=== PATIENT | male | born 2000 | race Two or more races ===

== ENCOUNTER 2023-04-10 08:48 | Emergency (ER) | payer MEDICAID, SELFPAY ==
[2023-04-10] VITALS (19 sets, daily range): BP systolic 110–176; BP diastolic 70–102; PULSE 59–97; RESP 12–26; TEMP 36.9; O2SAT 86–99; BMI 32.5
--- NOTE | 2023-04-10 08:58 | ED_ITS ---
HPI - Chest Pain General Chief Complaint: Chest Pain Stated Complaint: CHEST PAIN Time Seen by Provider: 04/10/23 08:58 Source: patient Mode of arrival: walk-in Limitations: no limitations History of Present Illness HPI narrative: Patient presents to emergency department complaining of left-sided chest pain and left upper abdominal pain. States the pain started intermittently ongoing for 4 days. He was seen at [facility] had blood work and abdomen CT scan which showed some enlarged lymph nodes. Patient was diagnosed with muscle strain and given a prescription for ibuprofen 800, Lidoderm patch, and cyclobenzaprine 10 mg tablets. Patient states yesterday he placed the patch on and he removed it he was pain-free at the time. He also took ibuprofen. He has not taken the Flexeril. He states this morning the pain started again and has not let up. Pain is not related to exertion, breath, or movement. Pain is not related to any food intake. He denies any nausea, vomiting, diarrhea, or c onstipation. Denies any hematuria, dysuria. He denies any trauma.He states he has no previous diagnosis of anxiety or depression. Patient denies any feverr, chills, or cough. States she is here because the pain got bad and he was told to return to the emergency department if it got bad however he did not feel like driving back to [facility] and also he does not think that muscle strength in cause pain this bad. Pain is like a cramp in the left upper quadrant intermittently tightness.Patient does not have a history of heart disease or thrombotic embolic disease. He denies any lower extremity edema, cramping. Related Data Home Medications Medication Instructions Recorded Confirmed No Known Home Medications 04/10/23 04/10/23 Allergies Allergy/AdvReac Type Severity Reaction Status Date / Time No Known Drug Allergies Allergy Verified 04/10/23 08:59 Review of Systems ROS Status of ROS 10 or more systems reviewed and unremarkable except as noted in history and below [facility] Social History Smoking status: Never smoker Exam Narrative Exam Narrative: Nurses notes and vital signs reviewed and patient is not hypoxic. General: Nontoxic, Well-appearing and in no apparent distress. Skin: Warm, dry, no pallor noted. No Rash Head: Normocephalic, atraumatic. Neck: Supple, non-tender. Eye: Pupils are equal, round and EOMI. No scleral icterus. Ears, Nose, Mouth, and Throat: TM clear, no posterior oropharynx erythema or nasal mucosal hypertrophy, uvula is mid-line Oral mucosa is moist Cardiovascular: Regular Rate and Rhythm without murmur, gallop or rub. Respiratory: No accessory muscle use or respiratory distress. Lungs are clear to auscultation, no wheezing, rales or rhonchi Chest Wall: Rib 8 and 9 tenderness to palpation on the left lateral, no crepitance, no step-offs, no ecchymosis, no erythema, no rash. Back: No midline thoracic or lumbar vertebral tenderness. No CVA tenderness Musculoskeletal: normal ROM, no calf or popliteal tenderness, no lower ext remity edema/swelling GI: Abdomen is soft, non-distended. Normal bowel sounds. No masses appreciated. No tenderness to palpation. No rebound, guarding, or rigidity noted. Neurological: A&O x4. No cranial nerve dysfunction observed. No truncal ataxia. Moves all extremities. Sensation intact. Psychiatric: Cooperative and interactive. Normal mood and affect. Constitutional Vital Signs, click to edit/add: Last Vital Signs Temp 98.4 F 04/10/23 08:53 Pulse 85 04/10/23 11:01 Resp 23 04/10/23 11:01 BP 130/70 04/10/23 11:01 Pulse Ox 99 04/10/23 11:01 O2 Del Method Room Air 04/10/23 08:59 Course Vital Signs Vital signs: Vital Signs Temperature 98.4 F 04/10/23 08:53 Pulse Rate 74 04/10/23 08:53 Respiratory Rate 16 04/10/23 08:53 Blood Pressure 132/73 04/10/23 08:53 Pulse Oximetry 98 04/10/23 08:53 Oxygen Delivery Method Room Air 04/10/23 08:53 Temperature 98.4 F 04/10/23 08:53 Pulse Rate 85 04/10/23 11:01 Respiratory Rate 23 04/10/23 11:01 Blood Pressure 130/70 04/10/23 11:01 Pulse Oximetry 99 04/10/23 11:01 Oxygen Delivery Method Room Air 04/10/23 08:59 MDM - Chest Pain MDM Narrative Medical decision making narrative: Records from [facility] were reviewed. Patient had blood work, chest x-ray d- dimer and EKG are all unremarkable. The patient was given Toradol which slightly helped his symptoms but states the pain did not completely go away. Patient stat es she will continue to take the Motrin, Flexeril, and a Lidoderm patch at home. At this time the patient is without objective evidence of an acute process requiring hospitalization or inpatient management. The patient has remained hemodynamically stable. No additional indication for emergent studies at this time. I answered all questions. Discussed discharge instructions including standard anticipatory guidance and what should prompt a return to the emergency department, including if they get worse are not getting better or develops any new or concerning symptoms. I've given them specific time frame in which to follow-up, and who to follow-up with. The patient demonstrates understanding. Patient is nontoxic and stable for discharge with outpatient follow-up. This note was created with the assistance of a speech recognition program. Although the intention is to generate documents that actually reflects the content of the visit, no guarantees can be provided that every mistake has been identified and corrected by editing. Differential Diagnosis Differential diagnosis: Likely fracture of rib, pneumothorax, atypical chest p ain, st elevation myocardial infarction, costochondritis and chest pain Medical Records Data Attestation: I reviewed the patient's medical records. Lab Data Attestation: I reviewed the patient's lab results. Labs: Lab Results 04/10/23 Range/Units 09:39 WBC 10.8 (4.0-11.0) 10^3/uL RBC 5.17 (4.70-6.10) 10^6/uL Hgb 15.1 (14.0-18.0) g/dL Hct 42.5 (42.0-54.0) % MCV 82.2 (80.0-94.0) fL MCH 29.2 (25.9-34.0) pg MCHC 35.5 H (29.9-35.2) g/dL RDW 13.2 (11.0-15.0) % Plt Count 234 (150-450) 10^3/uL MPV 9.5 (9.5-13.5) fL Neut % (Auto) 61.7 (43.0-75.0) % Lymph % (Auto) 28.5 (20.5-60.0) % [place] % (Auto) 8.3 (1.7-12.0) % Eos % (Auto) 0.6 L (0.9-7.0) % Baso % (Auto) 0.6 (0.2-2.0) % Neut # (Auto) 6.7 H (1.4-6.5) 10^3/uL Lymph # (Auto) 3.1 (1.2-3.8) 10^3/uL [place] # (Auto) 0.9 H (0.3-0.8) 10^3/uL Eos # (Auto) 0.1 (0.0-0.7) 10^3/uL Baso # (Auto) 0.1 (0.0-0.1) 10^3/uL Abs Immat Gran (auto) 0.03 (0.00-0.03) 10^3/uL Imm/Tot Granulo (auto) 0.3 (0.0-0.5) % D-Dimer 0.20 (<=0.59) mg/L FEU Sodium 138 (136-145) mmol/L Potassium 3.4 L (3.5-5.1) mmol/L Chloride 100 (98-107) mmol/L Carbon Dioxide 29.0 (21.0-32.0) mmol/L Anion Gap 12.4 BUN 7.0 (7.0-18.0) mg/dL Creatinine 1.03 (0.70-1.30) mg/dL Est GFR ( Amer) >60 (>=60) Est GFR (Non-Af Amer) >60 (>=60) BUN/Creatinine Ratio 6.8 Glucose 91 (74-106) mg/dL Calcium 8.8 (8.5-10.1) mg/dL Total Bilirubin 0.5 (0.2-1.0) mg/dL AST 20 (15-37) U/L ALT 54 (16-63) U/L Alkaline Phosphatase 87 (46-116) U/L Troponin I High Sens 4.4 (4.0-76.1) pg/mL Total Protein 7.7 (6.4-8.2) g/dL Albumin 4.5 (3.4-5.0) g/dL Globulin 3.2 g/dL Albumin/Globulin Ratio 1.4 ECG Data Attestation: I personally reviewed and interpreted this ECG as follows: Interpretation: Sinus rhythm 74 bpm. T-wave inversion in lead 3, no acute ischemic changes. Heart Score History: Slightly/Non-Suspicious ECG: Normal Age: <45 years Risk Factors: No Risk Factors Troponin: <Normal Limit Total Heart Score Recommendations & Risks:: 0 Discharge Plan Discharge Chief Complaint: Chest Pain Clinical Impression: Atypical chest pain Patient Disposition: Home, Self-Care Time of Disposition Decision: 10:49 Condition: Good Mode of Transportation: Private Vehicle Prescriptions / Home Meds: No Action No Known Home Medications Instructions: Chest Pain (ED) Stand Alone Forms: Portal Instructions Referrals: DREAD NG APRN [Physician] - 1 week Physician,Non-Staff, MD [Primary Care Provider] - 1 week Discharge Date/Time: 04/10/23 11:10
--- NOTE | 2023-04-10 08:59 | ECG_ITS ---
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
--- NOTE | 2023-04-10 08:59 | XR_ITS ---
The [address] [address] Patient Name: JACK MATTHEWS MRN: [id number] date: 2000 Sex: M Assigned Patient Location: ER Current Patient Location: ED.MAIN Accession/Order Number: [id number] Exam Date: 04/10/2023 09:08 Report Date: 04/10/2023 09:21 At the request of: NIKKY MORTENSEN Procedure: XR chest 1V EXAM: XR chest 1V HISTORY: . cp . COMPARISON: None. TECHNIQUE: Single view of the chest FINDINGS: Heart and vascularity are unremarkable. Lungs are free of focal infiltrates. EKG leads overlie the chest. XR/XR chest 1V IMPRESSION: No acute heart or lung disease identified. Electronically authenticated by: ELLIOTT LUGO Date: 04/10/2023 09:21
[2023-04-10] MEDS: KETOROLAC TROMETHAMINE 30 MG/ML VIAL IVP (09:36)
[2023-04-10 09:55] LABS: Basophils Absolute Auto 0.1 10^3/uL (0.0-0.1); Basophils Percent Auto 0.6 % (0.2-2.0); Eosinophils Absolute Auto 0.1 10^3/uL (0.0-0.7); Eosinophils Percent Auto 0.6 % (0.9-7.0); Hematocrit 42.5 % (42.0-54.0); Hemoglobin 15.1 g/dL (14.0-18.0); Immature Granulocytes Abs Auto 0.03 10^3/uL (0.00-0.03); Immature Granulocytes Pct Auto 0.3 % (0.0-0.5); Lymphocytes Absolute Auto 3.1 10^3/uL (1.2-3.8); Lymphocytes Percent Auto 28.5 % (20.5-60.0); Mean Corpuscular HGB Conc 35.5 g/dL (29.9-35.2); Mean Corpuscular Hemoglobin 29.2 pg (25.9-34.0); Mean Corpuscular Volume 82.2 fL (80.0-94.0); Mean Platelet Volume 9.5 fL (9.5-13.5); Monocytes Absolute Auto 0.9 10^3/uL (0.3-0.8); Monocytes Percent Auto 8.3 % (1.7-12.0); Neutrophils Absolute Auto 6.7 10^3/uL (1.4-6.5); Neutrophils Percent Auto 61.7 % (43.0-75.0); Platelet Count 234 10^3/uL (150-450); Red Blood Count 5.17 10^6/uL (4.70-6.10); Red Cell Distribution Width 13.2 % (11.0-15.0); White Blood Count 10.8 10^3/uL (4.0-11.0)
[2023-04-10 10:07] LABS: Alanine Aminotransferase 54 U/L (16-63); Albumin Globulin Ratio 1.4; Albumin Level 4.5 g/dL (3.4-5.0); Alkaline Phosphatase 87 U/L (46-116); Anion Gap 12.4; Aspartate Amino Transferase 20 U/L (15-37); BUN Creatinine Ratio 6.8; Bilirubin Total 0.5 mg/dL (0.2-1.0); Calcium 8.8 mg/dL (8.5-10.1); Chloride 100 mmol/L (98-107); Estimated GFR (African America >60 (>=60); Estimated GFR (Non-African Ame >60 (>=60); Globulin 3.2 g/dL; Glucose 91 mg/dL (74-106); Potassium 3.4 mmol/L (3.5-5.1); Sodium 138 mmol/L (136-145); Total Protein 7.7 g/dL (6.4-8.2)
[2023-04-10 10:10] LABS: Troponin I High Sensitivity 4.4 pg/mL (4.0-76.1)
== END 2023-04-10 11:10 | disposition home or self-care (01) ==
PROVIDERS: Emergency Provider Emergency Medicine
DX: R07.89 Other chest pain (principal)
CPT/HCPCS: 36415; 71045; 80053; 84484; 85025; 85378; 93005; 96374; 99285

== ENCOUNTER 2023-09-18 15:16 | Emergency (ER) | payer MEDICAID, SELFPAY ==
[2023-09-18 15:21] VITALS: BP 123/81; PULSE 81; RESP 16; TEMP 36.8; O2SAT 98; BMI 30.1
--- NOTE | 2023-09-18 15:33 | ED.EXTPRO1 ---
HPI - Extremity Problem General Chief complaint: Extremity Problem, Nontraumatic Stated complaint: Lower Extremity Pain Time Seen by Provider: 09/18/23 15:16 Source: patient Mode of arrival: walk-in Limitations: no limitations History of Present Illness HPI Narrative: 23-year-old male presents to the Emergency Room with concerns of progressive right foot pain. 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 Has noted pain in the mid arch of his foot radiating up the inside of his ankle. Patient denies any injury or trauma. Denies fever or illness. patient notes he has a history of flat feet, at one time wore prominent arch supports, but has not worn them for quite some time. He denies any recent heavy activity such as running or impact. Patient notes symptoms are worse with activity and prolonged standing. Patient appears in no distress. patient states he wore a boot on the foot at one point as a child to try and correct his arches. Left foot improved, right did not at that time. MD Complaint: Reports extremity pain and joint pain Onset (ago): minute(s) Pain Consistency: Denies constant Location: Reports right Radiation: Reports other (medial ankle) Related Data Previous Rx's Medication Instructions Recorded prednisone 20 mg tablet 20 mg PO BID 5 days #10 tabs 09/18/23 Allergies Allergy/AdvReac Type Severity Reaction Status Date / Time No Known Drug Allergies Allergy Verified 09/18/23 15:21 Review of Systems ROS Constitutional Denies: fever or chills Eyes Denies: change in vision Ears, nose, mouth, and throat Denies: throat pain or neck pain Cardiovascular Denies: chest pain or palpitations Respiratory Denies: shortness of breath or cough Gastrointestinal Denies: abdominal pain, nausea or vomiting Musculoskeletal Reports: joint pain; Denies: joint swelling Integumentary/Breast Denies: rash Neurological Denies: numbness in extremities Hematologic/Lymphatic Denies: easy bruising PFSH PFSH Social History Smoking status: Never smoker Exam Narrative Exam Narrative: Vital signs reviewed and nurse's notes. The patient is not hypoxic. General: Alert, no acute distress, patient resting comfortably Skin: warm, intact, no pallor noted Head: Normocephalic, atraumatic Eye: Normal conjunctiva, no exudates Respiratory: No acute distress, lungs CTA Musculoskeletal: No evidence of deformity to the right foot or ankle, mild pes planus.. There is no swelling. There is no ecchymosis. No erythema or warmth noted. DP and PT pulses are intact 2+. Normal sensation, normal capillary refill less than 2 seconds. There is no cyanosis or mottling noted. The patient has tenderness to medial arch and dorsal aspect of the foot, pain does radiate from the medial arch along the posterior tibial tendon. Positive pain with attempted he'll rise on the right, able to double heal will rise without difficulty. No Achilles or calcaneal tenderness. The patient has no laxity with anterior drawer. The patient was able to flex and extend ankle without pain. No tenderness noted to the 5th MT, lateral ankle, knee joint or proximal fibular area. The patient has no shortening or rotation noted to the bilateral lower extremities. Neurological: alert and orient x4, normal sensory and motor observed. Psychiatric: Cooperative Constitutional Vital Signs, click to edit/add: Last Vital Signs Temp 98.3 F 09/18/23 15:21 Pulse 81 09/18/23 15:21 Resp 16 09/18/23 15:21 BP 123/81 09/18/23 15:21 Pulse Ox 98 09/18/23 15:21 O2 Del Method Room Air 09/18/23 15:21 Course Vital Signs Vital signs: Vital Signs Temperature 98.3 F 09/18/23 15:21 Pulse Rate 81 09/18/23 15:21 Respiratory Rate 16 09/18/23 15:21 Blood Pressure 123/81 09/18/23 15:21 Pulse Oximetry 98 09/18/23 15:21 Oxygen Delivery Method Room Air 09/18/23 15:21 Temperature 98.3 F 09/18/23 15:21 Pulse Rate 81 09/18/23 15:21 Respiratory Rate 16 09/18/23 15:21 Blood Pressure 123/81 09/18/23 15:21 Pulse Oximetry 98 09/18/23 15:21 Oxygen Delivery Method Room Air 09/18/23 15:21 MDM - Extremity (Nontraumatic) MDM Narrative Medical decision making narrative: discussed patient's presentation, acute on chronic symptoms. Patient wearing tennis shoes that he wears at work with minimal to no arch support. WWe discussed the need for insoles in his shoes and Stretching, patient functioning too well for boot at this time. We discussed follow-up with podiatry. An x-ray was offered today and patient declines as there was no injury or trauma. I feel stress fracture is not likely given clinical picture. no evidence of gout. We discussed location of pain and patient will try [id number] insoles, prednisone taper and Voltaren gel. He is agreeable to follow-up with podiatry clinic given his prior needs. The patient is to followup with podiatry in next 2-3 days or to return to the emergency department should any of the signs or symptoms worsen or new symptoms develop. Patient had questions answered. The patient agrees with the following Diagnosis and Treatment plan and the patient will be discharged home. Discharge Plan Discharge Chief Complaint: Extremity Problem, Nontraumatic Clinical Impression: Arch pain of right foot, Posterior tibial tendinitis of right lower extremity, Pes planus Patient Disposition: Home, Self-Care Time of Disposition Decision: 15:34 Condition: Good Mode of Transportation: Private Vehicle Prescriptions / Home Meds: New prednisone 20 mg tablet 20 mg PO BID 5 Days Qty: 10 0RF Instructions: Tendinitis (ED), Flatfoot (DC) Stand Alone Forms: Portal Instructions Referrals: Drew Perry DPM [Physician] - As soon as possible Discharge Date/Time: 09/18/23 15:44
== END 2023-09-18 15:44 | disposition home or self-care (01) ==
LOC: ER 15:38
PROVIDERS: Emergency Provider Emergency Medicine
DX: M79.671 Pain in right foot (principal); M76.821 Posterior tibial tendinitis, right leg; M21.41 Flat foot [pes planus] (acquired), right foot
CPT/HCPCS: 99283

== ENCOUNTER 2023-12-01 19:05 | Emergency (ER) | payer MEDICAID, SELFPAY ==
[2023-12-01 19:11] VITALS: BP 143/82; PULSE 91; TEMP 36.7; O2SAT 99; BMI 31.6
--- OUTSIDE RECORDS SUMMARY | 2023-12-01 19:14 | XMS_ITS | CCD ---
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 ETCHER MACHINE CARRI KIM M.D. Performed By: #### H EPATIC, BMP, CBC, LIPASE ####[address] Lipase [Enzymatic activity/v olume] in Serum or PlasmaOrdered By: Jeff Birmingham on 04-06-2023 Lipase [Catalytic activity/Vol] 20.0 U/L 11.0-82.0 [facility] Lymphocytes Auto (Bld) [#/Vo l]Ordered By: Jfef Birmingham on 04-06-2023 Lymphocytes (Bld) [#/Vol] 3.1 10*3/uL 1.00-4.8 [facility] Lymphocytes/100 WBC Auto (Bl d)Ordered By: Jeff Birmingham on 04-06-2023 Lymphocytes/100 WBC (Bld) 30.6 % . [facility] MCH Auto (RBC) [Entitic mass ]Ordered By: Jeff Birmingham on 04-06-2023 MCH (RBC) [Entitic mass] 29.0 pg 27.5-35.2 [facility] MCHC Auto (RBC) [Mass/Vol]Or dered By: Jeff Birmingham on 04-06-2023 MCHC (RBC) [Mass/Vol] 35.3 g/dL 32.5-35.6 [facility] MCV Auto (RBC) [Entitic vol] Ordered By: Jeff Birmingham on 04-06-2023 MCV (RBC) [Entitic vol] 81.9 fL 83.5-101 [facility] Monocyte distribution width [Entitic volume] in Blood by AutomatedOrdered By: Jeff Birmingham on 04-06-2023 Monocyte distribution width Auto (Bld) [Entitic vol] 15.06 % 0.00-20.00 [facility] Monocytes Auto (Bld) [#/Vol] Ordered By: Jeff Birmingham on 04-06-2023 Monocytes (Bld) [#/Vol] 1.0 10*3/uL 0.0-0.8 [facility] Monocytes/100 WBC Auto (Bld) Ordered By: Jeff Birmingham on 04-06-2023 Monocytes/100 WBC (Bld) 9.5 % . [facility] Neutrophils Auto (Bld) [#/Vo l]Ordered By: Jeff Birmingham on 04-06-2023 Neutrophils (Bld) [#/Vol] 5.9 10*3/uL 1.8-7.7 [facility] Neutrophils/100 WBC Auto (Bl d)Ordered By: Jeff Birmingham on 04-06-2023 Neutrophils/100 WBC (Bld) 57.9 % . [facility] No Panel InformationOrdered By: Jeff Birmingham on 04-06-2023 Estimated GFR (CKD-EPI) > 60.0 mL/Min [facility] Creatinine Clearance (Chem 149.34 [facility] Nucleated erythrocytes [Pres ence] in Blood by Automated countOrdered By: Jeff Birmingham on 04-06-2023 Nucleated RBC Auto Ql (Bld) 0.1 /100{WBC} 0-0.5 [facility] Platelet mean volume Auto (B ld) [Entitic vol]Ordered By: Jeff Birmingham on 04-06-2023 Platelet mean volume (Bld) [Entitic vol] 8.0 fL 6.6-10.1 [facility] Platelets Auto (Bld) [#/Vol] Ordered By: Jeff Birmingham on 04-06-2023 Platelets (Bld) [#/Vol] 198 10*3/uL 150-450 [facility] Potassium [Moles/volume] in Serum or PlasmaOrdered By: Jeff Birmingham on 04-06-2023 Potassium [Moles/Vol] 3.7 mmol/L 3.5-5.1 [facility] Protein [Mass/volume] in Ser um or PlasmaOrdered By: Jeff Birmingham on 04-06-2023 Protein [Mass/Vol] 7.2 g/dL 6.4-8.9 [facility] RBC Auto (Bld) [#/Vol]Ordere d By: Jeff Birmingham on 04-06-2023 RBC (Bld) [#/Vol] 5.14 10*6/uL 3.90-5.60 [facility] Serum or plasma albumin/glob ulin mass ratioOrdered By: Jeff Birmingham on 04-06-2023 Albumin/Globulin [Mass ratio] 1.9 {ratio} [facility] Serum or plasma anion gap de terminationOrdered By: Jeff Birmingham on 04-06-2023 Anion gap [Moles/Vol] 9.4 mmol/L 6.0-15.0 [facility] Serum or plasma non-glucuron idated bilirubin measurement (mass/volume)Ordered By: Jeff Birmingham on 04-06-2023 Bilirubin.indirect [Mass/Vol] 0.5 mg/dL [facility] Sodium [Moles/volume] in Ser um or PlasmaOrdered By: Jeff Birmingham on 04-06-2023 Sodium [Moles/Vol] 139 mmol/L 136-145 [facility] Urea nitrogen [Mass/volume] in Serum or PlasmaOrdered By: Jeff Birmingham on 04-06-2023 Urea nitrogen [Mass/Vol] 7 mg/dL 7-25 [facility] WBC Auto (Bld) [#/Vol]Ordere d By: Jeff Birmingham on 04-06-2023 WBC (Bld) [#/Vol] 10.2 10*3/uL 4.1-10.5 [facility] US venous duplex LE RTon US venous duplex LE RT [facility] [address] Ultrasound Report Signed Patient: Basilio Person MR#: [id number] : 2000 Acct:[id number] Age/Sex: 22 / M ADM Date: 02/03/23 Loc: ER Room: Type: [facility] ER Attending Dr: Ordering Provider: Katelyn Stephen APRN Date of Service: 02/03/23 US/US venous duplex LE RT: calf pain Copies to: Katelyn Stephen APRN RIGHT LOWER EXTREMITY VENOUS DUPLEX INDICATION: Right leg pain Unilateral right lower extremity venous duplex Doppler study was obtained utilizing B-mode, color- flow and spectral Doppler. FINDINGS: The right common femoral, femoral, and popliteal veins showed adequate compressibility, color-flow and augmentation. The right posterior tibial and peroneal veins were compressible, as w ell as proximal greater saphenous vein. The contralateral left common femoral vein was compressible with color-flow and augmentation. US/US venous duplex LE RT IMPRESSION: NO EVIDENCE OF DEEP VENOUS THROMBOSIS IN THE RIGHT LOWER EXTREMITY. NO SUPERFICIAL THROMBOPHLEBITIS WAS NOTED. Impression dictated by: Nehemiah Camejo M.D.02/04/2023 8:41 AM Dictation Location: [place] [address] Tech: Cee Dasilva Transcribed By: TANK 02/04/23840 Dictated By: Nehemiah Camejo MD 02/04/23840 Signed By: 02/04/23840 [facility] XR knee RT 4V*on 02-04-2023 XR knee RT 4V* [facility] [address] XRay Report Signed Patient: Basilio Person MR#: [id number] : 2000 Acct:[id number] Age/Sex: 22 / M ADM Date: 02/03/23 Loc: ER Room: Type: [facility] ER Attending Dr: Copies to: Katelyn Stephen APRN Ordering Provider: Katelyn Stephen APRN Date of Service: 02/03/23 XR/XR knee RT 4V*: Extremity Injury, Lower RIGHT KNEE - 4 views CLINICAL HISTORY: Right leg pain below the knee intermittently when ambulating. No injury. COMPARISON: 02/26/2008 TECHNIQUE: AP, lateral and both oblique views were obtained. There is no evidence of fracture or dislocation. There are no significant soft tissue abnormalities. XR/XR knee RT 4V* IMPRESSION: NO ACUTE BONY FINDINGS. Impression dictated by: Park Champagne M.D.02/04/2023 7:38 AM Dictation Location: [place] [address] Transcribed By: TANK 02/04/23 0738 Dictated By: Park Champagne MD 02/04/23 0737 Signed By: 02/04/23 0738 [facility] Activated partial thrombopla stin time (aPTT) in platelet poor plasma by coagulation aOrdered By: Venkat Palencia on 12-18-2022 aPTT Coag (PPP) [Time] 28.5 s 25.1-36.5 [facility] Alanine aminotransferase [En zymatic activity/volume] in Serum or PlasmaOrdered By: Venkat Palencia on 12-18-2022 ALT [Catalytic activity/Vol] 32 U/L 7-52 [facility] Albumin [Mass/volume] in Ser um or Plasma by Bromocresol green (BCG) dye binding methoOrdered By: Venkat Palencia on 12-18-2022 Albumin BCG dye [Mass/Vol] 4.6 g/dL 3.5-5.7 [facility] Alkaline phosphatase [Enzyma tic activity/volume] in Serum or PlasmaOrdered By: Venkat Palencia on 12-18-2022 ALP [Catalytic activity/Vol] 74 U/L 34-104 [facility] Aspartate aminotransferase [ Enzymatic activity/volume] in Serum or PlasmaOrdered By: Venkat Palencia on 12-18-2022 AST [Catalytic activity/Vol] 18 U/L 13-39 [facility] B-Type Natriuretic Peptideon 12-18-2022 Natriuretic peptide B (Bld) [Mass/Vol] 9.0 pg/mL Normal 5-100 [facility] Comment on above: Result Comment: PERF ORMED BY: [facility] [address] [place] [address] PATHOLOGIST ETCHER MACHINE CARRI KIM M.D. Performed By: #### P T, BNP, CBC, PTT, CK, DDIMER, HS TROP, CMP ####[facility] [address] [place] [address] [facility] Basophils Auto (Bld) [#/Vol] Ordered By: Venkat Palencia on 12-18-2022 Basophils (Bld) [#/Vol] 0.1 10*3/uL 0.0-0.2 [facility] Basophils/100 WBC Auto (Bld) Ordered By: Venkat Palencia on 12-18-2022 Basophils/100 WBC (Bld) 0.9 % . [facility] Bilirubin.total [Mass/volume ] in Serum or PlasmaOrdered By: Venkat Palencia on 12-18-2022 Bilirubin [Mass/Vol] 0.8 mg/dL 0.3-1.0 [facility] Calcium [Mass/volume] in Ser um or PlasmaOrdered By: Venkat Palencia on 12-18-2022 Calcium [Mass/Vol] 8.6 mg/dL 8.6-10.3 [facility] Carbon dioxide, total [Moles /volume] in Serum or PlasmaOrdered By: Venkat Palencia on 12-18-2022 CO2 [Moles/Vol] 25.9 mmol/L 21.0-31.0 [facility] Chloride [Moles/volume] in S valerie or PlasmaOrdered By: Venkat Palencia on 12-18-2022 Chloride [Moles/Vol] 109 mmol/L 98-107 [facility] Complete Blood Count Auto Di ffon 12-18-2022 Basophils (Bld) [#/Vol] 0.1 10*3/uL Normal 0.0-0.2 [facility] Comment on above: Result Comment: PERF ORMED BY: [place] [address] PATHOLOGIST ETCHER MACHINE CARRI KIM M.D. Performed By: #### P T, BNP, CBC, PTT, CK, DDIMER, HS TROP, CMP #### [address] Basophils/100 WBC (Bld) 0.9 % Normal . [facility] Comment on above: Performed By: #### P T, BNP, CBC, PTT, CK, DDIMER, HS TROP, CMP #### [address] Eosinophils (Bld) [#/Vol] 0.1 10*3/uL Normal 0.0-0.45 [facility] Comment on above: Performed By: #### P T, BNP, CBC, PTT, CK, DDIMER, HS TROP, CMP #### [address] Eosinophils/100 WBC (Bld) 0.8 % Normal . [facility] Comment on above: Performed By: #### P T, BNP, CBC, PTT, CK, DDIMER, HS TROP, CMP #### [facility] [address] [place] [address] Erythrocyte distribution width (RBC) [Ratio] 13.7 % Normal 12.0-14.8 [facility] Comment on above: Performed By: #### P T, BNP, CBC, PTT, CK, DDIMER, HS TROP, CMP #### [address] Hematocrit (Bld) [Volume fraction] 40.9 % Normal 38.8-50.0 [facility] Comment on above: Performed By: #### P T, BNP, CBC, PTT, CK, DDIMER, HS TROP, CMP #### [address] Hemoglobin (Bld) [Mass/Vol] 14.1 g/dL Normal 13.0-17.0 [facility] Comment on above: Performed By: #### P T, BNP, CBC, PTT, CK, DDIMER, HS TROP, CMP #### [address] Lymphocytes (Bld) [#/Vol] 2.2 10*3/uL Normal 1.00-4.8 [facility] Comment on above: Performed By: #### P T, BNP, CBC, PTT, CK, DDIMER, HS TROP, CMP #### [address] Lymphocytes/100 WBC (Bld) 21.2 % Normal . [facility] Comment on above: Performed By: #### P T, BNP, CBC, PTT, CK, DDIMER, HS TROP, CMP #### [address] MCH (RBC) [Entitic mass] 28.5 pg Normal 27.5-35.2 [facility] Comment on above: Performed By: #### P T, BNP, CBC, PTT, CK, DDIMER, HS TROP, CMP #### [address] MCV (RBC) [Entitic vol] 82.4 fL Low 83.5-101 [facility] Comment on above: Performed By: #### P T, BNP, CBC, PTT, CK, DDIMER, HS TROP, CMP #### [address] Mean Corpuscular HGB Conc 34.5 g/dL Normal 32.5-35.6 [facility] Comment on above: Performed By: #### P T, BNP, CBC, PTT, CK, DDIMER, HS TROP, CMP #### [place] [address] [place] Monocytes (Bld) [#/Vol] 0.9 10*3/uL High 0.0-0.8 [facility] Comment on above: Performed By: #### P T, BNP, CBC, PTT, CK, DDIMER, HS TROP, CMP #### [place] [address] [place] Monocytes/100 WBC (Bld) 15.92 % Normal 0.00-20.00 [facility] Comment on above: Performed By: #### P T, BNP, CBC, PTT, CK, DDIMER, HS TROP, CMP #### [address] Monocytes/100 WBC (Bld) 8.9 % Normal . [facility] Comment on above: Performed By: #### P T, BNP, CBC, PTT, CK, DDIMER, HS TROP, CMP #### [address] Neutrophils (Bld) [#/Vol] 7.2 10*3/uL Normal 1.8-7.7 [facility] Comment on above: Performed By: #### P T, BNP, CBC, PTT, CK, DDIMER, HS TROP, CMP #### [place] [address] [place] Neutrophils/100 WBC (Bld) 68.2 % Normal . [facility] Comment on above: Performed By: #### P T, BNP, CBC, PTT, CK, DDIMER, HS TROP, CMP #### [place] [address] [place] NRBC% 0.1 /100{WBC} Normal 0-0.5 [facility] Comment on above: Performed By: #### P T, BNP, CBC, PTT, CK, DDIMER, HS TROP, CMP #### [place] [address] [place] Platelet mean volume (Bld) [Entitic vol] 7.5 fL Normal 6.6-10.1 [facility] Comment on above: Performed By: #### P T, BNP, CBC, PTT, CK, DDIMER, HS TROP, CMP #### [facility] [address] Platelets (Bld) [#/Vol] 203 10*3/uL Normal 150-450 [facility] Comment on above: Performed By: #### P T, BNP, CBC, PTT, CK, DDIMER, HS TROP, CMP #### [facility] [address] RBC (Bld) [#/Vol] 4.97 10*6/uL Normal 3.90-5.60 [facility] Comment on above: Performed By: #### P T, BNP, CBC, PTT, CK, DDIMER, HS TROP, CMP #### [address] WBC (Bld) [#/Vol] 10.6 10*3/uL High 4.1-10.5 [facility] Comment on above: Performed By: #### P T, BNP, CBC, PTT, CK, DDIMER, HS TROP, CMP #### [facility] [address] [place] [address] Comprehensive Metabolic Pane maren 12-18-2022 Albumin [Mass/Vol] 4.6 g/dL Normal 3.5-5.7 [facility] Comment on above: Performed By: #### P T, BNP, CBC, PTT, CK, DDIMER, HS TROP, CMP ####[facility] Albumin/Globulin [Mass ratio] 2.0 {ratio} Normal [facility] Comment on above: Performed By: #### P T, BNP, CBC, PTT, CK, DDIMER, HS TROP, CMP ####[facility] ALP [Catalytic activity/Vol] 74 U/L Normal 34-104 [facility] Comment on above: Performed By: #### P T, BNP, CBC, PTT, CK, DDIMER, HS TROP, CMP ####[place] [id number] [facility] ALT [Catalytic activity/Vol] 32 U/L Normal 7-52 [facility] Comment on above: Performed By: #### P T, BNP, CBC, PTT, CK, DDIMER, HS TROP, CMP ####[place] [id number] [facility] Anion gap [Moles/Vol] 9.9 mmol/L Normal 6.0-15.0 [facility] Comment on above: Performed By: #### P T, BNP, CBC, PTT, CK, DDIMER, HS TROP, CMP ####[address] AST [Catalytic activity/Vol] 18 U/L Normal 13-39 [facility] Comment on above: Performed By: #### P T, BNP, CBC, PTT, CK, DDIMER, HS TROP, CMP ####[place] [id number] [facility] Bilirubin [Mass/Vol] 0.8 mg/dL Normal 0.3-1.0 [facility] Comment on above: Performed By: #### P T, BNP, CBC, PTT, CK, DDIMER, HS TROP, CMP ####[place] [id number] [facility] Calcium [Mass/Vol] 8.6 mg/dL Normal 8.6-10.3 [facility] Comment on above: Performed By: #### P T, BNP, CBC, PTT, CK, DDIMER, HS TROP, CMP ####[place] [id number] [facility] Chloride [Moles/Vol] 109 mmol/L High 98-107 [facility] Comment on above: Performed By: #### P T, BNP, CBC, PTT, CK, DDIMER, HS TROP, CMP ####[place] [id number] [facility] CO2 [Moles/Vol] 25.9 mmol/L Normal 21.0-31.0 [facility] Comment on above: Performed By: #### P T, BNP, CBC, PTT, CK, DDIMER, HS TROP, CMP ####[address] Creatinine [Mass/Vol] 0.89 mg/dL Normal 0.70-1.30 [facility] Comment on above: Performed By: #### P T, BNP, CBC, PTT, CK, DDIMER, HS TROP, CMP ####[address] Creatinine Clr Calc Pharmacy 151.88 [facility] Comment on above: Result Comment: PERF ORMED BY: [facility] [address] [place] [address] PATHOLOGIST ETCHER MACHINE CARRI KIM M.D. Performed By: #### P T, BNP, CBC, PTT, CK, DDIMER, HS TROP, CMP ####[address] GFR/1.73 sq M.predicted MDRD (S/P/Bld) [Vol rate/Area] mL/min/{1.73_m2} [facility] Comment on above: Performed By: #### P T, BNP, CBC, PTT, CK, DDIMER, HS TROP, CMP ####[address] Globulin (S) [Mass/Vol] 2.3 g/dL [facility] Comment on above: Performed By: #### P T, BNP, CBC, PTT, CK, DDIMER, HS TROP, CMP ####[address] Glucose [Mass/Vol] 87 mg/dL Normal 70-100 [facility] Comment on above: Result Comment: [place] Glucose Reference Range is dependent on time and content of last meal. Glucose of more than 200 mg/dL in a nonstressed, ambulatory subject supports the diagnosis of Diabetes Mellitus. ADA recommended reference range Performed By: #### P T, BNP, CBC, PTT, CK, DDIMER, HS TROP, CMP ####[place] [id number] [facility] Potassium [Moles/Vol] 3.8 mmol/L Normal 3.5-5.1 [facility] Comment on above: Performed By: #### P T, BNP, CBC, PTT, CK, DDIMER, HS TROP, CMP ####[place] [id number] [facility] Protein [Mass/Vol] 6.9 g/dL Normal 6.4-8.9 [facility] Comment on above: Performed By: #### P T, BNP, CBC, PTT, CK, DDIMER, HS TROP, CMP ####[address] Sodium [Moles/Vol] 141 mmol/L Normal 136-145 [facility] Comment on above: Performed By: #### P T, BNP, CBC, PTT, CK, DDIMER, HS TROP, CMP ####[place] [id number] [facility] Urea nitrogen [Mass/Vol] 11 mg/dL Normal 7-25 [facility] Comment on above: Performed By: #### P T, BNP, CBC, PTT, CK, DDIMER, HS TROP, CMP ####[place] [id number] [facility] Creatine Kinaseon 12-18-2022 CK [Catalytic activity/Vol] 81 U/L Normal [facility] Comment on above: Performed By: #### P T, BNP, CBC, PTT, CK, DDIMER, HS TROP, CMP ####[place] [id number] [facility] Creatine kinase [Enzymatic a ctivity/volume] in Serum or PlasmaOrdered By: Venkat Palencia on 12-18-2022 CK [Catalytic activity/Vol] 81 U/L [facility] Creatinine [Mass/volume] in Serum or PlasmaOrdered By: Venkat Palencia on 12-18-2022 Creatinine [Mass/Vol] 0.89 mg/dL 0.70-1.30 [facility] D-Dimer High Sensitivityon 0 12-18-2022 D-Dimer High Sensitivity < 200 Normal 0-243 [facility] Comment on above: Result Comment: The reference range for D-dimer is <243 ng/mL D-dimer units. D-dimer results must be used in conjunction with a clinical pretest probability (PTP) assessment model for deep vein thrombosis (DVT) and pulmonary embolism (PE). Results <230 ng/mL d-dimer units can be used as a negative predictor in patients with low or moderate probability for DVT/PE. Results above the exclusion threshold of 230 ng/ml D-dimer units for DVT/PE may indicate the need for further diagnostic testing. D-Dimer can be increased in hospitalized patients due to co-morbid conditions. PERFORMED BY: [place] [address] PATHOLOGIST ETCHER MACHINE CARRI KIM M.D. Performed By: #### P T, BNP, CBC, PTT, CK, DDIMER, HS TROP, CMP ####[address] ECG 12 lead ECGon 12-18-2022 ECG 12 lead ECG [facility] [place] [address] [place] [address] Electrocardiograph Report Signed Patient: Basilio Person MR#: [id number] : 2000 Acct:[id number] Age/Sex: 22 / M ADM Date: 12/18/22 Loc: ER Room: Type: [facility] ER Attending Dr: Ordering Provider: Venkat Palencia Jr, MD Date of Service: 12/18/22 ECG/ECG 12 lead ECG: Chest Pain Copies to: Test Reason : Blood Pressure : 145/088 mmHG Vent. Rate : 113 BPM Atrial Rate : 113 BPM P-R Int : 198 ms QRS Dur : 088 ms QT Int : 304 ms P-R-T Axes : 040 051 012 degrees QTc Int : 416 ms Sinus tachycardia Otherwise normal ECG When compared with ECG of 07-OCT-2022 21:19, No significant change was found Confirmed by VENKAT PALENCIA MD ([id number]) on 12/18/2022 4:21:16 AM Referred By: Electronically Signed By:VENKAT PALENCIA MD Transcribed By: MUS Signed By Venkat Palencia Jr, [place] 0421 Normal [facility] Eosinophils Auto (Bld) [#/Vo l]Ordered By: Venkat Palencia on 12-18-2022 Eosinophils (Bld) [#/Vol] 0.1 10*3/uL 0.0-0.45 [facility] Eosinophils/100 WBC Auto (Bl d)Ordered By: Venkat Palencia on 12-18-2022 Eosinophils/100 WBC (Bld) 0.8 % . [facility] Erythrocyte distribution wid th Auto (RBC) [Ratio]Ordered By: Venkat Palencia on 12-18-2022 Erythrocyte distribution width (RBC) [Ratio] 13.7 % 12.0-14.8 [facility] Globulin Calc (S) [Mass/Vol] Ordered By: Venkat Palencia on 12-18-2022 Globulin (S) [Mass/Vol] 2.3 g/dL [facility] Glucose [Mass/volume] in Ser um or PlasmaOrdered By: Venkat Palencia on 12-18-2022 Glucose [Mass/Vol] 87 mg/dL 70-100 [facility] Comment on above: ADA recommended refe rence rangeRandom Glucose Reference Range is dependent on time and content of last meal. Glucose of more than 200 mg/dL in a nonstressed, ambulatory subject supports the diagnosis of Diabetes Mellitus. Hematocrit Auto (Bld) [Volum e fraction]Ordered By: Venkat Palencia on 12-18-2022 Hematocrit (Bld) [Volume fraction] 40.9 % 38.8-50.0 [facility] Hemoglobin [Mass/volume] in BloodOrdered By: Venkat Palencia on 12-18-2022 Hemoglobin (Bld) [Mass/Vol] 14.1 g/dL 13.0-17.0 [facility] Laboratory - CoagulationOrde red By: Venkat Palencia on 12-18-2022 PT Coag (PPP) [Time] 12.0 s 9.0-12.9 [facility] Leukocytes [#/volume] correc ashley for nucleated erythrocytes in Blood by Automated counOrdered By: Venkat Palencia on 12-18-2022 WBC corrected for nucl RBC Auto (Bld) [#/Vol] 10.6 10*3/uL 4.1-10.5 [facility] Lymphocytes Auto (Bld) [#/Vo l]Ordered By: Venkat Palencia on 12-18-2022 Lymphocytes (Bld) [#/Vol] 2.2 10*3/uL 1.00-4.8 [facility] Lymphocytes/100 WBC Auto (Bl d)Ordered By: Venkat Palencia on 12-18-2022 Lymphocytes/100 WBC (Bld) 21.2 % . [facility] MCH Auto (RBC) [Entitic mass ]Ordered By: Venkat Palecnia on 12-18-2022 MCH (RBC) [Entitic mass] 28.5 pg 27.5-35.2 [facility] MCHC Auto (RBC) [Mass/Vol]Or dered By: Venkat Palencia on 12-18-2022 MCHC (RBC) [Mass/Vol] 34.5 g/dL 32.5-35.6 [facility] MCV Auto (RBC) [Entitic vol] Ordered By: Venkat Palencia on 12-18-2022 MCV (RBC) [Entitic vol] 82.4 fL 83.5-101 [facility] Monocyte distribution width [Entitic volume] in Blood by AutomatedOrdered By: Venkat Palencia on 12-18-2022 Monocyte distribution width Auto (Bld) [Entitic vol] 15.92 % 0.00-20.00 [facility] Monocytes Auto (Bld) [#/Vol] Ordered By: Venkat Palencia on 12-18-2022 Monocytes (Bld) [#/Vol] 0.9 10*3/uL 0.0-0.8 [facility] Monocytes/100 WBC Auto (Bld) Ordered By: Venkat Palencia on 12-18-2022 Monocytes/100 WBC (Bld) 8.9 % . [facility] Natriuretic peptide B [Mass/ Vol]Ordered By: Venkat Palencia on 12-18-2022 Natriuretic peptide B (Bld) [Mass/Vol] 9.0 pg/mL 5-100 [facility] Neutrophils Auto (Bld) [#/Vo l]Ordered By: Venkat Palencia on 12-18-2022 Neutrophils (Bld) [#/Vol] 7.2 10*3/uL 1.8-7.7 [facility] Neutrophils/100 WBC Auto (Bl d)Ordered By: Venkat Palencia on 12-18-2022 Neutrophils/100 WBC (Bld) 68.2 % . [facility] No Panel InformationOrdered By: Venkat Palencia on 12-18-2022 D-Dimer Quantitative (PE/DVT) < 200 ng/mL 0-243 [facility] Comment on above: The reference range for D-dimer is <243 ng/mL D-dimer units.D-dimer results must be used in conjunction with a clinicalpretest probability (PTP) assessment model for deep veinthrombosis (DVT) and pulmonary embolism (PE). Results <230ng/mL d-dimer units can be used as a negative predictor inpatients with low or moderate probability for DVT/PE.Results above the exclusion threshold of 230 ng/ml D-dimerunits for DVT/PE may indicate the need for furtherdiagnostic testing.D-Dimer can be increased in hospitalized patients due toco-morbid conditions. Estimated GFR (CKD-EPI) > 60.0 mL/Min [facility] Creatinine Clearance (Chem 151.88 [facility] Nucleated erythrocytes [Pres ence] in Blood by Automated countOrdered By: Venkat Palencia on 12-18-2022 Nucleated RBC Auto Ql (Bld) 0.1 /100{WBC} 0-0.5 [facility] Partial Thromboplastin Timeo n 12-18-2022 aPTT Coag (Bld) [Time] 28.5 s Normal 25.1-36.5 [facility] Comment on above: Performed By: #### P T, BNP, CBC, PTT, CK, DDIMER, HS TROP, CMP ####[facility] [address] [place] [id number] [facility] Platelet mean volume Auto (B ld) [Entitic vol]Ordered By: Venkat Palencia on 12-18-2022 Platelet mean volume (Bld) [Entitic vol] 7.5 fL 6.6-10.1 [facility] Platelet poor plasma interna tional normalized ratio (INR) by coagulation assay (relatOrdered By: Venkat Palencia on 12-18-2022 INR Coag (PPP) [Relative time] 1.0 {INR} [facility] Comment on above: INR Therapeutic Rang e A) Pre- and Peroperative OAT started two weeks before surgery. NOT HIP SURGERY: 1.5 - 2.5 HIP SURGERY: 2 - 3B) Primary and secondary prevention of venous THROMBOSIS: 2 - 3C) Active venous thrombosis, pulmonary embolismand prevention of recurrent venous thrombosis: 2 - 3D) Prevention of arterial thromboembolismincluding patients with mechanical heart valves: 3 - 4.5 Platelets Auto (Bld) [#/Vol] Ordered By: Venkat Palencia on 12-18-2022 Platelets (Bld) [#/Vol] 203 10*3/uL 150-450 [facility] Potassium [Moles/volume] in Serum or PlasmaOrdered By: Venkat Palencia on 12-18-2022 Potassium [Moles/Vol] 3.8 mmol/L 3.5-5.1 [facility] Protein [Mass/volume] in Ser um or PlasmaOrdered By: Venkat Palencia on 12-18-2022 Protein [Mass/Vol] 6.9 g/dL 6.4-8.9 [facility] Prothrombin Time INRon 12-18 INR Coag (PPP) [Relative time] 1.0 {INR} Normal [facility] Comment on above: Result Comment: INR Therapeutic Range A) Pre- and Peroperative OAT started two weeks before surgery. NOT HIP SURGERY: 1.5 - 2.5 HIP SURGERY: 2 - 3 B) Primary and secondary prevention of venous THROMBOSIS: 2 - 3 C) Active venous thrombosis, pulmonary embolism and prevention of recurrent venous thrombosis: 2 - 3 D) Prevention of arterial thromboembolism including patients with mechanical heart valves: 3 - 4.5 Performed By: #### P T, BNP, CBC, PTT, CK, DDIMER, HS TROP, CMP #### [facility] [address] PT Coag (PPP) [Time] 12.0 s Normal 9.0-12.9 [facility] Comment on above: Performed By: #### P T, BNP, CBC, PTT, CK, DDIMER, HS TROP, CMP #### [facility] [address] RBC Auto (Bld) [#/Vol]Ordere d By: Venkat Palencia on 12-18-2022 RBC (Bld) [#/Vol] 4.97 10*6/uL 3.90-5.60 [facility] Serum or plasma albumin/glob ulin mass ratioOrdered By: Venkat Palencia on 12-18-2022 Albumin/Globulin [Mass ratio] 2.0 {ratio} [facility] Serum or plasma anion gap de terminationOrdered By: Venkat Palencia on 12-18-2022 Anion gap [Moles/Vol] 9.9 mmol/L 6.0-15.0 [facility] Sodium [Moles/volume] in Ser um or PlasmaOrdered By: Venkat Palencia on 12-18-2022 Sodium [Moles/Vol] 141 mmol/L 136-145 [facility] Troponin I High Sensitivityo n 12-18-2022 Troponin I High Sensitivity 2.5 pg/mL Normal 0.0-20.0 [facility] Comment on above: Result Comment: PERF ORMED BY: [facility] [address] [place] [address] PATHOLOGIST ETCHER MACHINE CARRI KIM M.D. Performed By: #### P T, BNP, CBC, PTT, CK, DDIMER, HS TROP, CMP ####[facility] [address] Troponin I.cardiac [Mass/vol ume] in Serum or Plasma by Detection limit <= 0.01 ng/Ordered By: Venkat Palencia on 12-18-2022 Troponin I.cardiac DL <= 0.01 ng/mL [Mass/Vol] 2.5 pg/mL 0.0-20.0 [facility] Urea nitrogen [Mass/volume] in Serum or PlasmaOrdered By: Venkat Palencia on 12-18-2022 Urea nitrogen [Mass/Vol] 11 mg/dL 7-25 [facility] WBC Auto (Bld) [#/Vol]Ordere d By: Venkat Palencia on 12-18-2022 WBC (Bld) [#/Vol] 10.6 10*3/uL 4.1-10.5 [facility] XR chest 1V portableon 12-18 XR chest 1V portable [facility] [address] [place] [id number] XRay Report Signed Patient: Basilio Person MR#: [id number] : 2000 Acct:[id number] Age/Sex: 22 / M ADM Date: 12/18/22 Loc: ER Room: Type: [facility] ER Attending Dr: Copies to: Venkat Palencia Jr, MD Ordering Provider: Venkat Palencia Jr, MD Date of Service: 12/18/22 XR/XR chest 1V portable: Chest Pain XR chest 1V portable 12/18/2022 3:35 AM SIGNS AND SYMPTOMS: Left-sided chest and rib pain PROTOCOL: Frontal radiograph of the chest COMPARISON: 10/07/2022 FINDINGS: The trachea is midline. The heart and mediastinal structures are within normal limits. The lung parenchyma is clear. The bony thorax is intact. XR/XR chest 1V portable IMPRESSION: No acute cardiopulmonary pathology. Impression dictated by: Eagle Woodard M.D.12/18/2022 9:45 AM Dictation Location: [place] [address] Transcribed By: [facility] 12/18/22 0945 Dictated By: Eagle Woodard II, MD 12/18/22 0945 Signed By: 12/18/22 0945 [facility] Quick Strepon 10-24-2022 Quick Strep Streptococcus pyogen es Ag [Presence] in Throat by Rapid immunoassay Negative for Group A Strep Antigen Note 1 NOTE 2 Results are those of a screening test. NOTE 3 If clinically indicated please order a culture. NOTE 4 NOTE 5 Reference range = Negative PERFORMED BY: [place] [address] PATHOLOGIST ETCHER MACHINE CARRI KIM M.D. [facility] Comment on above: Performed By: #### Q S #### [address] RPR w/rfx to Quant TP Abson 10-24-2022 RPR, Rfx Quant RPR Non-Reactive Normal Non Reactive [facility] Comment on above: Result Comment: Perf ormed at: CB - [facility] [address] [id number] Budget Record Clerk: Morales Escamilla PhD, Phone: [phone] PERFORMED BY: [place] [address] PATHOLOGIST ETCHER MACHINE CARRI KIM M.D. Performed By: #### R IA W RFX ####[facility] , [facility] [Presence] in Seru m by RPROrdered By: Andrzej Bell on 10-24-2022 [facility] RPR Ql (S) Non-Reactive Non Reactive [facility] Comment on above: Performed at: CB - [facility] [address] [id number] Director: Morales Escamilla PhD, Phone: [phone] Streptococcus pyogenes antig en detectionOrdered By: Andrzej Bell on 10-24-2022 S. pyogenes Ag Ql (Unsp spec) [facility] S. pyogenes Ag Ql (Unsp spec) [facility] XR chest 1V portableon 10-08 XR chest 1V portable [facility] [place] [address] XRay Report Signed Patient: Basilio Person MR#: [id number] : 2000 Acct:[id number] Age/Sex: 22 / M ADM Date: 10/07/22 Loc: ER Room: Type: [facility] ER Attending Dr: Copies to: Suresh Ospina MD Ordering Provider: Suresh Ospina MD Date of Service: 10/07/22 XR/XR chest 1V portable: Shortness of Breath/Dyspnea Plain film chestsingle view HISTORY:Lightheaded. Dizziness. COMPARISON:None FINDINGS: The cardiac, mediastinal and hilar silhouettes are within normal limits. No acute lung process, pleural effusion or pneumothorax identified. Bony structures are intact. XR/XR chest 1V portable IMPRESSION: No acute process. Impression dictated by: Nehemiah Aguilar M.D.10/08/2022 7:49 AM Dictation Location: [facility]- Transcribed By: TANK 10/08/2249 Dictated By: Nehemiah Aguilar DO 10/08/2249 Signed By: 10/08/22 0749 [facility] XR soft tissue neckon 2022 XR soft tissue neck [facility] Main [place] [id number] XRay Report Signed Patient: Basilio Person MR#: [id number] : 2000 Acct:[id number] Age/Sex: 22 / M ADM Date: 10/07/22 Loc: ER Room: Type: [facility] ER Attending Dr: Copies to: Suresh Ospina MD Ordering Provider: Suresh Ospina MD Date of Service: 10/07/22 XR/XR soft tissue neck: Shortness of Breath/Dyspnea Lateral soft tissues of the neck HISTORY: Dizziness. Neck swelling The epiglottis and aryepiglottic folds are normal. Nasopharynx, oropharynx and hypopharynx are patent. No prevertebral or other soft tissue swelling identified. No subcutaneous air seen. Bony structures are intact. XR/XR soft tissue neck IMPRESSION: Unremarkable lateral soft tissue of the neck. Impression dictated by: Nehemiah Aguilar M.D.10/08/2022 7:49 AM Dictation Location: [facility]- Transcribed By: TANK 10/08/22 0749 Dictated By: Nehemiah Aguilar DO 10/08/22 0748 Signed By: 10/08/22 0749 [facility] ECG 12 lead ECGon 10-07-2022 ECG 12 lead ECG [address] [address] Electrocardiograph Report Signed Patient: Basilio Person MR#: [id number] : 2000 Acct:[id number] Age/Sex: 22 / M ADM Date: 10/07/22 Loc: ER Room: Type: [facility] ER Attending Dr: Ordering Provider: Suresh Ospina MD Date of Service: 10/07/2210/28/2124 ECG/ECG 12 lead ECG: Shortness of Breath/Dyspnea Copies to: Test Reason : Blood Pressure : / mmHG Vent. Rate : 083 BPM Atrial Rate : 083 BPM P-R Int : 180 ms QRS Dur : 090 ms QT Int : 336 ms P-R-T Axes : 044 051 008 degrees QTc Int : 394 ms Sinus rhythm with marked sinus arrhythmia Otherwise normal ECG No previous ECGs available Confirmed by SURESH OSPINA MD ([id number]) on 10/08/2022 1:24:47 AM Referred By: Electronically Signed By:SURESH OSPINA MD Transcribed By: MUS Signed By Suresh Ospina MD 10/08/22123 [facility] XR knee LT 4V*on 09-02-2022 XR knee LT 4V* [facility] [place] [address] XRay Report Signed Patient: Basilio Person MR#: [id number] : 2000 Acct:[id number] Age/Sex: 21 / M ADM Date: 09/02/22 Loc: ER Room: Type: [facility] ER Attending Dr: Copies to: Andrzej Bell APRN Ordering Provider: Andrzej Bell APRN Date of Service: 09/02/22 XR/XR knee LT 4V*: Extremity Injury, Lower 4 views LEFT knee plain film COMPARISON:01/22/21 HISTORY:Fell last night. Posterior LEFT knee pain. No fracture, dislocation or focal soft tissue abnormality seen.No joint effusion identified. XR/XR knee LT 4V* IMPRESSION:No acute findings Impression dictated by: Nehemiah Aguilar M.D.09/02/2022 5:15 PM Dictation Location: [place] [address] Transcribed By: [facility] 09/02/221714 Dictated By: Nehemiah Aguilar DO 09/02/221713 Signed By: 09/02/221714 [facility] Vital Signs Date Time Vital Sign Value Performing Clinician Faci lity 04-06-2023 07:00-0400 Diastolic blood pressure 68 mm[Hg] [facility] Work Phone: [facility] 04-06-2023 07:00-0400 Heart rate 77 /min [facility] Work Phone: [facility] 04-06-2023 07:00-0400 Respiratory rate 18 /min [facility] Work Phone: [facility] 04-06-2023 07:00-0400 SaO2% (BldA) [Mass fraction] 97 % [facility] Work Phone: [facility] 04-06-2023 07:00-0400 Systolic blood pressure 117 mm[Hg] [facility] Work Phone: [facility] 04-06-2023 05:26-0400 Body height 177.8 cm [facility] Work Phone: [facility] 04-06-2023 05:26-0400 Body temperature 98.6 [degF] [facility] Work Phone: [facility] 04-06-2023 05:26-0400 Body weight 97.8 kg [facility] Work Phone: [facility] 02-03-2023 20:47-0400 Body height 177.8 cm [facility] Work Phone: [facility] 02-03-2023 20:47-0400 Body temperature 98 [degF] [facility] Work Phone: [facility] 02-03-2023 20:47-0400 Body weight 95.7 kg [facility] Work Phone: [facility] 02-03-2023 20:47-0400 Diastolic blood pressure 77 mm[Hg] [facility] Work Phone: [facility] 02-03-2023 20:47-0400 Heart rate 87 /min [facility] Work Phone: [facility] 02-03-2023 20:47-0400 Respiratory rate 20 /min [facility] Work Phone: [facility] 02-03-2023 20:47-0400 SaO2% (BldA) [Mass fraction] 100 % [facility] Work Phone: [facility] 02-03-2023 20:47-0400 Systolic blood pressure 138 mm[Hg] [facility] Work Phone: [facility] 12-18-2022 03:46-0400 Heart rate 108 /min [facility] Work Phone: [facility] 12-18-2022 03:46-0400 Respiratory rate 18 /min [facility] Work Phone: [facility] 12-18-2022 03:46-0400 SaO2% (BldA) [Mass fraction] 99 % [facility] Work Phone: [facility] 12-18-2022 03:24-0400 Body height 177.8 cm [facility] Work Phone: [facility] 12-18-2022 03:24-0400 Body temperature 97.9 [degF] [facility] Work Phone: [facility] 12-18-2022 03:24-0400 Body weight 96.7 kg [facility] Work Phone: [facility] 12-18-2022 03:24-0400 Diastolic blood pressure 88 mm[Hg] [facility] Work Phone: [facility] 12-18-2022 03:24-0400 Systolic blood pressure 145 mm[Hg] [facility] Work Phone: [facility] 10-24-2022 12:21-0500 Body height 179.07 cm [facility] Work Phone: [facility] 10-24-2022 12:21-0500 Body temperature 98.7 [degF] [facility] Work Phone: [facility] 10-24-2022 12:21-0500 Body weight 98 kg [facility] Work Phone: [facility] 10-24-2022 12:21-0500 Diastolic blood pressure 64 mm[Hg] [facility] Work Phone: [facility] 10-24-2022 12:21-0500 Heart rate 81 /min [facility] Work Phone: [facility] 10-24-2022 12:21-0500 Respiratory rate 18 /min [facility] Work Phone: [facility] 10-24-2022 12:21-0500 SaO2% (BldA) [Mass fraction] 98 % [facility] Work Phone: [facility] 10-24-2022 12:21-0500 Systolic blood pressure 124 mm[Hg] [facility] Work Phone: [facility] 10-07-2022 21:20-0500 Body height 177.8 cm [facility] Work Phone: [facility] 10-07-2022 21:20-0500 Body temperature 98.4 [degF] [facility] Work Phone: [facility] 10-07-2022 21:20-0500 Body weight 100.35 kg [facility] Work Phone: [facility] 10-07-2022 21:20-0500 Diastolic blood pressure 87 mm[Hg] [facility] Work Phone: [facility] 10-07-2022 21:20-0500 Heart rate 90 /min [facility] Work Phone: [facility] 10-07-2022 21:20-0500 Respiratory rate 20 /min [facility] Work Phone: [facility] 10-07-2022 21:20-0500 SaO2% (BldA) [Mass fraction] 100 % [facility] Work Phone: [facility] 10-07-2022 21:20-0500 Systolic blood pressure 148 mm[Hg] [facility] Work Phone: [facility] 09-02-2022 15:47-0500 Body height 179.07 cm [facility] Work Phone: [facility] 09-02-2022 15:47-0500 Body temperature 98.1 [degF] [facility] Work Phone: [facility] 09-02-2022 15:47-0500 Body weight 98.95 kg [facility] Work Phone: [facility] 09-02-2022 15:47-0500 Diastolic blood pressure 77 mm[Hg] [facility] Work Phone: [facility] 09-02-2022 15:47-0500 Heart rate 74 /min [facility] Work Phone: [facility] 09-02-2022 15:47-0500 Respiratory rate 18 /min [facility] Work Phone: [facility] 09-02-2022 15:47-0500 SaO2% (BldA) [Mass fraction] 100 % [facility] Work Phone: [facility] 09-02-2022 15:47-0500 Systolic blood pressure 137 mm[Hg] [facility] Work Phone: [facility] Encounters Encounter Date Encounter Type Care Provider Facility Start: 04-06-2023 End: 04-06-2023 Emergency department patient visit Jeff Birmingham Facility:[facility] Start: 04-06-2023 End: 04-06-2023 Emergency department patient visit [facility] Work Phone: [facility] Work Phone: Start: 02-03-2023 End: 02-04-2023 Emergency department patient visit Katelyn Stephen Facility:[facility] Start: 02-03-2023 End: 02-03-2023 Emergency department [facility] visit [facility] Work Phone: [facility] Work Phone: Start: 12-18-2022 End: 12-18-2022 Emergency department patient visit Venkat Palencia Jr Facility:[facility] Start: 12-18-2022 End: 12-18-2022 Emergency department patient visit Services [facility] Work Phone: [facility] Work Phone: Start: 10-24-2022 End: 10-24-2022 Emergency department patient visit [facility] Facility:[facility] Start: 10-24-2022 End: 10-24-2022 Emergency department patient visit Services [facility] Work Phone: [facility] Work Phone: Start: 10-07-2022 End: 10-08-2022 Emergency department patient visit [facility] Facility:[facility] Start: 10-07-2022 End: 10-07-2022 Emergency department patient visit [facility] Work Phone: [facility] Work Phone: Start: 09-02-2022 End: 09-02-2022 Emergency department patient visit Services [facility] Start: 09-02-2022 End: 09-02-2022 Emergency department patient visit [facility] Work Phone: [facility] Work Phone: Procedures Date Procedure Procedure Detail Performing Clinician Start: 02-03-2023 Duplex scan of lower limb veins [facility] Work Phone: Start: 02-03-2023 X-ray of right knee [facility] Work Phone: Start: 12-18-2022 Plain chest X-ray [facility] Work Phone: Start: 10-24-2022 Streptococcus pyogenes antigen assay [facility] Phone: Start: 10-07-2022 Plain chest X-ray [facility] Work Phone: Start: 10-07-2022 X-ray of soft tissue of neck [facility] [employer] Phone: Start: 09-02-2022 Radiologic examination of knee [facility] [employer] [facility] Phone: History of appendectomy Status p ost appendectomy [facility] Phone: Plan of Treatment Date Care Activity Detail Author Start: 04-06-2023 Computed tomography of abdomen and pelvis with contrast CT abdomen pelvis w con [facility] Start: 04-06-2023 CT Abdomen and Pelvi s W contrast IV [facility] Start: 02-03-2023 Duplex scan of lower limb veins US venous duplex LE RT [facility] Start: 02-03-2023 US Lower extremity v ein - right [facility] Start: 02-03-2023 X-ray of right knee XR knee RT 4V* F [facility] Start: 02-03-2023 XR Knee - right 4 Views [facility] Start: 12-18-2022 Plain [facility] Start: 12-18-2022 XR Chest Single view [facility] Start: 10-24-2022 [facility] Start: 10-07-2022 Plain chest X-ray XR chest 1V [facility] Start: 10-07-2022 X-ray of soft tissue of neck XR soft tissue neck [facility] Start: 10-07-2022 XR Chest Single view [facility] Start: 10-07-2022 XR Neck Views [facility] Patient Education [facility] Work Phone: Patient referral [facility] Work Phone: [facility] [Presence] in Serum by RPR [facility] Payers Date Payer Category Payer Medicaid [id number] 2022 Self-pay [id number] Medicaid [employer] [id number] Unknown Regular Auto/Liability [id number] Unknown [id number] Unknown [id number] Unknown [id number] Unknown [id number] Unknown [id number] Unknown [id number] Worker's Compensation [id number] Social History Date Type Detail Facility Start: 09-02-2022 End: 04-06-2023 Tobacco smoking status NHIS Never smoked tobacco (finding) [facility] Start: 2000 Sex Assigned At Male F [facility] Evaluation note Note Date & Type Note Facility Evaluation note No assessment information availa ble [facility] Work Phone: Hospital Discharge instructions Note Date & Type Note Facility Hospital Discharge instructions Additional Instructions Return if symptoms are worse [facility] Work Phone: Hospital Discharge instructions Note Date & Type Note Facility Hospital Discharge instructions Additional Instructions Ice and elevate Tylenol or Naprosyn if needed for pain Follow-up with your PCP or Ortho Return here if any problems persist or worsen [facility] Work Phone: Chief Complaint and Reason for Visit Chief Complaint L knee injury [facility] Chief Complaint L knee injury [facility] DIF breathing/ throat swelling Chief Complaint L knee injury [facility] DIF breathing/ throat swelling rash both hands Chief Complaint DIF breathing/ throa t swelling rash both hands Chest Pain Chief Complaint Chest Pain R leg pain NKI Chief Complaint R leg pain NKI left side chest pain Family History No Family History Records Found Relationship Condition Age at Onset Recorded Date/T ashley Not Specified Heart murmur Unknown Malignant neoplasm of cervix Unknown Advance Directives No Advanced Directives Records Found Advance Directive Response Recorded Date/ Time Advance Directives No November 06 6:04pm Advance Directive Response Recorded Date/ Time Advance Directives No November 06 7:04pm Summary Purpose Additional Source Comments Care Teams (unrecognized sec tion and content) Team Status: Inactive Member Role Status Dates [facility] Primary Care Provider Active Jeff Mast , DO Family Provider Active Andrzej Bell APRN Emergency Provider Active Team Status: Active Member Role Status Dates Jeff Mast , DO Family Provider Active Services [facility] Primary Care Provider Active Team Status: Inactive Member Role Status Dates Services [facility] Primary Care Provider Active Jeff Mast , DO Family Provider Active uSresh Ospina MD Emergency Provider Active Team Status: Inactive Member Role Status Dates Services [facility] Primary Care Provider Active Jeff Mast , DO Family Provider Active Venkat Palencia Jr, MD Emergency Provider Active Team Status: Inactive Member Role Status Dates Services [facility] Primary Care Provider Active Jeff Mast , DO Family Provider Active Katelyn Stephen APRN Emergency Provider Active Team Status: Inactive Member Role Status Dates Services [facility] Primary Care Provider Active Jeff Mast , DO Family Provider Active Fredi Coker MD RES Active Jeff Birmingham , DO Emergency Provider Active Goals (unrecognized section and content) Goals may be documented in a n alternate sectionGoals may be documented in an alternate sectionGoals may be documented in an alternate sectionGoals may be documented in an alternate sectionGoals may be documented in an alternate sectionGoals may be documented in an alternate section (unrecognized sect ion and content) No Status Records Found INFORMATION SOURCE (unrecogn ized section and content) DATE CREATED AUTHOR 04/18/2023 [facility] FOR RECORDS PERTAINING TO PATIENTS WHO ARE OR HAVE BEEN ENROLLED IN A CHEMICAL DEPENDENCY/SUBSTANCEABUSE PROGRAM, SOME INFORMATION MAY BE OMITTED. This clinical summary was aggregated from multiple sources. Caution should be exercised in using it in the provision of clinical care. This summary normalizes information from multiple sources, and as a consequence, information in this document may materially change the coding, format and clinical context of patient data. In addition, data may be omitted in some cases. CLINICAL DECISIONS SHOULD BE BASED ON THE PRIMARY CLINICAL RECORDS. [employer] [facility]. provides no warranty or guarantee of the accuracy or completeness of information in this document.
--- NOTE | 2023-12-01 19:17 | ED_ITS ---
HPI - URI/Sore Throat General Chief Complaint: Upper Respiratory Infection Stated Complaint: SORE THROAT Time Seen by Provider: 12/01/23 19:14 Source: patient Limitations: no limitations History of Present Illness HPI Narrative: 23 year old male presents to the ED for a sore throat, fever. Onset was 2-3 day ago. Denies congestion, ear pain, SOB, cough, difficulty swallowing. Denies N/V/D. He took Motrin at 0700 this morning. Related Data Home Medications ?Medication ?Instructions ?Recorded ?Confirmed No Known Home Medications 12/01/23 12/01/23 Allergies Allergy/AdvReac Type Severity Reaction Status Date / Time No Known Drug Allergies Allergy Verified 09/18/23 15:21 Review of Systems 2 ROS Constitutional Reports: fever; Denies: chills Ears, nose, mouth, and throat Reports: throat pain; Denies: neck pain, throat swelling, difficulty swallowing, hoarseness, ear pain, ear discharge, nasal discharge or nasal congestion Cardiovascular Denies: chest pain Respiratory Denies: shortness of breath or cough Gastrointestinal Denies: abdominal pain, nausea, vomiting or diarrhea Integumentary/Breast Denies: rash Neurological Denies: headache PFSH PFSH Social History Smoking status: Never smoker Exam Constitutional Vital Signs, click to edit/add: Last Vital Signs Temp 98.1 F 12/01/23 19:11 Pulse 91 H 12/01/23 19:11 Resp 16 12/01/23 19:11 BP 143/82 H 12/01/23 19:11 Pulse Ox 99 12/01/23 19:20 O2 Del Method Room Air 12/01/23 19:20 Common normals: no apparent distress and oriented x3 General appearance: cooperative HENMT Common normals: normocephalic Nose: external nose normal; nasal discharge and no nasal discharge External ear: external ears normal Mouth: oral and palatal mucosa normal, lip normal and tongue normal Throat: uvula midline and posterior oropharynx abnormal erythema; no edema and no exudates Eye Common normals: conjunctivae normal and no scleral icterus Neck & C-Spine Common normals: supple Chest Chest: symmetrical chest wall rise Respiratory Common normals: normal respiratory effort, no use of accessory muscles and clear to auscultation bilaterally Effort & inspection: symmetric chest movement Cardio Common normals: regular rate and regular rhythm Neuro Common normals: oriented x3 Sensorium/orientation: awake and alert Speech: speech normal Course Vital Signs Vital signs: Vital Signs Temperature 98.1 F 12/01/23 19:11 Pulse Rate 91 H 12/01/23 19:11 Respiratory Rate 16 12/01/23 19:11 Blood Pressure 143/82 H 12/01/23 19:11 Pulse Oximetry 99 12/01/23 19:11 Oxygen Delivery Method Room Air 12/01/23 19:11 Temperature 98.1 F 12/01/23 19:11 Pulse Rate 91 H 12/01/23 19:11 Respiratory Rate 16 12/01/23 19:11 Blood Pressure 143/82 H 12/01/23 19:11 Pulse Oximetry 99 12/01/23 19:20 Oxygen Delivery Method Room Air 12/01/23 19:20 MDM - URI/Sore Throat MDM Narrative Medical decision making narrative: Strep screen was negative. Pt declined Covid-19 and influenza testing today Follow up with pcp for a recheck, further evaluation and treatment. Return precautions were discussed. Differential Diagnosis Differential diagnosis: Likely upper respiratory infection, viral infection, pharyngitis and other (Strep pharyngitis) Medical Records Attestation: I reviewed the patient's medical records. Lab Data Attestation: I reviewed the patient's lab results. Labs: Lab Results 12/01/23 Range/Units 19:15 Streptococcus Screen Negative Discharge Plan Discharge Stand Alone Forms: Portal Instructions Chief Complaint: Upper Respiratory Infection Clinical Impression: Pharyngitis Patient Disposition: Home, Self-Care Time of Disposition Decision: 19:34 Condition: Good Mode of Transportation: Private Vehicle Prescriptions / Home Meds: No Action No Known Home Medications Print Language: [place] Citizen Instructions: Pharyngitis (ED), Fever in Adults (ED) Referrals: Physician,Non-Staff, [Physician] - 1 week Discharge Date/Time: 12/01/23 19:45
[2023-12-01 19:20] VITALS: O2SAT 99
[2023-12-01 19:29] LABS: Internal Control Within Normal Limits; Strep A Antigen Screen Negative
== END 2023-12-01 19:45 | disposition home or self-care (01) ==
PROVIDERS: Nurse Practitioner Family; Emergency Provider Emergency Medicine
DX: J02.9 Acute pharyngitis, unspecified (principal)
CPT/HCPCS: 87070; 87880; 99283

== ENCOUNTER 2024-04-06 00:13 | Emergency (ER) | payer OTHER, SELFPAY ==
[2024-04-06 00:17] VITALS: BP 159/94; PULSE 90; TEMP 36.7; O2SAT 98; BMI 31.6
--- OUTSIDE RECORDS SUMMARY | 2024-04-06 00:24 | XMS_ITS | CCD ---
Author Organization [facility] Care Team Providers Care Executive Manager Name Role Phone [facility], Services Primary Care Provider JOSE A Bell Emergency Provider MD Suresh Ospina Emergency Provider [phone] [facility], Services Primary Care Provider MD Suresh Ospina Emergency Provider JOSE A Bell Emergency Provider [phone] MD Venkat Palencia Jr Emergency Provider [facility], Services Primary Care Provider JOSE A Stephen Emergency Provider [facility], Services Primary Care Provider DO Jeff Birmingham Emergency Provider [phone] Katelyn Stephen Admitting Unavailable Katelyn Stephen Attending Unavailable [facility], Services Primary Care Unavaila Jeff Larson Admitting Unavailable Jeff Birmingham Attending Unavailable [facility], Services Primary Care Unavaila ble [facility], Services Primary Care Unavaila Andrzej Antunez Admitting Unavailable Andrzej Bell Attending Unavailable [facility], Services Primary Care Unavaila ble Suresh Ospina Admitting Unavailable Suresh Ospina Attending Unavailable [facility], Services Primary Care Unavaila Andrzej Antunez Admitting Unavailable Andrzej Bell Attending Unavailable Venkat Palencia Jr Admitting Unavailable Venkat Palencia Jr Attending Unavailable [facility], Services Primary Care Unavaila ble Allergies Allergy Classification Reported Allergen(s) Allergy Type Date of Onset Reaction(s) Facility (6 sources) insect venom; Translations: [insect venom] Allergy to substance 10-07-2022 [facility] Medications Current Medications Medication Drug Class(es) [...] 800 MG PO Q6H April 13, 2021 12:00am April 28, 2021 5:25pm Start: 02-16-2020 End: 06-23-2020 [...] hours Ibuprofen Discontinued 800 MG PO Q8H 15 December 28, 2019 12:00am February 04, 2020 [...] painful area for up to 12 hrs [place] (No Known Home Meds) (1 source) Start: 10-07-2022 [place] (No Known Home Meds) Active October 07, [...] V Potassium Discontinued 500 MG PO Q6H 01 04December 28, 2019 12:00am February 04, 2020 8:30pm [...] 04-06-2023 ALT [Catalytic activity/Vol] 44 U/L 7-52 [facility] Albumin [Mass/volume] in Ser um or Plasma by Bromocresol green (BCG) dye binding methoOrdered By: Jeff Birmingham on 04-06-2023 Albumin BCG dye [Mass/Vol] 4.7 g/dL 3.5-5.7 [facility] Alkaline phosphatase [Enzyma tic activity/volume] in Serum or PlasmaOrdered By: Jeff Birmingham on 04-06-2023 ALP [Catalytic activity/Vol] 67 U/L 34-104 [facility] Aspartate aminotransferase [ Enzymatic activity/volume] in Serum or PlasmaOrdered By: Jeff Birmingham on 04-06-2023 AST [Catalytic activity/Vol] 25 U/L 13-39 [facility] Basic Metabolic Panelon Anion gap [Moles/Vol] 9.4 mmol/L Normal 6.0-15.0 [facility] Comment on above: Performed By: #### H EPATIC, BMP, CBC, LIPASE ####[address] Calcium [Mass/Vol] 9.5 mg/dL Normal 8.6-10.3 [facility] Comment on above: Performed By: #### H EPATIC, BMP, CBC, LIPASE ####[address] Chloride [Moles/Vol] 104 mmol/L Normal 98-107 [facility] Comment on above: Performed By: #### H EPATIC, BMP, CBC, LIPASE ####[address] CO2 [Moles/Vol] 29.3 mmol/L Normal 21.0-31.0 [facility] Comment on above: Performed By: #### H EPATIC, BMP, CBC, LIPASE ####[address] Creatinine [Mass/Vol] 0.91 mg/dL Normal 0.70-1.30 [facility] Comment on above: Performed By: #### H EPATIC, BMP, CBC, LIPASE ####[place] [id number] [facility] Creatinine Clr Calc Pharmacy 149.34 Normal [facility] Comment on above: Performed By: #### H EPATIC, BMP, CBC, LIPASE ####[address] GFR/1.73 sq M.predicted MDRD (S/P/Bld) [Vol rate/Area] mL/min/{1.73_m2} Normal [facility] Comment on above: Performed By: #### H EPATIC, BMP, CBC, LIPASE ####[facility] Glucose [Mass/Vol] 95 mg/dL Normal 70-100 [facility] Comment on above: Result Comment: [facility] Glucose Reference Range is dependent on time and content of last meal. Glucose of more than 200 mg/dL in a nonstressed, ambulatory subject supports the diagnosis of Diabetes Mellitus. ADA recommended reference range Performed By: #### H EPATIC, BMP, CBC, LIPASE ####[facility] [id number] [address] Potassium [Moles/Vol] 3.7 mmol/L Normal 3.5-5.1 [facility] Comment on above: Performed By: #### H EPATIC, BMP, CBC, LIPASE ####[address] Sodium [Moles/Vol] 139 mmol/L Normal 136-145 [facility] Comment on above: Performed By: #### H EPATIC, BMP, CBC, LIPASE ####[place] [address] [address] Urea nitrogen [Mass/Vol] 7 mg/dL Normal 7-25 [facility] Comment on above: Performed By: #### H EPATIC, BMP, CBC, LIPASE ####[facility] [id number] [place] [address] Basophils Auto (Bld) [#/Vol] Ordered By: Jeff Birmingham on 04-06-2023 Basophils (Bld) [#/Vol] 0.1 10*3/uL 0.0-0.2 [facility] Basophils/100 WBC Auto (Bld) Ordered By: Jeff Birmingham on 04-06-2023 Basophils/100 WBC (Bld) 0.9 % . [facility] Bilirubin.direct [Mass/volum e] in Serum or PlasmaOrdered By: Jeff Birmingham on 04-06-2023 Bilirubin.direct [Mass/Vol] 0.10 mg/dL 0.03-0.18 [facility] Bilirubin.total [Mass/volume ] in Serum or PlasmaOrdered By: Jeff Birmingham on 04-06-2023 Bilirubin [Mass/Vol] 0.6 mg/dL 0.3-1.0 [facility] CT abdomen pelvis w conon CT abdomen pelvis w con [facility] [place] [address] CT Scan Report Signed Patient: Basilio Person MR#: [id number] : 2000 Acct:[id number] Age/Sex: 22 / M ADM Date: 04/06/23 Loc: ER Room: Type: [facility] ER Attending Dr: Copies to: [...] splenomegaly. Impression dictated by: Gio Naidu Jr., D.O.04/06/2023 9:26 AM Dictation Location: [place] [address] Transcribed By: TANK 04/06/23925 Dictated By: Gio Naidu Jr, DO 04/06/23918 Signed By: 04/06/23925 Normal [facility] Calcium [Mass/volume] in Ser um or PlasmaOrdered By: Jeff Birmingham on 04-06-2023 Calcium [Mass/Vol] 9.5 mg/dL 8.6-10.3 [facility] Carbon dioxide, total [Moles /volume] in Serum or PlasmaOrdered By: Jeff Birmingham on 04-06-2023 CO2 [Moles/Vol] 29.3 mmol/L 21.0-31.0 [facility] Chloride [Moles/volume] in S valerie or PlasmaOrdered By: Jeff Birmingham on 04-06-2023 Chloride [Moles/Vol] 104 mmol/L 98-107 [facility] Complete Blood Count Auto Di ffon 04-06-2023 Basophils (Bld) [#/Vol] 0.1 10*3/uL Normal 0.0-0.2 [facility] Comment on above: Result Comment: PERF ORMED BY: [facility] [address] [place] [address] PATHOLOGIST T[employer]ATER CARRI KIM M.D. Performed By: #### H EPATIC, BMP, CBC, LIPASE ####[place] [address] [address] Basophils/100 WBC (Bld) 0.9 % Normal . [facility] Comment on above: Performed By: #### H EPATIC, BMP, CBC, LIPASE ####[facility] [id number] [address] Eosinophils (Bld) [#/Vol] 0.1 10*3/uL Normal 0.0-0.45 [facility] Comment on above: Performed By: #### H EPATIC, BMP, CBC, LIPASE ####[place] [address]61 [address] Eosinophils/100 WBC (Bld) 1.1 % Normal . [facility] Comment on above: Performed By: #### H EPATIC, BMP, CBC, LIPASE ####[address] Erythrocyte distribution width (RBC) [Ratio] 13.6 % Normal 12.0-14.8 [facility] Comment on above: Performed By: #### H EPATIC, BMP, CBC, LIPASE ####[address] Hematocrit (Bld) [Volume fraction] 42.1 % Normal 38.8-50.0 [facility] Comment on above: Performed By: #### H EPATIC, BMP, CBC, LIPASE ####[address] Hemoglobin (Bld) [Mass/Vol] 14.9 g/dL Normal 13.0-17.0 [facility] Comment on above: Performed By: #### H EPATIC, BMP, CBC, LIPASE ####[address] Lymphocytes (Bld) [#/Vol] 3.1 10*3/uL Normal 1.00-4.8 [facility] Comment on above: Performed By: #### H EPATIC, BMP, CBC, LIPASE ####[address] Lymphocytes/100 WBC (Bld) 30.6 % Normal . [facility] Comment on above: Performed By: #### H EPATIC, BMP, CBC, LIPASE ####[address] MCH (RBC) [Entitic mass] 29.0 pg Normal 27.5-35.2 [facility] Comment on above: Performed By: #### H EPATIC, BMP, CBC, LIPASE ####[address] MCV (RBC) [Entitic vol] 81.9 fL Low 83.5-101 [facility] Comment on above: Performed By: #### H EPATIC, BMP, CBC, LIPASE ####[address] Mean Corpuscular HGB Conc 35.3 g/dL Normal 32.5-35.6 [facility] Comment on above: Performed By: #### H EPATIC, BMP, CBC, LIPASE ####[address] Monocytes (Bld) [#/Vol] 1.0 10*3/uL High 0.0-0.8 [facility] Comment on above: Performed By: #### H EPATIC, BMP, CBC, LIPASE ####[address] Monocytes/100 WBC (Bld) 15.06 % Normal 0.00-20.00 [facility] Comment on above: Performed By: #### H EPATIC, BMP, CBC, LIPASE ####[address] Monocytes/100 WBC (Bld) 9.5 % Normal . [facility] Comment on above: Performed By: #### H EPATIC, BMP, CBC, LIPASE ####[address] Neutrophils (Bld) [#/Vol] 5.9 10*3/uL Normal 1.8-7.7 [facility] Comment on above: Performed By: #### H EPATIC, BMP, CBC, LIPASE ####[address] Neutrophils/100 WBC (Bld) 57.9 % Normal . [facility] Comment on above: Performed By: #### H EPATIC, BMP, CBC, LIPASE ####[address] NRBC% 0.1 /100{WBC} Normal 0-0.5 [facility] Comment on above: Performed By: #### H EPATIC, BMP, CBC, LIPASE ####[address] Platelet mean volume (Bld) [Entitic vol] 8.0 fL Normal 6.6-10.1 [facility] Comment on above: Performed By: #### H EPATIC, BMP, CBC, LIPASE ####[facility] [id number] Platelets (Bld) [#/Vol] 198 10*3/uL Normal 150-450 [facility] Comment on above: Performed By: #### H EPATIC, BMP, CBC, LIPASE ####[place] [address] [address] RBC (Bld) [#/Vol] 5.14 10*6/uL Normal 3.90-5.60 [facility] Comment on above: Performed By: #### H EPATIC, BMP, CBC, LIPASE ####[place] [address] [address] WBC (Bld) [#/Vol] 10.2 10*3/uL Normal 4.1-10.5 [facility] Comment on above: Performed By: #### H EPATIC, BMP, CBC, LIPASE ####[address] Creatinine [Mass/volume] in Serum or PlasmaOrdered By: Jeff Birmingham on 04-06-2023 Creatinine [Mass/Vol] 0.91 mg/dL 0.70-1.30 [facility] Eosinophils Auto (Bld) [#/Vo l]Ordered By: Jeff Birmingham on 04-06-2023 Eosinophils (Bld) [#/Vol] 0.1 10*3/uL 0.0-0.45 [facility] Eosinophils/100 WBC Auto (Bl d)Ordered By: Jeff Birmingham on 04-06-2023 Eosinophils/100 WBC (Bld) 1.1 % . [facility] Erythrocyte distribution wid th Auto (RBC) [Ratio]Ordered By: Jeff Birmingham on 04-06-2023 Erythrocyte distribution width (RBC) [Ratio] 13.6 % 12.0-14.8 [facility] Globulin Calc (S) [Mass/Vol] Ordered By: Jeff Birmingham on 04-06-2023 Globulin (S) [Mass/Vol] 2.5 g/dL [facility] Glucose [Mass/volume] in Ser um or PlasmaOrdered By: Jeff Birmingham on 04-06-2023 Glucose [Mass/Vol] 95 mg/dL 70-100 [facility] Comment on above: ADA recommended refe rence rangeRandom Glucose Reference Range is dependent on time and content of last meal. Glucose of more than 200 mg/dL in a nonstressed, ambulatory subject supports the diagnosis of Diabetes Mellitus. Hematocrit Auto (Bld) [Volum e fraction]Ordered By: Jeff Birmingham on 04-06-2023 Hematocrit (Bld) [Volume fraction] 42.1 % 38.8-50.0 [facility] Hemoglobin [Mass/volume] in BloodOrdered By: Jeff Birmingham on 04-06-2023 Hemoglobin (Bld) [Mass/Vol] 14.9 g/dL 13.0-17.0 [facility] Hepatic Panelon 04-06-2023 Albumin [Mass/Vol] 4.7 g/dL Normal 3.5-5.7 [facility] Comment on above: Performed By: #### H EPATIC, BMP, CBC, LIPASE ####[address] Albumin/Globulin [Mass ratio] 1.9 {ratio} Normal [facility] Comment on above: Performed By: #### H EPATIC, BMP, CBC, LIPASE ####[address] ALP [Catalytic activity/Vol] 67 U/L Normal 34-104 [facility] Comment on above: Performed By: #### H EPATIC, BMP, CBC, LIPASE ####[place] [id number] [facility] ALT [Catalytic activity/Vol] 44 U/L Normal 7-52 [facility] Comment on above: Performed By: #### H EPATIC, BMP, CBC, LIPASE ####[place] [id number] [facility] AST [Catalytic activity/Vol] 25 U/L Normal 13-39 [facility] Comment on above: Performed By: #### H EPATIC, BMP, CBC, LIPASE ####[address] Bilirubin [Mass/Vol] 0.6 mg/dL Normal 0.3-1.0 [facility] Comment on above: Performed By: #### H EPATIC, BMP, CBC, LIPASE ####[address] Bilirubin,Indirect 0.5 mg/dL Normal [facility] Comment on above: Performed By: #### H EPATIC, BMP, CBC, LIPASE ####[address] Bilirubin.indirect [Mass/Vol] 0.10 mg/dL Normal 0.03-0.18 [facility] Comment on above: Performed By: #### H EPATIC, BMP, CBC, LIPASE ####[address] Globulin (S) [Mass/Vol] 2.5 g/dL Normal [facility] Comment on above: Performed By: #### H EPATIC, BMP, CBC, LIPASE ####[address] Protein [Mass/Vol] 7.2 g/dL Normal 6.4-8.9 [facility] Comment on above: Performed By: #### H EPATIC, BMP, CBC, LIPASE ####[address] Leukocytes [#/volume] correc ashley for nucleated erythrocytes in Blood by Automated counOrdered By: Jeff Birmingham on 04-06-2023 WBC corrected for nucl RBC Auto (Bld) [#/Vol] 10.2 10*3/uL 4.1-10.5 [facility] Lipaseon 04-06-2023 Lipase [Catalytic activity/Vol] 20.0 U/L Normal 11.0-82.0 [facility] Comment on above: Result Comment: PERF ORMED BY: [facility] [address] [place] [address] PATHOLOGIST [employer] CAR[employer] KIM M.D. Performed By: #### H EPATIC, BMP, CBC, LIPASE ####[address] [place] [address] [facility] Lipase [Enzymatic activity/v olume] in Serum or PlasmaOrdered By: Jeff Birmingham on 04-06-2023 Lipase [Catalytic activity/Vol] 20.0 U/L 11.0-82.0 [facility] Lymphocytes Auto (Bld) [#/Vo l]Ordered By: Jeff Birmingham on 04-06-2023 Lymphocytes (Bld) [#/Vol] 3.1 10*3/uL 1.00-4.8 [facility] Lymphocytes/100 WBC Auto (Bl d)Ordered By: Jeff Birmingham on 04-06-2023 Lymphocytes/100 WBC (Bld) 30.6 % . [facility] MCH Auto (RBC) [Entitic mass ]Ordered By: Jeff Birmingham on 04-06-2023 MCH (RBC) [Entitic mass] 29.0 pg 27.5-35.2 [facility] MCHC Auto (RBC) [Mass/Vol]Or dered By: Jeff Birmingham on 04-06-2023 MCHC (RBC) [Mass/Vol] 35.3 g/dL 32.5-35.6 [facility] MCV Auto (RBC) [Entitic vol] Ordered By: Jeff Birmingham on 04-06-2023 MCV (RBC) [Entitic vol] 81.9 fL 83.5-101 [facility] Monocyte distribution width [Entitic volume] in Blood by AutomatedOrdered By: Jeff Birmingham on 04-06-2023 Monocyte distribution width Auto (Bld) [Entitic vol] 15.06 % 0.00-20.00 [facility] Monocytes Auto (Bld) [#/Vol] Ordered By: Jeff Birmingham on 04-06-2023 Monocytes (Bld) [#/Vol] 1.0 10*3/uL 0.0-0.8 [facility] Monocytes/100 WBC Auto (Bld) Ordered By: Jeff Birmingham on 04-06-2023 Monocytes/100 WBC (Bld) 9.5 % . [facility] Neutrophils Auto (Bld) [#/Vo l]Ordered By: Jeff Birmingham on 04-06-2023 Neutrophils (Bld) [#/Vol] 5.9 10*3/uL 1.8-7.7 [facility] Neutrophils/100 WBC Auto (Bl d)Ordered By: Jeff Birmingham on 04-06-2023 Neutrophils/100 WBC (Bld) 57.9 % . [facility] No Panel InformationOrdered By: Jeff Birmingham on 04-06-2023 Estimated GFR (CKD-EPI) > 60.0 mL/Min [facility] Creatinine Clearance (Chem 149.34 [facility] Nucleated erythrocytes [Pres ence] in Blood by Automated countOrdered By: Jeff Birmingham on 04-06-2023 Nucleated RBC Auto Ql (Bld) 0.1 /100{WBC} 0-0.5 [facility] Platelet mean volume Auto (B ld) [Entitic vol]Ordered By: Jeff Birmingham on 04-06-2023 Platelet mean volume (Bld) [Entitic vol] 8.0 fL 6.6-10.1 [facility] Platelets Auto (Bld) [#/Vol] Ordered By: Jeff Birmingham on 04-06-2023 Platelets (Bld) [#/Vol] 198 10*3/uL 150-450 [facility] Potassium [Moles/volume] in Serum or PlasmaOrdered By: Jeff Birmingham on 04-06-2023 Potassium [Moles/Vol] 3.7 mmol/L 3.5-5.1 [facility] Protein [Mass/volume] in Ser um or PlasmaOrdered By: Jeff Birmingham on 04-06-2023 Protein [Mass/Vol] 7.2 g/dL 6.4-8.9 [facility] RBC Auto (Bld) [#/Vol]Ordere d By: Jeff Birmingham on 04-06-2023 RBC (Bld) [#/Vol] 5.14 10*6/uL 3.90-5.60 [facility] Serum or plasma albumin/glob ulin mass ratioOrdered By: Jeff Birmingham on 04-06-2023 Albumin/Globulin [Mass ratio] 1.9 {ratio} [facility] Serum or plasma anion gap de terminationOrdered By: Jeff Birmingham on 04-06-2023 Anion gap [Moles/Vol] 9.4 mmol/L 6.0-15.0 [facility] Serum or plasma non-glucuron idated bilirubin measurement (mass/volume)Ordered By: Jeff Birmingham on 04-06-2023 Bilirubin.indirect [Mass/Vol] 0.5 mg/dL [facility] Sodium [Moles/volume] in Ser um or PlasmaOrdered By: Jeff Birmingham on 04-06-2023 Sodium [Moles/Vol] 139 mmol/L 136-145 [facility] Urea nitrogen [Mass/volume] in Serum or PlasmaOrdered By: Jeff Birmingham on 04-06-2023 Urea nitrogen [Mass/Vol] 7 mg/dL 7-25 [facility] WBC Auto (Bld) [#/Vol]Ordere d By: Jeff Birmingham on 04-06-2023 WBC (Bld) [#/Vol] 10.2 10*3/uL 4.1-10.5 [facility] US venous duplex LE RTon US venous duplex LE RT [facility] [address] Ultrasound Report Signed Patient: Basilio Person MR#: [id number] : 2000 Acct:[id number] Age/Sex: 22 / M ADM Date: 02/03/23 Loc: ER Room: Type: [facility] ER Attending Dr: Ordering Provider: [...] Nehemiah Camejo M.D.02/04/2023 8:41 AM Dictation Location: [place] [address] Tech: Cee Dasilva Transcribed By: TANK 02/04/2341 Dictated By: Nehemiah Camejo MD 02/04/23840 Signed By: 02/04/23840 [facility] XR knee RT 4V*on 02-04-2023 XR knee RT 4V* [facility] [place] [address] XRay Report Signed Patient: Basilio Person MR#: [id number] : 2000 Acct:[id number] Age/Sex: 22 / M ADM Date: 02/03/23 Loc: ER Room: Type: [facility] ER Attending Dr: Copies to: [...] Park Champagne M.D.02/04/2023 7:38 AM Dictation Location: [place] [address] Transcribed By: TANK 02/04/23 0738 Dictated By: Park Champagne MD 02/04/23 0737 Signed By: 02/04/23 0738 [facility] Activated partial thrombopla stin time (aPTT) in platelet poor plasma by coagulation aOrdered By: Venkat Palencia on 12-18-2022 aPTT Coag (PPP) [Time] 28.5 s 25.1-36.5 [facility] Alanine aminotransferase [En zymatic activity/volume] in Serum or PlasmaOrdered By: Venkat Palencia on 12-18-2022 ALT [Catalytic activity/Vol] 32 U/L 7-52 [facility] Albumin [Mass/volume] in Ser um or Plasma by Bromocresol green (BCG) dye binding methoOrdered By: Venkat Palencia on 12-18-2022 Albumin BCG dye [Mass/Vol] 4.6 g/dL 3.5-5.7 [facility] Alkaline phosphatase [Enzyma tic activity/volume] in Serum or PlasmaOrdered By: Venkat Palencia on 12-18-2022 ALP [Catalytic activity/Vol] 74 U/L 34-104 [facility] Aspartate aminotransferase [ Enzymatic activity/volume] in Serum or PlasmaOrdered By: Venkat Palencia on 12-18-2022 AST [Catalytic activity/Vol] 18 U/L 13-39 [facility] B-Type Natriuretic Peptideon 12-18-2022 Natriuretic peptide B (Bld) [Mass/Vol] 9.0 pg/mL Normal 5-100 [facility] Comment on above: Result Comment: PERF ORMED BY: [facility] [address] [facility] [place] [id number] PATHOLOGIST [employer] CAR[employer] KIM M.D. Performed By: #### P T, BNP, CBC, PTT, CK, DDIMER, HS TROP, CMP ####[facility] [id number] [place] [id number] [facility] Basophils Auto (Bld) [#/Vol] Ordered By: Venkat Palencia on 12-18-2022 Basophils (Bld) [#/Vol] 0.1 10*3/uL 0.0-0.2 [facility] Basophils/100 WBC Auto (Bld) Ordered By: Venkat Palencia on 12-18-2022 Basophils/100 WBC (Bld) 0.9 % . [facility] Bilirubin.total [Mass/volume ] in Serum or PlasmaOrdered By: Venkat Palencia on 12-18-2022 Bilirubin [Mass/Vol] 0.8 mg/dL 0.3-1.0 [facility] Calcium [Mass/volume] in Ser um or PlasmaOrdered By: Venkat Palencia on 12-18-2022 Calcium [Mass/Vol] 8.6 mg/dL 8.6-10.3 [facility] Carbon dioxide, total [Moles /volume] in Serum or PlasmaOrdered By: Venkat Palencia on 12-18-2022 CO2 [Moles/Vol] 25.9 mmol/L 21.0-31.0 [facility] Chloride [Moles/volume] in S valerie or PlasmaOrdered By: Venkat Palencia on 12-18-2022 Chloride [Moles/Vol] 109 mmol/L 98-107 [facility] Complete Blood Count Auto Di ffon 12-18-2022 Basophils (Bld) [#/Vol] 0.1 10*3/uL Normal 0.0-0.2 [facility] Comment on above: Result Comment: PERF ORMED BY: [place] [address] PATHOLOGIST T[employer] CAR[employer] KIM M.D. Performed By: #### P T, BNP, CBC, PTT, CK, DDIMER, HS TROP, CMP #### [address] Basophils/100 WBC (Bld) 0.9 % Normal . [facility] Comment on above: Performed By: #### P T, BNP, CBC, PTT, CK, DDIMER, HS TROP, CMP #### [address] Eosinophils (Bld) [#/Vol] 0.1 10*3/uL Normal 0.0-0.45 [facility] Comment on above: Performed By: #### P T, BNP, CBC, PTT, CK, DDIMER, HS TROP, CMP #### [address] Eosinophils/100 WBC (Bld) 0.8 % Normal . [facility] Comment on above: Performed By: #### P T, BNP, CBC, PTT, CK, DDIMER, HS TROP, CMP #### [address] Erythrocyte distribution width (RBC) [Ratio] 13.7 % Normal 12.0-14.8 [facility] Comment on above: Performed By: #### P T, BNP, CBC, PTT, CK, DDIMER, HS TROP, CMP #### [address] Hematocrit (Bld) [Volume fraction] 40.9 % Normal 38.8-50.0 [facility] Comment on above: Performed By: #### P T, BNP, CBC, PTT, CK, DDIMER, HS TROP, CMP #### [address] Hemoglobin (Bld) [Mass/Vol] 14.1 g/dL Normal 13.0-17.0 [facility] Comment on above: Performed By: #### P T, BNP, CBC, PTT, CK, DDIMER, HS TROP, CMP #### [address] Lymphocytes (Bld) [#/Vol] 2.2 10*3/uL Normal 1.00-4.8 [facility] Comment on above: Performed By: #### P T, BNP, CBC, PTT, CK, DDIMER, HS TROP, CMP #### [address] Lymphocytes/100 WBC (Bld) 21.2 % Normal . [facility] Comment on above: Performed By: #### P T, BNP, CBC, PTT, CK, DDIMER, HS TROP, CMP #### [address] MCH (RBC) [Entitic mass] 28.5 pg Normal 27.5-35.2 [facility] Comment on above: Performed By: #### P T, BNP, CBC, PTT, CK, DDIMER, HS TROP, CMP #### [address] MCV (RBC) [Entitic vol] 82.4 fL Low 83.5-101 [facility] Comment on above: Performed By: #### P T, BNP, CBC, PTT, CK, DDIMER, HS TROP, CMP #### [address] Mean Corpuscular HGB Conc 34.5 g/dL Normal 32.5-35.6 [facility] Comment on above: Performed By: #### P T, BNP, CBC, PTT, CK, DDIMER, HS TROP, CMP #### [place] [address] [place] Monocytes (Bld) [#/Vol] 0.9 10*3/uL High 0.0-0.8 [facility] Comment on above: Performed By: #### P T, BNP, CBC, PTT, CK, DDIMER, HS TROP, CMP #### [place] [address] [place] Monocytes/100 WBC (Bld) 15.92 % Normal 0.00-20.00 [facility] Comment on above: Performed By: #### P T, BNP, CBC, PTT, CK, DDIMER, HS TROP, CMP #### [address] Monocytes/100 WBC (Bld) 8.9 % Normal . [facility] Comment on above: Performed By: #### P T, BNP, CBC, PTT, CK, DDIMER, HS TROP, CMP #### [address] Neutrophils (Bld) [#/Vol] 7.2 10*3/uL Normal 1.8-7.7 [facility] Comment on above: Performed By: #### P T, BNP, CBC, PTT, CK, DDIMER, HS TROP, CMP #### [place], [place] [address] [place] Neutrophils/100 WBC (Bld) 68.2 % Normal . [facility] Comment on above: Performed By: #### P T, BNP, CBC, PTT, CK, DDIMER, HS TROP, CMP #### [place] [address] [place] NRBC% 0.1 /100{WBC} Normal 0-0.5 [facility] Comment on above: Performed By: #### P T, BNP, CBC, PTT, CK, DDIMER, HS TROP, CMP #### [place] [address] [place] Platelet mean volume (Bld) [Entitic vol] 7.5 fL Normal 6.6-10.1 [facility] Comment on above: Performed By: #### P T, BNP, CBC, PTT, CK, DDIMER, HS TROP, CMP #### [facility] [address] Platelets (Bld) [#/Vol] 203 10*3/uL Normal 150-450 [facility] Comment on above: Performed By: #### P T, BNP, CBC, PTT, CK, DDIMER, HS TROP, CMP #### [facility] [address] RBC (Bld) [#/Vol] 4.97 10*6/uL Normal 3.90-5.60 [facility] Comment on above: Performed By: #### P T, BNP, CBC, PTT, CK, DDIMER, HS TROP, CMP #### [address] WBC (Bld) [#/Vol] 10.6 10*3/uL High 4.1-10.5 [facility] Comment on above: Performed By: #### P T, BNP, CBC, PTT, CK, DDIMER, HS TROP, CMP #### [facility] [address] [place] [address] Comprehensive Metabolic Pane maren 12-18-2022 Albumin [Mass/Vol] 4.6 g/dL Normal 3.5-5.7 [facility] Comment on above: Performed By: #### P T, BNP, CBC, PTT, CK, DDIMER, HS TROP, CMP ####[facility] Albumin/Globulin [Mass ratio] 2.0 {ratio} Normal [facility] Comment on above: Performed By: #### P T, BNP, CBC, PTT, CK, DDIMER, HS TROP, CMP ####[facility] [address] ALP [Catalytic activity/Vol] 74 U/L Normal 34-104 [facility] Comment on above: Performed By: #### P T, BNP, CBC, PTT, CK, DDIMER, HS TROP, CMP ####[address] ALT [Catalytic activity/Vol] 32 U/L Normal 7-52 [facility] Comment on above: Performed By: #### P T, BNP, CBC, PTT, CK, DDIMER, HS TROP, CMP ####[address] Anion gap [Moles/Vol] 9.9 mmol/L Normal 6.0-15.0 [facility] Comment on above: Performed By: #### P T, BNP, CBC, PTT, CK, DDIMER, HS TROP, CMP ####[address] AST [Catalytic activity/Vol] 18 U/L Normal 13-39 [facility] Comment on above: Performed By: #### P T, BNP, CBC, PTT, CK, DDIMER, HS TROP, CMP ####[address] Bilirubin [Mass/Vol] 0.8 mg/dL Normal 0.3-1.0 [facility] Comment on above: Performed By: #### P T, BNP, CBC, PTT, CK, DDIMER, HS TROP, CMP ####[address] Calcium [Mass/Vol] 8.6 mg/dL Normal 8.6-10.3 [facility] Comment on above: Performed By: #### P T, BNP, CBC, PTT, CK, DDIMER, HS TROP, CMP ####[place] [id number] [facility] Chloride [Moles/Vol] 109 mmol/L High 98-107 [facility] Comment on above: Performed By: #### P T, BNP, CBC, PTT, CK, DDIMER, HS TROP, CMP ####[address] CO2 [Moles/Vol] 25.9 mmol/L Normal 21.0-31.0 [facility] Comment on above: Performed By: #### P T, BNP, CBC, PTT, CK, DDIMER, HS TROP, CMP ####[address] Creatinine [Mass/Vol] 0.89 mg/dL Normal 0.70-1.30 [facility] Comment on above: Performed By: #### P T, BNP, CBC, PTT, CK, DDIMER, HS TROP, CMP ####[address] Creatinine Clr Calc Pharmacy 151.88 [facility] Comment on above: Result Comment: PERF ORMED BY: [facility] [address] [place] [address] PATHOLOGIST T[employer]ATER CARRI KIM M.D. Performed By: #### P T, BNP, CBC, PTT, CK, DDIMER, HS TROP, CMP ####[address] GFR/1.73 sq M.predicted MDRD (S/P/Bld) [Vol rate/Area] mL/min/{1.73_m2} [facility] Comment on above: Performed By: #### P T, BNP, CBC, PTT, CK, DDIMER, HS TROP, CMP ####[address] Globulin (S) [Mass/Vol] 2.3 g/dL [facility] Comment on above: Performed By: #### P T, BNP, CBC, PTT, CK, DDIMER, HS TROP, CMP ####[address] Glucose [Mass/Vol] 87 mg/dL Normal 70-100 [facility] Comment on above: Result Comment: [place] Glucose Reference Range is dependent on time and content of last meal. Glucose of more than 200 mg/dL in a nonstressed, ambulatory subject supports the diagnosis of Diabetes Mellitus. ADA recommended reference range Performed By: #### P T, BNP, CBC, PTT, CK, DDIMER, HS TROP, CMP ####[address] Potassium [Moles/Vol] 3.8 mmol/L Normal 3.5-5.1 [facility] Comment on above: Performed By: #### P T, BNP, CBC, PTT, CK, DDIMER, HS TROP, CMP ####[place] [id number] [facility] Protein [Mass/Vol] 6.9 g/dL Normal 6.4-8.9 [facility] Comment on above: Performed By: #### P T, BNP, CBC, PTT, CK, DDIMER, HS TROP, CMP ####[address] Sodium [Moles/Vol] 141 mmol/L Normal 136-145 [facility] Comment on above: Performed By: #### P T, BNP, CBC, PTT, CK, DDIMER, HS TROP, CMP ####[place] [id number] [facility] Urea nitrogen [Mass/Vol] 11 mg/dL Normal 7-25 [facility] Comment on above: Performed By: #### P T, BNP, CBC, PTT, CK, DDIMER, HS TROP, CMP ####[place] [id number] [facility] Creatine Kinaseon 12-18-2022 CK [Catalytic activity/Vol] 81 U/L Normal [facility] Comment on above: Performed By: #### P T, BNP, CBC, PTT, CK, DDIMER, HS TROP, CMP ####[place] [id number] [facility] Creatine kinase [Enzymatic a ctivity/volume] in Serum or PlasmaOrdered By: Venkat Palencia on 12-18-2022 CK [Catalytic activity/Vol] 81 U/L - [facility] Creatinine [Mass/volume] in Serum or PlasmaOrdered By: Venkat Palencia on 12-18-2022 Creatinine [Mass/Vol] 0.89 mg/dL 0.70-1.30 [facility] D-Dimer High Sensitivityon 0 12-18-2022 D-Dimer High Sensitivity < 200 Normal 0-243 [facility] Comment on above: Result Comment: The reference [...] patients due to co-morbid conditions. PERFORMED BY: [place] [address] PATHOLOGIST T[employer] CARRI KIM M.D. Performed By: #### P T, BNP, CBC, PTT, CK, DDIMER, HS TROP, CMP ####[facility] [place] [id number] [facility] ECG 12 lead ECGon 12-18-2022 [address] [facility] [address] Electrocardiograph Report Signed Patient: Basilio Person MR#: [id number] : 2000 Acct:[id number] Age/Sex: 22 / M ADM Date: 12/18/22 Loc: ER Room: Type: [facility] ER Attending Dr: Ordering Provider: Venkat Palencia [...] was found Confirmed by VENKAT PALENCIA MD ([id number]) on 12/18/2022 4:21:16 AM Referred By: Electronically Signed By:VENKAT PALENCIA MD Transcribed By: MUS Signed By Venkat Palencia Jr, MD 0421 Normal [facility] Eosinophils Auto (Bld) [#/Vo l]Ordered By: Venkat Palencia on 12-18-2022 Eosinophils (Bld) [#/Vol] 0.1 10*3/uL 0.0-0.45 [facility] Eosinophils/100 WBC Auto (Bl d)Ordered By: Venkat Palencia on 12-18-2022 Eosinophils/100 WBC (Bld) 0.8 % . [facility] Erythrocyte distribution wid th Auto (RBC) [Ratio]Ordered By: Venkat Palencia on 12-18-2022 Erythrocyte distribution width (RBC) [Ratio] 13.7 % 12.0-14.8 [facility] Globulin Calc (S) [Mass/Vol] Ordered By: Venkat Palencia on 12-18-2022 Globulin (S) [Mass/Vol] 2.3 g/dL [facility] Glucose [Mass/volume] in Ser um or PlasmaOrdered By: Venkat Palencia on 12-18-2022 Glucose [Mass/Vol] 87 mg/dL 70-100 [facility] Comment on above: ADA recommended refe rence rangeRandom Glucose Reference Range is dependent on time and content of last meal. Glucose of more than 200 mg/dL in a nonstressed, ambulatory subject supports the diagnosis of Diabetes Mellitus. Hematocrit Auto (Bld) [Volum e fraction]Ordered By: Venkat Palencia on 12-18-2022 Hematocrit (Bld) [Volume fraction] 40.9 % 38.8-50.0 [facility] Hemoglobin [Mass/volume] in BloodOrdered By: Venkat Palencia on 12-18-2022 Hemoglobin (Bld) [Mass/Vol] 14.1 g/dL 13.0-17.0 [facility] Laboratory - CoagulationOrde red By: Venkat Palencia on 12-18-2022 PT Coag (PPP) [Time] 12.0 s 9.0-12.9 [facility] Leukocytes [#/volume] correc ashley for nucleated erythrocytes in Blood by Automated counOrdered By: Venkat Palencia on 12-18-2022 WBC corrected for nucl RBC Auto (Bld) [#/Vol] 10.6 10*3/uL 4.1-10.5 [facility] Lymphocytes Auto (Bld) [#/Vo l]Ordered By: Venkat Palencia on 12-18-2022 Lymphocytes (Bld) [#/Vol] 2.2 10*3/uL 1.00-4.8 [facility] Lymphocytes/100 WBC Auto (Bl d)Ordered By: Venkat Palencia on 12-18-2022 Lymphocytes/100 WBC (Bld) 21.2 % . [facility] MCH Auto (RBC) [Entitic mass ]Ordered By: Venkat Palencia on 12-18-2022 MCH (RBC) [Entitic mass] 28.5 pg 27.5-35.2 [facility] MCHC Auto (RBC) [Mass/Vol]Or dered By: Venkat Palencia on 12-18-2022 MCHC (RBC) [Mass/Vol] 34.5 g/dL 32.5-35.6 [facility] MCV Auto (RBC) [Entitic vol] Ordered By: Venkat Palencia on 12-18-2022 MCV (RBC) [Entitic vol] 82.4 fL 83.5-101 [facility] Monocyte distribution width [Entitic volume] in Blood by AutomatedOrdered By: Venkat Palencia on 12-18-2022 Monocyte distribution width Auto (Bld) [Entitic vol] 15.92 % 0.00-20.00 [facility] Monocytes Auto (Bld) [#/Vol] Ordered By: Venkat Palencia on 12-18-2022 Monocytes (Bld) [#/Vol] 0.9 10*3/uL 0.0-0.8 [facility] Monocytes/100 WBC Auto (Bld) Ordered By: Venkat Palencia on 12-18-2022 Monocytes/100 WBC (Bld) 8.9 % . [facility] Natriuretic peptide B [Mass/ Vol]Ordered By: Venkat Palencia on 12-18-2022 Natriuretic peptide B (Bld) [Mass/Vol] 9.0 pg/mL 5-100 [facility] Neutrophils Auto (Bld) [#/Vo l]Ordered By: Venkat Palencia on 12-18-2022 Neutrophils (Bld) [#/Vol] 7.2 10*3/uL 1.8-7.7 [facility] Neutrophils/100 WBC Auto (Bl d)Ordered By: Venkat Palencia on 12-18-2022 Neutrophils/100 WBC (Bld) 68.2 % . [facility] No Panel InformationOrdered By: Venkat Palencia on 12-18-2022 D-Dimer Quantitative (PE/DVT) < 200 ng/mL 0-243 [facility] Comment on above: The reference range for [...] conditions. Estimated GFR (CKD-EPI) > 60.0 mL/Min [facility] Creatinine Clearance (Chem 151.88 [facility] Nucleated erythrocytes [Pres ence] in Blood by Automated countOrdered By: Venkat Palencia on 12-18-2022 Nucleated RBC Auto Ql (Bld) 0.1 /100{WBC} 0-0.5 [facility] Partial Thromboplastin Timeo n 12-18-2022 aPTT Coag (Bld) [Time] 28.5 s Normal 25.1-36.5 [facility] Comment on above: Performed By: #### P T, BNP, CBC, PTT, CK, DDIMER, HS TROP, CMP ####[facility] [id number] [place] [address] [facility] Platelet mean volume Auto (B ld) [Entitic vol]Ordered By: Venkat Palencia on 12-18-2022 Platelet mean volume (Bld) [Entitic vol] 7.5 fL 6.6-10.1 [facility] Platelet poor plasma interna tional normalized ratio (INR) by coagulation assay (relatOrdered By: Venkat Palencia on 12-18-2022 INR Coag (PPP) [Relative time] 1.0 {INR} [facility] Comment on above: INR Therapeutic Rang e [...] 12-18-2022 Platelets (Bld) [#/Vol] 203 10*3/uL 150-450 [facility] Potassium [Moles/volume] in Serum or PlasmaOrdered By: Venkat Palencia on 12-18-2022 Potassium [Moles/Vol] 3.8 mmol/L 3.5-5.1 [facility] Protein [Mass/volume] in Ser um or PlasmaOrdered By: Venkat Palencia on 12-18-2022 Protein [Mass/Vol] 6.9 g/dL 6.4-8.9 [facility] Prothrombin Time INRon 12-18 INR Coag (PPP) [Relative time] 1.0 {INR} Normal [facility] Comment on above: Result Comment: INR Therapeutic [...] PTT, CK, DDIMER, HS TROP, CMP #### [facility] [address] PT Coag (PPP) [Time] 12.0 s Normal 9.0-12.9 [facility] Comment on above: Performed By: #### P T, BNP, CBC, PTT, CK, DDIMER, HS TROP, CMP #### [facility] [address] RBC Auto (Bld) [#/Vol]Ordere d By: Venkat Palencia on 04-15-2023 RBC (Bld) [#/Vol] 4.97 10*6/uL 3.90-5.60 [facility] Serum or plasma albumin/glob ulin mass ratioOrdered By: Venkat Palencia on 12-18-2022 Albumin/Globulin [Mass ratio] 2.0 {ratio} [facility] Serum or plasma anion gap de terminationOrdered By: Venkat Palencia on 12-18-2022 Anion gap [Moles/Vol] 9.9 mmol/L 6.0-15.0 [facility] Sodium [Moles/volume] in Ser um or PlasmaOrdered By: Venkat Palencia on 12-18-2022 Sodium [Moles/Vol] 141 mmol/L 136-145 [facility] Troponin I High Sensitivityo n 12-18-2022 Troponin I High Sensitivity 2.5 pg/mL Normal 0.0-20.0 [facility] Comment on above: Result Comment: PERF ORMED BY: [facility] [address] [place] [id number] PATHOLOGIST T[employer]ATER CARRI KIM M.D. Performed By: #### P T, BNP, CBC, PTT, CK, DDIMER, HS TROP, CMP ####[facility] [id number] [place] [address] [facility] Troponin I.cardiac [Mass/vol ume] in Serum or Plasma by Detection limit <= 0.01 ng/Ordered By: Venkat Palencia on 12-18-2022 Troponin I.cardiac DL <= 0.01 ng/mL [Mass/Vol] 2.5 pg/mL 0.0-20.0 [facility] Urea nitrogen [Mass/volume] in Serum or PlasmaOrdered By: Venkat Palencia on 12-18-2022 Urea nitrogen [Mass/Vol] 11 mg/dL 7-25 [facility] WBC Auto (Bld) [#/Vol]Ordere d By: Venkat Palencia on 12-18-2022 WBC (Bld) [#/Vol] 10.6 10*3/uL 4.1-10.5 [facility] XR chest 1V portableon 12-[address] [facility] [address] [place] [address] XRay Report Signed Patient: Basilio Person MR#: [id number] : 2000 Acct:[id number] Age/Sex: 22 / M ADM Date: 12/18/22 Loc: ER Room: Type: [facility] ER Attending Dr: Copies to: [...] Eagle Woodard M.D.12/18/2022 9:45 AM Dictation Location: [place] [address] Transcribed By: [facility] 12/18/22 0945 Dictated By: Eagle Woodard II, MD 12/18/22 0945 Signed By: 12/18/22 0945 [facility] Quick Strepon 10-24-2022 Quick Strep Streptococcus pyogen es Ag [Presence] in Throat by Rapid immunoassay Negative for Group A Strep Antigen Note 1 NOTE 2 Results are those of a screening test. NOTE 3 If clinically indicated please order a culture. NOTE 4 NOTE 5 Reference range = Negative PERFORMED BY: [place] [address] PATHOLOGIST TAPE [employer]ATER CARRI KIM M.D. [facility] Comment on above: Performed By: #### Q S #### [facility] [address] [place] [address] RPR w/rfx to Quant TP Abson 10-24-2022 RPR, Rfx Quant RPR Non-Reactive Normal Non Reactive [facility] Comment on above: Result Comment: Perf ormed at: CB - [facility] [place] [id number] [employer] Supervisor: Morales Escamilla PhD, Phone: [phone] PERFORMED BY: [place] [address] PATHOLOGIST T[employer]ATER CARRI KIM M.D. Performed By: #### R GA W RFX ####[facility] , [facility]agin [facility] [Presence] in Seru m by RPROrdered By: Andrzej Bell on 10-24-2022 Reagin Ab RPR Ql (S) Non-Reactive Non Reactive [facility] Comment on above: Performed at: CB - [facility] [address] [id number] Director: Morales Escamilla PhD, Phone: [phone] Streptococcus pyogenes antig en detectionOrdered By: Andrzej Bell on 10-24-2022 S. pyogenes Ag Ql (Unsp spec) [facility] S. pyogenes Ag Ql (Unsp spec) [facility] XR chest 1V portableon 10-[address] [facility] [place] [address] XRay Report Signed Patient: Basilio Person MR#: [id number] : 2000 Acct:[id number] Age/Sex: 22 / M ADM Date: 10/07/22 Loc: ER Room: Type: [facility] ER Attending Dr: Copies to: [...] Nehemiah Aguilar M.D.10/08/2022 7:49 AM Dictation Location: [facility]- Transcribed By: TANK 10/08/2249 Dictated By: Nehemiah Aguilar DO 10/08/2249 Signed By: 10/08/22 0749 [facility] XR soft tissue neckon [address]R soft tissue [address] [facility] [place] [id number] XRay Report Signed Patient: Basilio Person MR#: [id number] : 2000 Acct:[id number] Age/Sex: 22 / M ADM Date: 10/07/22 Loc: ER Room: Type: [facility] ER Attending Dr: Copies to: [...] Nehemiah Aguilar M.D.10/08/2022 7:49 AM Dictation Location: [facility] Transcribed By: TANK 10/08/22 0749 Dictated By: Nehemiah Aguilar DO 10/08/22 0748 Signed By: 10/08/22 0749 [facility] ECG 12 lead ECGon 10-07-2022 ECG 12 lead ECG [place] [id number] Electrocardiograph Report Signed Patient: Basilio Person MR#: [id number] : 2000 Acct:[id number] Age/Sex: 22 / M ADM Date: 10/07/22 Loc: ER Room: Type: [facility] ER Attending Dr: Ordering Provider: Suresh Ospina [...] By: MUS Signed By Suresh Ospina MD 10/08/22 012 [facility] XR knee LT 4V*on 09-02-2022 XR knee LT 4V* [facility] [address] XRay Report Signed Patient: Basilio Person MR#: [id number] : 2000 Acct:[id number] Age/Sex: 21 / M ADM Date: 09/02/22 Loc: ER Room: Type: [facility] ER Attending Dr: Copies to: Andrzej Bell [...] Nehemiah Aguilar M.D.09/02/2022 5:15 PM Dictation Location: [place] [address] Transcribed By: [facility] 09/02/221714 Dictated By: Nehemiah Aguilar DO 09/02/221713 Signed By: 09/02/221714 [facility] Vital Signs Date Time Vital Sign Value Performing Clinician Faci lity 04-06-2023 07:00-0400 Diastolic blood pressure 68 mm[Hg] [facility] Work Phone: [facility] 04-06-2023 07:00-0400 Heart rate 77 /min [facility] Work Phone: [facility] 04-06-2023 07:00-0400 Respiratory rate 18 /min [facility] Work Phone: [facility] 04-06-2023 07:00-0400 SaO2% (BldA) [Mass fraction] 97 % [facility] Work Phone: [facility] 04-06-2023 07:00-0400 Systolic blood pressure 117 mm[Hg] [facility] Work Phone: [facility] 04-06-2023 05:26-0400 Body height 177.8 cm [facility] Work Phone: [facility] 04-06-2023 05:26-0400 Body temperature 98.6 [degF] [facility] Work Phone: [facility] 04-06-2023 05:26-0400 Body weight 97.8 kg [facility] Work Phone: [facility] 02-03-2023 20:47-0400 Body height 177.8 cm [facility] Work Phone: [facility] 02-03-2023 20:47-0400 Body temperature 98 [degF] [facility] Work Phone: [facility] 02-03-2023 20:47-0400 Body weight 95.7 kg [facility] Work Phone: [facility] 02-03-2023 20:47-0400 Diastolic blood pressure 77 mm[Hg] [facility] Work Phone: [facility] 02-03-2023 20:47-0400 Heart rate 87 /min [facility] Work Phone: [facility] 02-03-2023 20:47-0400 Respiratory rate 20 /min [facility] Work Phone: [facility] 02-03-2023 20:47-0400 SaO2% (BldA) [Mass fraction] 100 % [facility] Work Phone: [facility] 02-03-2023 20:47-0400 Systolic blood pressure 138 mm[Hg] [facility] Work Phone: [facility] 12-18-2022 03:46-0400 Heart rate 108 /min [facility] Work Phone: [facility] 12-18-2022 03:46-0400 Respiratory rate 18 /min [facility] Work Phone: [facility] 12-18-2022 03:46-0400 SaO2% (BldA) [Mass fraction] 99 % [facility] Work Phone: [facility] 12-18-2022 03:24-0400 Body height 177.8 cm [facility] Work Phone: [facility] 12-18-2022 03:24-0400 Body temperature 97.9 [degF] [facility] Work Phone: [facility] 12-18-2022 03:24-0400 Body weight 96.7 kg [facility] Work Phone: [facility] 12-18-2022 03:24-0400 Diastolic blood pressure 88 mm[Hg] [facility] Work Phone: [facility] 12-18-2022 03:24-0400 Systolic blood pressure 145 mm[Hg] [facility] Work Phone: [facility] 10-24-2022 12:21-0500 Body height 179.07 cm [facility] Work Phone: [facility] 10-24-2022 12:21-0500 Body temperature 98.7 [degF] [facility] Work Phone: [facility] 10-24-2022 12:21-0500 Body weight 98 kg [facility] Work Phone: [facility] 10-24-2022 12:21-0500 Diastolic blood pressure 64 mm[Hg] [facility] Work Phone: [facility] 10-24-2022 12:21-0500 Heart rate 81 /min [facility] Work Phone: [facility] 10-24-2022 12:21-0500 Respiratory rate 18 /min [facility] Work Phone: [facility] 10-24-2022 12:21-0500 SaO2% (BldA) [Mass fraction] 98 % [facility] Work Phone: [facility] 10-24-2022 12:21-0500 Systolic blood pressure 124 mm[Hg] [facility] Work Phone: [facility] 10-07-2022 21:20-0500 Body height 177.8 cm [facility] Work Phone: [facility] 10-07-2022 21:20-0500 Body temperature 98.4 [degF] [facility] Work Phone: [facility] 10-07-2022 21:20-0500 Body weight 100.35 kg [facility] Work Phone: [facility] 10-07-2022 21:20-0500 Diastolic blood pressure 87 mm[Hg] [facility] Work Phone: [facility] 10-07-2022 21:20-0500 Heart rate 90 /min [facility] Work Phone: [facility] 10-07-2022 21:20-0500 Respiratory rate 20 /min [facility] Work Phone: [facility] 10-07-2022 21:20-0500 SaO2% (BldA) [Mass fraction] 100 % [facility] Work Phone: [facility] 10-07-2022 21:20-0500 Systolic blood pressure 148 mm[Hg] [facility] Work Phone: [facility] 09-02-2022 15:47-0500 Body height 179.07 cm [facility] Work Phone: [facility] 09-02-2022 15:47-0500 Body temperature 98.1 [degF] [facility] Work Phone: [facility] 09-02-2022 15:47-0500 Body weight 98.95 kg [facility] Work Phone: [facility] 09-02-2022 15:47-0500 Diastolic blood pressure 77 mm[Hg] [facility] Work Phone: [facility] 09-02-2022 15:47-0500 Heart rate 74 /min [facility] Work Phone: [facility] 09-02-2022 15:47-0500 Respiratory rate 18 /min [facility] Work Phone: [facility] 09-02-2022 15:47-0500 SaO2% (BldA) [Mass fraction] 100 % [facility] Work Phone: [facility] 09-02-2022 15:47-0500 Systolic blood pressure 137 mm[Hg] [facility] Work Phone: [facility] Encounters Encounter Date Encounter Type Care Provider Facility Start: 04-06-2023 End: 04-06-2023 Emergency department patient visit Jeff Birmingham Facility:[facility] Start: 04-06-2023 End: 04-06-2023 Emergency department [facility] visit [facility] Work Phone: [facility] Work Phone: Start: 02-03-2023 End: 02-04-2023 Emergency department patient visit Katelyn Stephen Facility:[facility] Start: 02-03-2023 End: 02-03-2023 Emergency department [facility] visit [facility] Work Phone: [facility] Work Phone: Start: 12-18-2022 End: 12-18-2022 Emergency department patient visit Venkat Palencia Jr Facility:[facility] Start: 12-18-2022 End: 12-18-2022 Emergency department patient visit Services [facility] Work Phone: [facility] Work Phone: Start: 10-24-2022 End: 10-24-2022 Emergency department patient visit Services [facility] Facility:[facility] Start: 10-24-2022 End: 10-24-2022 Emergency department patient visit Services [facility] Work Phone: [facility] Work Phone: Start: 10-07-2022 End: 10-08-2022 Emergency department patient visit Services [facility] Facility:[facility] Start: 10-07-2022 End: 10-07-2022 Emergency department patient visit Services [facility] Work Phone: [facility] Work Phone: Start: 09-02-2022 End: 09-02-2022 Emergency department patient visit Services [facility] Center:[facility] Start: 09-02-2022 End: 09-02-2022 Emergency department patient visit Services [facility] Work Phone: [facility] [facility] Work Phone: Procedures Date Procedure Procedure Detail Performing Clinician Start: 02-03-2023 Duplex scan of lower limb veins [employer] Work Phone: Start: 02-03-2023 X-ray of right knee [facility] [employer] Phone: Start: 12-18-2022 Plain chest X-ray [facility] [employer] Phone: Start: 10-24-2022 Streptococcus pyogenes antigen assay [facility] [employer] Phone: Start: 10-07-2022 Plain chest X-ray [employer] Work Phone: Start: 10-07-2022 X-ray of soft tissue of neck Services [employer] [facility] [employer] Phone: Start: 09-02-2022 Radiologic examination of knee [employer] Work Phone: History of appendectomy Status p ost appendectomy [facility] [employer] Phone: Plan of Treatment Date Care Activity Detail Author Start: 04-06-2023 Computed tomography of abdomen and pelvis with contrast CT abdomen pelvis w con [facility] Start: 04-06-2023 CT Abdomen and Pelvi s W contrast IV [facility] Start: 02-03-2023 Duplex scan of lower limb veins US venous duplex LE RT [facility] Start: 02-03-2023 US Lower extremity v ein - right [facility] Start: 02-03-2023 X-ray of right knee XR knee RT 4V* F [facility] Start: 02-03-2023 XR Knee - right 4 Views [facility] Start: 12-18-2022 Plain chest X-ray XR chest 1V portab [facility] Start: 12-18-2022 XR Chest Single view [facility] Start: 10-24-2022 [facility] Start: 10-07-2022 Plain chest X-ray XR chest 1V portab [facility] Start: 10-07-2022 X-ray of soft tissue of neck XR soft tissue neck [facility] Start: 10-07-2022 XR Chest Single view [facility] Start: 10-07-2022 XR Neck Views [facility] Patient Education [facility] Work Phone: Patient referral [facility] Work Phone: Reagin Ab [Presence] in Serum by RPR [facility] Payers Date Payer Category Payer Medicaid [id number] 2022 Self-pay [id number] Medicaid [employer] [id number] Unknown Regular Auto/Liability [id number] Unknown [id number] Unknown [id number] Unknown [id number] Unknown [id number] Unknown [id number] Unknown [id number] Worker's Compensation [id number] Social History Date Type Detail Facility Start: 09-02-2022 End: 04-06-2023 Tobacco smoking status NHIS Never smoked tobacco (finding) [facility] Start: 2000 Sex Assigned At Male F [facility] Evaluation note Note Date & Type Note Facility Evaluation note No assessment information availa ble [facility] Work Phone: Hospital Discharge instructions Note Date & Type Note Facility Hospital Discharge instructions Additional Instructions Return if symptoms are worse [facility] Work Phone: Hospital Discharge instructions Note Date & Type Note Facility Hospital Discharge instructions Additional Instructions Ice and elevate Tylenol or Naprosyn if needed for pain Follow-up with your PCP or Ortho Return here if any problems persist or worsen [facility] Work Phone: Chief Complaint and Reason for [...] , DO Family Provider Active Services Family [facility] Primary Care Provider Active Team Status: Inactive Member Role Status Dates Services [facility] Primary Care Provider Active Jeff Mast , DO Family Provider Active Suresh Ospina MD Emergency Provider Active Team Status: Inactive Member Role Status Dates Services [facility] Primary Care Provider Active Ejff Mast , DO Family Provider Active Venkat Palencia Jr, MD Emergency Provider Active Team Status: Inactive Member Role Status Dates Services [facility] Primary Care Provider Active Jeff Mast , DO Family Provider Active Katelyn Stephen APRN Emergency Provider Active Team Status: Inactive Member Role Status Dates Services Family [facility] Primary Care Provider Active Jeff Mast , [...] section and content) DATE CREATED AUTHOR 04/18/2023 [facility] FOR RECORDS PERTAINING TO PATIENTS WHO ARE [...] BE BASED ON THE PRIMARY CLINICAL RECORDS. [facility]. provides no warranty or guarantee of the accuracy or completeness of information in this document.
--- NOTE | 2024-04-06 00:28 | XR_ITS ---
The [address] [address] Patient Name: JACK MATTHEWS MRN: [id number] date: 2000 Sex: M Assigned Patient Location: ER Current Patient Location: ER Accession/Order Number: [id number] Exam Date: 04/06/2024 00:33 Report Date: 04/06/2024 00:53 At the request of: MIKAYLA LUCAS Procedure: XR hip RT min 2V EXAM: XR hip RT min 2V HISTORY: The patient is a 23-year-old male, fall COMPARISON: None. XR/XR hip RT min 2V IMPRESSION: No fractures or cortical discontinuities are seen within the proximal right femur or acetabulum. The width and alignment of the right hip joint is maintained. Electronically authenticated by: LONA YEUNG Date: 04/06/2024 00:53
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
--- NOTE | 2024-04-06 00:34 | PC.NURSE ---
Complains of pain to right hip and right leg, no redness, bruising or swelling present, ambulates without difficulty.
== END 2024-04-06 01:17 | disposition home or self-care (01) ==
PROVIDERS: Emergency Provider Emergency Medicine
DX: S70.01XA Contusion of right hip, initial encounter (principal); V28.41XA Electric (assisted) bicycle driver injured in noncollision transport accident in traffic accident, initial encounter
CPT/HCPCS: 73502; 99283

== ENCOUNTER 2024-06-28 00:02 | Emergency (ER) | payer OTHER, SELFPAY ==
[2024-06-28 00:07] VITALS: BP 128/87; PULSE 106; TEMP 36.8; O2SAT 99; BMI 31.6
--- OUTSIDE RECORDS SUMMARY | 2024-06-28 00:12 | XMS_ITS | CCD ---
Author Organization [facility] Care Team Providers Care Heel Attacher Name Role Phone [facility], Services Primary Care Provider JOSE A Bell Emergency Provider MD Suresh Ospina Emergency Provider [facility], Services Primary Care Provider MD Suresh Ospina Emergency Provider JOSE A Bell Emergency Provider MD Venkat Palencia Jr Emergency Provider [facility], Services Primary Care Provider 1( [phone] JOSE A Stephen Emergency Provider [facility], Services Primary Care Provider DO Jeff Birmingham Emergency Provider Katelyn Stephen Admitting Unavailable Katelyn Stephen Attending Unavailable [facility], Services Primary Care Unavaila Jeff Larson Admitting Unavailable Jeff Birmingham Attending Unavailable [facility], Services Primary Care Unavaila ble [facility], Services Primary Care Unavaila Andrzej Antunez Admitting Unavailable Andrzej Bell Attending Unavailable [facility], Services Primary Care Unavaila ble Suresh Ospina Admitting Unavailable Suresh Ospina Attending Unavailable [facility], Services Primary Care Unavaila Andrzej Antunez Admitting Unavailable Andrzej Bell Attending Unavailable Venkat Palencia Jr Admitting Unavailable Venkat Palencia Jr Attending Unavailable [facility], Services Primary Care Unavaila ble Allergies Allergy Classification Reported Allergen(s) Allergy Type Date of Onset Reaction(s) Facility (6 sources) insect venom; Translations: [insect venom] Allergy to substance 10-07-2022 [facility] Medications Current Medications Medication Drug Class(es) Dates [...] painful area for up to 12 hrs [place] (No Known Home Meds) (1 source) Start: 10-07-2022 [place] (No Known Home Meds) Active October 07, [...] 04-06-2023 ALT [Catalytic activity/Vol] 44 U/L 7-52 [facility] Albumin [Mass/volume] in Ser um or Plasma by Bromocresol green (BCG) dye binding methoOrdered By: Jeff Birmingham on 04-06-2023 Albumin BCG dye [Mass/Vol] 4.7 g/dL 3.5-5.7 [facility] Alkaline phosphatase [Enzyma tic activity/volume] in Serum or PlasmaOrdered By: Jeff Birmingham on 04-06-2023 ALP [Catalytic activity/Vol] 67 U/L 34-104 [facility] Aspartate aminotransferase [ Enzymatic activity/volume] in Serum or PlasmaOrdered By: Jeff Birmingham on 04-06-2023 AST [Catalytic activity/Vol] 25 U/L 13-39 [facility] Basic Metabolic Panelon Anion gap [Moles/Vol] 9.4 mmol/L Normal 6.0-15.0 [facility] Comment on above: Performed By: #### H EPATIC, BMP, CBC, LIPASE ####[address] Calcium [Mass/Vol] 9.5 mg/dL Normal 8.6-10.3 [facility] Comment on above: Performed By: #### H EPATIC, BMP, CBC, LIPASE ####[address] Chloride [Moles/Vol] 104 mmol/L Normal 98-[address] [facility] Comment on above: Performed By: #### H EPATIC, BMP, CBC, LIPASE ####[address] CO2 [Moles/Vol] 29.3 mmol/L Normal 21.0-31.0 [facility] Comment on above: Performed By: #### H EPATIC, BMP, CBC, LIPASE ####[address] Creatinine [Mass/Vol] 0.91 mg/dL Normal 0.70-1.30 [facility] Comment on above: Performed By: #### H EPATIC, BMP, CBC, LIPASE ####[place] [id number] [facility] Creatinine Clr Calc Pharmacy 149.34 Normal [facility] Comment on above: Performed By: #### H EPATIC, BMP, CBC, LIPASE ####[address] GFR/1.73 sq M.predicted MDRD (S/P/Bld) [Vol rate/Area] mL/min/{1.73_m2} Normal [facility] Comment on above: Performed By: #### H EPATIC, BMP, CBC, LIPASE ####[facility] Glucose [Mass/Vol] 95 mg/dL Normal 70-100 [facility] Comment on above: Result Comment: [facility] Glucose Reference Range is dependent on time and content of last meal. Glucose of more than 200 mg/dL in a nonstressed, ambulatory subject supports the diagnosis of Diabetes Mellitus. ADA recommended reference range Performed By: #### H EPATIC, BMP, CBC, LIPASE ####[facility] [id number] Potassium [Moles/Vol] 3.7 mmol/L Normal 3.5-5.1 [facility] Comment on above: Performed By: #### H EPATIC, BMP, CBC, LIPASE ####[address] Sodium [Moles/Vol] 139 mmol/L Normal 136-145 [facility] Comment on above: Performed By: #### H EPATIC, BMP, CBC, LIPASE ####[place] [id number] [address] Urea nitrogen [Mass/Vol] 7 mg/dL Normal 7-25 [facility] Comment on above: Performed By: #### H EPATIC, BMP, CBC, LIPASE ####[facility] [id number] [place] [address] Basophils Auto (Bld) [#/Vol] Ordered By: Jeff Birmingham on 04-06-2023 Basophils (Bld) [#/Vol] 0.1 10*3/uL 0.0-0.2 [facility] Basophils/100 WBC Auto (Bld) Ordered By: Jeff Birmingham on 04-06-2023 Basophils/100 WBC (Bld) 0.9 % . [facility] Bilirubin.direct [Mass/volum e] in Serum or PlasmaOrdered By: Jeff Birmingham on 04-06-2023 Bilirubin.direct [Mass/Vol] 0.10 mg/dL 0.03-0.18 [facility] Bilirubin.total [Mass/volume ] in Serum or PlasmaOrdered By: Jeff Birmingham on 04-06-2023 Bilirubin [Mass/Vol] 0.6 mg/dL 0.3-1.[address] [facility] CT abdomen pelvis w conon CT abdomen pelvis w con [facility] [place] [address] CT Scan Report Signed Patient: Basilio Person MR#: [id number] : 2000 Acct:[id number] Age/Sex: 22 / M ADM Date: 04/06/23 Loc: ER Room: Type: [facility] ER Attending Dr: Copies to: Jeff Birmingham [...] Naidu Jr., D.O.04/06/2023 9:26 AM Dictation Location: [place] [address] Transcribed By: TANK 04/06/23925 Dictated By: Gio Naidu Jr, DO 04/06/23918 Signed By: 04/06/23925 Normal [facility] Calcium [Mass/volume] in Ser um or PlasmaOrdered By: Jeff Birmingham on 04-06-2023 Calcium [Mass/Vol] 9.5 mg/dL 8.6-10.3 [facility] Carbon dioxide, total [Moles /volume] in Serum or PlasmaOrdered By: Jeff Birmingham on 04-06-2023 CO2 [Moles/Vol] 29.3 mmol/L 21.0-31.0 [facility] Chloride [Moles/volume] in S valerie or PlasmaOrdered By: Jeff Birmingham on 04-06-2023 Chloride [Moles/Vol] 104 mmol/L 98-[address] [facility] Complete Blood Count Auto Di ffon 04-06-2023 Basophils (Bld) [#/Vol] 0.1 10*3/uL Normal 0.0-0.2 [facility] Comment on above: Result Comment: PERF ORMED BY: [facility] [address] [place] [address] PATHOLOGIST QUALITY IMPROVEMENT SPECIALIST CARRI KIM M.D. Performed By: #### H EPATIC, BMP, CBC, LIPASE ####[place] [id number] [address] Basophils/100 WBC (Bld) 0.9 % Normal . [facility] Comment on above: Performed By: #### H EPATIC, BMP, CBC, LIPASE ####[facility] [id number] [address] Eosinophils (Bld) [#/Vol] 0.1 10*3/uL Normal 0.0-0.45 [facility] Comment on above: Performed By: #### H EPATIC, BMP, CBC, LIPASE ####[place] [address] [address] Eosinophils/100 WBC (Bld) 1.1 % Normal . [facility] Comment on above: Performed By: #### H EPATIC, BMP, CBC, LIPASE ####[address] Erythrocyte distribution width (RBC) [Ratio] 13.6 % Normal 12.0-14.8 [facility] Comment on above: Performed By: #### H EPATIC, BMP, CBC, LIPASE ####[address] Hematocrit (Bld) [Volume fraction] 42.1 % Normal 38.8-50.0 [facility] Comment on above: Performed By: #### H EPATIC, BMP, CBC, LIPASE ####[address] Hemoglobin (Bld) [Mass/Vol] 14.9 g/dL Normal 13.0-17.0 [facility] Comment on above: Performed By: #### H EPATIC, BMP, CBC, LIPASE ####[address] Lymphocytes (Bld) [#/Vol] 3.1 10*3/uL Normal 1.00-4.8 [facility] Comment on above: Performed By: #### H EPATIC, BMP, CBC, LIPASE ####[address] Lymphocytes/100 WBC (Bld) 30.6 % Normal . [facility] Comment on above: Performed By: #### H EPATIC, BMP, CBC, LIPASE ####[address] MCH (RBC) [Entitic mass] 29.0 pg Normal 27.5-35.2 [facility] Comment on above: Performed By: #### H EPATIC, BMP, CBC, LIPASE ####[address] MCV (RBC) [Entitic vol] 81.9 fL Low 83.5-101 [facility] Comment on above: Performed By: #### H EPATIC, BMP, CBC, LIPASE ####[address] Mean Corpuscular HGB Conc 35.3 g/dL Normal 32.5-35.6 [facility] Comment on above: Performed By: #### H EPATIC, BMP, CBC, LIPASE ####[address] Monocytes (Bld) [#/Vol] 1.0 10*3/uL High 0.0-0.8 [facility] Comment on above: Performed By: #### H EPATIC, BMP, CBC, LIPASE ####[address] Monocytes/100 WBC (Bld) 15.06 % Normal 0.00-20.00 [facility] Comment on above: Performed By: #### H EPATIC, BMP, CBC, LIPASE ####[address] Monocytes/100 WBC (Bld) 9.5 % Normal . [facility] Comment on above: Performed By: #### H EPATIC, BMP, CBC, LIPASE ####[address] Neutrophils (Bld) [#/Vol] 5.9 10*3/uL Normal 1.8-7.7 [facility] Comment on above: Performed By: #### H EPATIC, BMP, CBC, LIPASE ####[address] Neutrophils/100 WBC (Bld) 57.9 % Normal . [facility] Comment on above: Performed By: #### H EPATIC, BMP, CBC, LIPASE ####[address] NRBC% 0.1 /100{WBC} Normal 0-0.5 [facility] Comment on above: Performed By: #### H EPATIC, BMP, CBC, LIPASE ####[address] Platelet mean volume (Bld) [Entitic vol] 8.0 fL Normal 6.6-10.1 [facility] Comment on above: Performed By: #### H EPATIC, BMP, CBC, LIPASE ####[facility] [id number] [address] Platelets (Bld) [#/Vol] 198 10*3/uL Normal 150-450 [facility] Comment on above: Performed By: #### H EPATIC, BMP, CBC, LIPASE ####[place] [address] [address] RBC (Bld) [#/Vol] 5.14 10*6/uL Normal 3.90-5.60 [facility] Comment on above: Performed By: #### H EPATIC, BMP, CBC, LIPASE ####[place] [id number] [address] WBC (Bld) [#/Vol] 10.2 10*3/uL Normal 4.1-10.5 [facility] Comment on above: Performed By: #### H EPATIC, BMP, CBC, LIPASE ####[address] Creatinine [Mass/volume] in Serum or PlasmaOrdered By: Jeff Birmingham on 04-06-2023 Creatinine [Mass/Vol] 0.91 mg/dL 0.70-1.30 [facility] Eosinophils Auto (Bld) [#/Vo l]Ordered By: Jeff Birmingham on 04-06-2023 Eosinophils (Bld) [#/Vol] 0.1 10*3/uL 0.0-0.45 [facility] Eosinophils/100 WBC Auto (Bl d)Ordered By: Jeff Birmingham on 04-06-2023 Eosinophils/100 WBC (Bld) 1.1 % . [facility] Erythrocyte distribution wid th Auto (RBC) [Ratio]Ordered By: Jeff Birmingham on 04-06-2023 Erythrocyte distribution width (RBC) [Ratio] 13.6 % 12.0-14.8 [facility] Globulin Calc (S) [Mass/Vol] Ordered By: Jeff Birmingham on 04-06-2023 Globulin (S) [Mass/Vol] 2.5 g/dL [facility] Glucose [Mass/volume] in Ser um or PlasmaOrdered By: Jeff Birmingham on 04-06-2023 Glucose [Mass/Vol] 95 mg/dL 70-100 [facility] Comment on above: ADA recommended refe rence rangeRandom Glucose Reference Range is dependent on time and content of last meal. Glucose of more than 200 mg/dL in a nonstressed, ambulatory subject supports the diagnosis of Diabetes Mellitus. Hematocrit Auto (Bld) [Volum e fraction]Ordered By: Jeff Birmingham on 04-06-2023 Hematocrit (Bld) [Volume fraction] 42.1 % 38.8-50.0 [facility] Hemoglobin [Mass/volume] in BloodOrdered By: Jeff Birmingham on 04-06-2023 Hemoglobin (Bld) [Mass/Vol] 14.9 g/dL 13.0-17.0 [facility] Hepatic Panelon 04-06-2023 Albumin [Mass/Vol] 4.7 g/dL Normal 3.5-5.7 [facility] Comment on above: Performed By: #### H EPATIC, BMP, CBC, LIPASE ####[address] Albumin/Globulin [Mass ratio] 1.9 {ratio} Normal [facility] Comment on above: Performed By: #### H EPATIC, BMP, CBC, LIPASE ####[address] ALP [Catalytic activity/Vol] 67 U/L Normal 34-104 [facility] Comment on above: Performed By: #### H EPATIC, BMP, CBC, LIPASE ####[place] [id number] [facility] ALT [Catalytic activity/Vol] 44 U/L Normal 7-52 [facility] Comment on above: Performed By: #### H EPATIC, BMP, CBC, LIPASE ####[place] [id number] [facility] AST [Catalytic activity/Vol] 25 U/L Normal 13-39 [facility] Comment on above: Performed By: #### H EPATIC, BMP, CBC, LIPASE ####[address] Bilirubin [Mass/Vol] 0.6 mg/dL Normal 0.3-1.[address] [facility] Comment on above: Performed By: #### H EPATIC, BMP, CBC, LIPASE ####[address] Bilirubin,Indirect 0.5 mg/dL Normal [facility] Comment on above: Performed By: #### H EPATIC, BMP, CBC, LIPASE ####[address] Bilirubin.indirect [Mass/Vol] 0.10 mg/dL Normal 0.03-0.18 [facility] Comment on above: Performed By: #### H EPATIC, BMP, CBC, LIPASE ####[address] Globulin (S) [Mass/Vol] 2.5 g/dL Normal [facility] Comment on above: Performed By: #### H EPATIC, BMP, CBC, LIPASE ####[address] Protein [Mass/Vol] 7.2 g/dL Normal 6.4-8.9 [facility] Comment on above: Performed By: #### H EPATIC, BMP, CBC, LIPASE ####[address] Leukocytes [#/volume] correc ashley for nucleated erythrocytes in Blood by Automated counOrdered By: Jeff Birmingham on 04-06-2023 WBC corrected for nucl RBC Auto (Bld) [#/Vol] 10.2 10*3/uL 4.1-10.5 [facility] Lipaseon 04-06-2023 Lipase [Catalytic activity/Vol] 20.0 U/L Normal 11.0-82.0 [facility] Comment on above: Result Comment: PERF ORMED BY: [facility] [address] [place] [address] PATHOLOGIST QUALITY IMPROVEMENT SPECIALIST CARRI KIM M.D. Performed By: #### H EPATIC, BMP, CBC, LIPASE ####[address] [place] [address] [facility] Lipase [Enzymatic activity/v olume] in Serum or PlasmaOrdered By: Jeff Birmingham on 04-06-2023 Lipase [Catalytic activity/Vol] 20.0 U/L 11.0-82.0 [facility] Lymphocytes Auto (Bld) [#/Vo l]Ordered By: Jeff Birmingham on 04-06-2023 Lymphocytes (Bld) [#/Vol] 3.1 10*3/uL 1.00-4.8 [facility] Lymphocytes/100 WBC Auto (Bl d)Ordered By: Jeff Birmingham on 04-06-2023 Lymphocytes/100 WBC (Bld) 30.6 % . [facility] MCH Auto (RBC) [Entitic mass ]Ordered By: Jeff Birmingham on 04-06-2023 MCH (RBC) [Entitic mass] 29.0 pg 27.5-35.2 [facility] MCHC Auto (RBC) [Mass/Vol]Or dered By: Jeff Birmingham on 04-06-2023 MCHC (RBC) [Mass/Vol] 35.3 g/dL 32.5-35.6 [facility] MCV Auto (RBC) [Entitic vol] Ordered By: Jeff Birmingham on 04-06-2023 MCV (RBC) [Entitic vol] 81.9 fL 83.5-101 [facility] Monocyte distribution width [Entitic volume] in Blood by AutomatedOrdered By: Jeff Birmingham on 04-06-2023 Monocyte distribution width Auto (Bld) [Entitic vol] 15.06 % 0.00-20.00 [facility] Monocytes Auto (Bld) [#/Vol] Ordered By: Jeff Birmingham on 04-06-2023 Monocytes (Bld) [#/Vol] 1.0 10*3/uL 0.0-0.8 [facility] Monocytes/100 WBC Auto (Bld) Ordered By: Jeff Birmingham on 04-06-2023 Monocytes/100 WBC (Bld) 9.5 % . [facility] Neutrophils Auto (Bld) [#/Vo l]Ordered By: Jeff Birmingham on 04-06-2023 Neutrophils (Bld) [#/Vol] 5.9 10*3/uL 1.8-7.7 [facility] Neutrophils/100 WBC Auto (Bl d)Ordered By: Jeff Birmingham on 04-06-2023 Neutrophils/100 WBC (Bld) 57.9 % . [facility] No Panel InformationOrdered By: Jeff Birmingham on 04-06-2023 Estimated GFR (CKD-EPI) > 60.0 mL/Min [facility] Pharmacy Creatinine Clearance (Chem 149.34 [facility] Nucleated erythrocytes [Pres ence] in Blood by Automated countOrdered By: Jeff Birmingham on 04-06-2023 Nucleated RBC Auto Ql (Bld) 0.1 /100{WBC} 0-0.5 [facility] Platelet mean volume Auto (B ld) [Entitic vol]Ordered By: Jeff Birmingham on 04-06-2023 Platelet mean volume (Bld) [Entitic vol] 8.0 fL 6.6-10.1 [facility] Platelets Auto (Bld) [#/Vol] Ordered By: Jeff Birmingham on 04-06-2023 Platelets (Bld) [#/Vol] 198 10*3/uL 150-450 [facility] Potassium [Moles/volume] in Serum or PlasmaOrdered By: Jeff Birmingham on 04-06-2023 Potassium [Moles/Vol] 3.7 mmol/L 3.5-5.1 [facility] Protein [Mass/volume] in Ser um or PlasmaOrdered By: Jeff Birmingham on 04-06-2023 Protein [Mass/Vol] 7.2 g/dL 6.4-8.9 [facility] RBC Auto (Bld) [#/Vol]Ordere d By: Jeff Birmingham on 04-06-2023 RBC (Bld) [#/Vol] 5.14 10*6/uL 3.90-5.60 [facility] Serum or plasma albumin/glob ulin mass ratioOrdered By: Jeff Birmingham on 04-06-2023 Albumin/Globulin [Mass ratio] 1.9 {ratio} [facility] Serum or plasma anion gap de terminationOrdered By: Jeff Birmingham on 04-06-2023 Anion gap [Moles/Vol] 9.4 mmol/L 6.0-15.0 [facility] Serum or plasma non-glucuron idated bilirubin measurement (mass/volume)Ordered By: Jeff Birmingham on 04-06-2023 Bilirubin.indirect [Mass/Vol] 0.5 mg/dL [facility] Sodium [Moles/volume] in Ser um or PlasmaOrdered By: Jeff Birmingham on 04-06-2023 Sodium [Moles/Vol] 139 mmol/L 136-145 [facility] Urea nitrogen [Mass/volume] in Serum or PlasmaOrdered By: Jeff Birmingham on 04-06-2023 Urea nitrogen [Mass/Vol] 7 mg/dL 7-25 [facility] WBC Auto (Bld) [#/Vol]Ordere d By: Jeff Birmingham on 04-06-2023 WBC (Bld) [#/Vol] 10.2 10*3/uL 4.1-10.5 [facility] US venous duplex LE RTon US venous duplex LE RT [facility] [place] [address] Ultrasound Report Signed Patient: Basilio Person MR#: [id number] : 2000 Acct:[id number] Age/Sex: 22 / M ADM Date: 02/03/23 Loc: ER Room: Type: [facility] ER Attending Dr: Ordering Provider: Katelyn Stephen [...] Nehemiah Camejo M.D.02/04/2023 8:41 AM Dictation Location: [place] [address] Tech: Cee Dasilva Transcribed By: TANK 02/04/2341 Dictated By: Nehemiah Camejo MD 02/04/23840 Signed By: 02/04/23840 [facility] XR knee RT 4V*on 02-04-2023 XR knee RT 4V* [place] [address] XRay Report Signed Patient: Basilio Person MR#: [id number] : 2000 Acct:[id number] Age/Sex: 22 / M ADM Date: 02/03/23 Loc: ER Room: Type: [facility] ER Attending Dr: Copies to: Katelyn Stephen [...] M.D.02/04/2023 7:38 AM Dictation Location: [place] [address] Transcribed By: TANK 02/04/23 0738 Dictated By: Park Champagne MD 02/04/23 0737 Signed By: 02/04/23 0738 [facility] Activated partial thrombopla stin time (aPTT) in platelet poor plasma by coagulation aOrdered By: Venkat Palencia on 12-18-2022 aPTT Coag (PPP) [Time] 28.5 s 25.1-36.5 [place] Alanine aminotransferase [En zymatic activity/volume] in Serum or PlasmaOrdered By: Venkat Palencia on 12-18-2022 ALT [Catalytic activity/Vol] 32 U/L 7-52 [facility] Albumin [Mass/volume] in Ser um or Plasma by Bromocresol green (BCG) dye binding methoOrdered By: Venkat Palencia on 12-18-2022 Albumin BCG dye [Mass/Vol] 4.6 g/dL 3.5-5.7 [facility] Alkaline phosphatase [Enzyma tic activity/volume] in Serum or PlasmaOrdered By: Venkat Palencia on 12-18-2022 ALP [Catalytic activity/Vol] 74 U/L 34-104 [facility] Aspartate aminotransferase [ Enzymatic activity/volume] in Serum or PlasmaOrdered By: Venkat Palencia on 12-18-2022 AST [Catalytic activity/Vol] 18 U/L 13-39 [facility] B-Type Natriuretic Peptideon 12-18-2022 Natriuretic peptide B (Bld) [Mass/Vol] 9.0 pg/mL Normal 5-100 [facility] Comment on above: Result Comment: PERF ORMED BY: [facility] [address] [facility] [place] [id number] PATHOLOGIST QUALITY IMPROVEMENT SPECIALIST CARRI KIM M.D. Performed By: #### P T, BNP, CBC, PTT, CK, DDIMER, HS TROP, CMP ####[facility] [id number] [place] [id number] [facility] Basophils Auto (Bld) [#/Vol] Ordered By: Venkat Palencia on 12-18-2022 Basophils (Bld) [#/Vol] 0.1 10*3/uL 0.0-0.2 [facility] Basophils/100 WBC Auto (Bld) Ordered By: Venkat Palencia on 12-18-2022 Basophils/100 WBC (Bld) 0.9 % . [facility] Bilirubin.total [Mass/volume ] in Serum or PlasmaOrdered By: Venkat Palencia on 12-18-2022 Bilirubin [Mass/Vol] 0.8 mg/dL 0.3-1.[address] [facility] Calcium [Mass/volume] in Ser um or PlasmaOrdered By: Venkat Palencia on 12-18-2022 Calcium [Mass/Vol] 8.6 mg/dL 8.6-10.3 [facility] Carbon dioxide, total [Moles /volume] in Serum or PlasmaOrdered By: Venkat Palencia on 12-18-2022 CO2 [Moles/Vol] 25.9 mmol/L 21.0-31.0 [facility] Chloride [Moles/volume] in S valerie or PlasmaOrdered By: Venkat Palencia on 12-18-2022 Chloride [Moles/Vol] 109 mmol/L 98-[address] [facility] Complete Blood Count Auto Di ffon 12-18-2022 Basophils (Bld) [#/Vol] 0.1 10*3/uL Normal 0.0-0.2 [facility] Comment on above: Result Comment: PERF ORMED BY: [place] [address] PATHOLOGIST QUALITY IMPROVEMENT SPECIALIST CARRI KIM M.D. Performed By: #### P T, BNP, CBC, PTT, CK, DDIMER, HS TROP, CMP #### [address] Basophils/100 WBC (Bld) 0.9 % Normal . [facility] Comment on above: Performed By: #### P T, BNP, CBC, PTT, CK, DDIMER, HS TROP, CMP #### [address] Eosinophils (Bld) [#/Vol] 0.1 10*3/uL Normal 0.0-0.45 [facility] Comment on above: Performed By: #### P T, BNP, CBC, PTT, CK, DDIMER, HS TROP, CMP #### [address] Eosinophils/100 WBC (Bld) 0.8 % Normal . [facility] Comment on above: Performed By: #### P T, BNP, CBC, PTT, CK, DDIMER, HS TROP, CMP #### [address] Erythrocyte distribution width (RBC) [Ratio] 13.7 % Normal 12.0-14.8 [facility] Comment on above: Performed By: #### P T, BNP, CBC, PTT, CK, DDIMER, HS TROP, CMP #### [address] Hematocrit (Bld) [Volume fraction] 40.9 % Normal 38.8-50.0 [facility] Comment on above: Performed By: #### P T, BNP, CBC, PTT, CK, DDIMER, HS TROP, CMP #### [address] Hemoglobin (Bld) [Mass/Vol] 14.1 g/dL Normal 13.0-17.0 [facility] Comment on above: Performed By: #### P T, BNP, CBC, PTT, CK, DDIMER, HS TROP, CMP #### [address] Lymphocytes (Bld) [#/Vol] 2.2 10*3/uL Normal 1.00-4.8 [facility] Comment on above: Performed By: #### P T, BNP, CBC, PTT, CK, DDIMER, HS TROP, CMP #### [address] Lymphocytes/100 WBC (Bld) 21.2 % Normal . [facility] Comment on above: Performed By: #### P T, BNP, CBC, PTT, CK, DDIMER, HS TROP, CMP #### [address] MCH (RBC) [Entitic mass] 28.5 pg Normal 27.5-35.2 [facility] Comment on above: Performed By: #### P T, BNP, CBC, PTT, CK, DDIMER, HS TROP, CMP #### [address] MCV (RBC) [Entitic vol] 82.4 fL Low 83.5-101 [facility] Comment on above: Performed By: #### P T, BNP, CBC, PTT, CK, DDIMER, HS TROP, CMP #### [address] Mean Corpuscular HGB Conc 34.5 g/dL Normal 32.5-35.6 [facility] Comment on above: Performed By: #### P T, BNP, CBC, PTT, CK, DDIMER, HS TROP, CMP #### [place] [address] [place] Monocytes (Bld) [#/Vol] 0.9 10*3/uL High 0.0-0.8 [facility] Comment on above: Performed By: #### P T, BNP, CBC, PTT, CK, DDIMER, HS TROP, CMP #### [place] [address] [place] Monocytes/100 WBC (Bld) 15.92 % Normal 0.00-20.00 [facility] Comment on above: Performed By: #### P T, BNP, CBC, PTT, CK, DDIMER, HS TROP, CMP #### [address] Monocytes/100 WBC (Bld) 8.9 % Normal . [facility] Comment on above: Performed By: #### P T, BNP, CBC, PTT, CK, DDIMER, HS TROP, CMP #### [address] Neutrophils (Bld) [#/Vol] 7.2 10*3/uL Normal 1.8-7.7 [facility] Comment on above: Performed By: #### P T, BNP, CBC, PTT, CK, DDIMER, HS TROP, CMP #### [place] [address] [place] Neutrophils/100 WBC (Bld) 68.2 % Normal . [facility] Comment on above: Performed By: #### P T, BNP, CBC, PTT, CK, DDIMER, HS TROP, CMP #### [place] [address] [place] NRBC% 0.1 /100{WBC} Normal 0-0.5 [facility] Comment on above: Performed By: #### P T, BNP, CBC, PTT, CK, DDIMER, HS TROP, CMP #### [place] [address] [place] Platelet mean volume (Bld) [Entitic vol] 7.5 fL Normal 6.6-10.1 [facility] Comment on above: Performed By: #### P T, BNP, CBC, PTT, CK, DDIMER, HS TROP, CMP #### [facility] [address] Platelets (Bld) [#/Vol] 203 10*3/uL Normal 150-450 [facility] Comment on above: Performed By: #### P T, BNP, CBC, PTT, CK, DDIMER, HS TROP, CMP #### [facility] [address] RBC (Bld) [#/Vol] 4.97 10*6/uL Normal 3.90-5.60 [facility] Comment on above: Performed By: #### P T, BNP, CBC, PTT, CK, DDIMER, HS TROP, CMP #### [address] WBC (Bld) [#/Vol] 10.6 10*3/uL High 4.1-10.5 [facility] Comment on above: Performed By: #### P T, BNP, CBC, PTT, CK, DDIMER, HS TROP, CMP #### [facility] [address] [place] [address] Comprehensive Metabolic Pane maren 12-18-2022 Albumin [Mass/Vol] 4.6 g/dL Normal 3.5-5.7 [facility] Comment on above: Performed By: #### P T, BNP, CBC, PTT, CK, DDIMER, HS TROP, CMP ####[facility] Albumin/Globulin [Mass ratio] 2.0 {ratio} Normal [facility] Comment on above: Performed By: #### P T, BNP, CBC, PTT, CK, DDIMER, HS TROP, CMP ####[facility] ALP [Catalytic activity/Vol] 74 U/L Normal 34-104 [facility] Comment on above: Performed By: #### P T, BNP, CBC, PTT, CK, DDIMER, HS TROP, CMP ####[address] ALT [Catalytic activity/Vol] 32 U/L Normal 7-52 [facility] Comment on above: Performed By: #### P T, BNP, CBC, PTT, CK, DDIMER, HS TROP, CMP ####[address] Anion gap [Moles/Vol] 9.9 mmol/L Normal 6.0-15.0 [facility] Comment on above: Performed By: #### P T, BNP, CBC, PTT, CK, DDIMER, HS TROP, CMP ####[address] AST [Catalytic activity/Vol] 18 U/L Normal 13-39 [facility] Comment on above: Performed By: #### P T, BNP, CBC, PTT, CK, DDIMER, HS TROP, CMP ####[address] Bilirubin [Mass/Vol] 0.8 mg/dL Normal 0.3-1.[address] [facility] Comment on above: Performed By: #### P T, BNP, CBC, PTT, CK, DDIMER, HS TROP, CMP ####[address] Calcium [Mass/Vol] 8.6 mg/dL Normal 8.6-10.3 [facility] Comment on above: Performed By: #### P T, BNP, CBC, PTT, CK, DDIMER, HS TROP, CMP ####[place] [id number] [facility] Chloride [Moles/Vol] 109 mmol/L High 98-[address] [facility] Comment on above: Performed By: #### P T, BNP, CBC, PTT, CK, DDIMER, HS TROP, CMP ####[address] CO2 [Moles/Vol] 25.9 mmol/L Normal 21.0-31.0 [facility] Comment on above: Performed By: #### P T, BNP, CBC, PTT, CK, DDIMER, HS TROP, CMP ####[address] Creatinine [Mass/Vol] 0.89 mg/dL Normal 0.70-1.30 [facility] Comment on above: Performed By: #### P T, BNP, CBC, PTT, CK, DDIMER, HS TROP, CMP ####[address] Creatinine Clr Calc Pharmacy 151.88 [facility] Comment on above: Result Comment: PERF ORMED BY: [facility] [address] [place] [address] PATHOLOGIST QUALITY IMPROVEMENT SPECIALIST CARRI KIM M.D. Performed By: #### P T, BNP, CBC, PTT, CK, DDIMER, HS TROP, CMP ####[address] GFR/1.73 sq M.predicted MDRD (S/P/Bld) [Vol rate/Area] mL/min/{1.73_m2} [facility] Comment on above: Performed By: #### P T, BNP, CBC, PTT, CK, DDIMER, HS TROP, CMP ####[address] Globulin (S) [Mass/Vol] 2.3 g/dL [facility] Comment on above: Performed By: #### P T, BNP, CBC, PTT, CK, DDIMER, HS TROP, CMP ####[address] Glucose [Mass/Vol] 87 mg/dL Normal 70-100 [facility] Comment on above: Result Comment: [place] Glucose Reference Range is dependent on time and content of last meal. Glucose of more than 200 mg/dL in a nonstressed, ambulatory subject supports the diagnosis of Diabetes Mellitus. ADA recommended reference range Performed By: #### P T, BNP, CBC, PTT, CK, DDIMER, HS TROP, CMP ####[address] Potassium [Moles/Vol] 3.8 mmol/L Normal 3.5-5.1 [facility] Comment on above: Performed By: #### P T, BNP, CBC, PTT, CK, DDIMER, HS TROP, CMP ####[place] [id number] [facility] Protein [Mass/Vol] 6.9 g/dL Normal 6.4-8.9 [facility] Comment on above: Performed By: #### P T, BNP, CBC, PTT, CK, DDIMER, HS TROP, CMP ####[address] Sodium [Moles/Vol] 141 mmol/L Normal 136-145 [facility] Comment on above: Performed By: #### P T, BNP, CBC, PTT, CK, DDIMER, HS TROP, CMP ####[place] [id number] [facility] Urea nitrogen [Mass/Vol] 11 mg/dL Normal 7-25 [facility] Comment on above: Performed By: #### P T, BNP, CBC, PTT, CK, DDIMER, HS TROP, CMP ####[place] [id number] [facility] Creatine Kinaseon 12-18-2022 CK [Catalytic activity/Vol] 81 U/L Normal [facility] Comment on above: Performed By: #### P T, BNP, CBC, PTT, CK, DDIMER, HS TROP, CMP ####[place] [id number] [facility] Creatine kinase [Enzymatic a ctivity/volume] in Serum or PlasmaOrdered By: Venkat Palencia on 12-18-2022 CK [Catalytic activity/Vol] 81 U/L - [facility] Creatinine [Mass/volume] in Serum or PlasmaOrdered By: Venkat Palencia on 12-18-2022 Creatinine [Mass/Vol] 0.89 mg/dL 0.70-1.30 [facility] D-Dimer High Sensitivityon 0 12-18-2022 D-Dimer High Sensitivity < 200 Normal 0-243 [facility] Comment on above: Result Comment: The [...] patients due to co-morbid conditions. PERFORMED BY: [place] [address] PATHOLOGIST QUALITY IMPROVEMENT SPECIALIST CARRI KIM M.D. Performed By: #### P T, BNP, CBC, PTT, CK, DDIMER, HS TROP, CMP ####[facility] [place] [id number] [facility] ECG 12 lead ECGon 12-18-2022 ECG 12 lead ECG [place] [address] Electrocardiograph Report Signed Patient: Basilio Person MR#: [id number] : 2000 Acct:[id number] Age/Sex: 22 / M ADM Date: 12/18/22 Loc: ER Room: Type: [facility] ER Attending Dr: Ordering Provider: Venkat Palencia [...] was found Confirmed by VENKAT PALENCIA MD ([id number]) on 12/18/2022 4:21:16 AM Referred By: Electronically Signed By:VENKAT PALENCIA MD Transcribed By: MUS Signed By Venkat Palencia Jr, MD 0421 Normal [facility] Eosinophils Auto (Bld) [#/Vo l]Ordered By: Venkat Palencia on 12-18-2022 Eosinophils (Bld) [#/Vol] 0.1 10*3/uL 0.0-0.45 [facility] Eosinophils/100 WBC Auto (Bl d)Ordered By: Venkat Palencia on 12-18-2022 Eosinophils/100 WBC (Bld) 0.8 % . [facility] Erythrocyte distribution wid th Auto (RBC) [Ratio]Ordered By: Venkat Palencia on 12-18-2022 Erythrocyte distribution width (RBC) [Ratio] 13.7 % 12.0-14.8 [facility] Globulin Calc (S) [Mass/Vol] Ordered By: Venkat Palencia on 12-18-2022 Globulin (S) [Mass/Vol] 2.3 g/dL [facility] Glucose [Mass/volume] in Ser um or PlasmaOrdered By: Venkat Palencia on 12-18-2022 Glucose [Mass/Vol] 87 mg/dL 70-100 [facility] Comment on above: ADA recommended refe rence rangeRandom Glucose Reference Range is dependent on time and content of last meal. Glucose of more than 200 mg/dL in a nonstressed, ambulatory subject supports the diagnosis of Diabetes Mellitus. Hematocrit Auto (Bld) [Volum e fraction]Ordered By: Venkat Palencia on 12-18-2022 Hematocrit (Bld) [Volume fraction] 40.9 % 38.8-50.0 [facility] Hemoglobin [Mass/volume] in BloodOrdered By: Venkat Palencia on 12-18-2022 Hemoglobin (Bld) [Mass/Vol] 14.1 g/dL 13.0-17.0 [facility] Laboratory - CoagulationOrde red By: Venkat Palencia on 12-18-2022 PT Coag (PPP) [Time] 12.0 s 9.0-12.[address] [facility] Leukocytes [#/volume] correc ashley for nucleated erythrocytes in Blood by Automated counOrdered By: Venkat Palencia on 12-18-2022 WBC corrected for nucl RBC Auto (Bld) [#/Vol] 10.6 10*3/uL 4.1-10.5 [facility] Lymphocytes Auto (Bld) [#/Vo l]Ordered By: Venkat Palencia on 12-18-2022 Lymphocytes (Bld) [#/Vol] 2.2 10*3/uL 1.00-4.8 [facility] Lymphocytes/100 WBC Auto (Bl d)Ordered By: Venkat Palencia on 12-18-2022 Lymphocytes/100 WBC (Bld) 21.2 % . [facility] MCH Auto (RBC) [Entitic mass ]Ordered By: Venkat Palencia on 12-18-2022 MCH (RBC) [Entitic mass] 28.5 pg 27.5-35.2 [facility] MCHC Auto (RBC) [Mass/Vol]Or dered By: Venkat Palencia on 12-18-2022 MCHC (RBC) [Mass/Vol] 34.5 g/dL 32.5-35.6 [facility] MCV Auto (RBC) [Entitic vol] Ordered By: Venkat Palencia on 12-18-2022 MCV (RBC) [Entitic vol] 82.4 fL 83.5-101 [facility] Monocyte distribution width [Entitic volume] in Blood by AutomatedOrdered By: Venkat Palencia on 12-18-2022 Monocyte distribution width Auto (Bld) [Entitic vol] 15.92 % 0.00-20.00 [facility] Monocytes Auto (Bld) [#/Vol] Ordered By: Venkat Palencia on 12-18-2022 Monocytes (Bld) [#/Vol] 0.9 10*3/uL 0.0-0.8 [facility] Monocytes/100 WBC Auto (Bld) Ordered By: Venkat Palencia on 12-18-2022 Monocytes/100 WBC (Bld) 8.9 % . [facility] Natriuretic peptide B [Mass/ Vol]Ordered By: Venkat Palencia on 12-18-2022 Natriuretic peptide B (Bld) [Mass/Vol] 9.0 pg/mL 5-100 [facility] Neutrophils Auto (Bld) [#/Vo l]Ordered By: Venkat Palencia on 12-18-2022 Neutrophils (Bld) [#/Vol] 7.2 10*3/uL 1.8-7.7 [facility] Neutrophils/100 WBC Auto (Bl d)Ordered By: Venkat Palencia on 12-18-2022 Neutrophils/100 WBC (Bld) 68.2 % . [facility] No Panel InformationOrdered By: Venkat Palencia on 12-18-2022 D-Dimer Quantitative (PE/DVT) < 200 ng/mL 0-243 [facility] Comment on above: The reference range [...] conditions. Estimated GFR (CKD-EPI) > 60.0 mL/Min [facility] Pharmacy Creatinine Clearance (Chem 151.88 [facility] Nucleated erythrocytes [Pres ence] in Blood by Automated countOrdered By: Venkat Palencia on 12-18-2022 Nucleated RBC Auto Ql (Bld) 0.1 /100{WBC} 0-0.5 [facility] Partial Thromboplastin Timeo n 12-18-2022 aPTT Coag (Bld) [Time] 28.5 s Normal 25.1-36.5 [place] Comment on above: Performed By: #### P T, BNP, CBC, PTT, CK, DDIMER, HS TROP, CMP ####[facility] [address] [place] [address] [facility] Platelet mean volume Auto (B ld) [Entitic vol]Ordered By: Venkat Palencia on 12-18-2022 Platelet mean volume (Bld) [Entitic vol] 7.5 fL 6.6-10.1 [facility] Platelet poor plasma interna tional normalized ratio (INR) by coagulation assay (relatOrdered By: Venkat Palencia on 12-18-2022 INR Coag (PPP) [Relative time] 1.0 {INR} [facility] Comment on above: INR Therapeutic Rang [...] 12-18-2022 Platelets (Bld) [#/Vol] 203 10*3/uL 150-450 [facility] Potassium [Moles/volume] in Serum or PlasmaOrdered By: Venkat Palencia on 12-18-2022 Potassium [Moles/Vol] 3.8 mmol/L 3.5-5.1 [facility] Protein [Mass/volume] in Ser um or PlasmaOrdered By: Venkat Palencia on 12-18-2022 Protein [Mass/Vol] 6.9 g/dL 6.4-8.9 [facility] Prothrombin Time INRon 12-18 INR Coag (PPP) [Relative time] 1.0 {INR} Normal [facility] Comment on above: Result Comment: INR [...] PTT, CK, DDIMER, HS TROP, CMP #### [facility] [address] PT Coag (PPP) [Time] 12.0 s Normal 9.0-12.[address] [facility] Comment on above: Performed By: #### P T, BNP, CBC, PTT, CK, DDIMER, HS TROP, CMP #### [facility] [address] RBC Auto (Bld) [#/Vol]Ordere d By: Venkat Palencia on 04-15-2023 RBC (Bld) [#/Vol] 4.97 10*6/uL 3.90-5.60 [facility] Serum or plasma albumin/glob ulin mass ratioOrdered By: Venkat Palencia on 12-18-2022 Albumin/Globulin [Mass ratio] 2.0 {ratio} [facility] Serum or plasma anion gap de terminationOrdered By: Venkat Palencia on 12-18-2022 Anion gap [Moles/Vol] 9.9 mmol/L 6.0-15.0 [facility] Sodium [Moles/volume] in Ser um or PlasmaOrdered By: Venkat Palencia on 12-18-2022 Sodium [Moles/Vol] 141 mmol/L 136-145 [facility] Troponin I High Sensitivityo n 12-18-2022 Troponin I High Sensitivity 2.5 pg/mL Normal 0.0-20.0 [facility] Comment on above: Result Comment: PERF ORMED BY: [facility] [address] [place] [id number] PATHOLOGIST QUALITY IMPROVEMENT SPECIALIST CARRI KIM M.D. Performed By: #### P T, BNP, CBC, PTT, CK, DDIMER, HS TROP, CMP ####[facility] [address] [place] [address] [facility] Troponin I.cardiac [Mass/vol ume] in Serum or Plasma by Detection limit <= 0.01 ng/Ordered By: Venkat Palencia on 12-18-2022 Troponin I.cardiac DL <= 0.01 ng/mL [Mass/Vol] 2.5 pg/mL 0.0-20.0 [facility] Urea nitrogen [Mass/volume] in Serum or PlasmaOrdered By: Venkat Palencia on 12-18-2022 Urea nitrogen [Mass/Vol] 11 mg/dL 7-25 [facility] WBC Auto (Bld) [#/Vol]Ordere d By: Venkat Palencia on 12-18-2022 WBC (Bld) [#/Vol] 10.6 10*3/uL 4.1-10.5 [facility] XR chest 1V portableon 12-18 XR chest 1V portable [facility] [address] [place] [address] [place] [address] XRay Report Signed Patient: Basilio Person MR#: [id number] : 2000 Acct:[id number] Age/Sex: 22 / M ADM Date: 12/18/22 Loc: ER Room: Type: [facility] ER Attending Dr: Copies to: Venkat Palencia [...] Eagle Woodard M.D.12/18/2022 9:45 AM Dictation Location: [place] [address] Transcribed By: [facility] 12/18/22 0945 Dictated By: Eagle Woodard II, MD 12/18/22 0945 Signed By: 12/18/22 0945 [facility] Quick Strepon 10-24-2022 Quick Strep Streptococcus pyogen es Ag [Presence] in Throat by Rapid immunoassay Negative for Group A Strep Antigen Note 1 NOTE 2 Results are those of a screening test. NOTE 3 If clinically indicated please order a culture. NOTE 4 NOTE 5 Reference range = Negative PERFORMED BY: [place] [address] PATHOLOGIST QUALITY IMPROVEMENT SPECIALIST CARRI KIM M.D. [facility] Comment on above: Performed By: #### Q S #### [facility] [address] [place] [address] RPR w/rfx to Quant TP Abson 10-24-2022 RPR, Rfx Quant RPR Non-Reactive Normal Non Reactive [facility] Comment on above: Result Comment: Perf ormed at: CB - [facility] [place] [id number] Kiln Pusher: Morales Escamilla PhD, Phone: [phone] PERFORMED BY: [place] [address] PATHOLOGIST QUALITY IMPROVEMENT SPECIALIST CARRI KIM M.D. Performed By: #### R NE W RFX ####[facility] , Reagin Ab [Presence] in Seru m by RPROrdered By: Andrzej Bell on 10-24-2022 Reagin Ab RPR Ql (S) Non-Reactive Non Reactive [facility] Comment on above: Performed at: CB - [facility] [address] [id number] Director: Morales Escamilla PhD, Phone: [phone] Streptococcus pyogenes antig en detectionOrdered By: Andrzej Bell on 10-24-2022 S. pyogenes Ag Ql (Unsp spec) [facility] S. pyogenes Ag Ql (Unsp spec) [facility] XR chest 1V portableon 10-08 XR chest 1V portable [facility] [place] [address] XRay Report Signed Patient: Basilio Person MR#: [id number] : 2000 Acct:[id number] Age/Sex: 22 / M ADM Date: 10/07/22 Loc: ER Room: Type: [facility] ER Attending Dr: Copies to: Suresh Ospina [...] Nehemiah Aguilar M.D.10/08/2022 7:49 AM Dictation Location: [facility]- Transcribed By: TANK 10/08/2249 Dictated By: Nehemiah Aguilar DO 10/08/2249 Signed By: 10/08/22 0749 [facility] XR soft tissue neckon 2022 XR soft tissue neck [facility] Main [place] [id number] XRay Report Signed Patient: aBsilio Person MR#: [id number] : 2000 Acct:[id number] Age/Sex: 22 / M ADM Date: 10/07/22 Loc: ER Room: Type: [facility] ER Attending Dr: Copies to: Suresh Ospina [...] Nehemiah Aguilar M.D.10/08/2022 7:49 AM Dictation Location: [facility] Transcribed By: TANK 10/08/22 0749 Dictated By: Nehemiah Aguilar DO 10/08/22 0748 Signed By: 10/08/22 0749 [facility] ECG 12 lead ECGon 10-07-2022 ECG 12 lead ECG [place] [id number] Electrocardiograph Report Signed Patient: Basilio Person MR#: [id number] : 2000 Acct:[id number] Age/Sex: 22 / M ADM Date: 10/07/22 Loc: ER Room: Type: [facility] ER Attending Dr: Ordering Provider: Suresh Ospina [...] Signed By Suresh Ospina MD 10/08/22 012 [facility] XR knee LT 4V*on 09-02-2022 XR knee LT 4V* [place] [address] XRay Report Signed Patient: Basilio Person MR#: [id number] : 2000 Acct:[id number] Age/Sex: 21 / M ADM Date: 09/02/22 Loc: ER Room: Type: [facility] ER Attending Dr: Copies to: Andrzej Bell [...] Nehemiah Aguilar M.D.09/02/2022 5:15 PM Dictation Location: [place] [address] Transcribed By: [facility] 09/02/221714 Dictated By: Nehemiah Aguilar DO 09/02/221713 Signed By: 09/02/221714 [facility] Vital Signs Date Time Vital Sign Value Performing Clinician Faci lity 04-06-2023 07:00-0400 Diastolic blood pressure 68 mm[Hg] [facility] Work Phone: [facility] 04-06-2023 07:00-0400 Heart rate 77 /min [facility] Work Phone: [facility] 04-06-2023 07:00-0400 Respiratory rate 18 /min [facility] Work Phone: [facility] 04-06-2023 07:00-0400 SaO2% (BldA) [Mass fraction] 97 % [facility] Work Phone: [facility] 04-06-2023 07:00-0400 Systolic blood pressure 117 mm[Hg] [facility] Work Phone: [facility] 04-06-2023 05:26-0400 Body height 177.8 cm [facility] Work Phone: [facility] 04-06-2023 05:26-0400 Body temperature 98.6 [degF] [facility] Work Phone: [facility] 04-06-2023 05:26-0400 Body weight 97.8 kg [facility] Work Phone: [facility] 02-03-2023 20:47-0400 Body height 177.8 cm [facility] Work Phone: [facility] 02-03-2023 20:47-0400 Body temperature 98 [degF] [facility] Work Phone: [facility] 02-03-2023 20:47-0400 Body weight 95.7 kg [facility] Work Phone: [facility] 02-03-2023 20:47-0400 Diastolic blood pressure 77 mm[Hg] [facility] Work Phone: [facility] 02-03-2023 20:47-0400 Heart rate 87 /min [facility] Work Phone: [facility] 02-03-2023 20:47-0400 Respiratory rate 20 /min [facility] Work Phone: [facility] 02-03-2023 20:47-0400 SaO2% (BldA) [Mass fraction] 100 % [facility] Work Phone: [facility] 02-03-2023 20:47-0400 Systolic blood pressure 138 mm[Hg] [facility] Work Phone: [facility] 12-18-2022 03:46-0400 Heart rate 108 /min [facility] Work Phone: [facility] 12-18-2022 03:46-0400 Respiratory rate 18 /min [facility] Work Phone: [facility] 12-18-2022 03:46-0400 SaO2% (BldA) [Mass fraction] 99 % [facility] Work Phone: [facility] 12-18-2022 03:24-0400 Body height 177.8 cm [facility] Work Phone: [facility] 12-18-2022 03:24-0400 Body temperature 97.9 [degF] [facility] Work Phone: [facility] 12-18-2022 03:24-0400 Body weight 96.7 kg [facility] Work Phone: [facility] 12-18-2022 03:24-0400 Diastolic blood pressure 88 mm[Hg] [facility] Work Phone: [facility] [facility] 12-18-2022 03:24-0400 Systolic blood pressure 145 mm[Hg] [facility] Work Phone: [facility] 10-24-2022 12:21-0500 Body height 179.07 cm [facility] Work Phone: [facility] 10-24-2022 12:21-0500 Body temperature 98.7 [degF] [facility] Work Phone: [facility] 10-24-2022 12:21-0500 Body weight 98 kg [facility] Work Phone: [facility] 10-24-2022 12:21-0500 Diastolic blood pressure 64 mm[Hg] [facility] Work Phone: [facility] 10-24-2022 12:21-0500 Heart rate 81 /min [facility] Work Phone: [facility] 10-24-2022 12:21-0500 Respiratory rate 18 /min [facility] Work Phone: [facility] 10-24-2022 12:21-0500 SaO2% (BldA) [Mass fraction] 98 % [facility] Work Phone: [facility] 10-24-2022 12:21-0500 Systolic blood pressure 124 mm[Hg] [facility] Work Phone: [facility] 10-07-2022 21:20-0500 Body height 177.8 cm [facility] Work Phone: [facility] 10-07-2022 21:20-0500 Body temperature 98.4 [degF] [facility] Work Phone: [facility] 10-07-2022 21:20-0500 Body weight 100.35 kg [facility] Work Phone: [facility] 10-07-2022 21:20-0500 Diastolic blood pressure 87 mm[Hg] [facility] Work Phone: [facility] 10-07-2022 21:20-0500 Heart rate 90 /min [facility] Work Phone: [facility] 10-07-2022 21:20-0500 Respiratory rate 20 /min [facility] Work Phone: [facility] 10-07-2022 21:20-0500 SaO2% (BldA) [Mass fraction] 100 % [facility] Work Phone: [facility] 10-07-2022 21:20-0500 Systolic blood pressure 148 mm[Hg] [facility] Work Phone: [facility] 09-02-2022 15:47-0500 Body height 179.07 cm [facility] Work Phone: [facility] 09-02-2022 15:47-0500 Body temperature 98.1 [degF] [facility] Work Phone: [facility] 09-02-2022 15:47-0500 Body weight 98.95 kg [facility] Work Phone: [facility] 09-02-2022 15:47-0500 Diastolic blood pressure 77 mm[Hg] [facility] Work Phone: [facility] 09-02-2022 15:47-0500 Heart rate 74 /min [facility] Work Phone: [facility] 09-02-2022 15:47-0500 Respiratory rate 18 /min [facility] Work Phone: [facility] 09-02-2022 15:47-0500 SaO2% (BldA) [Mass fraction] 100 % [facility] Work Phone: [facility] 09-02-2022 15:47-0500 Systolic blood pressure 137 mm[Hg] [facility] Work Phone: [facility] Encounters Encounter Date Encounter Type Care Provider Facility Start: 04-06-2023 End: 04-06-2023 Emergency department patient visit Jeff Birmingham Facility:[facility] Start: 04-06-2023 End: 04-06-2023 Emergency department patient visit [facility] Work Phone: [facility] Work Phone: Start: 02-03-2023 End: 02-04-2023 Emergency department patient visit Katelyn Stephen Facility:[facility] Start: 02-03-2023 End: 02-03-2023 Emergency department patient visit [facility] Work Phone: [facility] Work Phone: Start: 12-18-2022 End: 12-18-2022 Emergency department patient visit Venkat Palencia Jr Facility:[facility] Start: 12-18-2022 End: 12-18-2022 Emergency department patient visit Services [facility] Work Phone: [facility] Work Phone: Start: 10-24-2022 End: 10-24-2022 Emergency department patient visit Services [facility] Facility:[facility] Start: 10-24-2022 End: 10-24-2022 Emergency department patient visit Services [facility] Work Phone: [facility] Work Phone: Start: 10-07-2022 End: 10-08-2022 Emergency department patient visit Services [facility] Facility:[facility] Start: 10-07-2022 End: 10-07-2022 Emergency department patient visit Services [facility] Work Phone: [facility] Work Phone: Start: 09-02-2022 End: 09-02-2022 Emergency department patient visit Services [facility] Start: 09-02-2022 End: 09-02-2022 Emergency department patient visit Services [facility] Work Phone: [facility] Work Phone: Procedures Date Procedure Procedure Detail Performing Clinician Start: 02-03-2023 Duplex scan of lower limb veins Services [employer] Work Phone: Start: 02-03-2023 X-ray of right knee [facility] Phone: Start: 12-18-2022 Plain chest X-ray [facility] Phone: Start: 10-24-2022 Streptococcus pyogenes antigen assay [facility] Phone: Start: 10-07-2022 Plain chest X-ray Services [employer] Work Phone: Start: 10-07-2022 X-ray of soft tissue of neck [facility] [employer] Phone: Start: 09-02-2022 Radiologic examination of knee Services [employer] Work Phone: History of appendectomy Status p ost appendectomy [facility] Phone: Plan of Treatment Date Care Activity Detail Author Start: 04-06-2023 Computed tomography of abdomen and pelvis with contrast CT abdomen pelvis w con [facility] Start: 04-06-2023 CT Abdomen and Pelvi s W contrast IV [facility] Start: 02-03-2023 Duplex scan of lower limb veins US venous duplex LE RT [facility] Start: 02-03-2023 US Lower extremity v ein - right [facility] Start: 02-03-2023 X-ray of right knee XR knee RT 4V* F [facility] Start: 02-03-2023 XR Knee - right 4 Views [facility] Start: 12-18-2022 Plain chest X-ray XR chest 1V portab [facility] Start: 12-18-2022 XR Chest Single view [place] Start: 10-24-2022 [facility] Start: 10-07-2022 Plain chest X-ray XR chest 1V portab [facility] Start: 10-07-2022 X-ray of soft tissue of neck XR soft tissue neck [facility] Start: 10-07-2022 XR Chest Single view [place] Start: 10-07-2022 XR Neck Views [facility] Patient Education [facility] Work Phone: Patient referral [facility] Work Phone: [facility] [Presence] in Serum by RPR [facility] Payers Date Payer Category Payer Medicaid [id number] 2022 Self-pay [id number] Medicaid [employer] [id number] Unknown Regular Auto/Liability [id number] Unknown [id number] Unknown [id number] Unknown [id number] Unknown [id number] Unknown [id number] Unknown [id number] Worker's Compensation [id number] Social History Date Type Detail Facility Start: 09-02-2022 End: 04-06-2023 Tobacco smoking status NHIS Never smoked tobacco (finding) [facility] Start: 2000 Sex Assigned At Male F [facility] Evaluation note Note Date & Type Note Facility Evaluation note No assessment information availa ble [facility] Work Phone: Hospital Discharge instructions Note Date & Type Note Facility Hospital Discharge instructions Additional Instructions Return if symptoms are worse [facility] Work Phone: Hospital Discharge instructions Note Date & Type Note Facility Hospital Discharge instructions Additional Instructions Ice and elevate Tylenol or Naprosyn if needed for pain Follow-up with your PCP or Ortho Return here if any problems persist or worsen [facility] Work Phone: Chief Complaint and Reason for [...] , DO Family Provider Active Services [facility] Primary Care Provider Active Team Status: [...] Inactive Member Role Status Dates Services [facility] Primary Care Provider Active Jeff Mast [...] section and content) DATE CREATED AUTHOR 04/18/2023 [facility] FOR RECORDS PERTAINING TO PATIENTS WHO [...] BE BASED ON THE PRIMARY CLINICAL RECORDS. [facility]. provides no warranty or guarantee of the accuracy or completeness of information in this document.
--- NOTE | 2024-06-28 00:14 | XR_ITS ---
The [address] [address] Patient Name: JACK MATTHEWS MRN: [id number] date: 2000 Sex: M Assigned Patient Location: ED.MAIN Current Patient Location: Accession/Order Number: [id number] Exam Date: 06/28/2024 00:20 Report Date: 06/28/2024 03:39 At the request of: MIKAYLA LUCAS Procedure: XR foot ALLISON 2V EXAM: XR foot ALLISON 2V HISTORY: Atraumatic pain COMPARISON: None. TECHNIQUE: 2 views right foot and 2 views left foot obtained. FINDINGS: Frontal and lateral views of the right and left foot demonstrate bilateral hallux valgus bilaterally more prominent on the right. Well-preserved MTP joints otherwise. Remaining joint spaces of the ankle are well preserved and normal. No ankle mortise effusions are seen on the right or left. No acute dislocation or subluxation. No acute bone or joint findings upright or left foot or ankle. No fractures. No osseous lesions or destructive changes. Right ankle, note made of a chronic well circumscribed bone fragment just distal to the tip of the lateral malleolus measuring approximately 6 x 5 mm. Presumed sequelae of old avulsion fracture. Correlate with history. There is some mild soft tissue swelling at lateral malleolus. Correlate with exam. Remaining bilateral foot and ankle soft tissues are maintained. The graft no right or left calcaneal enthesopathy. XR/XR foot ALLISON 2V IMPRESSION: 1. No acute fracture or acute joint abnormality. 2. Bilateral hallux valgus. 3. Chronic appearing ossific fragment near tip of lateral malleolus right ankle presumably from old cortical avulsion fracture injury. Correlate with history. There is some minor soft tissue swelling at lateral malleolus. Correlate with exam and for point tenderness. Electronically authenticated by: TOPHER EVANS Date: 06/28/2024 03:39
--- NOTE | 2024-06-28 00:15 | ED_ITS ---
HPI - Extremity Problem General Chief complaint: Extremity Problem, Nontraumatic Stated complaint: swollen feet Time Seen by Provider: 06/28/24 00:05 Source: patient Mode of arrival: walk-in Limitations: no limitations History of Present Illness HPI Narrative: 23-year-old male presents for bilateral foot pain. He states that they have been a bit swollen for few weeks and in the past day or 2 they have been hurti ng. The right foot hurts more in the arch and the left foot hurts more in the heel. There is been no injury. He has had the same pair of shoes for a year. Related Data Previous Rx's ?Medication ?Instructions ?Recorded ibuprofen 800 mg tablet 800 mg PO Q8H PRN pain #20 tabs 06/28/24 Allergies Allergy/AdvReac Type Severity Reaction Status Date / Time No Known Drug Allergies Allergy Verified 04/06/24 00:17 Review of Systems ROS Narrative A ten point review of systems is negative except as noted above. PFSH PFSH Social History Smoking status: Never smoker Little interest or pleasure in doing things: not at all Feeling down, depressed, or hopeless: not at all Exam Narrative Exam Narrative: Nurses note and vital signs reviewed and patient is not hypoxic. General: The patient appears well and in no apparent distress. Patient is resting comfortably on cart. Skin: Warm, dry, no pallor noted. There is no rash noted. Head: Normocephalic, atraumatic Eye: Normal conjunctiva, no drainage Ears, Nose, Mouth, and Throat: oral mucosa is moist. Nares patent. Cardiovascular: Regular Rate and Rhythm Respiratory: Patient is in no distress, no accessory muscle use Back: non-tender GI: Soft and nontender Musculoskeletal: Neither foot is visibly swollen. There is no palpable edema. Dorsalis pedis pulses are 2+ bilaterally. No bruise rash or abrasions present Neurological: A&O, normal speech Psychiatric: Cooperative Constitutional Vital Signs, click to edit/add: Last Vital Signs Temp 98.3 F 06/28/24 00:07 Pulse 106 H 06/28/24 00:07 Resp 16 06/28/24 00:07 BP 128/87 06/28/24 00:07 Pulse Ox 99 06/28/24 00:07 O2 Del Method Room Air 06/28/24 00:07 Course Vital Signs Vital signs: Vital Signs Temperature 98.3 F 06/28/24 00:07 Pulse Rate 106 H 06/28/24 00:07 Respiratory Rate 16 06/28/24 00:07 Blood Pressure 128/87 06/28/24 00:07 Pulse Oximetry 99 06/28/24 00:07 Oxygen Delivery Method Room Air 06/28/24 00:07 Temperature 98.3 F 06/28/24 00:07 Pulse Rate 106 H 06/28/24 00:07 Respiratory Rate 16 06/28/24 00:07 Blood Pressure 128/87 06/28/24 00:07 Pulse Oximetry 99 06/28/24 00:07 Oxygen Delivery Method Room Air 06/28/24 00:07 MDM - Extremity (Nontraumatic) MDM Narrative Medical decision making narrative: Bilateral foot x-rays on my interpretation show bilateral bunions. He is referred to podiatry and this is likely the cause of his pain. Treatment diagnosis and follow-up were discussed with the patient. Differential Diagnosis Differential diagnosis: Likely other (Heel spur, plantar fasciitis, bunion) Imaging Data Bilateral foot x-rays: My impression: Bilateral foot x-rays on my interpretation show bilateral bunions Discharge Plan Discharge Chief Complaint: Extremity Problem, Nontraumatic Clinical Impression: Bunion of left foot, Bunion of right foot Patient Disposition: Home, Self-Care Time of Disposition Decision: 00:35 Condition: Good Mode of Transportation: Private Vehicle Prescriptions / Home Meds: New ibuprofen 800 mg tablet 800 mg PO Q8H PRN (Reason: pain) Qty: 20 0RF Print Language: Swedish Instructions: Cindy (ED) Referrals: [facility] [Primary Care Provider] - 1 week Drew Perry DPM [Physician] - 1 week
--- NOTE | 2024-06-28 00:21 | PC.NURSE ---
portable XR at bedside at this time.
== END 2024-06-28 00:42 | disposition home or self-care (01) ==
PROVIDERS: Emergency Provider Emergency Medicine
DX: M21.612 Bunion of left foot (principal); M21.611 Bunion of right foot
CPT/HCPCS: 73620; 99283

== ENCOUNTER 2024-07-20 02:11 | Emergency (ER) | payer OTHER, SELFPAY ==
[2024-07-20 02:13] VITALS: BP 139/82; PULSE 82; TEMP 36.8; O2SAT 97; BMI 33.7
--- NOTE | 2024-07-20 02:24 | ED_ITS ---
HPI - Extremity Problem General Chief complaint: Extremity Problem, Nontraumatic Stated complaint: Foot Pain Time Seen by Provider: 07/20/24 02:12 Source: patient Mode of arrival: walk-in Limitations: no limitations History of Present Illness HPI Narrative: 23-year-old male presents for bilateral foot pain. He was diagnosed with bunions recently and has made multiple attempts to get into see a automation and controls instructor. The local automation and controls instructor here in [place] is not taking new patients and he tried a automation and controls instructor in [place] who also is not taking new patients. He has had no new symptoms and no new pain. No injury. Related Data Previous Rx's ?Medication ?Instructions ?Recorded ibuprofen 800 mg tablet 800 mg PO Q8H PRN pain #20 tabs 06/28/24 ibuprofen 800 mg tablet 800 mg PO Q8H PRN pain #20 tabs 07/20/24 Allergies Allergy/AdvReac Type Severity Reaction Status Date / Time No Known Drug Allergies Allergy Verified 07/20/24 02:18 Review of Systems ROS Narrative A ten point review of systems is negative except as noted above. PFSH PFSH Social History Smoking status: Never smoker Little interest or pleasure in doing things: not at all Feeling down, depressed, or hopeless: not at all Exam Narrative Exam Narrative: Nurses note and vital signs reviewed and patient is not hypoxic. General: The patient appears well and in no apparent distress. Patient is resting comfortably on cart. Skin: Warm, dry, no pallor noted. There is no rash noted. Head: Normocephalic, atraumatic Eye: Normal conjunctiva, no drainage Ears, Nose, Mouth, and Throat: oral mucosa is moist. Nares patent. Cardiovascular: Regular Rate and Rhythm Respiratory: Patient is in no distress, no accessory muscle use Back: non-tender GI: Soft and nontender Musculoskeletal: Bilateral bunions are noted. No erythema or bruising. Neurological: A&O, normal speech Psychiatric: Cooperative Constitutional Vital Signs, click to edit/add: Last Vital Signs Temp 98.3 F 07/20/24 02:13 Pulse 82 07/20/24 02:13 Resp 18 07/20/24 02:13 BP 139/82 07/20/24 02:13 Pulse Ox 97 07/20/24 02:13 O2 Del Method Room Air 07/20/24 02:13 Course Vital Signs Vital signs: Vital Signs Temperature 98.3 F 07/20/24 02:13 Pulse Rate 82 07/20/24 02:13 Respiratory Rate 18 07/20/24 02:13 Blood Pressure 139/82 07/20/24 02:13 Pulse Oximetry 97 07/20/24 02:13 Oxygen Delivery Method Room Air 07/20/24 02:13 Temperature 98.3 F 07/20/24 02:13 Pulse Rate 82 07/20/24 02:13 Respiratory Rate 18 07/20/24 02:13 Blood Pressure 139/82 07/20/24 02:13 Pulse Oximetry 97 07/20/24 02:13 Oxygen Delivery Method Room Air 07/20/24 02:13 MDM - Extremity (Nontraumatic) MDM Narrative Medical decision making narrative: He is referred to orthopedics and was also recommended [place]. Treatment diagnosis and follow-up were discussed with the patient Differential Diagnosis Differential diagnosis: Likely other (Bunion, arthritis) Discharge Plan Discharge Chief Complaint: Extremity Problem, Nontraumatic Clinical Impression: Bilateral bunions Patient Disposition: Home, Self-Care Time of Disposition Decision: 02:23 Condition: Good Mode of Transportation: Private Vehicle Prescriptions / Home Meds: New ibuprofen 800 mg tablet 800 mg PO Q8H PRN (Reason: pain) Qty: 20 0RF No Action ibuprofen 800 mg tablet 800 mg PO Q8H PRN (Reason: pain) Qty: 20 0RF Print Language: Sinhala Instructions: Cindy (ED) Additional Instructions: [facility] in [place] Referrals: [facility] [Primary Care Provider] - 1 week Brad Womack MD [Physician] - 1 week
--- OUTSIDE RECORDS SUMMARY | 2024-07-20 02:26 | XMS_ITS | CCD ---
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 Name Role Phone [facility] Services Primary Care Provider JOSE A Bell Emergency Provider MD Suresh Ospina Emergency Provider [facility], Services Primary Care Provider MD Suresh Ospina Emergency Provider JOSE A Bell Emergency Provider MD Venkat Palencia Jr Emergency Provider [facility], Services Primary Care Provider JOSE A Stephen Emergency Provider [phone] [facility], Services Primary Care Provider DO Jeff Birmingham Emergency Provider Katelyn Stephen Admitting Unavailable Katelyn Stephen Attending Unavailable [facility], Services Primary Care Unavaila Jeff Larson Admitting Unavailable Jeff Birmingham Attending Unavailable [facility], Services Primary Care Unavaila ble [facility], Services Primary Care Unavaila Andrzej Antunez Admitting Unavailable Andrzej Bell Attending Unavailable [facility], Services Primary Care Unavaila ble Suresh Ospina Admitting Unavailable Suresh Ospina Attending Unavailable [facility], Services Primary Care Unavaila Andrzej Antunez Admitting Unavailable Andrzej Bell Attending Unavailable Venkat Palencia Jr Admitting Unavailable Venkat Palencia Jr Attending Unavailable [facility], Services Primary Care Unavaila ble Allergies Allergy Classification Reported Allergen(s) Allergy Type Date of Onset Reaction(s) Facility (6 sources) insect venom; Translations: [insect venom] Allergy to substance 10-07-2022 [facility] Medications Current Medications Medication Drug Class(es) Dates [...] painful area for up to 12 hrs [place] (No Known Home Meds) (1 source) Start: 10-07-2022 [place] (No Known Home Meds) Active October [...] 04-06-2023 ALT [Catalytic activity/Vol] 44 U/L 7-52 [facility] Albumin [Mass/volume] in Ser um or Plasma by Bromocresol green (BCG) dye binding methoOrdered By: Jeff Birmingham on 04-06-2023 Albumin BCG dye [Mass/Vol] 4.7 g/dL 3.5-5.7 [facility] Alkaline phosphatase [Enzyma tic activity/volume] in Serum or PlasmaOrdered By: Jeff Birmingham on 04-06-2023 ALP [Catalytic activity/Vol] 67 U/L 34-104 [facility] Aspartate aminotransferase [ Enzymatic activity/volume] in Serum or PlasmaOrdered By: Jeff Birmingham on 04-06-2023 AST [Catalytic activity/Vol] 25 U/L 13-39 [facility] Basic Metabolic Panelon Anion gap [Moles/Vol] 9.4 mmol/L Normal 6.0-15.0 [facility] Comment on above: Performed By: #### H EPATIC, BMP, CBC, LIPASE ####[address] Calcium [Mass/Vol] 9.5 mg/dL Normal 8.6-10.3 [facility] Comment on above: Performed By: #### H EPATIC, BMP, CBC, LIPASE ####[address] Chloride [Moles/Vol] 104 mmol/L Normal 98-107 [facility] Comment on above: Performed By: #### H EPATIC, BMP, CBC, LIPASE ####[address] CO2 [Moles/Vol] 29.3 mmol/L Normal 21.0-31.0 [facility] Comment on above: Performed By: #### H EPATIC, BMP, CBC, LIPASE ####[address] Creatinine [Mass/Vol] 0.91 mg/dL Normal 0.70-1.30 [facility] Comment on above: Performed By: #### H EPATIC, BMP, CBC, LIPASE ####[place] [id number] [facility] Creatinine Clr Calc Pharmacy 149.34 Normal [facility] Comment on above: Performed By: #### H EPATIC, BMP, CBC, LIPASE ####[address] GFR/1.73 sq M.predicted MDRD (S/P/Bld) [Vol rate/Area] mL/min/{1.73_m2} Normal [facility] Comment on above: Performed By: #### H EPATIC, BMP, CBC, LIPASE ####[facility] Glucose [Mass/Vol] 95 mg/dL Normal 70-100 [facility] Comment on above: Result Comment: [facility] Glucose Reference Range is dependent on time and content of last meal. Glucose of more than 200 mg/dL in a nonstressed, ambulatory subject supports the diagnosis of Diabetes Mellitus. ADA recommended reference range Performed By: #### H EPATIC, BMP, CBC, LIPASE ####[facility] [id number] Potassium [Moles/Vol] 3.7 mmol/L Normal 3.5-5.1 [facility] Comment on above: Performed By: #### H EPATIC, BMP, CBC, LIPASE ####[address] Sodium [Moles/Vol] 139 mmol/L Normal 136-145 [facility] Comment on above: Performed By: #### H EPATIC, BMP, CBC, LIPASE ####[place] [id number] [address] Urea nitrogen [Mass/Vol] 7 mg/dL Normal 7-25 [facility] Comment on above: Performed By: #### H EPATIC, BMP, CBC, LIPASE ####[facility] [id number] [place] [address] Basophils Auto (Bld) [#/Vol] Ordered By: Jeff Birmingham on 04-06-2023 Basophils (Bld) [#/Vol] 0.1 10*3/uL 0.0-0.2 [facility] Basophils/100 WBC Auto (Bld) Ordered By: Jeff Birmingham on 04-06-2023 Basophils/100 WBC (Bld) 0.9 % . [facility] Bilirubin.direct [Mass/volum e] in Serum or PlasmaOrdered By: Jeff Birmingham on 04-06-2023 Bilirubin.direct [Mass/Vol] 0.10 mg/dL 0.03-0.18 [facility] Bilirubin.total [Mass/volume ] in Serum or PlasmaOrdered By: Jeff Birmingham on 04-06-2023 Bilirubin [Mass/Vol] 0.6 mg/dL 0.3-1.[address] [facility] [address] abdomen pelvis w conon CT abdomen pelvis w con [facility] [place] [address] CT Scan Report Signed Patient: Basilio Person MR#: [id number] : 2000 Acct:[id number] Age/Sex: 22 / M ADM Date: 04/06/23 Loc: ER Room: Type: [facility] ER Attending Dr: Copies to: Jeff [...] Naidu Jr., D.O.04/06/2023 9:26 AM Dictation Location: [place] [address] Transcribed By: TANK 04/06/23925 Dictated By: Gio Naidu Jr, DO 04/06/23918 Signed By: 04/06/23925 Normal [facility] Calcium [Mass/volume] in Ser um or PlasmaOrdered By: Jeff Birmingham on 04-06-2023 Calcium [Mass/Vol] 9.5 mg/dL 8.6-10.3 [facility] Carbon dioxide, total [Moles /volume] in Serum or PlasmaOrdered By: Jeff Birmingham on 04-06-2023 CO2 [Moles/Vol] 29.3 mmol/L 21.0-31.0 [facility] Chloride [Moles/volume] in S valerie or PlasmaOrdered By: Jeff Birmingham on 04-06-2023 Chloride [Moles/Vol] 104 mmol/L 98-107 [facility] Complete Blood Count Auto Di ffon 04-06-2023 Basophils (Bld) [#/Vol] 0.1 10*3/uL Normal 0.0-0.2 [facility] Comment on above: Result Comment: PERF ORMED BY: [facility] [address] [place] [address] PATHOLOGIST SET ILLUSTRATOR CARRI KIM M.D. Performed By: #### H EPATIC, BMP, CBC, LIPASE ####[place] [id number] [address] Basophils/100 WBC (Bld) 0.9 % Normal . [facility] Comment on above: Performed By: #### H EPATIC, BMP, CBC, LIPASE ####[facility] [id number] Eosinophils (Bld) [#/Vol] 0.1 10*3/uL Normal 0.0-0.45 [facility] Comment on above: Performed By: #### H EPATIC, BMP, CBC, LIPASE ####[place] [id number] [address] Eosinophils/100 WBC (Bld) 1.1 % Normal . [facility] Comment on above: Performed By: #### H EPATIC, BMP, CBC, LIPASE ####[address] Erythrocyte distribution width (RBC) [Ratio] 13.6 % Normal 12.0-14.8 [facility] Comment on above: Performed By: #### H EPATIC, BMP, CBC, LIPASE ####[address] Hematocrit (Bld) [Volume fraction] 42.1 % Normal 38.8-50.0 [facility] Comment on above: Performed By: #### H EPATIC, BMP, CBC, LIPASE ####[address] Hemoglobin (Bld) [Mass/Vol] 14.9 g/dL Normal 13.0-17.0 [facility] Comment on above: Performed By: #### H EPATIC, BMP, CBC, LIPASE ####[address] Lymphocytes (Bld) [#/Vol] 3.1 10*3/uL Normal 1.00-4.8 [facility] Comment on above: Performed By: #### H EPATIC, BMP, CBC, LIPASE ####[address] Lymphocytes/100 WBC (Bld) 30.6 % Normal . [facility] Comment on above: Performed By: #### H EPATIC, BMP, CBC, LIPASE ####[address] MCH (RBC) [Entitic mass] 29.0 pg Normal 27.5-35.2 [facility] Comment on above: Performed By: #### H EPATIC, BMP, CBC, LIPASE ####[address] MCV (RBC) [Entitic vol] 81.9 fL Low 83.5-101 [facility] Comment on above: Performed By: #### H EPATIC, BMP, CBC, LIPASE ####[address] Mean Corpuscular HGB Conc 35.3 g/dL Normal 32.5-35.6 [facility] Comment on above: Performed By: #### H EPATIC, BMP, CBC, LIPASE ####[address] Monocytes (Bld) [#/Vol] 1.0 10*3/uL High 0.0-0.8 [facility] Comment on above: Performed By: #### H EPATIC, BMP, CBC, LIPASE ####[address] Monocytes/100 WBC (Bld) 15.06 % Normal 0.00-20.00 [facility] Comment on above: Performed By: #### H EPATIC, BMP, CBC, LIPASE ####[address] Monocytes/100 WBC (Bld) 9.5 % Normal . [facility] Comment on above: Performed By: #### H EPATIC, BMP, CBC, LIPASE ####[address] Neutrophils (Bld) [#/Vol] 5.9 10*3/uL Normal 1.8-7.7 [facility] Comment on above: Performed By: #### H EPATIC, BMP, CBC, LIPASE ####[address] Neutrophils/100 WBC (Bld) 57.9 % Normal . [facility] Comment on above: Performed By: #### H EPATIC, BMP, CBC, LIPASE ####[address] NRBC% 0.1 /100{WBC} Normal 0-0.5 [facility] Comment on above: Performed By: #### H EPATIC, BMP, CBC, LIPASE ####[address] Platelet mean volume (Bld) [Entitic vol] 8.0 fL Normal 6.6-10.1 [facility] Comment on above: Performed By: #### H EPATIC, BMP, CBC, LIPASE ####[facility] [id number] Platelets (Bld) [#/Vol] 198 10*3/uL Normal 150-450 [facility] Comment on above: Performed By: #### H EPATIC, BMP, CBC, LIPASE ####[place] [address] [address] RBC (Bld) [#/Vol] 5.14 10*6/uL Normal 3.90-5.60 [facility] Comment on above: Performed By: #### H EPATIC, BMP, CBC, LIPASE ####[place] [id number] [address] WBC (Bld) [#/Vol] 10.2 10*3/uL Normal 4.1-10.5 [facility] Comment on above: Performed By: #### H EPATIC, BMP, CBC, LIPASE ####[address] Creatinine [Mass/volume] in Serum or PlasmaOrdered By: Jeff Birmingham on 04-06-2023 Creatinine [Mass/Vol] 0.91 mg/dL 0.70-1.30 [facility] Eosinophils Auto (Bld) [#/Vo l]Ordered By: Jeff Birmingham on 04-06-2023 Eosinophils (Bld) [#/Vol] 0.1 10*3/uL 0.0-0.45 [facility] Eosinophils/100 WBC Auto (Bl d)Ordered By: Jeff Birmingham on 04-06-2023 Eosinophils/100 WBC (Bld) 1.1 % . [facility] Erythrocyte distribution wid th Auto (RBC) [Ratio]Ordered By: Jeff Birmingham on 04-06-2023 Erythrocyte distribution width (RBC) [Ratio] 13.6 % 12.0-14.8 [facility] Globulin Calc (S) [Mass/Vol] Ordered By: Jeff Birmingham on 04-06-2023 Globulin (S) [Mass/Vol] 2.5 g/dL [facility] Glucose [Mass/volume] in Ser um or PlasmaOrdered By: Jeff Birmingham on 04-06-2023 Glucose [Mass/Vol] 95 mg/dL 70-100 [facility] Comment on above: ADA recommended refe rence rangeRandom Glucose Reference Range is dependent on time and content of last meal. Glucose of more than 200 mg/dL in a nonstressed, ambulatory subject supports the diagnosis of Diabetes Mellitus. Hematocrit Auto (Bld) [Volum e fraction]Ordered By: Jeff Birmingham on 04-06-2023 Hematocrit (Bld) [Volume fraction] 42.1 % 38.8-50.0 [facility] Hemoglobin [Mass/volume] in BloodOrdered By: Jeff Birmingham on 04-06-2023 Hemoglobin (Bld) [Mass/Vol] 14.9 g/dL 13.0-17.0 [facility] Hepatic Panelon 04-06-2023 Albumin [Mass/Vol] 4.7 g/dL Normal 3.5-5.7 [facility] Comment on above: Performed By: #### H EPATIC, BMP, CBC, LIPASE ####[address] Albumin/Globulin [Mass ratio] 1.9 {ratio} Normal [facility] Comment on above: Performed By: #### H EPATIC, BMP, CBC, LIPASE ####[address] ALP [Catalytic activity/Vol] 67 U/L Normal 34-104 [facility] Comment on above: Performed By: #### H EPATIC, BMP, CBC, LIPASE ####[place] [id number] [facility] ALT [Catalytic activity/Vol] 44 U/L Normal 7-52 [facility] Comment on above: Performed By: #### H EPATIC, BMP, CBC, LIPASE ####[place] [id number] [facility] AST [Catalytic activity/Vol] 25 U/L Normal 13-39 [facility] Comment on above: Performed By: #### H EPATIC, BMP, CBC, LIPASE ####[address] Bilirubin [Mass/Vol] 0.6 mg/dL Normal 0.3-1.0 [facility] Comment on above: Performed By: #### H EPATIC, BMP, CBC, LIPASE ####[address] Bilirubin,Indirect 0.5 mg/dL Normal [facility] Comment on above: Performed By: #### H EPATIC, BMP, CBC, LIPASE ####[address] Bilirubin.indirect [Mass/Vol] 0.10 mg/dL Normal 0.03-0.18 [facility] Comment on above: Performed By: #### H EPATIC, BMP, CBC, LIPASE ####[address] Globulin (S) [Mass/Vol] 2.5 g/dL Normal [facility] Comment on above: Performed By: #### H EPATIC, BMP, CBC, LIPASE ####[address] Protein [Mass/Vol] 7.2 g/dL Normal 6.4-8.9 [facility] Comment on above: Performed By: #### H EPATIC, BMP, CBC, LIPASE ####[address] Leukocytes [#/volume] correc ashley for nucleated erythrocytes in Blood by Automated counOrdered By: Jeff Birmingham on 04-06-2023 WBC corrected for nucl RBC Auto (Bld) [#/Vol] 10.2 10*3/uL 4.1-10.5 [facility] Lipaseon 04-06-2023 Lipase [Catalytic activity/Vol] 20.0 U/L Normal 11.0-82.0 [facility] Comment on above: Result Comment: PERF ORMED BY: [facility] [address] [place] [address] PATHOLOGIST SET ILLUSTRATOR CARRI KIM M.D. Performed By: #### H EPATIC, BMP, CBC, LIPASE ####[address] [place] [address] [facility] Lipase [Enzymatic activity/v olume] in Serum or PlasmaOrdered By: Jeff Birmingham on 04-06-2023 Lipase [Catalytic activity/Vol] 20.0 U/L 11.0-82.0 [facility] Lymphocytes Auto (Bld) [#/Vo l]Ordered By: Jeff Birmingham on 04-06-2023 Lymphocytes (Bld) [#/Vol] 3.1 10*3/uL 1.00-4.8 [facility] Lymphocytes/100 WBC Auto (Bl d)Ordered By: Jeff Birmingham on 04-06-2023 Lymphocytes/100 WBC (Bld) 30.6 % . [facility] MCH Auto (RBC) [Entitic mass ]Ordered By: Jeff Birmingham on 04-06-2023 MCH (RBC) [Entitic mass] 29.0 pg 27.5-35.2 [facility] MCHC Auto (RBC) [Mass/Vol]Or dered By: Jeff Birmingham on 04-06-2023 MCHC (RBC) [Mass/Vol] 35.3 g/dL 32.5-35.6 [facility] MCV Auto (RBC) [Entitic vol] Ordered By: Jeff Birmingham on 04-06-2023 MCV (RBC) [Entitic vol] 81.9 fL 83.5-101 [facility] Monocyte distribution width [Entitic volume] in Blood by AutomatedOrdered By: Jeff Birmingham on 04-06-2023 Monocyte distribution width Auto (Bld) [Entitic vol] 15.06 % 0.00-20.00 [facility] Monocytes Auto (Bld) [#/Vol] Ordered By: Jeff Birmingham on 04-06-2023 Monocytes (Bld) [#/Vol] 1.0 10*3/uL 0.0-0.8 [facility] Monocytes/100 WBC Auto (Bld) Ordered By: Jeff Birmingham on 04-06-2023 Monocytes/100 WBC (Bld) 9.5 % . [facility] Neutrophils Auto (Bld) [#/Vo l]Ordered By: Jeff Birmingham on 04-06-2023 Neutrophils (Bld) [#/Vol] 5.9 10*3/uL 1.8-7.7 [facility] Neutrophils/100 WBC Auto (Bl d)Ordered By: Jeff Birmingham on 04-06-2023 Neutrophils/100 WBC (Bld) 57.9 % . [facility] No Panel InformationOrdered By: Jeff Birmingham on 04-06-2023 Estimated GFR (CKD-EPI) > 60.0 mL/Min [facility] Creatinine Clearance (Chem 149.34 [facility] Nucleated erythrocytes [Pres ence] in Blood by Automated countOrdered By: Jeff Birmingham on 04-06-2023 Nucleated RBC Auto Ql (Bld) 0.1 /100{WBC} 0-0.5 [facility] Platelet mean volume Auto (B ld) [Entitic vol]Ordered By: Jeff Birmingham on 04-06-2023 Platelet mean volume (Bld) [Entitic vol] 8.0 fL 6.6-10.1 [facility] Platelets Auto (Bld) [#/Vol] Ordered By: Jeff Birmingham on 04-06-2023 Platelets (Bld) [#/Vol] 198 10*3/uL 150-450 [facility] Potassium [Moles/volume] in Serum or PlasmaOrdered By: Jeff Birmingham on 04-06-2023 Potassium [Moles/Vol] 3.7 mmol/L 3.5-5.1 [facility] Protein [Mass/volume] in Ser um or PlasmaOrdered By: Jeff Birmingham on 04-06-2023 Protein [Mass/Vol] 7.2 g/dL 6.4-8.9 [facility] RBC Auto (Bld) [#/Vol]Ordere d By: Jeff Birmingham on 04-06-2023 RBC (Bld) [#/Vol] 5.14 10*6/uL 3.90-5.60 [facility] Serum or plasma albumin/glob ulin mass ratioOrdered By: Jeff Birmingham on 04-06-2023 Albumin/Globulin [Mass ratio] 1.9 {ratio} [facility] Serum or plasma anion gap de terminationOrdered By: Jeff Birmingham on 04-06-2023 Anion gap [Moles/Vol] 9.4 mmol/L 6.0-15.0 [facility] Serum or plasma non-glucuron idated bilirubin measurement (mass/volume)Ordered By: Jeff Birmingham on 04-06-2023 Bilirubin.indirect [Mass/Vol] 0.5 mg/dL [facility] Sodium [Moles/volume] in Ser um or PlasmaOrdered By: Jeff Birmingham on 04-06-2023 Sodium [Moles/Vol] 139 mmol/L 136-145 [facility] Urea nitrogen [Mass/volume] in Serum or PlasmaOrdered By: Jeff Birmingham on 04-06-2023 Urea nitrogen [Mass/Vol] 7 mg/dL 7-25 [facility] WBC Auto (Bld) [#/Vol]Ordere d By: Jeff Birmingham on 04-06-2023 WBC (Bld) [#/Vol] 10.2 10*3/uL 4.1-10.5 [facility] US venous duplex LE RTon US venous duplex LE RT [facility] [place] [address] Ultrasound Report Signed Patient: Basilio Person MR#: [id number] : 2000 Acct:[id number] Age/Sex: 22 / M ADM Date: 02/03/23 Loc: ER Room: Type: [facility] ER Attending Dr: Ordering Provider: Katelyn [...] Nehemiah Camejo M.D.02/04/2023 8:41 AM Dictation Location: [place] [address] Tech: Cee Dasilva Transcribed By: TANK 02/04/2341 Dictated By: Nehemiah Camejo MD 02/04/23840 Signed By: 02/04/23840 [facility] XR knee RT 4V*on 02-04-2023 XR knee RT 4V* [facility] [place] [address] XRay Report Signed Patient: Basilio Person MR#: [id number] : 2000 Acct:[id number] Age/Sex: 22 / M ADM Date: 02/03/23 Loc: ER Room: Type: [facility] ER Attending Dr: Copies to: Katelyn [...] Park Champagne M.D.02/04/2023 7:38 AM Dictation Location: [place] [address] Transcribed By: TANK 02/04/23 0738 Dictated By: Park Champagne MD 02/04/23 0737 Signed By: 02/04/23 0738 [facility] Activated partial thrombopla stin time (aPTT) in platelet poor plasma by coagulation aOrdered By: Venkat Palencia on 12-18-2022 aPTT Coag (PPP) [Time] 28.5 s 25.1-36.5 [facility] Alanine aminotransferase [En zymatic activity/volume] in Serum or PlasmaOrdered By: Venkat Palencia on 12-18-2022 ALT [Catalytic activity/Vol] 32 U/L 7-52 [facility] Albumin [Mass/volume] in Ser um or Plasma by Bromocresol green (BCG) dye binding methoOrdered By: Venkat Palencia on 12-18-2022 Albumin BCG dye [Mass/Vol] 4.6 g/dL 3.5-5.7 [facility] Alkaline phosphatase [Enzyma tic activity/volume] in Serum or PlasmaOrdered By: Venkat Palencia on 12-18-2022 ALP [Catalytic activity/Vol] 74 U/L 34-104 [facility] Aspartate aminotransferase [ Enzymatic activity/volume] in Serum or PlasmaOrdered By: Venkat Palencia on 12-18-2022 AST [Catalytic activity/Vol] 18 U/L 13-39 [facility] B-Type Natriuretic Peptideon 12-18-2022 Natriuretic peptide B (Bld) [Mass/Vol] 9.0 pg/mL Normal 5-100 [facility] Comment on above: Result Comment: PERF ORMED BY: [facility] [address] [facility] [place] [id number] PATHOLOGIST SET ILLUSTRATOR CARRI KIM M.D. Performed By: #### P T, BNP, CBC, PTT, CK, DDIMER, HS TROP, CMP ####[facility] [id number] [place] [id number] [facility] Basophils Auto (Bld) [#/Vol] Ordered By: Venkat Palencia on 12-18-2022 Basophils (Bld) [#/Vol] 0.1 10*3/uL 0.0-0.2 [facility] Basophils/100 WBC Auto (Bld) Ordered By: Venkat Palencia on 12-18-2022 Basophils/100 WBC (Bld) 0.9 % . [facility] Bilirubin.total [Mass/volume ] in Serum or PlasmaOrdered By: Venkat Palencia on 12-18-2022 Bilirubin [Mass/Vol] 0.8 mg/dL 0.3-1.0 [facility] Calcium [Mass/volume] in Ser um or PlasmaOrdered By: Venkat Palencia on 12-18-2022 Calcium [Mass/Vol] 8.6 mg/dL 8.6-10.3 [facility] Carbon dioxide, total [Moles /volume] in Serum or PlasmaOrdered By: Venkat Palencia on 12-18-2022 CO2 [Moles/Vol] 25.9 mmol/L 21.0-31.0 [facility] Chloride [Moles/volume] in S valerie or PlasmaOrdered By: Venkat Palencia on 12-18-2022 Chloride [Moles/Vol] 109 mmol/L 98-107 [facility] Complete Blood Count Auto Di ffon 12-18-2022 Basophils (Bld) [#/Vol] 0.1 10*3/uL Normal 0.0-0.2 [facility] Comment on above: Result Comment: PERF ORMED BY: [place] [address] PATHOLOGIST SET ILLUSTRATOR CARRI KIM M.D. Performed By: #### P T, BNP, CBC, PTT, CK, DDIMER, HS TROP, CMP #### [address] Basophils/100 WBC (Bld) 0.9 % Normal . [facility] Comment on above: Performed By: #### P T, BNP, CBC, PTT, CK, DDIMER, HS TROP, CMP #### [address] Eosinophils (Bld) [#/Vol] 0.1 10*3/uL Normal 0.0-0.45 [facility] Comment on above: Performed By: #### P T, BNP, CBC, PTT, CK, DDIMER, HS TROP, CMP #### [address] Eosinophils/100 WBC (Bld) 0.8 % Normal . [facility] Comment on above: Performed By: #### P T, BNP, CBC, PTT, CK, DDIMER, HS TROP, CMP #### [address] Erythrocyte distribution width (RBC) [Ratio] 13.7 % Normal 12.0-14.8 [facility] Comment on above: Performed By: #### P T, BNP, CBC, PTT, CK, DDIMER, HS TROP, CMP #### [address] Hematocrit (Bld) [Volume fraction] 40.9 % Normal 38.8-50.0 [facility] Comment on above: Performed By: #### P T, BNP, CBC, PTT, CK, DDIMER, HS TROP, CMP #### [address] Hemoglobin (Bld) [Mass/Vol] 14.1 g/dL Normal 13.0-17.0 [facility] Comment on above: Performed By: #### P T, BNP, CBC, PTT, CK, DDIMER, HS TROP, CMP #### [address] Lymphocytes (Bld) [#/Vol] 2.2 10*3/uL Normal 1.00-4.8 [facility] Comment on above: Performed By: #### P T, BNP, CBC, PTT, CK, DDIMER, HS TROP, CMP #### [address] Lymphocytes/100 WBC (Bld) 21.2 % Normal . [facility] Comment on above: Performed By: #### P T, BNP, CBC, PTT, CK, DDIMER, HS TROP, CMP #### [address] MCH (RBC) [Entitic mass] 28.5 pg Normal 27.5-35.2 [facility] [facility] Comment on above: Performed By: #### P T, BNP, CBC, PTT, CK, DDIMER, HS TROP, CMP #### [address] MCV (RBC) [Entitic vol] 82.4 fL Low 83.5-101 [facility] Comment on above: Performed By: #### P T, BNP, CBC, PTT, CK, DDIMER, HS TROP, CMP #### [address] Mean Corpuscular HGB Conc 34.5 g/dL Normal 32.5-35.6 [facility] Comment on above: Performed By: #### P T, BNP, CBC, PTT, CK, DDIMER, HS TROP, CMP #### [place] [address] [place] Monocytes (Bld) [#/Vol] 0.9 10*3/uL High 0.0-0.8 [facility] Comment on above: Performed By: #### P T, BNP, CBC, PTT, CK, DDIMER, HS TROP, CMP #### [place] [address] [place] Monocytes/100 WBC (Bld) 15.92 % Normal 0.00-20.00 [facility] Comment on above: Performed By: #### P T, BNP, CBC, PTT, CK, DDIMER, HS TROP, CMP #### [address] Monocytes/100 WBC (Bld) 8.9 % Normal . [facility] Comment on above: Performed By: #### P T, BNP, CBC, PTT, CK, DDIMER, HS TROP, CMP #### [address] Neutrophils (Bld) [#/Vol] 7.2 10*3/uL Normal 1.8-7.7 [facility] Comment on above: Performed By: #### P T, BNP, CBC, PTT, CK, DDIMER, HS TROP, CMP #### [place] [address] [place] Neutrophils/100 WBC (Bld) 68.2 % Normal . [facility] Comment on above: Performed By: #### P T, BNP, CBC, PTT, CK, DDIMER, HS TROP, CMP #### [place] [address] [place] NRBC% 0.1 /100{WBC} Normal 0-0.5 [facility] Comment on above: Performed By: #### P T, BNP, CBC, PTT, CK, DDIMER, HS TROP, CMP #### [place] [address] [place] Platelet mean volume (Bld) [Entitic vol] 7.5 fL Normal 6.6-10.1 [facility] Comment on above: Performed By: #### P T, BNP, CBC, PTT, CK, DDIMER, HS TROP, CMP #### [facility] [address] Platelets (Bld) [#/Vol] 203 10*3/uL Normal 150-450 [facility] Comment on above: Performed By: #### P T, BNP, CBC, PTT, CK, DDIMER, HS TROP, CMP #### [facility] [address] RBC (Bld) [#/Vol] 4.97 10*6/uL Normal 3.90-5.60 [facility] Comment on above: Performed By: #### P T, BNP, CBC, PTT, CK, DDIMER, HS TROP, CMP #### [address] WBC (Bld) [#/Vol] 10.6 10*3/uL High 4.1-10.5 [facility] Comment on above: Performed By: #### P T, BNP, CBC, PTT, CK, DDIMER, HS TROP, CMP #### [facility] [address] [place] [address] Comprehensive Metabolic Pane maren 12-18-2022 Albumin [Mass/Vol] 4.6 g/dL Normal 3.5-5.7 [facility] Comment on above: Performed By: #### P T, BNP, CBC, PTT, CK, DDIMER, HS TROP, CMP ####[facility] Albumin/Globulin [Mass ratio] 2.0 {ratio} Normal [facility] Comment on above: Performed By: #### P T, BNP, CBC, PTT, CK, DDIMER, HS TROP, CMP ####[facility] ALP [Catalytic activity/Vol] 74 U/L Normal 34-104 [facility] Comment on above: Performed By: #### P T, BNP, CBC, PTT, CK, DDIMER, HS TROP, CMP ####[address] ALT [Catalytic activity/Vol] 32 U/L Normal 7-52 [facility] Comment on above: Performed By: #### P T, BNP, CBC, PTT, CK, DDIMER, HS TROP, CMP ####[address] Anion gap [Moles/Vol] 9.9 mmol/L Normal 6.0-15.0 [facility] Comment on above: Performed By: #### P T, BNP, CBC, PTT, CK, DDIMER, HS TROP, CMP ####[address] AST [Catalytic activity/Vol] 18 U/L Normal 13-39 [facility] Comment on above: Performed By: #### P T, BNP, CBC, PTT, CK, DDIMER, HS TROP, CMP ####[address] Bilirubin [Mass/Vol] 0.8 mg/dL Normal 0.3-1.0 [facility] Comment on above: Performed By: #### P T, BNP, CBC, PTT, CK, DDIMER, HS TROP, CMP ####[address] Calcium [Mass/Vol] 8.6 mg/dL Normal 8.6-10.3 [facility] Comment on above: Performed By: #### P T, BNP, CBC, PTT, CK, DDIMER, HS TROP, CMP ####[place] [id number] [facility] Chloride [Moles/Vol] 109 mmol/L High 98-107 [facility] Comment on above: Performed By: #### P T, BNP, CBC, PTT, CK, DDIMER, HS TROP, CMP ####[address] CO2 [Moles/Vol] 25.9 mmol/L Normal 21.0-31.0 [facility] Comment on above: Performed By: #### P T, BNP, CBC, PTT, CK, DDIMER, HS TROP, CMP ####[address] Creatinine [Mass/Vol] 0.89 mg/dL Normal 0.70-1.30 [facility] Comment on above: Performed By: #### P T, BNP, CBC, PTT, CK, DDIMER, HS TROP, CMP ####[address] Creatinine Clr Calc Pharmacy 151.88 [facility] Comment on above: Result Comment: PERF ORMED BY: [facility] [address] [place] [address] PATHOLOGIST SET ILLUSTRATOR CARRI KIM M.D. Performed By: #### P T, BNP, CBC, PTT, CK, DDIMER, HS TROP, CMP ####[address] GFR/1.73 sq M.predicted MDRD (S/P/Bld) [Vol rate/Area] mL/min/{1.73_m2} [facility] Comment on above: Performed By: #### P T, BNP, CBC, PTT, CK, DDIMER, HS TROP, CMP ####[address] Globulin (S) [Mass/Vol] 2.3 g/dL [facility] Comment on above: Performed By: #### P T, BNP, CBC, PTT, CK, DDIMER, HS TROP, CMP ####[address] Glucose [Mass/Vol] 87 mg/dL Normal 70-100 [facility] Comment on above: Result Comment: [place] Glucose Reference Range is dependent on time and content of last meal. Glucose of more than 200 mg/dL in a nonstressed, ambulatory subject supports the diagnosis of Diabetes Mellitus. ADA recommended reference range Performed By: #### P T, BNP, CBC, PTT, CK, DDIMER, HS TROP, CMP ####[address] Potassium [Moles/Vol] 3.8 mmol/L Normal 3.5-5.1 [facility] Comment on above: Performed By: #### P T, BNP, CBC, PTT, CK, DDIMER, HS TROP, CMP ####[place] [id number] [facility] Protein [Mass/Vol] 6.9 g/dL Normal 6.4-8.9 [facility] Comment on above: Performed By: #### P T, BNP, CBC, PTT, CK, DDIMER, HS TROP, CMP ####[address] Sodium [Moles/Vol] 141 mmol/L Normal 136-145 [facility] Comment on above: Performed By: #### P T, BNP, CBC, PTT, CK, DDIMER, HS TROP, CMP ####[place] [id number] [facility] Urea nitrogen [Mass/Vol] 11 mg/dL Normal 7-25 [facility] Comment on above: Performed By: #### P T, BNP, CBC, PTT, CK, DDIMER, HS TROP, CMP ####[place] [id number] [facility] Creatine Kinaseon 12-18-2022 CK [Catalytic activity/Vol] 81 U/L Normal [facility] Comment on above: Performed By: #### P T, BNP, CBC, PTT, CK, DDIMER, HS TROP, CMP ####[place] [id number] [facility] Creatine kinase [Enzymatic a ctivity/volume] in Serum or PlasmaOrdered By: Venkat Palencia on 12-18-2022 CK [Catalytic activity/Vol] 81 U/L - [facility] Creatinine [Mass/volume] in Serum or PlasmaOrdered By: Venkat Palencia on 12-18-2022 Creatinine [Mass/Vol] 0.89 mg/dL 0.70-1.30 [facility] D-Dimer High Sensitivityon 0 12-18-2022 D-Dimer High Sensitivity < 200 Normal 0-243 [facility] Comment on above: Result Comment: The [...] patients due to co-morbid conditions. PERFORMED BY: [place] [address] PATHOLOGIST SET ILLUSTRATOR CARRI KIM M.D. Performed By: #### P T, BNP, CBC, PTT, CK, DDIMER, HS TROP, CMP ####[facility]1111 [place] [id number] [facility] ECG 12 lead ECGon 12-18-2022 ECG 12 lead ECG [facility] [place] [address] Electrocardiograph Report Signed Patient: Basilio Person MR#: [id number] : 2000 Acct:[id number] Age/Sex: 22 / M ADM Date: 12/18/22 Loc: ER Room: Type: [facility] ER Attending Dr: Ordering Provider: Venkat Palencia [...] was found Confirmed by VENKAT PALENCIA MD ([id number]) on 12/18/2022 4:21:16 AM Referred By: Electronically Signed By:VENKAT PALENCIA MD Transcribed By: MUS Signed By Venkat Palencia Jr, MD 0421 Normal [facility] Eosinophils Auto (Bld) [#/Vo l]Ordered By: Venkat Palencia on 12-18-2022 Eosinophils (Bld) [#/Vol] 0.1 10*3/uL 0.0-0.45 [facility] Eosinophils/100 WBC Auto (Bl d)Ordered By: Venkat Palencia on 12-18-2022 Eosinophils/100 WBC (Bld) 0.8 % . [facility] Erythrocyte distribution wid th Auto (RBC) [Ratio]Ordered By: Venkat Palencia on 12-18-2022 Erythrocyte distribution width (RBC) [Ratio] 13.7 % 12.0-14.8 [facility] Globulin Calc (S) [Mass/Vol] Ordered By: Venkat Palencia on 12-18-2022 Globulin (S) [Mass/Vol] 2.3 g/dL [facility] Glucose [Mass/volume] in Ser um or PlasmaOrdered By: Venkat Palencia on 12-18-2022 Glucose [Mass/Vol] 87 mg/dL 70-100 [facility] Comment on above: ADA recommended refe rence rangeRandom Glucose Reference Range is dependent on time and content of last meal. Glucose of more than 200 mg/dL in a nonstressed, ambulatory subject supports the diagnosis of Diabetes Mellitus. Hematocrit Auto (Bld) [Volum e fraction]Ordered By: Venkat Palencia on 12-18-2022 Hematocrit (Bld) [Volume fraction] 40.9 % 38.8-50.0 [facility] Hemoglobin [Mass/volume] in BloodOrdered By: Venkat Palencia on 12-18-2022 Hemoglobin (Bld) [Mass/Vol] 14.1 g/dL 13.0-17.0 [facility] Laboratory - CoagulationOrde red By: Venkat Palencia on 12-18-2022 PT Coag (PPP) [Time] 12.0 s 9.0-12.9 [facility] Leukocytes [#/volume] correc ashley for nucleated erythrocytes in Blood by Automated counOrdered By: Venkat Palencia on 12-18-2022 WBC corrected for nucl RBC Auto (Bld) [#/Vol] 10.6 10*3/uL 4.1-10.5 [facility] Lymphocytes Auto (Bld) [#/Vo l]Ordered By: Venkat Palencia on 12-18-2022 Lymphocytes (Bld) [#/Vol] 2.2 10*3/uL 1.00-4.8 [facility] Lymphocytes/100 WBC Auto (Bl d)Ordered By: Venkat Palencia on 12-18-2022 Lymphocytes/100 WBC (Bld) 21.2 % . [facility] MCH Auto (RBC) [Entitic mass ]Ordered By: Venkat Palencia on 12-18-2022 MCH (RBC) [Entitic mass] 28.5 pg 27.5-35.2 [facility] MCHC Auto (RBC) [Mass/Vol]Or dered By: Venkat Palencia on 12-18-2022 MCHC (RBC) [Mass/Vol] 34.5 g/dL 32.5-35.6 [facility] MCV Auto (RBC) [Entitic vol] Ordered By: Venkat Palencia on 12-18-2022 MCV (RBC) [Entitic vol] 82.4 fL 83.5-101 [facility] Monocyte distribution width [Entitic volume] in Blood by AutomatedOrdered By: Venkat Palencia on 12-18-2022 Monocyte distribution width Auto (Bld) [Entitic vol] 15.92 % 0.00-20.00 [facility] Monocytes Auto (Bld) [#/Vol] Ordered By: Venkat Palencia on 12-18-2022 Monocytes (Bld) [#/Vol] 0.9 10*3/uL 0.0-0.8 [facility] Monocytes/100 WBC Auto (Bld) Ordered By: Venkat Palencia on 12-18-2022 Monocytes/100 WBC (Bld) 8.9 % . [facility] Natriuretic peptide B [Mass/ Vol]Ordered By: Venkat Palencia on 12-18-2022 Natriuretic peptide B (Bld) [Mass/Vol] 9.0 pg/mL 5-100 [facility] Neutrophils Auto (Bld) [#/Vo l]Ordered By: Venkat Palencia on 12-18-2022 Neutrophils (Bld) [#/Vol] 7.2 10*3/uL 1.8-7.7 [facility] Neutrophils/100 WBC Auto (Bl d)Ordered By: Venkat Palencia on 12-18-2022 Neutrophils/100 WBC (Bld) 68.2 % . [facility] No Panel InformationOrdered By: Venkat Palencia on 12-18-2022 D-Dimer Quantitative (PE/DVT) < 200 ng/mL 0-243 [facility] Comment on above: The reference range [...] conditions. Estimated GFR (CKD-EPI) > 60.0 mL/Min [facility] Creatinine Clearance (Chem 151.88 [facility] Nucleated erythrocytes [Pres ence] in Blood by Automated countOrdered By: Venkat Palencia on 12-18-2022 Nucleated RBC Auto Ql (Bld) 0.1 /100{WBC} 0-0.5 [facility] Partial Thromboplastin Timeo n 12-18-2022 aPTT Coag (Bld) [Time] 28.5 s Normal 25.1-36.5 [facility] Comment on above: Performed By: #### P T, BNP, CBC, PTT, CK, DDIMER, HS TROP, CMP ####[facility] [address] [place] [address] [facility] Platelet mean volume Auto (B ld) [Entitic vol]Ordered By: Venkat Palencia on 12-18-2022 Platelet mean volume (Bld) [Entitic vol] 7.5 fL 6.6-10.1 [facility] Platelet poor plasma interna tional normalized ratio (INR) by coagulation assay (relatOrdered By: Venkat Palencia on 12-18-2022 INR Coag (PPP) [Relative time] 1.0 {INR} [facility] Comment on above: INR Therapeutic Rang [...] 12-18-2022 Platelets (Bld) [#/Vol] 203 10*3/uL 150-450 [facility] Potassium [Moles/volume] in Serum or PlasmaOrdered By: Venkat Palencia on 12-18-2022 Potassium [Moles/Vol] 3.8 mmol/L 3.5-5.1 [facility] Protein [Mass/volume] in Ser um or PlasmaOrdered By: Venkat Palencia on 12-18-2022 Protein [Mass/Vol] 6.9 g/dL 6.4-8.9 [facility] Prothrombin Time INRon 12-18 INR Coag (PPP) [Relative time] 1.0 {INR} Normal [facility] Comment on above: Result Comment: INR [...] PTT, CK, DDIMER, HS TROP, CMP #### [facility] [address] PT Coag (PPP) [Time] 12.0 s Normal 9.0-12.9 [facility] Comment on above: Performed By: #### P T, BNP, CBC, PTT, CK, DDIMER, HS TROP, CMP #### [facility] [address] RBC Auto (Bld) [#/Vol]Ordere d By: Venkat Palencia on 04-15-2023 RBC (Bld) [#/Vol] 4.97 10*6/uL 3.90-5.60 [facility] Serum or plasma albumin/glob ulin mass ratioOrdered By: Venkat Palencia on 12-18-2022 Albumin/Globulin [Mass ratio] 2.0 {ratio} [facility] Serum or plasma anion gap de terminationOrdered By: Venkat Palencia on 12-18-2022 Anion gap [Moles/Vol] 9.9 mmol/L 6.0-15.0 [facility] Sodium [Moles/volume] in Ser um or PlasmaOrdered By: Venkat Palencia on 12-18-2022 Sodium [Moles/Vol] 141 mmol/L 136-145 [facility] Troponin I High Sensitivityo n 12-18-2022 Troponin I High Sensitivity 2.5 pg/mL Normal 0.0-20.0 [facility] Comment on above: Result Comment: PERF ORMED BY: [facility] [address] [place] [id number] PATHOLOGIST SET ILLUSTRATOR CARRI KIM M.D. Performed By: #### P T, BNP, CBC, PTT, CK, DDIMER, HS TROP, CMP ####[facility] [address] [place] [address] [facility] Troponin I.cardiac [Mass/vol ume] in Serum or Plasma by Detection limit <= 0.01 ng/Ordered By: Venkat Palencia on 12-18-2022 Troponin I.cardiac DL <= 0.01 ng/mL [Mass/Vol] 2.5 pg/mL 0.0-20.0 [facility] Urea nitrogen [Mass/volume] in Serum or PlasmaOrdered By: Venkat Palencia on 12-18-2022 Urea nitrogen [Mass/Vol] 11 mg/dL 7-25 [facility] WBC Auto (Bld) [#/Vol]Ordere d By: Venkat Palencia on 12-18-2022 WBC (Bld) [#/Vol] 10.6 10*3/uL 4.1-10.5 [facility] XR chest 1V portableon 12-18 XR chest 1V portable [facility] Main [place] [address] [place] [address] XRay Report Signed Patient: Basilio Person MR#: [id number] : 2000 Acct:[id number] Age/Sex: 22 / M ADM Date: 12/18/22 Loc: ER Room: Type: [facility] ER Attending Dr: Copies to: Venkat [...] Eagle Woodard M.D.12/18/2022 9:45 AM Dictation Location: [place] [address] Transcribed By: [facility] 12/18/22 0945 Dictated By: Eagle Woodard II, MD 12/18/22 0945 Signed By: 12/18/22 0945 [facility] Quick Strepon 10-24-2022 Quick Strep Streptococcus pyogen es Ag [Presence] in Throat by Rapid immunoassay Negative for Group A Strep Antigen Note 1 NOTE 2 Results are those of a screening test. NOTE 3 If clinically indicated please order a culture. NOTE 4 NOTE 5 Reference range = Negative PERFORMED BY: [place] [address] PATHOLOGIST SET ILLUSTRATOR CARRI KIM M.D. [facility] Comment on above: Performed By: #### Q S #### [facility] [address] [place] [address] RPR w/rfx to Quant TP Abson 10-24-2022 RPR, Rfx Quant RPR Non-Reactive Normal Non Reactive [facility] Comment on above: Result Comment: Perf ormed at: CB - [facility] [place] [id number] Application Chemist: Morales Escamilla PhD, Phone: [phone] PERFORMED BY: [place] [address] PATHOLOGIST SET ILLUSTRATOR CARRI KIM M.D. Performed By: #### R WY W RFX ####[facility] , Reagin Ab [Presence] in Seru m by RPROrdered By: Andrzej Bell on 10-24-2022 Reagin Ab RPR Ql (S) Non-Reactive Non Reactive [facility] Comment on above: Performed at: CB - [facility] [address] [id number] Director: Morales Escamilla PhD, Phone: [phone] Streptococcus pyogenes antig en detectionOrdered By: Andrzej Bell on 10-24-2022 S. pyogenes Ag Ql (Unsp spec) [facility] S. pyogenes Ag Ql (Unsp spec) [facility] XR chest 1V portableon 10-08 XR chest 1V portable [facility] [place] [address] XRay Report Signed Patient: Basilio Person MR#: [id number] : 2000 Acct:[id number] Age/Sex: 22 / M ADM Date: 10/07/22 Loc: ER Room: Type: [facility] ER Attending Dr: Copies to: Suresh [...] Nehemiah Aguilar M.D.10/08/2022 7:49 AM Dictation Location: [facility]- Transcribed By: TANK 10/08/2249 Dictated By: Nehemiah Aguilar DO 10/08/2249 Signed By: 10/08/22 0749 [facility] XR soft tissue neckon 2022 XR soft tissue neck [facility] Main [place] [id number] XRay Report Signed Patient: Basilio Person MR#: [id number] : 2000 Acct:[id number] Age/Sex: 22 / M ADM Date: 10/07/22 Loc: ER Room: Type: [facility] ER Attending Dr: Copies to: Suresh [...] Nehemiah Aguilar M.D.10/08/2022 7:49 AM Dictation Location: [facility] [facility] Transcribed By: TANK 10/08/22 0749 Dictated By: Nehemiah Aguilar DO 10/08/22 0748 Signed By: 10/08/22 0749 [facility] ECG 12 lead ECGon 10-07-2022 ECG 12 lead ECG [place] [id number] Electrocardiograph Report Signed Patient: Basilio Person MR#: [id number] : 2000 Acct:[id number] Age/Sex: 22 / M ADM Date: 10/07/22 Loc: ER Room: Type: [facility] ER Attending Dr: Ordering Provider: Suresh [...] Signed By Suresh Ospina MD 10/08/22 012 [facility] XR knee LT 4V*on 09-02-2022 XR knee LT 4V* [facility] [place] [address] XRay Report Signed Patient: Basilio Person MR#: [id number] : 2000 Acct:[id number] Age/Sex: 21 / M ADM Date: 09/02/22 Loc: ER Room: Type: [facility] ER Attending Dr: Copies to: Andrzej Bell [...] Nehemiah Aguilar M.D.09/02/2022 5:15 PM Dictation Location: [place] [address] Transcribed By: [facility] 09/02/221714 Dictated By: Nehemiah Aguilar DO 09/02/221713 Signed By: 09/02/221714 [facility] Vital Signs Date Time Vital Sign Value Performing Clinician Faci lity 04-06-2023 07:00-0400 Diastolic blood pressure 68 mm[Hg] [facility] Work Phone: [facility] 04-06-2023 07:00-0400 Heart rate 77 /min [facility] Work Phone: [facility] 04-06-2023 07:00-0400 Respiratory rate 18 /min [facility] Work Phone: [facility] 04-06-2023 07:00-0400 SaO2% (BldA) [Mass fraction] 97 % [facility] Work Phone: [facility] 04-06-2023 07:00-0400 Systolic blood pressure 117 mm[Hg] [facility] Work Phone: [facility] 04-06-2023 05:26-0400 Body height 177.8 cm [facility] Work Phone: [facility] 04-06-2023 05:26-0400 Body temperature 98.6 [degF] [facility] Work Phone: [facility] 04-06-2023 05:26-0400 Body weight 97.8 kg [facility] Work Phone: [facility] 02-03-2023 20:47-0400 Body height 177.8 cm [facility] Work Phone: [facility] 02-03-2023 20:47-0400 Body temperature 98 [degF] [facility] Work Phone: [facility] 02-03-2023 20:47-0400 Body weight 95.7 kg [facility] Work Phone: [facility] 02-03-2023 20:47-0400 Diastolic blood pressure 77 mm[Hg] [facility] Work Phone: [facility] 02-03-2023 20:47-0400 Heart rate 87 /min [facility] Work Phone: [facility] 02-03-2023 20:47-0400 Respiratory rate 20 /min [facility] Work Phone: [facility] 02-03-2023 20:47-0400 SaO2% (BldA) [Mass fraction] 100 % [facility] Work Phone: [facility] 02-03-2023 20:47-0400 Systolic blood pressure 138 mm[Hg] [facility] Work Phone: [facility] 12-18-2022 03:46-0400 Heart rate 108 /min [facility] Work Phone: [facility] 12-18-2022 03:46-0400 Respiratory rate 18 /min [facility] Work Phone: [facility] 12-18-2022 03:46-0400 SaO2% (BldA) [Mass fraction] 99 % [facility] Work Phone: [facility] 12-18-2022 03:24-0400 Body height 177.8 cm [facility] Work Phone: [facility] 12-18-2022 03:24-0400 Body temperature 97.9 [degF] [facility] Work Phone: [facility] 12-18-2022 03:24-0400 Body weight 96.7 kg [facility] Work Phone: [facility] 12-18-2022 03:24-0400 Diastolic blood pressure 88 mm[Hg] [facility] Work Phone: [facility] 12-18-2022 03:24-0400 Systolic blood pressure 145 mm[Hg] [facility] Work Phone: [facility] 10-24-2022 12:21-0500 Body height 179.07 cm [facility] Work Phone: [facility] 10-24-2022 12:21-0500 Body temperature 98.7 [degF] [facility] Work Phone: [facility] 10-24-2022 12:21-0500 Body weight 98 kg [facility] Work Phone: [facility] 10-24-2022 12:21-0500 Diastolic blood pressure 64 mm[Hg] [facility] Work Phone: [facility] 10-24-2022 12:21-0500 Heart rate 81 /min [facility] Work Phone: [facility] 10-24-2022 12:21-0500 Respiratory rate 18 /min [facility] Work Phone: [facility] 10-24-2022 12:21-0500 SaO2% (BldA) [Mass fraction] 98 % [facility] Work Phone: [facility] 10-24-2022 12:21-0500 Systolic blood pressure 124 mm[Hg] [facility] Work Phone: [facility] 10-07-2022 21:20-0500 Body height 177.8 cm [facility] Work Phone: [facility] 10-07-2022 21:20-0500 Body temperature 98.4 [degF] [facility] Work Phone: [facility] 10-07-2022 21:20-0500 Body weight 100.35 kg [facility] Work Phone: [facility] 10-07-2022 21:20-0500 Diastolic blood pressure 87 mm[Hg] [facility] Work Phone: [facility] 10-07-2022 21:20-0500 Heart rate 90 /min [facility] Work Phone: [facility] 10-07-2022 21:20-0500 Respiratory rate 20 /min [facility] Work Phone: [facility] 10-07-2022 21:20-0500 SaO2% (BldA) [Mass fraction] 100 % [facility] Work Phone: [facility] 10-07-2022 21:20-0500 Systolic blood pressure 148 mm[Hg] [facility] Work Phone: [facility] 09-02-2022 15:47-0500 Body height 179.07 cm [facility] Work Phone: [facility] 09-02-2022 15:47-0500 Body temperature 98.1 [degF] [facility] Work Phone: [facility] 09-02-2022 15:47-0500 Body weight 98.95 kg [facility] Work Phone: [facility] 09-02-2022 15:47-0500 Diastolic blood pressure 77 mm[Hg] [facility] Work Phone: [facility] 09-02-2022 15:47-0500 Heart rate 74 /min [facility] Work Phone: [facility] 09-02-2022 15:47-0500 Respiratory rate 18 /min [facility] Work Phone: [facility] 09-02-2022 15:47-0500 SaO2% (BldA) [Mass fraction] 100 % [facility] Work Phone: [facility] 09-02-2022 15:47-0500 Systolic blood pressure 137 mm[Hg] Services [employer] [facility] [facility] Work Phone: [facility] Encounters Encounter Date Encounter Type Care Provider Facility Start: 04-06-2023 End: 04-06-2023 Emergency department patient visit Jeff Birmingham Facility:[facility] Start: 04-06-2023 End: 04-06-2023 Emergency department patient visit [facility] Work Phone: [facility] Work Phone: Start: 02-03-2023 End: 02-04-2023 Emergency department patient visit Katelyn Stephen Facility:[facility] Start: 02-03-2023 End: 02-03-2023 Emergency department patient visit [facility] Work Phone: [facility] Work Phone: Start: 12-18-2022 End: 12-18-2022 Emergency department patient visit Venkat Palencia Jr Facility:[facility] Start: 12-18-2022 End: 12-18-2022 Emergency department patient visit Services [facility] Work Phone: [facility] Work Phone: Start: 10-24-2022 End: 10-24-2022 Emergency department patient visit Services [facility] Facility:[facility] Start: 10-24-2022 End: 10-24-2022 Emergency department patient visit Services [facility] Work Phone: [facility] Work Phone: Start: 10-07-2022 End: 10-08-2022 Emergency department patient visit Services [facility] Facility:[facility] Start: 10-07-2022 End: 10-07-2022 Emergency department patient visit Services [facility] Work Phone: [facility] Work Phone: Start: 09-02-2022 End: 09-02-2022 Emergency department patient visit Services [facility] Start: 09-02-2022 End: 09-02-2022 Emergency department patient visit Services [facility] Work Phone: [facility] Work Phone: Procedures Date Procedure Procedure Detail Performing Clinician Start: 02-03-2023 Duplex scan of lower limb veins Services [employer] Work Phone: Start: 02-03-2023 X-ray of right knee [facility] Phone: Start: 12-18-2022 Plain chest X-ray [facility] Phone: Start: 10-24-2022 Streptococcus pyogenes antigen assay [facility] Phone: Start: 10-07-2022 Plain chest X-ray Services [employer] Work Phone: Start: 10-07-2022 X-ray of soft tissue of neck Services [employer] [facility] [facility] [employer] Phone: Start: 09-02-2022 Radiologic examination of knee Services [employer] Work Phone: History of appendectomy Status p ost appendectomy [facility] Phone: Plan of Treatment Date Care Activity Detail Author Start: 04-06-2023 Computed tomography of abdomen and pelvis with contrast CT abdomen pelvis w con [facility] Start: 04-06-2023 CT Abdomen and Pelvi s W contrast IV [facility] Start: 02-03-2023 Duplex scan of lower limb veins US venous duplex LE RT [facility] Start: 02-03-2023 US Lower extremity v ein - right [facility] Start: 02-03-2023 X-ray of right knee XR knee RT 4V* F [facility] Start: 02-03-2023 XR Knee - right 4 Views [facility] Start: 12-18-2022 Plain chest X-ray XR chest 1V portab [facility] Start: 12-18-2022 XR Chest Single view [facility] Start: 10-24-2022 [facility] Start: 10-07-2022 Plain chest X-ray XR chest 1V portab [facility] Start: 10-07-2022 X-ray of soft tissue of neck XR soft tissue neck [facility] Start: 10-07-2022 XR Chest Single view [facility] Start: 10-07-2022 XR Neck Views [facility] Patient Education [facility] Work Phone: Patient referral [facility] Work Phone: Reagin Ab [Presence] in Serum by RPR [facility] Payers Date Payer Category Payer Medicaid [id number] 2022 Self-pay [id number] Medicaid [employer] [id number] Unknown Regular Auto/Liability [id number] Unknown [id number] Unknown [id number] Unknown [id number] Unknown [id number] Unknown [id number] Unknown [id number] Worker's Compensation [id number] Social History Date Type Detail Facility Start: 09-02-2022 End: 04-06-2023 Tobacco smoking status NHIS Never smoked tobacco (finding) [facility] Start: 2000 Sex Assigned At Male F [facility] Evaluation note Note Date & Type Note Facility Evaluation note No assessment information availa ble [facility] Work Phone: Hospital Discharge instructions Note Date & Type Note Facility Hospital Discharge instructions Additional Instructions Return if symptoms are worse [facility] Work Phone: Hospital Discharge instructions Note Date & Type Note Facility Hospital Discharge instructions Additional Instructions Ice and elevate Tylenol or Naprosyn if needed for pain Follow-up with your PCP or Ortho Return here if any problems persist or worsen [facility] Work Phone: Chief Complaint and Reason [...] , DO Family Provider Active Services Family [facility] Primary Care Provider Active Team Status: Inactive Member Role Status Dates Services [facility] Primary Care Provider Active Jeff Mast , DO Family Provider Active Suresh Ospina MD Emergency Provider Active Team Status: Inactive Member Role Status Dates Services [facility] Primary Care Provider Active Jeff Mast , DO Family Provider Active Venkat Palencia Jr, MD Emergency Provider Active Team Status: Inactive Member Role Status Dates Services [facility] Primary Care Provider Active Jeff Mast , DO Family Provider Active Katelyn Stephen APRN Emergency Provider Active Team Status: Inactive Member Role Status Dates Services Family [facility] Primary Care Provider Active Jeff [...] and content) DATE CREATED AUTHOR 04/18/2023 [facility] FOR RECORDS PERTAINING TO PATIENTS WHO [...] BE BASED ON THE PRIMARY CLINICAL RECORDS. [facility]. provides no warranty or guarantee of the accuracy or completeness of information in this document.
== END 2024-07-20 02:35 | disposition home or self-care (01) ==
LOC: ER 02:24
PROVIDERS: Emergency Provider Emergency Medicine
DX: M21.612 Bunion of left foot (principal); M21.611 Bunion of right foot
CPT/HCPCS: 99283

== ENCOUNTER 2024-07-31 00:32 | Emergency (ER) | payer OTHER, SELFPAY ==
[2024-07-31 00:41] VITALS: BP 137/82; PULSE 90; TEMP 36.9; O2SAT 98; BMI 33.0
--- NOTE | 2024-07-31 00:52 | ED_ITS ---
HPI - URI/Sore Throat General Stated Complaint: SORE THROAT Time Seen by Provider: 07/31/24 00:37 Source: patient History of Present Illness HPI Narrative: complains of sore throat all day. Concerned he may have strep throat. No problem swallowing. No fever, headache or abdominal pain. wanted to get checked out Related Data Allergies Allergy/AdvReac Type Severity Reaction Status Date / Time No Known Drug Allergies Allergy Verified 07/31/24 00:41 Review of Systems ROS Status of ROS 10 or more systems reviewed and unremark able except as noted in history and below PFSH PFSH Social History Smoking status: Never smoker Little interest or pleasure in doing things: not at all Feeling down, depressed, or hopeless: not at all Exam Constitutional Vital Signs, click to edit/add: Last Vital Signs Temp 98.4 F 07/31/24 00:41 Pulse 90 07/31/24 00:41 Resp 16 07/31/24 00:41 BP 137/82 07/31/24 00:41 Pulse Ox 98 07/31/24 00:41 O2 Del Method Room Air 07/31/24 00:41 Common normals: no apparent distress, average body habitus, oriented x3, no limitations, healthy appearing, alert and well nourished [facility] Common normals: normocephalic Other: mild erythema oral pharynx. no swelling or exudate Respiratory Common normals: normal respiratory effort, no retractions, no use of accessory muscles and clear to auscultation bilaterally Cardio Common normals: regular rate, regular rhythm, S1 normal heart sound and S2 normal heart sound GI Common normals: Normal to inspection, nondistended, normoactive bowel sounds present, soft to palpation and non-tender Extremity Common normals: normal to inspection and full ROM Neuro Common normals: oriented x3, CN's II-XII intact bilaterally, moves all extremities and no focal motor deficits Psych Appearance: grossly normal Course Vital Signs Vital signs: Vital Signs Temperature 98.4 F 07/31/24 00:41 Pulse Rate 90 07/31/24 00:41 Respiratory Rate 16 07/31/24 00:41 Blood Pressure 137/82 07/31/24 00:41 Pulse Oximetry 98 07/31/24 00:41 Oxygen Delivery Method Room Air 07/31/24 00:41 Temperature 98.4 F 07/31/24 00:41 Pulse Rate 90 07/31/24 00:41 Respiratory Rate 16 07/31/24 00:41 Blood Pressure 137/82 07/31/24 00:41 Pulse Oximetry 98 07/31/24 00:41 Oxygen Delivery Method Room Air 07/31/24 00:41 MDM - URI/Sore Throat MDM Narrative Medical decision making narrative: patient presents with sore throat concerned he may have strep throat. Mild erythema of the pharynx. strep screen neg. Patient advised most likely viral etiology and discharged home Lab Data Labs: Lab Results 07/31/24 Range/Units 00:50 Streptococcus Screen Negative Discharge Plan Discharge Clinical Impression: Pharyngitis Patient Disposition: Home, Self-Care Print Language: Bur[place]ian Instructions: Pharyngitis (ED) Referrals: [facility] [Primary Care Provider] - 1 week
--- OUTSIDE RECORDS SUMMARY | 2024-07-31 00:56 | XMS_ITS | CCD ---
Author Organization [facility] Care Team Providers Care Brick Wheeler Name Role Phone [facility] Primary Care Provider JOSE A Bell Emergency Provider MD Suresh Ospina Emergency Provider [facility] Primary Care Provider MD Suresh Ospina Emergency Provider JOSE A Bell Emergency Provider [phone] MD Venkat Palencia Jr Emergency Provider [facility] Primary Care Provider JOSE A Stephen Emergency Provider [phone] [facility] Primary Care Provider [phone] DO Jeff Birmingham Emergency Provider Katelyn Stephen Admitting Unavailable Katelyn Stephen Attending Unavailable [facility] Primary Care Unavaila Jeff Larson Admitting Unavailable Jeff Birmingham Attending Unavailable [facility] Primary Care Unavaila ble [facility] Primary Care Unavaila Andrzej Antunez Admitting Unavailable Andrzej Bell Attending Unavailable [facility] Primary Care Unavaila ble Suresh Ospina Admitting Unavailable Suresh Ospina Attending Unavailable [facility] Primary Care Unavaila Andrzej Antunez Admitting Unavailable Andrzej Bell Attending Unavailable Venkat Palencia Jr Admitting Unavailable Venkat Palencia Jr Attending Unavailable [facility] Primary Care Unavaila ble Allergies Allergy Classification Reported Allergen(s) Allergy Type Date of Onset Reaction(s) Facility (6 sources) insect venom; Translations: [insect venom] Allergy to substance 10-07-2022 [facility] Medications Current Medications Medication Drug Class(es) Dates [...] painful area for up to 12 hrs [place] (No Known Home Meds) (1 source) Start: 10-07-2022 [place] (No Known Home Meds) Active October 07, [...] 04-06-2023 ALT [Catalytic activity/Vol] 44 U/L 7-52 [facility] Albumin [Mass/volume] in Ser um or Plasma by Bromocresol green (BCG) dye binding methoOrdered By: Jeff Birmingham on 04-06-2023 Albumin BCG dye [Mass/Vol] 4.7 g/dL 3.5-5.7 [facility] Alkaline phosphatase [Enzyma tic activity/volume] in Serum or PlasmaOrdered By: Jeff Birmingham on 04-06-2023 ALP [Catalytic activity/Vol] 67 U/L 34-104 [facility] Aspartate aminotransferase [ Enzymatic activity/volume] in Serum or PlasmaOrdered By: Jeff Birmingham on 04-06-2023 AST [Catalytic activity/Vol] 25 U/L 13-39 [facility] Basic Metabolic Panelon Anion gap [Moles/Vol] 9.4 mmol/L Normal 6.0-15.0 [facility] Comment on above: Performed By: #### H EPATIC, BMP, CBC, LIPASE ####[address] Calcium [Mass/Vol] 9.5 mg/dL Normal 8.6-10.3 [facility] Comment on above: Performed By: #### H EPATIC, BMP, CBC, LIPASE ####[address] Chloride [Moles/Vol] 104 mmol/L Normal 98-107 [facility] Comment on above: Performed By: #### H EPATIC, BMP, CBC, LIPASE ####[address] CO2 [Moles/Vol] 29.3 mmol/L Normal 21.0-31.0 [facility] Comment on above: Performed By: #### H EPATIC, BMP, CBC, LIPASE ####[address] Creatinine [Mass/Vol] 0.91 mg/dL Normal 0.70-1.30 [facility] Comment on above: Performed By: #### H EPATIC, BMP, CBC, LIPASE ####[place] [id number] [facility] Creatinine Clr Calc Pharmacy 149.34 Normal [facility] Comment on above: Performed By: #### H EPATIC, BMP, CBC, LIPASE ####[address] GFR/1.73 sq M.predicted MDRD (S/P/Bld) [Vol rate/Area] mL/min/{1.73_m2} Normal [facility] Comment on above: Performed By: #### H EPATIC, BMP, CBC, LIPASE ####[facility] Glucose [Mass/Vol] 95 mg/dL Normal 70-100 [facility] Comment on above: Result Comment: [facility] Glucose Reference Range is dependent on time and content of last meal. Glucose of more than 200 mg/dL in a nonstressed, ambulatory subject supports the diagnosis of Diabetes Mellitus. ADA recommended reference range Performed By: #### H EPATIC, BMP, CBC, LIPASE ####[facility] [id number] Potassium [Moles/Vol] 3.7 mmol/L Normal 3.5-5.1 [facility] Comment on above: Performed By: #### H EPATIC, BMP, CBC, LIPASE ####[address] Sodium [Moles/Vol] 139 mmol/L Normal 136-145 [facility] Comment on above: Performed By: #### H EPATIC, BMP, CBC, LIPASE ####[place] [id number] [address] Urea nitrogen [Mass/Vol] 7 mg/dL Normal 7-25 [facility] Comment on above: Performed By: #### H EPATIC, BMP, CBC, LIPASE ####[facility] [id number] [place] [address] Basophils Auto (Bld) [#/Vol] Ordered By: Jeff Birmingham on 04-06-2023 Basophils (Bld) [#/Vol] 0.1 10*3/uL 0.0-0.2 [facility] Basophils/100 WBC Auto (Bld) Ordered By: Jeff Birmingham on 04-06-2023 Basophils/100 WBC (Bld) 0.9 % . [facility] Bilirubin.direct [Mass/volum e] in Serum or PlasmaOrdered By: Jeff Birmingham on 04-06-2023 Bilirubin.direct [Mass/Vol] 0.10 mg/dL 0.03-0.18 [facility] Bilirubin.total [Mass/volume ] in Serum or PlasmaOrdered By: Jeff Birmingham on 04-06-2023 Bilirubin [Mass/Vol] 0.6 mg/dL 0.3-1.[address] [facility] [address] abdomen pelvis w conon CT abdomen pelvis w con [facility] [place] [address] CT Scan Report Signed Patient: Basilio Person MR#: [id number] : 2000 Acct:[id number] Age/Sex: 22 / M ADM Date: 04/06/23 Loc: ER Room: Type: [facility] ER Attending Dr: Copies to: Jeff Birmingham [...] Naidu Jr., D.O.04/06/2023 9:26 AM Dictation Location: [place] [address] Transcribed By: TANK 04/06/23925 Dictated By: Gio Naidu Jr, DO 04/06/23918 Signed By: 04/06/23925 Normal [facility] Calcium [Mass/volume] in Ser um or PlasmaOrdered By: Jeff Birmingham on 04-06-2023 Calcium [Mass/Vol] 9.5 mg/dL 8.6-10.3 [facility] Carbon dioxide, total [Moles /volume] in Serum or PlasmaOrdered By: Jeff Birmingham on 04-06-2023 CO2 [Moles/Vol] 29.3 mmol/L 21.0-31.0 [facility] Chloride [Moles/volume] in S valerie or PlasmaOrdered By: Jeff Birmingham on 04-06-2023 Chloride [Moles/Vol] 104 mmol/L 98-107 [facility] Complete Blood Count Auto Di ffon 04-06-2023 Basophils (Bld) [#/Vol] 0.1 10*3/uL Normal 0.0-0.2 [facility] Comment on above: Result Comment: PERF ORMED BY: [facility] [address] [place] [address] PATHOLOGIST INDIVIDUAL PENSION ADVISER CARRI KIM M.D. Performed By: #### H EPATIC, BMP, CBC, LIPASE ####[place] [id number] [address] Basophils/100 WBC (Bld) 0.9 % Normal . [facility] Comment on above: Performed By: #### H EPATIC, BMP, CBC, LIPASE ####[facility] [id number] Eosinophils (Bld) [#/Vol] 0.1 10*3/uL Normal 0.0-0.45 [facility] Comment on above: Performed By: #### H EPATIC, BMP, CBC, LIPASE ####[place] [id number] [address] Eosinophils/100 WBC (Bld) 1.1 % Normal . [facility] Comment on above: Performed By: #### H EPATIC, BMP, CBC, LIPASE ####[address] Erythrocyte distribution width (RBC) [Ratio] 13.6 % Normal 12.0-14.8 [facility] Comment on above: Performed By: #### H EPATIC, BMP, CBC, LIPASE ####[address] Hematocrit (Bld) [Volume fraction] 42.1 % Normal 38.8-50.0 [facility] Comment on above: Performed By: #### H EPATIC, BMP, CBC, LIPASE ####[address] Hemoglobin (Bld) [Mass/Vol] 14.9 g/dL Normal 13.0-17.0 [facility] Comment on above: Performed By: #### H EPATIC, BMP, CBC, LIPASE ####[address] Lymphocytes (Bld) [#/Vol] 3.1 10*3/uL Normal 1.00-4.8 [facility] Comment on above: Performed By: #### H EPATIC, BMP, CBC, LIPASE ####[address] Lymphocytes/100 WBC (Bld) 30.6 % Normal . [facility] Comment on above: Performed By: #### H EPATIC, BMP, CBC, LIPASE ####[address] MCH (RBC) [Entitic mass] 29.0 pg Normal 27.5-35.2 [facility] Comment on above: Performed By: #### H EPATIC, BMP, CBC, LIPASE ####[address] MCV (RBC) [Entitic vol] 81.9 fL Low 83.5-101 [facility] Comment on above: Performed By: #### H EPATIC, BMP, CBC, LIPASE ####[address] Mean Corpuscular HGB Conc 35.3 g/dL Normal 32.5-35.6 [facility] Comment on above: Performed By: #### H EPATIC, BMP, CBC, LIPASE ####[address] Monocytes (Bld) [#/Vol] 1.0 10*3/uL High 0.0-0.8 [facility] Comment on above: Performed By: #### H EPATIC, BMP, CBC, LIPASE ####[address] Monocytes/100 WBC (Bld) 15.06 % Normal 0.00-20.00 [facility] Comment on above: Performed By: #### H EPATIC, BMP, CBC, LIPASE ####[address] Monocytes/100 WBC (Bld) 9.5 % Normal . [facility] Comment on above: Performed By: #### H EPATIC, BMP, CBC, LIPASE ####[address] Neutrophils (Bld) [#/Vol] 5.9 10*3/uL Normal 1.8-7.7 [facility] Comment on above: Performed By: #### H EPATIC, BMP, CBC, LIPASE ####[address] Neutrophils/100 WBC (Bld) 57.9 % Normal . [facility] Comment on above: Performed By: #### H EPATIC, BMP, CBC, LIPASE ####[address] NRBC% 0.1 /100{WBC} Normal 0-0.5 [facility] Comment on above: Performed By: #### H EPATIC, BMP, CBC, LIPASE ####[address] Platelet mean volume (Bld) [Entitic vol] 8.0 fL Normal 6.6-10.1 [facility] Comment on above: Performed By: #### H EPATIC, BMP, CBC, LIPASE ####[facility] [id number] Platelets (Bld) [#/Vol] 198 10*3/uL Normal 150-450 [facility] Comment on above: Performed By: #### H EPATIC, BMP, CBC, LIPASE ####[place] [id number] [address] RBC (Bld) [#/Vol] 5.14 10*6/uL Normal 3.90-5.60 [facility] Comment on above: Performed By: #### H EPATIC, BMP, CBC, LIPASE ####[place] [id number] [address] WBC (Bld) [#/Vol] 10.2 10*3/uL Normal 4.1-10.5 [facility] Comment on above: Performed By: #### H EPATIC, BMP, CBC, LIPASE ####[address] Creatinine [Mass/volume] in Serum or PlasmaOrdered By: Jeff Birmingham on 04-06-2023 Creatinine [Mass/Vol] 0.91 mg/dL 0.70-1.30 [facility] Eosinophils Auto (Bld) [#/Vo l]Ordered By: Jeff Birmingham on 04-06-2023 Eosinophils (Bld) [#/Vol] 0.1 10*3/uL 0.0-0.45 [facility] Eosinophils/100 WBC Auto (Bl d)Ordered By: Jeff Birmingham on 04-06-2023 Eosinophils/100 WBC (Bld) 1.1 % . [facility] Erythrocyte distribution wid th Auto (RBC) [Ratio]Ordered By: Jeff Birmingham on 04-06-2023 Erythrocyte distribution width (RBC) [Ratio] 13.6 % 12.0-14.8 [facility] Globulin Calc (S) [Mass/Vol] Ordered By: Jeff Birmingham on 04-06-2023 Globulin (S) [Mass/Vol] 2.5 g/dL [facility] Glucose [Mass/volume] in Ser um or PlasmaOrdered By: Jeff Birmingham on 04-06-2023 Glucose [Mass/Vol] 95 mg/dL 70-100 [facility] Comment on above: ADA recommended refe rence rangeRandom Glucose Reference Range is dependent on time and content of last meal. Glucose of more than 200 mg/dL in a nonstressed, ambulatory subject supports the diagnosis of Diabetes Mellitus. Hematocrit Auto (Bld) [Volum e fraction]Ordered By: Jeff Birmingham on 04-06-2023 Hematocrit (Bld) [Volume fraction] 42.1 % 38.8-50.0 [facility] Hemoglobin [Mass/volume] in BloodOrdered By: Jeff Birmingham on 04-06-2023 Hemoglobin (Bld) [Mass/Vol] 14.9 g/dL 13.0-17.0 [facility] Hepatic Panelon 04-06-2023 Albumin [Mass/Vol] 4.7 g/dL Normal 3.5-5.7 [facility] Comment on above: Performed By: #### H EPATIC, BMP, CBC, LIPASE ####[address] Albumin/Globulin [Mass ratio] 1.9 {ratio} Normal [facility] Comment on above: Performed By: #### H EPATIC, BMP, CBC, LIPASE ####[address] ALP [Catalytic activity/Vol] 67 U/L Normal 34-104 [facility] Comment on above: Performed By: #### H EPATIC, BMP, CBC, LIPASE ####[place] [id number] [facility] ALT [Catalytic activity/Vol] 44 U/L Normal 7-52 [facility] Comment on above: Performed By: #### H EPATIC, BMP, CBC, LIPASE ####[place] [id number] [facility] AST [Catalytic activity/Vol] 25 U/L Normal 13-39 [facility] Comment on above: Performed By: #### H EPATIC, BMP, CBC, LIPASE ####[address] Bilirubin [Mass/Vol] 0.6 mg/dL Normal 0.3-1.0 [facility] Comment on above: Performed By: #### H EPATIC, BMP, CBC, LIPASE ####[address] Bilirubin,Indirect 0.5 mg/dL Normal [facility] Comment on above: Performed By: #### H EPATIC, BMP, CBC, LIPASE ####[address] Bilirubin.indirect [Mass/Vol] 0.10 mg/dL Normal 0.03-0.18 [facility] Comment on above: Performed By: #### H EPATIC, BMP, CBC, LIPASE ####[address] Globulin (S) [Mass/Vol] 2.5 g/dL Normal [facility] Comment on above: Performed By: #### H EPATIC, BMP, CBC, LIPASE ####[address] Protein [Mass/Vol] 7.2 g/dL Normal 6.4-8.9 [facility] Comment on above: Performed By: #### H EPATIC, BMP, CBC, LIPASE ####[address] Leukocytes [#/volume] correc ashley for nucleated erythrocytes in Blood by Automated counOrdered By: Jeff Birmingham on 04-06-2023 WBC corrected for nucl RBC Auto (Bld) [#/Vol] 10.2 10*3/uL 4.1-10.5 [facility] Lipaseon 04-06-2023 Lipase [Catalytic activity/Vol] 20.0 U/L Normal 11.0-82.0 [facility] Comment on above: Result Comment: PERF ORMED BY: [facility] [address] [place] [address] PATHOLOGIST INDIVIDUAL PENSION ADVISER CARRI KIM M.D. Performed By: #### H EPATIC, BMP, CBC, LIPASE ####[address] [place] [address] [facility] Lipase [Enzymatic activity/v olume] in Serum or PlasmaOrdered By: Jeff Birmingham on 04-06-2023 Lipase [Catalytic activity/Vol] 20.0 U/L 11.0-82.0 [facility] Lymphocytes Auto (Bld) [#/Vo l]Ordered By: Jeff Birmingham on 04-06-2023 Lymphocytes (Bld) [#/Vol] 3.1 10*3/uL 1.00-4.8 [facility] Lymphocytes/100 WBC Auto (Bl d)Ordered By: Jeff Birmingham on 04-06-2023 Lymphocytes/100 WBC (Bld) 30.6 % . [facility] MCH Auto (RBC) [Entitic mass ]Ordered By: Jeff Birmingham on 04-06-2023 MCH (RBC) [Entitic mass] 29.0 pg 27.5-35.2 [facility] MCHC Auto (RBC) [Mass/Vol]Or dered By: Jeff Birmingham on 04-06-2023 MCHC (RBC) [Mass/Vol] 35.3 g/dL 32.5-35.6 [facility] MCV Auto (RBC) [Entitic vol] Ordered By: Jeff Birmingham on 04-06-2023 MCV (RBC) [Entitic vol] 81.9 fL 83.5-101 [facility] Monocyte distribution width [Entitic volume] in Blood by AutomatedOrdered By: Jeff Birmingham on 04-06-2023 Monocyte distribution width Auto (Bld) [Entitic vol] 15.06 % 0.00-20.00 [facility] Monocytes Auto (Bld) [#/Vol] Ordered By: Jeff Birmingham on 04-06-2023 Monocytes (Bld) [#/Vol] 1.0 10*3/uL 0.0-0.8 [facility] Monocytes/100 WBC Auto (Bld) Ordered By: Jeff Birmingham on 04-06-2023 Monocytes/100 WBC (Bld) 9.5 % . [facility] Neutrophils Auto (Bld) [#/Vo l]Ordered By: Jeff Birmingham on 04-06-2023 Neutrophils (Bld) [#/Vol] 5.9 10*3/uL 1.8-7.7 [facility] Neutrophils/100 WBC Auto (Bl d)Ordered By: Jeff Birmingham on 04-06-2023 Neutrophils/100 WBC (Bld) 57.9 % . [facility] No Panel InformationOrdered By: Jeff Birmingham on 04-06-2023 Estimated GFR (CKD-EPI) > 60.0 mL/Min [facility] Creatinine Clearance (Chem 149.34 [facility] Nucleated erythrocytes [Pres ence] in Blood by Automated countOrdered By: Jeff Birmingham on 04-06-2023 Nucleated RBC Auto Ql (Bld) 0.1 /100{WBC} 0-0.5 [facility] Platelet mean volume Auto (B ld) [Entitic vol]Ordered By: Jeff Birmingham on 04-06-2023 Platelet mean volume (Bld) [Entitic vol] 8.0 fL 6.6-10.1 [facility] Platelets Auto (Bld) [#/Vol] Ordered By: Jeff Birmingham on 04-06-2023 Platelets (Bld) [#/Vol] 198 10*3/uL 150-450 [facility] Potassium [Moles/volume] in Serum or PlasmaOrdered By: Jeff Birmingham on 04-06-2023 Potassium [Moles/Vol] 3.7 mmol/L 3.5-5.1 [facility] Protein [Mass/volume] in Ser um or PlasmaOrdered By: Jeff Birmingham on 04-06-2023 Protein [Mass/Vol] 7.2 g/dL 6.4-8.9 [facility] RBC Auto (Bld) [#/Vol]Ordere d By: Jeff Birmingham on 04-06-2023 RBC (Bld) [#/Vol] 5.14 10*6/uL 3.90-5.60 [facility] Serum or plasma albumin/glob ulin mass ratioOrdered By: Jeff Birmingham on 04-06-2023 Albumin/Globulin [Mass ratio] 1.9 {ratio} [facility] Serum or plasma anion gap de terminationOrdered By: Jeff Birmingham on 04-06-2023 Anion gap [Moles/Vol] 9.4 mmol/L 6.0-15.0 [facility] Serum or plasma non-glucuron idated bilirubin measurement (mass/volume)Ordered By: Jeff Birmingham on 04-06-2023 Bilirubin.indirect [Mass/Vol] 0.5 mg/dL [facility] Sodium [Moles/volume] in Ser um or PlasmaOrdered By: Jeff Birmingham on 04-06-2023 Sodium [Moles/Vol] 139 mmol/L 136-145 [facility] Urea nitrogen [Mass/volume] in Serum or PlasmaOrdered By: Jeff Birmingham on 04-06-2023 Urea nitrogen [Mass/Vol] 7 mg/dL 7-25 [facility] WBC Auto (Bld) [#/Vol]Ordere d By: Jeff Birmingham on 04-06-2023 WBC (Bld) [#/Vol] 10.2 10*3/uL 4.1-10.5 [facility] US venous duplex LE RTon US venous duplex LE RT [facility] [place] [address] Ultrasound Report Signed Patient: Basilio Person MR#: [id number] : 2000 Acct:[id number] Age/Sex: 22 / M ADM Date: 02/03/23 Loc: ER Room: Type: [facility] ER Attending Dr: Ordering Provider: Katelyn Stephen [...] Nehemiah Camejo M.D.02/04/2023 8:41 AM Dictation Location: [place] [address] Tech: Cee Dasilva Transcribed By: TANK 02/04/2341 Dictated By: Nehemiah Camejo MD 02/04/23840 Signed By: 02/04/23840 [facility] XR knee RT 4V*on 02-04-2023 XR knee RT 4V* [facility] [place] [address] XRay Report Signed Patient: Basilio Person MR#: [id number] : 2000 Acct:[id number] Age/Sex: 22 / M ADM Date: 02/03/23 Loc: ER Room: Type: [facility] ER Attending Dr: Copies to: Katelyn Stephen [...] Park Champagne M.D.02/04/2023 7:38 AM Dictation Location: [place] [address] Transcribed By: TANK 02/04/23 0738 Dictated By: Park Champagne MD 02/04/23 0737 Signed By: 02/04/23 0738 [facility] Activated partial thrombopla stin time (aPTT) in platelet poor plasma by coagulation aOrdered By: Venkat Palencia on 12-18-2022 aPTT Coag (PPP) [Time] 28.5 s 25.1-36.5 [facility] Alanine aminotransferase [En zymatic activity/volume] in Serum or PlasmaOrdered By: Venkat Palencia on 12-18-2022 ALT [Catalytic activity/Vol] 32 U/L 7-52 [facility] Albumin [Mass/volume] in Ser um or Plasma by Bromocresol green (BCG) dye binding methoOrdered By: Venkat Palencia on 12-18-2022 Albumin BCG dye [Mass/Vol] 4.6 g/dL 3.5-5.7 [facility] Alkaline phosphatase [Enzyma tic activity/volume] in Serum or PlasmaOrdered By: Venkat Palencia on 12-18-2022 ALP [Catalytic activity/Vol] 74 U/L 34-104 [facility] Aspartate aminotransferase [ Enzymatic activity/volume] in Serum or PlasmaOrdered By: Venkat Palencia on 12-18-2022 AST [Catalytic activity/Vol] 18 U/L 13-39 [facility] B-Type Natriuretic Peptideon 12-18-2022 Natriuretic peptide B (Bld) [Mass/Vol] 9.0 pg/mL Normal 5-100 [facility] Comment on above: Result Comment: PERF ORMED BY: [facility] [address] [facility] [place] [id number] PATHOLOGIST INDIVIDUAL PENSION ADVISER CARRI KIM M.D. Performed By: #### P T, BNP, CBC, PTT, CK, DDIMER, HS TROP, CMP ####[facility] [id number] [place] [id number] [facility] Basophils Auto (Bld) [#/Vol] Ordered By: Venkat Palencia on 12-18-2022 Basophils (Bld) [#/Vol] 0.1 10*3/uL 0.0-0.2 [facility] Basophils/100 WBC Auto (Bld) Ordered By: Venkat Palencia on 12-18-2022 Basophils/100 WBC (Bld) 0.9 % . [facility] Bilirubin.total [Mass/volume ] in Serum or PlasmaOrdered By: Venkat Palencia on 12-18-2022 Bilirubin [Mass/Vol] 0.8 mg/dL 0.3-1.0 [facility] Calcium [Mass/volume] in Ser um or PlasmaOrdered By: Venkat Palencia on 12-18-2022 Calcium [Mass/Vol] 8.6 mg/dL 8.6-10.3 [facility] Carbon dioxide, total [Moles /volume] in Serum or PlasmaOrdered By: Venkta Palencia on 12-18-2022 CO2 [Moles/Vol] 25.9 mmol/L 21.0-31.0 [facility] Chloride [Moles/volume] in S valerie or PlasmaOrdered By: Venkat Palencia on 12-18-2022 Chloride [Moles/Vol] 109 mmol/L 98-107 [facility] Complete Blood Count Auto Di ffon 12-18-2022 Basophils (Bld) [#/Vol] 0.1 10*3/uL Normal 0.0-0.2 [facility] Comment on above: Result Comment: PERF ORMED BY: [place] [address] PATHOLOGIST INDIVIDUAL PENSION ADVISER CARRI KIM M.D. Performed By: #### P T, BNP, CBC, PTT, CK, DDIMER, HS TROP, CMP #### [address] Basophils/100 WBC (Bld) 0.9 % Normal . [facility] Comment on above: Performed By: #### P T, BNP, CBC, PTT, CK, DDIMER, HS TROP, CMP #### [address] Eosinophils (Bld) [#/Vol] 0.1 10*3/uL Normal 0.0-0.45 [facility] Comment on above: Performed By: #### P T, BNP, CBC, PTT, CK, DDIMER, HS TROP, CMP #### [address] Eosinophils/100 WBC (Bld) 0.8 % Normal . [facility] Comment on above: Performed By: #### P T, BNP, CBC, PTT, CK, DDIMER, HS TROP, CMP #### [address] Erythrocyte distribution width (RBC) [Ratio] 13.7 % Normal 12.0-14.8 [facility] Comment on above: Performed By: #### P T, BNP, CBC, PTT, CK, DDIMER, HS TROP, CMP #### [address] Hematocrit (Bld) [Volume fraction] 40.9 % Normal 38.8-50.0 [facility] Comment on above: Performed By: #### P T, BNP, CBC, PTT, CK, DDIMER, HS TROP, CMP #### [address] Hemoglobin (Bld) [Mass/Vol] 14.1 g/dL Normal 13.0-17.0 [facility] Comment on above: Performed By: #### P T, BNP, CBC, PTT, CK, DDIMER, HS TROP, CMP #### [address] Lymphocytes (Bld) [#/Vol] 2.2 10*3/uL Normal 1.00-4.8 [facility] Comment on above: Performed By: #### P T, BNP, CBC, PTT, CK, DDIMER, HS TROP, CMP #### [address] Lymphocytes/100 WBC (Bld) 21.2 % Normal . [facility] Comment on above: Performed By: #### P T, BNP, CBC, PTT, CK, DDIMER, HS TROP, CMP #### [address] MCH (RBC) [Entitic mass] 28.5 pg Normal 27.5-35.2 [facility] Comment on above: Performed By: #### P T, BNP, CBC, PTT, CK, DDIMER, HS TROP, CMP #### [address] MCV (RBC) [Entitic vol] 82.4 fL Low 83.5-101 [facility] Comment on above: Performed By: #### P T, BNP, CBC, PTT, CK, DDIMER, HS TROP, CMP #### [address] Mean Corpuscular HGB Conc 34.5 g/dL Normal 32.5-35.6 [facility] Comment on above: Performed By: #### P T, BNP, CBC, PTT, CK, DDIMER, HS TROP, CMP #### [place] [address] [place] Monocytes (Bld) [#/Vol] 0.9 10*3/uL High 0.0-0.8 [facility] Comment on above: Performed By: #### P T, BNP, CBC, PTT, CK, DDIMER, HS TROP, CMP #### [place] [address] [place] Monocytes/100 WBC (Bld) 15.92 % Normal 0.00-20.00 [facility] Comment on above: Performed By: #### P T, BNP, CBC, PTT, CK, DDIMER, HS TROP, CMP #### [address] Monocytes/100 WBC (Bld) 8.9 % Normal . [facility] Comment on above: Performed By: #### P T, BNP, CBC, PTT, CK, DDIMER, HS TROP, CMP #### [address] Neutrophils (Bld) [#/Vol] 7.2 10*3/uL Normal 1.8-7.7 [facility] Comment on above: Performed By: #### P T, BNP, CBC, PTT, CK, DDIMER, HS TROP, CMP #### [place] [address] [place] Neutrophils/100 WBC (Bld) 68.2 % Normal . [facility] Comment on above: Performed By: #### P T, BNP, CBC, PTT, CK, DDIMER, HS TROP, CMP #### [place] [address] [place] NRBC% 0.1 /100{WBC} Normal 0-0.5 [facility] Comment on above: Performed By: #### P T, BNP, CBC, PTT, CK, DDIMER, HS TROP, CMP #### [place] [address] [place] Platelet mean volume (Bld) [Entitic vol] 7.5 fL Normal 6.6-10.1 [facility] Comment on above: Performed By: #### P T, BNP, CBC, PTT, CK, DDIMER, HS TROP, CMP #### [facility] [address] Platelets (Bld) [#/Vol] 203 10*3/uL Normal 150-450 [facility] Comment on above: Performed By: #### P T, BNP, CBC, PTT, CK, DDIMER, HS TROP, CMP #### [facility] [address] RBC (Bld) [#/Vol] 4.97 10*6/uL Normal 3.90-5.60 [facility] Comment on above: Performed By: #### P T, BNP, CBC, PTT, CK, DDIMER, HS TROP, CMP #### [address] WBC (Bld) [#/Vol] 10.6 10*3/uL High 4.1-10.5 [facility] Comment on above: Performed By: #### P T, BNP, CBC, PTT, CK, DDIMER, HS TROP, CMP #### [facility] [address] [place] [address] Comprehensive Metabolic Pane maren 12-18-2022 Albumin [Mass/Vol] 4.6 g/dL Normal 3.5-5.7 [facility] Comment on above: Performed By: #### P T, BNP, CBC, PTT, CK, DDIMER, HS TROP, CMP ####[facility] Albumin/Globulin [Mass ratio] 2.0 {ratio} Normal [facility] Comment on above: Performed By: #### P T, BNP, CBC, PTT, CK, DDIMER, HS TROP, CMP ####[facility] ALP [Catalytic activity/Vol] 74 U/L Normal 34-104 [facility] Comment on above: Performed By: #### P T, BNP, CBC, PTT, CK, DDIMER, HS TROP, CMP ####[address] ALT [Catalytic activity/Vol] 32 U/L Normal 7-52 [facility] Comment on above: Performed By: #### P T, BNP, CBC, PTT, CK, DDIMER, HS TROP, CMP ####[address] Anion gap [Moles/Vol] 9.9 mmol/L Normal 6.0-15.0 [facility] Comment on above: Performed By: #### P T, BNP, CBC, PTT, CK, DDIMER, HS TROP, CMP ####[address] AST [Catalytic activity/Vol] 18 U/L Normal 13-39 [facility] Comment on above: Performed By: #### P T, BNP, CBC, PTT, CK, DDIMER, HS TROP, CMP ####[address] Bilirubin [Mass/Vol] 0.8 mg/dL Normal 0.3-1.0 [facility] Comment on above: Performed By: #### P T, BNP, CBC, PTT, CK, DDIMER, HS TROP, CMP ####[address] Calcium [Mass/Vol] 8.6 mg/dL Normal 8.6-10.3 [facility] Comment on above: Performed By: #### P T, BNP, CBC, PTT, CK, DDIMER, HS TROP, CMP ####[place] [id number] [facility] Chloride [Moles/Vol] 109 mmol/L High 98-107 [facility] Comment on above: Performed By: #### P T, BNP, CBC, PTT, CK, DDIMER, HS TROP, CMP ####[address] CO2 [Moles/Vol] 25.9 mmol/L Normal 21.0-31.0 [facility] Comment on above: Performed By: #### P T, BNP, CBC, PTT, CK, DDIMER, HS TROP, CMP ####[address] Creatinine [Mass/Vol] 0.89 mg/dL Normal 0.70-1.30 [facility] Comment on above: Performed By: #### P T, BNP, CBC, PTT, CK, DDIMER, HS TROP, CMP ####[address] Creatinine Clr Calc Pharmacy 151.88 [facility] Comment on above: Result Comment: PERF ORMED BY: [facility] [address] [place] [address] PATHOLOGIST INDIVIDUAL PENSION ADVISER CARRI KIM M.D. Performed By: #### P T, BNP, CBC, PTT, CK, DDIMER, HS TROP, CMP ####[address] GFR/1.73 sq M.predicted MDRD (S/P/Bld) [Vol rate/Area] mL/min/{1.73_m2} [facility] Comment on above: Performed By: #### P T, BNP, CBC, PTT, CK, DDIMER, HS TROP, CMP ####[address] Globulin (S) [Mass/Vol] 2.3 g/dL [facility] Comment on above: Performed By: #### P T, BNP, CBC, PTT, CK, DDIMER, HS TROP, CMP ####[address] Glucose [Mass/Vol] 87 mg/dL Normal 70-100 [facility] Comment on above: Result Comment: [place] Glucose Reference Range is dependent on time and content of last meal. Glucose of more than 200 mg/dL in a nonstressed, ambulatory subject supports the diagnosis of Diabetes Mellitus. ADA recommended reference range Performed By: #### P T, BNP, CBC, PTT, CK, DDIMER, HS TROP, CMP ####[address] Potassium [Moles/Vol] 3.8 mmol/L Normal 3.5-5.1 [facility] Comment on above: Performed By: #### P T, BNP, CBC, PTT, CK, DDIMER, HS TROP, CMP ####[place] [id number] [facility] Protein [Mass/Vol] 6.9 g/dL Normal 6.4-8.9 [facility] Comment on above: Performed By: #### P T, BNP, CBC, PTT, CK, DDIMER, HS TROP, CMP ####[address] Sodium [Moles/Vol] 141 mmol/L Normal 136-145 [facility] Comment on above: Performed By: #### P T, BNP, CBC, PTT, CK, DDIMER, HS TROP, CMP ####[place] [id number] [facility] Urea nitrogen [Mass/Vol] 11 mg/dL Normal 7-25 [facility] Comment on above: Performed By: #### P T, BNP, CBC, PTT, CK, DDIMER, HS TROP, CMP ####[place] [id number] [facility] Creatine Kinaseon 12-18-2022 CK [Catalytic activity/Vol] 81 U/L Normal [facility] Comment on above: Performed By: #### P T, BNP, CBC, PTT, CK, DDIMER, HS TROP, CMP ####[place] [id number] [facility] Creatine kinase [Enzymatic a ctivity/volume] in Serum or PlasmaOrdered By: Venkat Palencia on 12-18-2022 CK [Catalytic activity/Vol] 81 U/L - [facility] Creatinine [Mass/volume] in Serum or PlasmaOrdered By: Venkat Palencia on 12-18-2022 Creatinine [Mass/Vol] 0.89 mg/dL 0.70-1.30 [facility] D-Dimer High Sensitivityon 0 12-18-2022 D-Dimer High Sensitivity < 200 Normal 0-243 [facility] Comment on above: Result Comment: The [...] patients due to co-morbid conditions. PERFORMED BY: [place] [address] PATHOLOGIST INDIVIDUAL PENSION ADVISER CARRI KIM M.D. Performed By: #### P T, BNP, CBC, PTT, CK, DDIMER, HS TROP, CMP ####[facility]1111 [place] [id number] [facility] ECG 12 lead ECGon 12-18-2022 ECG 12 lead ECG [facility] [place] [address] Electrocardiograph Report Signed Patient: Basilio Person MR#: [id number] : 2000 Acct:[id number] Age/Sex: 22 / M ADM Date: 12/18/22 Loc: ER Room: Type: [facility] ER Attending Dr: Ordering Provider: Venkat [...] was found Confirmed by VENKAT PALENCIA MD ([id number]) on 12/18/2022 4:21:16 AM Referred By: Electronically Signed By:VENKAT PALENCIA MD Transcribed By: MUS Signed By Venkat Palencia Jr, MD 0421 Normal [facility] Eosinophils Auto (Bld) [#/Vo l]Ordered By: Venkat Palencia on 12-18-2022 Eosinophils (Bld) [#/Vol] 0.1 10*3/uL 0.0-0.45 [facility] Eosinophils/100 WBC Auto (Bl d)Ordered By: Venkat Palencia on 12-18-2022 Eosinophils/100 WBC (Bld) 0.8 % . [facility] Erythrocyte distribution wid th Auto (RBC) [Ratio]Ordered By: Venkat Palencia on 12-18-2022 Erythrocyte distribution width (RBC) [Ratio] 13.7 % 12.0-14.8 [facility] Globulin Calc (S) [Mass/Vol] Ordered By: Venkat Palencia on 12-18-2022 Globulin (S) [Mass/Vol] 2.3 g/dL [facility] Glucose [Mass/volume] in Ser um or PlasmaOrdered By: Venkat Palencia on 12-18-2022 Glucose [Mass/Vol] 87 mg/dL 70-100 [facility] Comment on above: ADA recommended refe rence rangeRandom Glucose Reference Range is dependent on time and content of last meal. Glucose of more than 200 mg/dL in a nonstressed, ambulatory subject supports the diagnosis of Diabetes Mellitus. Hematocrit Auto (Bld) [Volum e fraction]Ordered By: Venkat Palencia on 12-18-2022 Hematocrit (Bld) [Volume fraction] 40.9 % 38.8-50.0 [facility] Hemoglobin [Mass/volume] in BloodOrdered By: Venkat Palencia on 12-18-2022 Hemoglobin (Bld) [Mass/Vol] 14.1 g/dL 13.0-17.0 [facility] Laboratory - CoagulationOrde red By: Venkat Palencia on 12-18-2022 PT Coag (PPP) [Time] 12.0 s 9.0-12.9 [facility] Leukocytes [#/volume] correc ashley for nucleated erythrocytes in Blood by Automated counOrdered By: Venkat Palencia on 12-18-2022 WBC corrected for nucl RBC Auto (Bld) [#/Vol] 10.6 10*3/uL 4.1-10.5 [facility] Lymphocytes Auto (Bld) [#/Vo l]Ordered By: Venkat Palencia on 12-18-2022 Lymphocytes (Bld) [#/Vol] 2.2 10*3/uL 1.00-4.8 [facility] Lymphocytes/100 WBC Auto (Bl d)Ordered By: Venkat Palencia on 12-18-2022 Lymphocytes/100 WBC (Bld) 21.2 % . [facility] MCH Auto (RBC) [Entitic mass ]Ordered By: Venkat Palencia on 12-18-2022 MCH (RBC) [Entitic mass] 28.5 pg 27.5-35.2 [facility] MCHC Auto (RBC) [Mass/Vol]Or dered By: Venkat Palencia on 12-18-2022 MCHC (RBC) [Mass/Vol] 34.5 g/dL 32.5-35.6 [facility] MCV Auto (RBC) [Entitic vol] Ordered By: Venkat Palencia on 12-18-2022 MCV (RBC) [Entitic vol] 82.4 fL 83.5-101 [facility] Monocyte distribution width [Entitic volume] in Blood by AutomatedOrdered By: Venkat Palencia on 12-18-2022 Monocyte distribution width Auto (Bld) [Entitic vol] 15.92 % 0.00-20.00 [facility] Monocytes Auto (Bld) [#/Vol] Ordered By: Venkat Palencia on 12-18-2022 Monocytes (Bld) [#/Vol] 0.9 10*3/uL 0.0-0.8 [facility] Monocytes/100 WBC Auto (Bld) Ordered By: Venkat Palencia on 12-18-2022 Monocytes/100 WBC (Bld) 8.9 % . [facility] Natriuretic peptide B [Mass/ Vol]Ordered By: Venkat Palencia on 12-18-2022 Natriuretic peptide B (Bld) [Mass/Vol] 9.0 pg/mL 5-100 [facility] Neutrophils Auto (Bld) [#/Vo l]Ordered By: Venkat Palencia on 12-18-2022 Neutrophils (Bld) [#/Vol] 7.2 10*3/uL 1.8-7.7 [facility] Neutrophils/100 WBC Auto (Bl d)Ordered By: Venkat Palencia on 12-18-2022 Neutrophils/100 WBC (Bld) 68.2 % . [facility] No Panel InformationOrdered By: Venkat Palencia on 12-18-2022 D-Dimer Quantitative (PE/DVT) < 200 ng/mL 0-243 [facility] Comment on above: The reference range [...] conditions. Estimated GFR (CKD-EPI) > 60.0 mL/Min [facility] Creatinine Clearance (Chem 151.88 [facility] Nucleated erythrocytes [Pres ence] in Blood by Automated countOrdered By: Venkat Palencia on 12-18-2022 Nucleated RBC Auto Ql (Bld) 0.1 /100{WBC} 0-0.5 [facility] Partial Thromboplastin Timeo n 12-18-2022 aPTT Coag (Bld) [Time] 28.5 s Normal 25.1-36.5 [facility] Comment on above: Performed By: #### P T, BNP, CBC, PTT, CK, DDIMER, HS TROP, CMP ####[facility] [id number] [place] [address] [facility] Platelet mean volume Auto (B ld) [Entitic vol]Ordered By: Venkat Palencia on 12-18-2022 Platelet mean volume (Bld) [Entitic vol] 7.5 fL 6.6-10.1 [facility] Platelet poor plasma interna tional normalized ratio (INR) by coagulation assay (relatOrdered By: Venkat Palencia on 12-18-2022 INR Coag (PPP) [Relative time] 1.0 {INR} [facility] Comment on above: INR Therapeutic Rang [...] 12-18-2022 Platelets (Bld) [#/Vol] 203 10*3/uL 150-450 [facility] Potassium [Moles/volume] in Serum or PlasmaOrdered By: Venkat Palencia on 12-18-2022 Potassium [Moles/Vol] 3.8 mmol/L 3.5-5.1 [facility] Protein [Mass/volume] in Ser um or PlasmaOrdered By: Venkat Palencia on 12-18-2022 Protein [Mass/Vol] 6.9 g/dL 6.4-8.9 [facility] Prothrombin Time INRon 12-18 INR Coag (PPP) [Relative time] 1.0 {INR} Normal [facility] Comment on above: Result Comment: INR [...] PTT, CK, DDIMER, HS TROP, CMP #### [facility] [address] PT Coag (PPP) [Time] 12.0 s Normal 9.0-12.9 [facility] Comment on above: Performed By: #### P T, BNP, CBC, PTT, CK, DDIMER, HS TROP, CMP #### [facility] [address] RBC Auto (Bld) [#/Vol]Ordere d By: Venkat Palencia on 04-15-2023 RBC (Bld) [#/Vol] 4.97 10*6/uL 3.90-5.60 [facility] Serum or plasma albumin/glob ulin mass ratioOrdered By: Venkat Palencia on 12-18-2022 Albumin/Globulin [Mass ratio] 2.0 {ratio} [facility] Serum or plasma anion gap de terminationOrdered By: Venkat Palencia on 12-18-2022 Anion gap [Moles/Vol] 9.9 mmol/L 6.0-15.0 [facility] Sodium [Moles/volume] in Ser um or PlasmaOrdered By: Venkat Palencia on 12-18-2022 Sodium [Moles/Vol] 141 mmol/L 136-145 [facility] Troponin I High Sensitivityo n 12-18-2022 Troponin I High Sensitivity 2.5 pg/mL Normal 0.0-20.0 [facility] Comment on above: Result Comment: PERF ORMED BY: [facility] [address] [place] [id number] PATHOLOGIST INDIVIDUAL PENSION ADVISER CARRI KIM M.D. Performed By: #### P T, BNP, CBC, PTT, CK, DDIMER, HS TROP, CMP ####[facility] [id number] [place] [address] [facility] Troponin I.cardiac [Mass/vol ume] in Serum or Plasma by Detection limit <= 0.01 ng/Ordered By: Venkat Palencia on 12-18-2022 Troponin I.cardiac DL <= 0.01 ng/mL [Mass/Vol] 2.5 pg/mL 0.0-20.0 [facility] Urea nitrogen [Mass/volume] in Serum or PlasmaOrdered By: Venkat Palencia on 12-18-2022 Urea nitrogen [Mass/Vol] 11 mg/dL 7-25 [facility] WBC Auto (Bld) [#/Vol]Ordere d By: Venkat Palencia on 12-18-2022 WBC (Bld) [#/Vol] 10.6 10*3/uL 4.1-10.5 [facility] XR chest 1V portableon 12-18 XR chest 1V portable [facility] Main [place] [address] [place] [address] XRay Report Signed Patient: Basilio Person MR#: [id number] : 2000 Acct:[id number] Age/Sex: 22 / M ADM Date: 12/18/22 Loc: ER Room: Type: [facility] ER Attending Dr: Copies to: Venkat Palencia [...] Eagle Woodard M.D.12/18/2022 9:45 AM Dictation Location: [place] [address] Transcribed By: [facility] 12/18/22 0945 Dictated By: Eagle Woodard II, MD 12/18/22 0945 Signed By: 12/18/22 0945 [facility] Quick Strepon 10-24-2022 Quick Strep Streptococcus pyogen es Ag [Presence] in Throat by Rapid immunoassay Negative for Group A Strep Antigen Note 1 NOTE 2 Results are those of a screening test. NOTE 3 If clinically indicated please order a culture. NOTE 4 NOTE 5 Reference range = Negative PERFORMED BY: [place] [address] PATHOLOGIST INDIVIDUAL PENSION ADVISER CARRI KIM M.D. [facility] Comment on above: Performed By: #### Q S #### [facility] [address] [place] [address] RPR w/rfx to Quant TP Abson 10-24-2022 RPR, Rfx Quant RPR Non-Reactive Normal Non Reactive [facility] Comment on above: Result Comment: Perf ormed at: CB - [facility] [place] [id number] Gage Designer: Morales Escamilla PhD, Phone: [phone] PERFORMED BY: [place] [address] PATHOLOGIST INDIVIDUAL PENSION ADVISER CARRI KIM M.D. Performed By: #### R HI W RFX ####[facility] , [facility] [Presence] in Seru m by RPROrdered By: Andrzej Bell on 10-24-2022 [facility] RPR Ql (S) Non-Reactive Non Reactive [facility] Comment on above: Performed at: CB - [facility] [address] [id number] Director: Morales Escamilla PhD, Phone: [phone] Streptococcus pyogenes antig en detectionOrdered By: Andrzej Bell on 10-24-2022 S. pyogenes Ag Ql (Unsp spec) [facility] S. pyogenes Ag Ql (Unsp spec) [facility] XR chest 1V portableon 10-08 XR chest 1V portable [facility] [place] [address] XRay Report Signed Patient: Basilio Person MR#: [id number] : 2000 Acct:[id number] Age/Sex: 22 / M ADM Date: 10/07/22 Loc: ER Room: Type: [facility] ER Attending Dr: Copies to: Suresh Ospina [...] Nehemiah Aguilar M.D.10/08/2022 7:49 AM Dictation Location: [facility]- Transcribed By: TANK 10/08/2249 Dictated By: Nehemiah Aguilar DO 10/08/2249 Signed By: 10/08/22 0749 [facility] XR soft tissue neckon 2022 XR soft tissue neck [facility] Main [place] [id number] XRay Report Signed Patient: Basilio Person MR#: [id number] : 2000 Acct:[id number] Age/Sex: 22 / M ADM Date: 10/07/22 Loc: ER Room: Type: [facility] ER Attending Dr: Copies to: Suresh Ospina [...] Nehemiah Aguilar M.D.10/08/2022 7:49 AM Dictation Location: [facility] Transcribed By: TANK 10/08/22 0749 Dictated By: Nehemiah Aguilar DO 10/08/22 0748 Signed By: 10/08/22 0749 [facility] ECG 12 lead ECGon 10-07-2022 ECG 12 lead ECG [place] [id number] Electrocardiograph Report Signed Patient: Basilio Person MR#: [id number] : 2000 Acct:[id number] Age/Sex: 22 / M ADM Date: 10/07/22 Loc: ER Room: Type: [facility] ER Attending Dr: Ordering Provider: Suresh Ospina [...] Signed By Suresh Ospina MD 10/08/22 012 [facility] XR knee LT 4V*on 09-02-2022 XR knee LT 4V* [facility] [place] [address] XRay Report Signed Patient: Basilio Person MR#: [id number] : 2000 Acct:[id number] Age/Sex: 21 / M ADM Date: 09/02/22 Loc: ER Room: Type: [facility] ER Attending Dr: Copies to: Andrzej [...] Nehemiah Aguilar M.D.09/02/2022 5:15 PM Dictation Location: [place] [address] Transcribed By: [facility] 09/02/221714 Dictated By: Nehemiah Aguilar DO 09/02/221713 Signed By: 09/02/221714 [facility] Vital Signs Date Time Vital Sign Value Performing Clinician Faci lity 04-06-2023 07:00-0400 Diastolic blood pressure 68 mm[Hg] [facility] Work Phone: [facility] 04-06-2023 07:00-0400 Heart rate 77 /min [facility] Work Phone: [facility] 04-06-2023 07:00-0400 Respiratory rate 18 /min [facility] Work Phone: [facility] 04-06-2023 07:00-0400 SaO2% (BldA) [Mass fraction] 97 % [facility] Work Phone: [facility] 04-06-2023 07:00-0400 Systolic blood pressure 117 mm[Hg] [facility] Work Phone: [facility] 04-06-2023 05:26-0400 Body height 177.8 cm [facility] Work Phone: [facility] 04-06-2023 05:26-0400 Body temperature 98.6 [degF] [facility] Work Phone: [facility] 04-06-2023 05:26-0400 Body weight 97.8 kg [facility] Work Phone: [facility] 02-03-2023 20:47-0400 Body height 177.8 cm [facility] Work Phone: [facility] 02-03-2023 20:47-0400 Body temperature 98 [degF] [facility] Work Phone: [facility] 02-03-2023 20:47-0400 Body weight 95.7 kg [facility] Work Phone: [facility] 02-03-2023 20:47-0400 Diastolic blood pressure 77 mm[Hg] [facility] Work Phone: [facility] 02-03-2023 20:47-0400 Heart rate 87 /min [facility] Work Phone: [facility] 02-03-2023 20:47-0400 Respiratory rate 20 /min [facility] Work Phone: [facility] 02-03-2023 20:47-0400 SaO2% (BldA) [Mass fraction] 100 % [facility] Work Phone: [facility] 02-03-2023 20:47-0400 Systolic blood pressure 138 mm[Hg] [facility] Work Phone: [facility] 12-18-2022 03:46-0400 Heart rate 108 /min [facility] Work Phone: [facility] 12-18-2022 03:46-0400 Respiratory rate 18 /min [facility] Work Phone: [facility] 12-18-2022 03:46-0400 SaO2% (BldA) [Mass fraction] 99 % [facility] Work Phone: [facility] 12-18-2022 03:24-0400 Body height 177.8 cm [facility] Work Phone: [facility] 12-18-2022 03:24-0400 Body temperature 97.9 [degF] [facility] Work Phone: [facility] 12-18-2022 03:24-0400 Body weight 96.7 kg [facility] Work Phone: [facility] 12-18-2022 03:24-0400 Diastolic blood pressure 88 mm[Hg] [facility] Work Phone: [facility] 12-18-2022 03:24-0400 Systolic blood pressure 145 mm[Hg] [facility] Work Phone: [facility] 10-24-2022 12:21-0500 Body height 179.07 cm [facility] Work Phone: [facility] 10-24-2022 12:21-0500 Body temperature 98.7 [degF] [facility] Work Phone: [facility] 10-24-2022 12:21-0500 Body weight 98 kg [facility] Work Phone: [facility] 10-24-2022 12:21-0500 Diastolic blood pressure 64 mm[Hg] [facility] Work Phone: [facility] 10-24-2022 12:21-0500 Heart rate 81 /min [facility] Work Phone: [facility] 10-24-2022 12:21-0500 Respiratory rate 18 /min [facility] Work Phone: [facility] 10-24-2022 12:21-0500 SaO2% (BldA) [Mass fraction] 98 % [facility] Work Phone: [facility] 10-24-2022 12:21-0500 Systolic blood pressure 124 mm[Hg] [facility] Work Phone: [facility] 10-07-2022 21:20-0500 Body height 177.8 cm [facility] Work Phone: [facility] 10-07-2022 21:20-0500 Body temperature 98.4 [degF] [facility] Work Phone: [facility] 10-07-2022 21:20-0500 Body weight 100.35 kg [facility] Work Phone: [facility] 10-07-2022 21:20-0500 Diastolic blood pressure 87 mm[Hg] [facility] Work Phone: [facility] 10-07-2022 21:20-0500 Heart rate 90 /min [facility] Work Phone: [facility] 10-07-2022 21:20-0500 Respiratory rate 20 /min [facility] Work Phone: [facility] 10-07-2022 21:20-0500 SaO2% (BldA) [Mass fraction] 100 % [facility] Work Phone: [facility] 10-07-2022 21:20-0500 Systolic blood pressure 148 mm[Hg] [facility] Work Phone: [facility] 09-02-2022 15:47-0500 Body height 179.07 cm [facility] Work Phone: [facility] 09-02-2022 15:47-0500 Body temperature 98.1 [degF] [facility] Work Phone: [facility] 09-02-2022 15:47-0500 Body weight 98.95 kg [facility] Work Phone: [facility] 09-02-2022 15:47-0500 Diastolic blood pressure 77 mm[Hg] [facility] Work Phone: [facility] 09-02-2022 15:47-0500 Heart rate 74 /min [facility] Work Phone: [facility] 09-02-2022 15:47-0500 Respiratory rate 18 /min [facility] Work Phone: [facility] 09-02-2022 15:47-0500 SaO2% (BldA) [Mass fraction] 100 % [facility] Work Phone: [facility] 09-02-2022 15:47-0500 Systolic blood pressure 137 mm[Hg] [facility] Work Phone: [facility] Encounters Encounter Date Encounter Type Care Provider Facility Start: 04-06-2023 End: 04-06-2023 Emergency department patient visit Jeff Birmingham Facility:[facility] Start: 04-06-2023 End: 04-06-2023 Emergency department [facility] visit [facility] Work Phone: [facility] Room Work Phone: Start: 02-03-2023 End: 02-04-2023 Emergency department patient visit Katelyn Stephen Facility:[facility] Start: 02-03-2023 End: 02-03-2023 Emergency [facility] visit [facility] Work Phone: [facility] Work Phone: Start: 12-18-2022 End: 12-18-2022 Emergency department patient visit Venkat Palencia Jr Facility:[facility] Start: 12-18-2022 End: 12-18-2022 Emergency department patient visit [facility] Work Phone: [facility] Work Phone: Start: 10-24-2022 End: 10-24-2022 Emergency department patient visit Services [facility] Facility:[facility] Start: 10-24-2022 End: 10-24-2022 Emergency department patient visit [facility] Work Phone: [facility] Work Phone: Start: 10-07-2022 End: 10-08-2022 Emergency department patient visit [facility] Facility:[facility] Start: 10-07-2022 End: 10-07-2022 Emergency department patient visit [facility] [facility] Work Phone: Start: 09-02-2022 End: 09-02-2022 Emergency department patient visit Services [facility] Start: 09-02-2022 End: 09-02-2022 Emergency department patient visit Services [facility] Work Phone: [facility] Work Phone: Procedures Date Procedure Procedure Detail Performing Clinician Start: 02-03-2023 Duplex scan of lower limb veins Services [employer] Work Phone: Start: 02-03-2023 X-ray of right knee Services [employer] Phone: Start: 12-18-2022 Plain chest X-ray Services [employer] Phone: Start: 10-24-2022 Streptococcus pyogenes antigen assay Services [employer] Phone: Start: 10-07-2022 Plain chest X-ray Services [employer] Work Phone: Start: 10-07-2022 X-ray of soft tissue of neck Services [employer] [facility] [email or web address] Phone: Start: 09-02-2022 Radiologic examination of knee Services [employer] Work Phone: History of appendectomy Status p ost appendectomy Services [employer] Phone: Plan of Treatment Date Care Activity Detail Author Start: 04-06-2023 Computed tomography of abdomen and pelvis with contrast CT abdomen pelvis w con [facility] Start: 04-06-2023 CT Abdomen and Pelvi s W contrast IV [facility] Start: 02-03-2023 Duplex scan of lower limb veins US venous duplex LE RT [facility] Start: 02-03-2023 US Lower extremity v ein - right [facility] Start: 02-03-2023 X-ray of right knee XR knee RT 4V* F [facility] Start: 02-03-2023 XR Knee - right 4 Views [facility] Start: 12-18-2022 Plain chest X-ray XR chest 1V portab [facility] Start: 12-18-2022 XR Chest Single view [facility] Start: 10-24-2022 [facility] Start: 10-07-2022 Plain chest X-ray XR chest 1V portab [facility] Start: 10-07-2022 X-ray of soft tissue of neck XR soft tissue neck [facility] Start: 10-07-2022 XR Chest Single view [facility] Start: 10-07-2022 XR Neck Views [facility] Patient Education [facility] Work Phone: Patient referral [facility] Work Phone: Reagin Ab [Presence] in Serum by RPR [facility] Payers Date Payer Category Payer Medicaid [id number] 2022 Self-pay [id number] Medicaid [employer] [id number] Unknown Regular Auto/Liability [id number] Unknown [id number] Unknown [id number] Unknown [id number] Unknown [id number] Unknown [id number] Unknown [id number] Worker's Compensation [id number] Social History Date Type Detail Facility Start: 09-02-2022 End: 04-06-2023 Tobacco smoking status NHIS Never smoked tobacco (finding) [facility] Start: 2000 Sex Assigned At Male F [facility] Evaluation note Note Date & Type Note Facility Evaluation note No assessment information availa ble [facility] Work Phone: Hospital Discharge instructions Note Date & Type Note Facility Hospital Discharge instructions Additional Instructions Return if symptoms are worse [facility] Work Phone: Hospital Discharge instructions Note Date & Type Note Facility Hospital Discharge instructions Additional Instructions Ice and elevate Tylenol or Naprosyn if needed for pain Follow-up with your PCP or Ortho Return here if any problems persist or worsen [facility] Work Phone: Chief Complaint and Reason [...] , DO Family Provider Active Services Family [facility] Primary Care Provider Active Team Status: Inactive Member Role Status Dates Services [facility] Primary Care Provider Active Jeff Mast , DO Family Provider Active Suresh Ospina MD Emergency Provider Active Team Status: Inactive Member Role Status Dates Services [facility] Primary Care Provider Active Jeff Mast , DO Family Provider Active Venkat Palencia Jr, MD Emergency Provider Active Team Status: Inactive Member Role Status Dates Services [facility] Primary Care Provider Active Jeff Mast , DO Family Provider Active Katelyn Stephen APRN Emergency Provider Active Team Status: Inactive Member Role Status Dates Services Family [facility] Primary Care Provider Active Jeff [...] section and content) DATE CREATED AUTHOR 04/18/2023 [facility] FOR RECORDS PERTAINING TO PATIENTS WHO [...] BE BASED ON THE PRIMARY CLINICAL RECORDS. [facility] provides no warranty or guarantee of the accuracy or completeness of information in this document.
[2024-07-31 01:03] LABS: Internal Control Within Normal Limits; Strep A Antigen Screen Negative
== END 2024-07-31 01:51 | disposition home or self-care (01) ==
PROVIDERS: Emergency Provider Internal Medicine
DX: J02.9 Acute pharyngitis, unspecified (principal)
CPT/HCPCS: 87070; 87150; 87880; 99283

== ENCOUNTER 2024-08-17 12:17 | Emergency (ER) | payer OTHER, SELFPAY ==
[2024-08-17 12:23] VITALS: BP 139/86; PULSE 92; TEMP 36.7; O2SAT 97; BMI 31.6
--- OUTSIDE RECORDS SUMMARY | 2024-08-17 12:33 | XMS_ITS | CCD ---
Author Organization [facility] Care Team Providers Care Director Of Gift Planning Name Role Phone [facility], Services Primary Care Provider JOSE A Bell Emergency Provider [phone] MD Suresh Ospina Emergency Provider [facility], Services Primary Care Provider MD Suresh Ospina Emergency Provider JOSE A Bell Emergency Provider MD Venkat Palencia Jr Emergency Provider [facility], Services Primary Care Provider JOSE A Stephen Emergency Provider [phone] [facility], Services Primary Care Provider DO Jeff Birmingham Emergency Provider Katelyn Stephen Admitting Unavailable Katelyn Stephen Attending Unavailable [facility], Services Primary Care Unavaila Jeff Larson Admitting Unavailable Jeff Birmingham Attending Unavailable [facility], Services Primary Care Unavaila ble [facility], Services Primary Care Unavaila Andrzej Antunez Admitting Unavailable Andrzej Bell Attending Unavailable [facility], Services Primary Care Unavaila ble Suresh Ospina Admitting Unavailable Suresh Ospina Attending Unavailable [facility], Services Primary Care Unavaila Andrzej Antunez Admitting Unavailable Andrzej Bell Attending Unavailable Venkat Palencia Jr Admitting Unavailable Venkat Palencia Jr Attending Unavailable [facility], Services Primary Care Unavaila ble Allergies Allergy Classification Reported Allergen(s) Allergy Type Date of Onset Reaction(s) Facility (6 sources) insect venom; Translations: [insect venom] Allergy to substance 10-07-2022 [facility] Medications Current Medications Medication Drug Class(es) Dates [...] painful area for up to 12 hrs Kalapana (No Known Home Meds) (1 source) Start: 10-07-2022 Kal[place]ana (No Known Home Meds) Active October 07, [...] 04-06-2023 ALT [Catalytic activity/Vol] 44 U/L 7-52 [facility] Albumin [Mass/volume] in Ser um or Plasma by Bromocresol green (BCG) dye binding methoOrdered By: Jeff Birmingham on 04-06-2023 Albumin BCG dye [Mass/Vol] 4.7 g/dL 3.5-5.7 [facility] Alkaline phosphatase [Enzyma tic activity/volume] in Serum or PlasmaOrdered By: Jeff Birmingham on 04-06-2023 ALP [Catalytic activity/Vol] 67 U/L 34-104 [facility] Aspartate aminotransferase [ Enzymatic activity/volume] in Serum or PlasmaOrdered By: Jeff Birmingham on 04-06-2023 AST [Catalytic activity/Vol] 25 U/L 13-39 [facility] Basic Metabolic Panelon Anion gap [Moles/Vol] 9.4 mmol/L Normal 6.0-15.0 [facility] Comment on above: Performed By: #### H EPATIC, BMP, CBC, LIPASE ####[address] Calcium [Mass/Vol] 9.5 mg/dL Normal 8.6-10.3 [facility] Comment on above: Performed By: #### H EPATIC, BMP, CBC, LIPASE ####[address] Chloride [Moles/Vol] 104 mmol/L Normal 98-107 [facility] Comment on above: Performed By: #### H EPATIC, BMP, CBC, LIPASE ####[address] CO2 [Moles/Vol] 29.3 mmol/L Normal 21.0-31.[address] [facility] Comment on above: Performed By: #### H EPATIC, BMP, CBC, LIPASE ####[address] Creatinine [Mass/Vol] 0.91 mg/dL Normal 0.70-1.30 [facility] Comment on above: Performed By: #### H EPATIC, BMP, CBC, LIPASE ####[place] [id number] [facility] Creatinine Clr Calc Pharmacy 149.34 Normal [facility] Comment on above: Performed By: #### H EPATIC, BMP, CBC, LIPASE ####[address] GFR/1.73 sq M.predicted MDRD (S/P/Bld) [Vol rate/Area] mL/min/{1.73_m2} Normal [facility] Comment on above: Performed By: #### H EPATIC, BMP, CBC, LIPASE ####[facility] Glucose [Mass/Vol] 95 mg/dL Normal 70-100 [facility] Comment on above: Result Comment: [facility] Glucose Reference Range is dependent on time and content of last meal. Glucose of more than 200 mg/dL in a nonstressed, ambulatory subject supports the diagnosis of Diabetes Mellitus. ADA recommended reference range Performed By: #### H EPATIC, BMP, CBC, LIPASE ####[facility] [id number] [address] Potassium [Moles/Vol] 3.7 mmol/L Normal 3.5-5.1 [facility] Comment on above: Performed By: #### H EPATIC, BMP, CBC, LIPASE ####[address] Sodium [Moles/Vol] 139 mmol/L Normal 136-145 [facility] Comment on above: Performed By: #### H EPATIC, BMP, CBC, LIPASE ####[place] [address] [address] Urea nitrogen [Mass/Vol] 7 mg/dL Normal 7-25 [facility] Comment on above: Performed By: #### H EPATIC, BMP, CBC, LIPASE ####[facility] [id number] [place] [address] Basophils Auto (Bld) [#/Vol] Ordered By: Jeff Birmingham on 04-06-2023 Basophils (Bld) [#/Vol] 0.1 10*3/uL 0.0-0.2 [facility] Basophils/100 WBC Auto (Bld) Ordered By: Jeff Birmingham on 04-06-2023 Basophils/100 WBC (Bld) 0.9 % . [facility] Bilirubin.direct [Mass/volum e] in Serum or PlasmaOrdered By: Jeff Birmingham on 04-06-2023 Bilirubin.direct [Mass/Vol] 0.10 mg/dL 0.03-0.18 [facility] Bilirubin.total [Mass/volume ] in Serum or PlasmaOrdered By: Jeff Birmingham on 04-06-2023 Bilirubin [Mass/Vol] 0.6 mg/dL 0.3-1.[address] [facility] CT abdomen pelvis w conon CT abdomen pelvis w con [facility] [place] [address] CT Scan Report Signed Patient: Basilio Person MR#: [id number] : 2000 Acct:[id number] Age/Sex: 22 / M ADM Date: 04/06/23 Loc: ER Room: Type: [facility] ER Attending Dr: Copies to: Jeff [...] Naidu Jr., D.O.04/06/2023 9:26 AM Dictation Location: [place] [address] Transcribed By: TANK 04/06/23925 Dictated By: Gio Naidu Jr, DO 04/06/23918 Signed By: 04/06/23925 Normal [facility] Calcium [Mass/volume] in Ser um or PlasmaOrdered By: Jeff Birmingham on 04-06-2023 Calcium [Mass/Vol] 9.5 mg/dL 8.6-10.3 [facility] Carbon dioxide, total [Moles /volume] in Serum or PlasmaOrdered By: Jeff Birmingham on 04-06-2023 CO2 [Moles/Vol] 29.3 mmol/L 21.0-31.[address] [facility] Chloride [Moles/volume] in S valerie or PlasmaOrdered By: Jeff Birmingham on 04-06-2023 Chloride [Moles/Vol] 104 mmol/L 98-107 [facility] Complete Blood Count Auto Di ffon 04-06-2023 Basophils (Bld) [#/Vol] 0.1 10*3/uL Normal 0.0-0.2 [facility] Comment on above: Result Comment: PERF ORMED BY: [facility] [address] [place] [address] PATHOLOGIST CONDUIT HELPER CARRI KIM M.D. Performed By: #### H EPATIC, BMP, CBC, LIPASE ####[place] [address] [address] Basophils/100 WBC (Bld) 0.9 % Normal . [facility] Comment on above: Performed By: #### H EPATIC, BMP, CBC, LIPASE ####[facility] [id number] [address] Eosinophils (Bld) [#/Vol] 0.1 10*3/uL Normal 0.0-0.45 [facility] Comment on above: Performed By: #### H EPATIC, BMP, CBC, LIPASE ####[place] [address] [address] Eosinophils/100 WBC (Bld) 1.1 % Normal . [facility] Comment on above: Performed By: #### H EPATIC, BMP, CBC, LIPASE ####[address] Erythrocyte distribution width (RBC) [Ratio] 13.6 % Normal 12.0-14.8 [facility] Comment on above: Performed By: #### H EPATIC, BMP, CBC, LIPASE ####[address] Hematocrit (Bld) [Volume fraction] 42.1 % Normal 38.8-50.0 [facility] Comment on above: Performed By: #### H EPATIC, BMP, CBC, LIPASE ####[address] Hemoglobin (Bld) [Mass/Vol] 14.9 g/dL Normal 13.0-17.0 [facility] Comment on above: Performed By: #### H EPATIC, BMP, CBC, LIPASE ####[address] Lymphocytes (Bld) [#/Vol] 3.1 10*3/uL Normal 1.00-4.8 [facility] Comment on above: Performed By: #### H EPATIC, BMP, CBC, LIPASE ####[address] Lymphocytes/100 WBC (Bld) 30.6 % Normal . [facility] Comment on above: Performed By: #### H EPATIC, BMP, CBC, LIPASE ####[address] MCH (RBC) [Entitic mass] 29.0 pg Normal 27.5-35.2 [facility] Comment on above: Performed By: #### H EPATIC, BMP, CBC, LIPASE ####[address] MCV (RBC) [Entitic vol] 81.9 fL Low 83.5-101 [facility] Comment on above: Performed By: #### H EPATIC, BMP, CBC, LIPASE ####[address] Mean Corpuscular HGB Conc 35.3 g/dL Normal 32.5-35.6 [facility] Comment on above: Performed By: #### H EPATIC, BMP, CBC, LIPASE ####[address] Monocytes (Bld) [#/Vol] 1.0 10*3/uL High 0.0-0.8 [facility] Comment on above: Performed By: #### H EPATIC, BMP, CBC, LIPASE ####[address] Monocytes/100 WBC (Bld) 15.06 % Normal 0.00-20.00 [facility] Comment on above: Performed By: #### H EPATIC, BMP, CBC, LIPASE ####[address] Monocytes/100 WBC (Bld) 9.5 % Normal . [facility] Comment on above: Performed By: #### H EPATIC, BMP, CBC, LIPASE ####[address] Neutrophils (Bld) [#/Vol] 5.9 10*3/uL Normal 1.8-7.7 [facility] Comment on above: Performed By: #### H EPATIC, BMP, CBC, LIPASE ####[address] Neutrophils/100 WBC (Bld) 57.9 % Normal . [facility] Comment on above: Performed By: #### H EPATIC, BMP, CBC, LIPASE ####[address] NRBC% 0.1 /100{WBC} Normal 0-0.5 [facility] Comment on above: Performed By: #### H EPATIC, BMP, CBC, LIPASE ####[address] Platelet mean volume (Bld) [Entitic vol] 8.0 fL Normal 6.6-10.1 [facility] Comment on above: Performed By: #### H EPATIC, BMP, CBC, LIPASE ####[facility] [id number] Platelets (Bld) [#/Vol] 198 10*3/uL Normal 150-450 [facility] Comment on above: Performed By: #### H EPATIC, BMP, CBC, LIPASE ####[place] [address] [address] RBC (Bld) [#/Vol] 5.14 10*6/uL Normal 3.90-5.60 [facility] Comment on above: Performed By: #### H EPATIC, BMP, CBC, LIPASE ####[place] [address] [address] WBC (Bld) [#/Vol] 10.2 10*3/uL Normal 4.1-10.5 [facility] Comment on above: Performed By: #### H EPATIC, BMP, CBC, LIPASE ####[address] Creatinine [Mass/volume] in Serum or PlasmaOrdered By: Jeff Birmingham on 04-06-2023 Creatinine [Mass/Vol] 0.91 mg/dL 0.70-1.30 [facility] Eosinophils Auto (Bld) [#/Vo l]Ordered By: Jeff Birmingham on 04-06-2023 Eosinophils (Bld) [#/Vol] 0.1 10*3/uL 0.0-0.45 [facility] Eosinophils/100 WBC Auto (Bl d)Ordered By: Jeff Birmingham on 04-06-2023 Eosinophils/100 WBC (Bld) 1.1 % . [facility] Erythrocyte distribution wid th Auto (RBC) [Ratio]Ordered By: Jeff Birmingham on 04-06-2023 Erythrocyte distribution width (RBC) [Ratio] 13.6 % 12.0-14.8 [facility] Globulin Calc (S) [Mass/Vol] Ordered By: Jeff Birmingham on 04-06-2023 Globulin (S) [Mass/Vol] 2.5 g/dL [facility] Glucose [Mass/volume] in Ser um or PlasmaOrdered By: Jeff Birmingham on 04-06-2023 Glucose [Mass/Vol] 95 mg/dL 70-100 [facility] Comment on above: ADA recommended refe rence rangeRandom Glucose Reference Range is dependent on time and content of last meal. Glucose of more than 200 mg/dL in a nonstressed, ambulatory subject supports the diagnosis of Diabetes Mellitus. Hematocrit Auto (Bld) [Volum e fraction]Ordered By: Jeff Birmingham on 04-06-2023 Hematocrit (Bld) [Volume fraction] 42.1 % 38.8-50.0 [facility] Hemoglobin [Mass/volume] in BloodOrdered By: Jeff Birmingham on 04-06-2023 Hemoglobin (Bld) [Mass/Vol] 14.9 g/dL 13.0-17.0 [facility] Hepatic Panelon 04-06-2023 Albumin [Mass/Vol] 4.7 g/dL Normal 3.5-5.7 [facility] Comment on above: Performed By: #### H EPATIC, BMP, CBC, LIPASE ####[address] Albumin/Globulin [Mass ratio] 1.9 {ratio} Normal [facility] Comment on above: Performed By: #### H EPATIC, BMP, CBC, LIPASE ####[address] ALP [Catalytic activity/Vol] 67 U/L Normal 34-104 [facility] Comment on above: Performed By: #### H EPATIC, BMP, CBC, LIPASE ####[place] [id number] [facility] ALT [Catalytic activity/Vol] 44 U/L Normal 7-52 [facility] Comment on above: Performed By: #### H EPATIC, BMP, CBC, LIPASE ####[place] [id number] [facility] AST [Catalytic activity/Vol] 25 U/L Normal 13-39 [facility] Comment on above: Performed By: #### H EPATIC, BMP, CBC, LIPASE ####[address] Bilirubin [Mass/Vol] 0.6 mg/dL Normal 0.3-1.0 [facility] Comment on above: Performed By: #### H EPATIC, BMP, CBC, LIPASE ####[address] Bilirubin,Indirect 0.5 mg/dL Normal [facility] Comment on above: Performed By: #### H EPATIC, BMP, CBC, LIPASE ####[address] Bilirubin.indirect [Mass/Vol] 0.10 mg/dL Normal 0.03-0.18 [facility] Comment on above: Performed By: #### H EPATIC, BMP, CBC, LIPASE ####[address] Globulin (S) [Mass/Vol] 2.5 g/dL Normal [facility] Comment on above: Performed By: #### H EPATIC, BMP, CBC, LIPASE ####[address] Protein [Mass/Vol] 7.2 g/dL Normal 6.4-8.9 [facility] Comment on above: Performed By: #### H EPATIC, BMP, CBC, LIPASE ####[address] Leukocytes [#/volume] correc ashley for nucleated erythrocytes in Blood by Automated counOrdered By: Jeff Birmingham on 04-06-2023 WBC corrected for nucl RBC Auto (Bld) [#/Vol] 10.2 10*3/uL 4.1-10.5 [facility] Lipaseon 04-06-2023 Lipase [Catalytic activity/Vol] 20.0 U/L Normal 11.0-82.0 [facility] Comment on above: Result Comment: PERF ORMED BY: [facility] [address] [place] [address] PATHOLOGIST CONDUIT HELPER CARRI KIM M.D. Performed By: #### H EPATIC, BMP, CBC, LIPASE ####[address] [place] [address] [facility] Lipase [Enzymatic activity/v olume] in Serum or PlasmaOrdered By: Jeff Birmingham on 04-06-2023 Lipase [Catalytic activity/Vol] 20.0 U/L 11.0-82.0 [facility] Lymphocytes Auto (Bld) [#/Vo l]Ordered By: Jeff Birmingham on 04-06-2023 Lymphocytes (Bld) [#/Vol] 3.1 10*3/uL 1.00-4.8 [facility] Lymphocytes/100 WBC Auto (Bl d)Ordered By: Jeff Birmingham on 04-06-2023 Lymphocytes/100 WBC (Bld) 30.6 % . [facility] MCH Auto (RBC) [Entitic mass ]Ordered By: Jeff Birmingham on 04-06-2023 MCH (RBC) [Entitic mass] 29.0 pg 27.5-35.2 [facility] MCHC Auto (RBC) [Mass/Vol]Or dered By: Jeff Birmingham on 04-06-2023 MCHC (RBC) [Mass/Vol] 35.3 g/dL 32.5-35.6 [facility] MCV Auto (RBC) [Entitic vol] Ordered By: Jeff Birmingham on 04-06-2023 MCV (RBC) [Entitic vol] 81.9 fL 83.5-101 [facility] Monocyte distribution width [Entitic volume] in Blood by AutomatedOrdered By: Jeff Birmingham on 04-06-2023 Monocyte distribution width Auto (Bld) [Entitic vol] 15.06 % 0.00-20.00 [facility] Monocytes Auto (Bld) [#/Vol] Ordered By: Jeff Birmingham on 04-06-2023 Monocytes (Bld) [#/Vol] 1.0 10*3/uL 0.0-0.8 [facility] Monocytes/100 WBC Auto (Bld) Ordered By: Jeff Birmingham on 04-06-2023 Monocytes/100 WBC (Bld) 9.5 % . [facility] Neutrophils Auto (Bld) [#/Vo l]Ordered By: Jeff Birmingham on 04-06-2023 Neutrophils (Bld) [#/Vol] 5.9 10*3/uL 1.8-7.7 [facility] Neutrophils/100 WBC Auto (Bl d)Ordered By: Jeff Birmingham on 04-06-2023 Neutrophils/100 WBC (Bld) 57.9 % . [facility] No Panel InformationOrdered By: Jeff Birmingham on 04-06-2023 Estimated GFR (CKD-EPI) > 60.0 mL/Min [facility] Creatinine Clearance (Chem 149.34 [facility] Nucleated erythrocytes [Pres ence] in Blood by Automated countOrdered By: Jeff Birmingham on 04-06-2023 Nucleated RBC Auto Ql (Bld) 0.1 /100{WBC} 0-0.5 [facility] Platelet mean volume Auto (B ld) [Entitic vol]Ordered By: Jeff Birmingham on 04-06-2023 Platelet mean volume (Bld) [Entitic vol] 8.0 fL 6.6-10.1 [facility] Platelets Auto (Bld) [#/Vol] Ordered By: Jeff Birmingham on 04-06-2023 Platelets (Bld) [#/Vol] 198 10*3/uL 150-450 [facility] Potassium [Moles/volume] in Serum or PlasmaOrdered By: Jeff Birmingham on 04-06-2023 Potassium [Moles/Vol] 3.7 mmol/L 3.5-5.1 [facility] Protein [Mass/volume] in Ser um or PlasmaOrdered By: Jeff Birmingham on 04-06-2023 Protein [Mass/Vol] 7.2 g/dL 6.4-8.9 [facility] RBC Auto (Bld) [#/Vol]Ordere d By: Jeff Birmingham on 04-06-2023 RBC (Bld) [#/Vol] 5.14 10*6/uL 3.90-5.60 [facility] Serum or plasma albumin/glob ulin mass ratioOrdered By: Jeff Birmingham on 04-06-2023 Albumin/Globulin [Mass ratio] 1.9 {ratio} [facility] Serum or plasma anion gap de terminationOrdered By: Jeff Birmingham on 04-06-2023 Anion gap [Moles/Vol] 9.4 mmol/L 6.0-15.0 [facility] Serum or plasma non-glucuron idated bilirubin measurement (mass/volume)Ordered By: Jeff Birmingham on 04-06-2023 Bilirubin.indirect [Mass/Vol] 0.5 mg/dL [facility] Sodium [Moles/volume] in Ser um or PlasmaOrdered By: Jeff Birmingham on 04-06-2023 Sodium [Moles/Vol] 139 mmol/L 136-145 [facility] Urea nitrogen [Mass/volume] in Serum or PlasmaOrdered By: Jeff Birmingham on 04-06-2023 Urea nitrogen [Mass/Vol] 7 mg/dL 7-25 [facility] WBC Auto (Bld) [#/Vol]Ordere d By: Jfef Birmingham on 04-06-2023 WBC (Bld) [#/Vol] 10.2 10*3/uL 4.1-10.5 [facility] US venous duplex LE RTon US venous duplex LE RT [facility] [place] [address] Ultrasound Report Signed Patient: Basilio Person MR#: [id number] : 2000 Acct:[id number] Age/Sex: 22 / M ADM Date: 02/03/23 Loc: ER Room: Type: [facility] ER Attending Dr: Ordering Provider: Katelyn [...] Nehemiah Camejo M.D.02/04/2023 8:41 AM Dictation Location: [place] [address] Tech: Cee Dasilva Transcribed By: TANK 02/04/2341 Dictated By: Nehemiah Camejo MD 02/04/23840 Signed By: 02/04/23840 [facility] XR knee RT 4V*on 02-04-2023 XR knee RT 4V* [facility] [place] [place] [address] XRay Report Signed Patient: Basilio Person MR#: [id number] : 2000 Acct:[id number] Age/Sex: 22 / M ADM Date: 02/03/23 Loc: ER Room: Type: [facility] ER Attending Dr: Copies to: Katelyn [...] Park Champagne M.D.02/04/2023 7:38 AM Dictation Location: [place] [address] Transcribed By: TANK 02/04/23 0738 Dictated By: Park Champagne MD 02/04/23 0737 Signed By: 02/04/23 0738 [facility] Activated partial thrombopla stin time (aPTT) in platelet poor plasma by coagulation aOrdered By: Venkat Palencia on 12-18-2022 aPTT Coag (PPP) [Time] 28.5 s 25.1-36.5 [facility] Alanine aminotransferase [En zymatic activity/volume] in Serum or PlasmaOrdered By: Venkat Palencia on 12-18-2022 ALT [Catalytic activity/Vol] 32 U/L 7-52 [facility] Albumin [Mass/volume] in Ser um or Plasma by Bromocresol green (BCG) dye binding methoOrdered By: Venkat Palencia on 12-18-2022 Albumin BCG dye [Mass/Vol] 4.6 g/dL 3.5-5.7 [facility] Alkaline phosphatase [Enzyma tic activity/volume] in Serum or PlasmaOrdered By: Venkat Palencia on 12-18-2022 ALP [Catalytic activity/Vol] 74 U/L 34-104 [facility] Aspartate aminotransferase [ Enzymatic activity/volume] in Serum or PlasmaOrdered By: Venkat Palencia on 12-18-2022 AST [Catalytic activity/Vol] 18 U/L 13-39 [facility] B-Type Natriuretic Peptideon 12-18-2022 Natriuretic peptide B (Bld) [Mass/Vol] 9.0 pg/mL Normal 5-100 [facility] Comment on above: Result Comment: PERF ORMED BY: [facility] [address] [facility] [place] [id number] PATHOLOGIST CONDUIT HELPER CARRI KIM M.D. Performed By: #### P T, BNP, CBC, PTT, CK, DDIMER, HS TROP, CMP ####[facility] [id number] [place] [id number] [facility] Basophils Auto (Bld) [#/Vol] Ordered By: Venkat Palencia on 12-18-2022 Basophils (Bld) [#/Vol] 0.1 10*3/uL 0.0-0.2 [facility] Basophils/100 WBC Auto (Bld) Ordered By: Venkat Palencia on 12-18-2022 Basophils/100 WBC (Bld) 0.9 % . [facility] Bilirubin.total [Mass/volume ] in Serum or PlasmaOrdered By: Venkat Palencia on 12-18-2022 Bilirubin [Mass/Vol] 0.8 mg/dL 0.3-1.0 [facility] Calcium [Mass/volume] in Ser um or PlasmaOrdered By: Venkat Palencia on 12-18-2022 Calcium [Mass/Vol] 8.6 mg/dL 8.6-10.3 [facility] Carbon dioxide, total [Moles /volume] in Serum or PlasmaOrdered By: Venkat Palnecia on 12-18-2022 CO2 [Moles/Vol] 25.9 mmol/L 21.0-31.[address] [facility] Chloride [Moles/volume] in S valerie or PlasmaOrdered By: Venkat Palencia on 12-18-2022 Chloride [Moles/Vol] 109 mmol/L 98-107 [facility] Complete Blood Count Auto Di ffon 12-18-2022 Basophils (Bld) [#/Vol] 0.1 10*3/uL Normal 0.0-0.2 [facility] Comment on above: Result Comment: PERF ORMED BY: [place] [address] PATHOLOGIST CONDUIT HELPER CARRI KIM M.D. Performed By: #### P T, BNP, CBC, PTT, CK, DDIMER, HS TROP, CMP #### [address] Basophils/100 WBC (Bld) 0.9 % Normal . [facility] Comment on above: Performed By: #### P T, BNP, CBC, PTT, CK, DDIMER, HS TROP, CMP #### [address] Eosinophils (Bld) [#/Vol] 0.1 10*3/uL Normal 0.0-0.45 [facility] Comment on above: Performed By: #### P T, BNP, CBC, PTT, CK, DDIMER, HS TROP, CMP #### [address] Eosinophils/100 WBC (Bld) 0.8 % Normal . [facility] Comment on above: Performed By: #### P T, BNP, CBC, PTT, CK, DDIMER, HS TROP, CMP #### [address] Erythrocyte distribution width (RBC) [Ratio] 13.7 % Normal 12.0-14.8 [facility] Comment on above: Performed By: #### P T, BNP, CBC, PTT, CK, DDIMER, HS TROP, CMP #### [address] Hematocrit (Bld) [Volume fraction] 40.9 % Normal 38.8-50.0 [facility] Comment on above: Performed By: #### P T, BNP, CBC, PTT, CK, DDIMER, HS TROP, CMP #### [address] Hemoglobin (Bld) [Mass/Vol] 14.1 g/dL Normal 13.0-17.0 [facility] Comment on above: Performed By: #### P T, BNP, CBC, PTT, CK, DDIMER, HS TROP, CMP #### [address] Lymphocytes (Bld) [#/Vol] 2.2 10*3/uL Normal 1.00-4.8 [facility] Comment on above: Performed By: #### P T, BNP, CBC, PTT, CK, DDIMER, HS TROP, CMP #### [address] Lymphocytes/100 WBC (Bld) 21.2 % Normal . [facility] Comment on above: Performed By: #### P T, BNP, CBC, PTT, CK, DDIMER, HS TROP, CMP #### [address] MCH (RBC) [Entitic mass] 28.5 pg Normal 27.5-35.2 [facility] Comment on above: Performed By: #### P T, BNP, CBC, PTT, CK, DDIMER, HS TROP, CMP #### [address] MCV (RBC) [Entitic vol] 82.4 fL Low 83.5-101 [facility] Comment on above: Performed By: #### P T, BNP, CBC, PTT, CK, DDIMER, HS TROP, CMP #### [address] Mean Corpuscular HGB Conc 34.5 g/dL Normal 32.5-35.6 [facility] Comment on above: Performed By: #### P T, BNP, CBC, PTT, CK, DDIMER, HS TROP, CMP #### [place] [address] [place] Monocytes (Bld) [#/Vol] 0.9 10*3/uL High 0.0-0.8 [facility] Comment on above: Performed By: #### P T, BNP, CBC, PTT, CK, DDIMER, HS TROP, CMP #### [place] [address] [place] Monocytes/100 WBC (Bld) 15.92 % Normal 0.00-20.00 [facility] Comment on above: Performed By: #### P T, BNP, CBC, PTT, CK, DDIMER, HS TROP, CMP #### [address] Monocytes/100 WBC (Bld) 8.9 % Normal . [facility] Comment on above: Performed By: #### P T, BNP, CBC, PTT, CK, DDIMER, HS TROP, CMP #### [address] Neutrophils (Bld) [#/Vol] 7.2 10*3/uL Normal 1.8-7.7 [facility] Comment on above: Performed By: #### P T, BNP, CBC, PTT, CK, DDIMER, HS TROP, CMP #### [place] [address] [place] Neutrophils/100 WBC (Bld) 68.2 % Normal . [facility] Comment on above: Performed By: #### P T, BNP, CBC, PTT, CK, DDIMER, HS TROP, CMP #### [place] [address] [place] NRBC% 0.1 /100{WBC} Normal 0-0.5 [facility] Comment on above: Performed By: #### P T, BNP, CBC, PTT, CK, DDIMER, HS TROP, CMP #### [place] [address] [place] Platelet mean volume (Bld) [Entitic vol] 7.5 fL Normal 6.6-10.1 [facility] Comment on above: Performed By: #### P T, BNP, CBC, PTT, CK, DDIMER, HS TROP, CMP #### [facility] [address] Platelets (Bld) [#/Vol] 203 10*3/uL Normal 150-450 [facility] Comment on above: Performed By: #### P T, BNP, CBC, PTT, CK, DDIMER, HS TROP, CMP #### [facility] [address] RBC (Bld) [#/Vol] 4.97 10*6/uL Normal 3.90-5.60 [facility] Comment on above: Performed By: #### P T, BNP, CBC, PTT, CK, DDIMER, HS TROP, CMP #### [address] WBC (Bld) [#/Vol] 10.6 10*3/uL High 4.1-10.5 [facility] Comment on above: Performed By: #### P T, BNP, CBC, PTT, CK, DDIMER, HS TROP, CMP #### [facility] [address] [place] [address] Comprehensive Metabolic Pane maren 12-18-2022 Albumin [Mass/Vol] 4.6 g/dL Normal 3.5-5.7 [facility] Comment on above: Performed By: #### P T, BNP, CBC, PTT, CK, DDIMER, HS TROP, CMP ####[facility] Albumin/Globulin [Mass ratio] 2.0 {ratio} Normal [facility] Comment on above: Performed By: #### P T, BNP, CBC, PTT, CK, DDIMER, HS TROP, CMP ####[facility] ALP [Catalytic activity/Vol] 74 U/L Normal 34-104 [facility] Comment on above: Performed By: #### P T, BNP, CBC, PTT, CK, DDIMER, HS TROP, CMP ####[address] ALT [Catalytic activity/Vol] 32 U/L Normal 7-52 [facility] Comment on above: Performed By: #### P T, BNP, CBC, PTT, CK, DDIMER, HS TROP, CMP ####[address] Anion gap [Moles/Vol] 9.9 mmol/L Normal 6.0-15.0 [facility] Comment on above: Performed By: #### P T, BNP, CBC, PTT, CK, DDIMER, HS TROP, CMP ####[address] AST [Catalytic activity/Vol] 18 U/L Normal 13-39 [facility] Comment on above: Performed By: #### P T, BNP, CBC, PTT, CK, DDIMER, HS TROP, CMP ####[address] Bilirubin [Mass/Vol] 0.8 mg/dL Normal 0.3-1.0 [facility] Comment on above: Performed By: #### P T, BNP, CBC, PTT, CK, DDIMER, HS TROP, CMP ####[address] Calcium [Mass/Vol] 8.6 mg/dL Normal 8.6-10.3 [facility] Comment on above: Performed By: #### P T, BNP, CBC, PTT, CK, DDIMER, HS TROP, CMP ####[place] [id number] [facility] Chloride [Moles/Vol] 109 mmol/L High 98-107 [facility] Comment on above: Performed By: #### P T, BNP, CBC, PTT, CK, DDIMER, HS TROP, CMP ####[address] CO2 [Moles/Vol] 25.9 mmol/L Normal 21.0-31.[address] [facility] Comment on above: Performed By: #### P T, BNP, CBC, PTT, CK, DDIMER, HS TROP, CMP ####[address] Creatinine [Mass/Vol] 0.89 mg/dL Normal 0.70-1.30 [facility] Comment on above: Performed By: #### P T, BNP, CBC, PTT, CK, DDIMER, HS TROP, CMP ####[address] Creatinine Clr Calc Pharmacy 151.88 [facility] Comment on above: Result Comment: PERF ORMED BY: [facility] [address] [place] [address] PATHOLOGIST CONDUIT HELPER CARRI KIM M.D. Performed By: #### P T, BNP, CBC, PTT, CK, DDIMER, HS TROP, CMP ####[address] GFR/1.73 sq M.predicted MDRD (S/P/Bld) [Vol rate/Area] mL/min/{1.73_m2} [facility] Comment on above: Performed By: #### P T, BNP, CBC, PTT, CK, DDIMER, HS TROP, CMP ####[address] Globulin (S) [Mass/Vol] 2.3 g/dL [facility] Comment on above: Performed By: #### P T, BNP, CBC, PTT, CK, DDIMER, HS TROP, CMP ####[address] Glucose [Mass/Vol] 87 mg/dL Normal 70-100 [facility] Comment on above: Result Comment: [place] Glucose Reference Range is dependent on time and content of last meal. Glucose of more than 200 mg/dL in a nonstressed, ambulatory subject supports the diagnosis of Diabetes Mellitus. ADA recommended reference range Performed By: #### P T, BNP, CBC, PTT, CK, DDIMER, HS TROP, CMP ####[address] Potassium [Moles/Vol] 3.8 mmol/L Normal 3.5-5.1 [facility] Comment on above: Performed By: #### P T, BNP, CBC, PTT, CK, DDIMER, HS TROP, CMP ####[place] [id number] [facility] Protein [Mass/Vol] 6.9 g/dL Normal 6.4-8.9 [facility] Comment on above: Performed By: #### P T, BNP, CBC, PTT, CK, DDIMER, HS TROP, CMP ####[address] Sodium [Moles/Vol] 141 mmol/L Normal 136-145 [facility] Comment on above: Performed By: #### P T, BNP, CBC, PTT, CK, DDIMER, HS TROP, CMP ####[place] [id number] [facility] Urea nitrogen [Mass/Vol] 11 mg/dL Normal 7-25 [facility] Comment on above: Performed By: #### P T, BNP, CBC, PTT, CK, DDIMER, HS TROP, CMP ####[place] [id number] [facility] Creatine Kinaseon 12-18-2022 CK [Catalytic activity/Vol] 81 U/L Normal [facility] Comment on above: Performed By: #### P T, BNP, CBC, PTT, CK, DDIMER, HS TROP, CMP ####[place] [id number] [facility] Creatine kinase [Enzymatic a ctivity/volume] in Serum or PlasmaOrdered By: Venkat Palencia on 12-18-2022 CK [Catalytic activity/Vol] 81 U/L - [facility] Creatinine [Mass/volume] in Serum or PlasmaOrdered By: Venkat Palencia on 12-18-2022 Creatinine [Mass/Vol] 0.89 mg/dL 0.70-1.30 [facility] D-Dimer High Sensitivityon 0 12-18-2022 D-Dimer High Sensitivity < 200 Normal 0-243 [facility] Comment on above: Result Comment: The [...] patients due to co-morbid conditions. PERFORMED BY: [place] [address] PATHOLOGIST CONDUIT HELPER CARRI KIM M.D. Performed By: #### P T, BNP, CBC, PTT, CK, DDIMER, HS TROP, CMP ####[facility] [place] [id number] [facility] ECG 12 lead ECGon 12-18-2022 ECG 12 lead ECG [facility] [place] [address] Electrocardiograph Report Signed Patient: Basilio Person MR#: [id number] : 2000 Acct:[id number] Age/Sex: 22 / M ADM Date: 12/18/22 Loc: ER Room: Type: [facility] ER Attending Dr: Ordering Provider: [...] was found Confirmed by VENKAT PALENCIA MD ([id number]) on 12/18/2022 4:21:16 AM Referred By: Electronically Signed By:VENKAT PALENCIA MD Transcribed By: MUS Signed By Venkat Palencia Jr, MD 0421 Normal [facility] Eosinophils Auto (Bld) [#/Vo l]Ordered By: Venkat Palencia on 12-18-2022 Eosinophils (Bld) [#/Vol] 0.1 10*3/uL 0.0-0.45 [facility] Eosinophils/100 WBC Auto (Bl d)Ordered By: Venkat Palencia on 12-18-2022 Eosinophils/100 WBC (Bld) 0.8 % . [facility] Erythrocyte distribution wid th Auto (RBC) [Ratio]Ordered By: Venkat Palencia on 12-18-2022 Erythrocyte distribution width (RBC) [Ratio] 13.7 % 12.0-14.8 [facility] Globulin Calc (S) [Mass/Vol] Ordered By: Venkat Palencia on 12-18-2022 Globulin (S) [Mass/Vol] 2.3 g/dL [facility] Glucose [Mass/volume] in Ser um or PlasmaOrdered By: Venkat Palencia on 12-18-2022 Glucose [Mass/Vol] 87 mg/dL 70-100 [facility] Comment on above: ADA recommended refe rence rangeRandom Glucose Reference Range is dependent on time and content of last meal. Glucose of more than 200 mg/dL in a nonstressed, ambulatory subject supports the diagnosis of Diabetes Mellitus. Hematocrit Auto (Bld) [Volum e fraction]Ordered By: Venkat Palencia on 12-18-2022 Hematocrit (Bld) [Volume fraction] 40.9 % 38.8-50.0 [facility] Hemoglobin [Mass/volume] in BloodOrdered By: Venkat Palencia on 12-18-2022 Hemoglobin (Bld) [Mass/Vol] 14.1 g/dL 13.0-17.0 [facility] Laboratory - CoagulationOrde red By: Venkat Palencia on 12-18-2022 PT Coag (PPP) [Time] 12.0 s 9.0-12.9 [facility] Leukocytes [#/volume] correc ashley for nucleated erythrocytes in Blood by Automated counOrdered By: Venkat Palencia on 12-18-2022 WBC corrected for nucl RBC Auto (Bld) [#/Vol] 10.6 10*3/uL 4.1-10.5 [facility] Lymphocytes Auto (Bld) [#/Vo l]Ordered By: Venkat Palencia on 12-18-2022 Lymphocytes (Bld) [#/Vol] 2.2 10*3/uL 1.00-4.8 [facility] Lymphocytes/100 WBC Auto (Bl d)Ordered By: Venkat Palencia on 12-18-2022 Lymphocytes/100 WBC (Bld) 21.2 % . [facility] MCH Auto (RBC) [Entitic mass ]Ordered By: Venkat Palencia on 12-18-2022 MCH (RBC) [Entitic mass] 28.5 pg 27.5-35.2 [facility] MCHC Auto (RBC) [Mass/Vol]Or dered By: Venkat Palencia on 12-18-2022 MCHC (RBC) [Mass/Vol] 34.5 g/dL 32.5-35.6 [facility] MCV Auto (RBC) [Entitic vol] Ordered By: Venkat Palencia on 12-18-2022 MCV (RBC) [Entitic vol] 82.4 fL 83.5-101 [facility] Monocyte distribution width [Entitic volume] in Blood by AutomatedOrdered By: Venkat Palencia on 12-18-2022 Monocyte distribution width Auto (Bld) [Entitic vol] 15.92 % 0.00-20.00 [facility] Monocytes Auto (Bld) [#/Vol] Ordered By: Venkat Palencia on 12-18-2022 Monocytes (Bld) [#/Vol] 0.9 10*3/uL 0.0-0.8 [facility] Monocytes/100 WBC Auto (Bld) Ordered By: Venkat Palencia on 12-18-2022 Monocytes/100 WBC (Bld) 8.9 % . [facility] Natriuretic peptide B [Mass/ Vol]Ordered By: Venkat Palencia on 12-18-2022 Natriuretic peptide B (Bld) [Mass/Vol] 9.0 pg/mL 5-100 [facility] Neutrophils Auto (Bld) [#/Vo l]Ordered By: Venkat Palencia on 12-18-2022 Neutrophils (Bld) [#/Vol] 7.2 10*3/uL 1.8-7.7 [facility] Neutrophils/100 WBC Auto (Bl d)Ordered By: Venkat Palencia on 12-18-2022 Neutrophils/100 WBC (Bld) 68.2 % . [facility] No Panel InformationOrdered By: Venkat Palencia on 12-18-2022 D-Dimer Quantitative (PE/DVT) < 200 ng/mL 0-243 [facility] Comment on above: The reference range [...] conditions. Estimated GFR (CKD-EPI) > 60.0 mL/Min [facility] Creatinine Clearance (Chem 151.88 [facility] Nucleated erythrocytes [Pres ence] in Blood by Automated countOrdered By: Venkat Palencia on 12-18-2022 Nucleated RBC Auto Ql (Bld) 0.1 /100{WBC} 0-0.5 [facility] Partial Thromboplastin Timeo n 12-18-2022 aPTT Coag (Bld) [Time] 28.5 s Normal 25.1-36.5 [facility] Comment on above: Performed By: #### P T, BNP, CBC, PTT, CK, DDIMER, HS TROP, CMP ####[facility] [address] [place] [address] [facility] Platelet mean volume Auto (B ld) [Entitic vol]Ordered By: Venkat Palencia on 12-18-2022 Platelet mean volume (Bld) [Entitic vol] 7.5 fL 6.6-10.1 [facility] Platelet poor plasma interna tional normalized ratio (INR) by coagulation assay (relatOrdered By: Venkat Palencia on 12-18-2022 INR Coag (PPP) [Relative time] 1.0 {INR} [facility] Comment on above: INR Therapeutic Rang [...] 12-18-2022 Platelets (Bld) [#/Vol] 203 10*3/uL 150-450 [facility] Potassium [Moles/volume] in Serum or PlasmaOrdered By: Venkat Palencia on 12-18-2022 Potassium [Moles/Vol] 3.8 mmol/L 3.5-5.1 [facility] Protein [Mass/volume] in Ser um or PlasmaOrdered By: Venkat Palencia on 12-18-2022 Protein [Mass/Vol] 6.9 g/dL 6.4-8.9 [facility] Prothrombin Time INRon 12-18 INR Coag (PPP) [Relative time] 1.0 {INR} Normal [facility] Comment on above: Result Comment: INR [...] PTT, CK, DDIMER, HS TROP, CMP #### [facility] [address] PT Coag (PPP) [Time] 12.0 s Normal 9.0-12.9 [facility] Comment on above: Performed By: #### P T, BNP, CBC, PTT, CK, DDIMER, HS TROP, CMP #### [facility] [address] RBC Auto (Bld) [#/Vol]Ordere d By: Venkat Palencia on 04-15-2023 RBC (Bld) [#/Vol] 4.97 10*6/uL 3.90-5.60 [facility] Serum or plasma albumin/glob ulin mass ratioOrdered By: Venkat Palencia on 12-18-2022 Albumin/Globulin [Mass ratio] 2.0 {ratio} [facility] Serum or plasma anion gap de terminationOrdered By: Venkat Palencia on 12-18-2022 Anion gap [Moles/Vol] 9.9 mmol/L 6.0-15.0 [facility] Sodium [Moles/volume] in Ser um or PlasmaOrdered By: Venkat Palencia on 12-18-2022 Sodium [Moles/Vol] 141 mmol/L 136-145 [facility] Troponin I High Sensitivityo n 12-18-2022 Troponin I High Sensitivity 2.5 pg/mL Normal 0.0-20.0 [facility] Comment on above: Result Comment: PERF ORMED BY: [facility] [address] [place] [id number] PATHOLOGIST CONDUIT HELPER CARRI KIM M.D. Performed By: #### P T, BNP, CBC, PTT, CK, DDIMER, HS TROP, CMP ####[facility] [address] [place] [address] [facility] Troponin I.cardiac [Mass/vol ume] in Serum or Plasma by Detection limit <= 0.01 ng/Ordered By: Venkat Palencia on 12-18-2022 Troponin I.cardiac DL <= 0.01 ng/mL [Mass/Vol] 2.5 pg/mL 0.0-20.0 [facility] Urea nitrogen [Mass/volume] in Serum or PlasmaOrdered By: Venkat Palencia on 12-18-2022 Urea nitrogen [Mass/Vol] 11 mg/dL 7-25 [facility] WBC Auto (Bld) [#/Vol]Ordere d By: Venkat Plaencia on 12-18-2022 WBC (Bld) [#/Vol] 10.6 10*3/uL 4.1-10.5 [facility] XR chest 1V portableon 12-18 XR chest 1V portable [facility] [address] [place] [address] [place] [address] XRay Report Signed Patient: Basilio Person MR#: [id number] : 2000 Acct:[id number] Age/Sex: 22 / M ADM Date: 12/18/22 Loc: ER Room: Type: [facility] ER Attending Dr: Copies to: Venkat [...] Eagle Woodard M.D.12/18/2022 9:45 AM Dictation Location: [place] [address] Transcribed By: [facility] 12/18/22 0945 Dictated By: Eagle Woodard II, MD 12/18/22 0945 Signed By: 12/18/22 0945 [facility] Quick Strepon 10-24-2022 Quick Strep Streptococcus pyogen es Ag [Presence] in Throat by Rapid immunoassay Negative for Group A Strep Antigen Note 1 NOTE 2 Results are those of a screening test. NOTE 3 If clinically indicated please order a culture. NOTE 4 NOTE 5 Reference range = Negative PERFORMED BY: [place] [address] PATHOLOGIST CONDUIT HELPER CARRI KIM M.D. [facility] Comment on above: Performed By: #### Q S #### [facility] [address] [place] [address] RPR w/rfx to Quant TP Abson 10-24-2022 RPR, Rfx Quant RPR Non-Reactive Normal Non Reactive [facility] Comment on above: Result Comment: Perf ormed at: CB - [facility] [place] [id number] Activities Concierge: Morales Escamilla PhD, Phone: [phone] PERFORMED BY: [place] [address] PATHOLOGIST CONDUIT HELPER CARRI KIM M.D. Performed By: #### R AK W RFX ####[facility] , [facility] [Presence] in Seru m by RPROrdered By: Andrzej Bell on 10-24-2022 [facility] RPR Ql (S) Non-Reactive Non Reactive [facility] Comment on above: Performed at: CB - [facility] [address] [id number] Director: Morales Escamilla PhD, Phone: [phone] Streptococcus pyogenes antig en detectionOrdered By: Andrzej Bell on 10-24-2022 S. pyogenes Ag Ql (Unsp spec) [facility] S. pyogenes Ag Ql (Unsp spec) [facility] XR chest 1V portableon 10-08 XR chest 1V portable [facility] [place] [address] XRay Report Signed Patient: Basilio Person MR#: [id number] : 2000 Acct:[id number] Age/Sex: 22 / M ADM Date: 10/07/22 Loc: ER Room: Type: [facility] ER Attending Dr: Copies to: Suresh [...] Nehemiah Aguilar M.D.10/08/2022 7:49 AM Dictation Location: [facility]- Transcribed By: TANK 10/08/2249 Dictated By: Nehemiah Aguilar DO 10/08/2249 Signed By: 10/08/22 0749 [facility] XR soft tissue neckon 2022 XR soft tissue neck [facility] Main [place] [id number] XRay Report Signed Patient: Basilio Person MR#: [id number] : 2000 Acct:[id number] Age/Sex: 22 / M ADM Date: 10/07/22 Loc: ER Room: Type: [facility] ER Attending Dr: Copies to: Suresh [...] Nehemiah Aguilar M.D.10/08/2022 7:49 AM Dictation Location: [facility] Transcribed By: TANK 10/08/22 0749 Dictated By: Nehemiah Aguilar DO 10/08/22 0748 Signed By: 10/08/22 0749 [facility] ECG 12 lead ECGon 10-07-2022 ECG 12 lead ECG [place] [id number] Electrocardiograph Report Signed Patient: Basilio Person MR#: [id number] : 2000 Acct:[id number] Age/Sex: 22 / M ADM Date: 10/07/22 Loc: ER Room: Type: [facility] ER Attending Dr: Ordering Provider: Suresh [...] Signed By Suresh Ospina MD 10/08/22 012 [facility] XR knee LT 4V*on 09-02-2022 XR knee LT 4V* [facility] [place] [address] XRay Report Signed Patient: Basilio Person MR#: [id number] : 2000 Acct:[id number] Age/Sex: 21 / M ADM Date: 09/02/22 Loc: ER Room: Type: [facility] ER Attending Dr: Copies to: [...] Nehemiah Aguilar M.D.09/02/2022 5:15 PM Dictation Location: [place] [address] Transcribed By: [facility] 09/02/221714 Dictated By: Nehemiah Aguilar DO 09/02/221713 Signed By: 09/02/221714 [facility] Vital Signs Date Time Vital Sign Value Performing Clinician Faci lity 04-06-2023 07:00-0400 Diastolic blood pressure 68 mm[Hg] [facility] Work Phone: [facility] 04-06-2023 07:00-0400 Heart rate 77 /min [facility] Work Phone: [facility] 04-06-2023 07:00-0400 Respiratory rate 18 /min [facility] Work Phone: [facility] 04-06-2023 07:00-0400 SaO2% (BldA) [Mass fraction] 97 % [facility] Work Phone: [facility] 04-06-2023 07:00-0400 Systolic blood pressure 117 mm[Hg] [facility] Work Phone: [facility] 04-06-2023 05:26-0400 Body height 177.8 cm [facility] Work Phone: [facility] 04-06-2023 05:26-0400 Body temperature 98.6 [degF] [facility] Work Phone: [facility] 04-06-2023 05:26-0400 Body weight 97.8 kg [facility] Work Phone: [facility] 02-03-2023 20:47-0400 Body height 177.8 cm [facility] Work Phone: [facility] 02-03-2023 20:47-0400 Body temperature 98 [degF] [facility] Work Phone: [facility] 02-03-2023 20:47-0400 Body weight 95.7 kg [facility] Work Phone: [facility] 02-03-2023 20:47-0400 Diastolic blood pressure 77 mm[Hg] [facility] Work Phone: [facility] 02-03-2023 20:47-0400 Heart rate 87 /min [facility] Work Phone: [facility] 02-03-2023 20:47-0400 Respiratory rate 20 /min [facility] Work Phone: [facility] 02-03-2023 20:47-0400 SaO2% (BldA) [Mass fraction] 100 % [facility] Work Phone: [facility] 02-03-2023 20:47-0400 Systolic blood pressure 138 mm[Hg] [facility] Work Phone: [facility] 12-18-2022 03:46-0400 Heart rate 108 /min [facility] Work Phone: [facility] 12-18-2022 03:46-0400 Respiratory rate 18 /min [facility] Work Phone: [facility] 12-18-2022 03:46-0400 SaO2% (BldA) [Mass fraction] 99 % [facility] Work Phone: [facility] 12-18-2022 03:24-0400 Body height 177.8 cm [facility] Work Phone: [facility] 12-18-2022 03:24-0400 Body temperature 97.9 [degF] [facility] Work Phone: [facility] 12-18-2022 03:24-0400 Body weight 96.7 kg [facility] Work Phone: [facility] 12-18-2022 03:24-0400 Diastolic blood pressure 88 mm[Hg] [facility] Work Phone: [facility] 12-18-2022 03:24-0400 Systolic blood pressure 145 mm[Hg] [facility] Work Phone: [facility] 10-24-2022 12:21-0500 Body height 179.07 cm [facility] Work Phone: [facility] 10-24-2022 12:21-0500 Body temperature 98.7 [degF] [facility] Work Phone: [facility] 10-24-2022 12:21-0500 Body weight 98 kg [facility] Work Phone: [facility] 10-24-2022 12:21-0500 Diastolic blood pressure 64 mm[Hg] [facility] Work Phone: [facility] 10-24-2022 12:21-0500 Heart rate 81 /min [facility] Work Phone: [facility] 10-24-2022 12:21-0500 Respiratory rate 18 /min [facility] Work Phone: [facility] 10-24-2022 12:21-0500 SaO2% (BldA) [Mass fraction] 98 % [facility] Work Phone: [facility] 10-24-2022 12:21-0500 Systolic blood pressure 124 mm[Hg] [facility] Work Phone: [facility] 10-07-2022 21:20-0500 Body height 177.8 cm [facility] Work Phone: [facility] 10-07-2022 21:20-0500 Body temperature 98.4 [degF] [facility] Work Phone: [facility] 10-07-2022 21:20-0500 Body weight 100.35 kg [facility] Work Phone: [facility] 10-07-2022 21:20-0500 Diastolic blood pressure 87 mm[Hg] [facility] Work Phone: [facility] 10-07-2022 21:20-0500 Heart rate 90 /min [facility] Work Phone: [facility] 10-07-2022 21:20-0500 Respiratory rate 20 /min [facility] Work Phone: [facility] 10-07-2022 21:20-0500 SaO2% (BldA) [Mass fraction] 100 % [facility] Work Phone: [facility] 10-07-2022 21:20-0500 Systolic blood pressure 148 mm[Hg] [facility] Work Phone: [facility] 09-02-2022 15:47-0500 Body height 179.07 cm [facility] Work Phone: [facility] 09-02-2022 15:47-0500 Body temperature 98.1 [degF] [facility] Work Phone: [facility] 09-02-2022 15:47-0500 Body weight 98.95 kg [facility] Work Phone: [facility] 09-02-2022 15:47-0500 Diastolic blood pressure 77 mm[Hg] [facility] Work Phone: [facility] 09-02-2022 15:47-0500 Heart rate 74 /min [facility] Work Phone: [facility] 09-02-2022 15:47-0500 Respiratory rate 18 /min [facility] Work Phone: [facility] 09-02-2022 15:47-0500 SaO2% (BldA) [Mass fraction] 100 % [facility] Work Phone: [facility] 09-02-2022 15:47-0500 Systolic blood pressure 137 mm[Hg] Services [employer] [facility] Work Phone: [facility] Encounters Encounter Date Encounter Type Care Provider Facility Start: 04-06-2023 End: 04-06-2023 Emergency department patient visit Jeff Birmingham Facility:[facility] Start: 04-06-2023 End: 04-06-2023 Emergency department patient visit [facility] Work Phone: [facility] Room Work Phone: Start: 02-03-2023 End: 02-04-2023 Emergency department patient visit Katelyn Stephen Facility:[facility] Start: 02-03-2023 End: 02-03-2023 Emergency department [facility] visit [facility] Work Phone: [facility] Work Phone: Start: 12-18-2022 End: 12-18-2022 Emergency department patient visit Venkat Palencia Jr Facility:[facility] Start: 12-18-2022 End: 12-18-2022 Emergency department patient visit Services [facility] Work Phone: [facility] Work Phone: Start: 10-24-2022 End: 10-24-2022 Emergency department patient visit Services [facility] Facility:[facility] Start: 10-24-2022 End: 10-24-2022 Emergency department patient visit Services [facility] Work Phone: [facility] Work Phone: Start: 10-07-2022 End: 10-08-2022 Emergency department patient visit Services [facility] Facility:[facility] Start: 10-07-2022 End: 10-07-2022 Emergency department patient visit Services [facility] Work Phone: [facility] Work Phone: Start: 09-02-2022 End: 09-02-2022 Emergency department patient visit Services [facility] Start: 09-02-2022 End: 09-02-2022 Emergency department patient visit Services [facility] Work Phone: [facility] Work Phone: Procedures Date Procedure Procedure Detail Performing Clinician Start: 02-03-2023 Duplex scan of lower limb veins Services [employer] Work Phone: Start: 02-03-2023 X-ray of right knee Services [employer] Phone: Start: 12-18-2022 Plain chest X-ray Services [employer] Phone: Start: 10-24-2022 Streptococcus pyogenes antigen assay Services [employer] Phone: Start: 10-07-2022 Plain chest X-ray Services [employer] Phone: Start: 10-07-2022 X-ray of soft tissue of neck Services [employer] [facility] [employer] Phone: Start: 09-02-2022 Radiologic examination of knee Services [employer] Phone: History of appendectomy Status p ost appendectomy Services [employer] Phone: Plan of Treatment Date Care Activity Detail Author Start: 04-06-2023 Computed tomography of abdomen and pelvis with contrast CT abdomen pelvis w con [facility] Start: 04-06-2023 CT Abdomen and Pelvi s W contrast IV [facility] Start: 02-03-2023 Duplex scan of lower limb veins US venous duplex LE RT [facility] Start: 02-03-2023 US Lower extremity v ein - right [facility] Start: 02-03-2023 X-ray of right knee XR knee RT 4V* [facility] Start: 02-03-2023 XR Knee - right 4 Views [facility] Start: 12-18-2022 Plain chest X-ray XR chest 1V portab [facility] Start: 12-18-2022 XR Chest Single view [facility] Start: 10-24-2022 [facility] Start: 10-07-2022 Plain chest X-ray XR chest 1V portab [facility] Start: 10-07-2022 X-ray of soft tissue of neck XR soft tissue neck [facility] Start: 10-07-2022 XR Chest Single view [facility] Start: 10-07-2022 XR Neck Views [facility] Patient Education [facility] Work Phone: Patient referral [facility] Work Phone: Reagin Ab [Presence] in Serum by RPR [facility] Payers Date Payer Category Payer Medicaid [id number] 2022 Self-pay [id number] Medicaid [employer] [id number] Unknown Regular Auto/Liability [id number] Unknown [id number] Unknown [id number] Unknown [id number] Unknown [id number] Unknown [id number] Unknown [id number] Worker's Compensation [id number] Social History Date Type Detail Facility Start: 09-02-2022 End: 04-06-2023 Tobacco smoking status NHIS Never smoked tobacco (finding) [facility] Start: 2000 Sex Assigned At Male F [facility] Evaluation note Note Date & Type Note Facility Evaluation note No assessment information availa ble [facility] Work Phone: Hospital Discharge instructions Note Date & Type Note Facility Hospital Discharge instructions Additional Instructions Return if symptoms are worse [facility] Work Phone: Hospital Discharge instructions Note Date & Type Note Facility Hospital Discharge instructions Additional Instructions Ice and elevate Tylenol or Naprosyn if needed for pain Follow-up with your PCP or Ortho Return here if any problems persist or worsen [facility] Work Phone: Chief Complaint and [...] Services Family [facility] Primary Care Provider Active Team Status: Inactive Member Role Status Dates Services [facility] Primary Care Provider Active Jeff Mast , DO Family Provider Active Suresh Ospina MD Emergency Provider Active Team Status: Inactive Member Role Status Dates Services [facility] Primary Care Provider Active Jeff Mast , DO Family Provider Active Venkat Palencia Jr, MD Emergency Provider Active Team Status: Inactive Member Role Status Dates Services [facility] Primary Care Provider Active Jeff Mast , DO Family Provider Active Katelyn Stephen APRN Emergency Provider Active Team Status: Inactive Member Role Status Dates Services Family [facility] Primary Care Provider Active Jeff Mast , [...] section and content) DATE CREATED AUTHOR 04/18/2023 [facility] FOR RECORDS PERTAINING TO PATIENTS [...] BE BASED ON THE PRIMARY CLINICAL RECORDS. [facility] [employer] [facility]. provides no warranty or guarantee of the accuracy or completeness of information in this document.
--- NOTE | 2024-08-17 12:38 | XR_ITS ---
The [address] [address] Patient Name: JACK MATTHEWS MRN: [id number] date: 2000 Sex: M Assigned Patient Location: ER Current Patient Location: ER Accession/Order Number: [id number] Exam Date: 08/17/2024 12:30 Report Date: 08/17/2024 12:54 At the request of: DANY CORONA Procedure: XR elbow LT min 3V PROCEDURE: XR elbow LT min 3V COMPARISON: None. HISTORY: pain FINDINGS: BONES:No fracture, acute abnormality, or significant arthropathy. SOFT TISSUES:Negative. No visible soft tissue swelling. EFFUSION:None visible. OTHER: Negative. XR/XR elbow LT min 3V IMPRESSION: No acute radiographic abnormality Electronically authenticated by: ELLIOTT ALEJANDRO Date: 08/17/2024 12:54
--- NOTE | 2024-08-17 15:17 | ED_ITS ---
HPI HPI - General Adult General Chief complaint: Extremity Injury, Upper Stated complaint: upper extremity injury Time Seen by Provider: 08/17/24 13:10 Source: patient Mode of arrival: walk-in History of Present Illness HPI narrative: The patient presents to us with left elbow pain that started after he fell few hours ago The patient is just complaining of pain in his left elbow after tripping and falling forward There was no loss of consciousness or any head injury Related Data Home Medications ?Medication ?Instructions ?Recorded ?Confirmed ibuprofen 800 mg tablet 800 mg PO Q8H PRN pain 08/17/24 08/17/24 Allergies Allergy/AdvReac Type Severity Reaction Status Date / Time No Known Drug Allergies Allergy Verified 07/31/24 00:41 Opioid HPI Opioid Management Most Recent Opioid Data: Last Pain Scale 2 09/18/23 15:25 09/18/23 Review of Systems ROS Status of ROS 10 or more systems reviewed and unremark able except as noted in history and below PFSH PFSH Social History Smoking status: Never smoker Little interest or pleasure in doing things: not at all Feeling down, depressed, or hopeless: not at all Exam Narrative Exam Narrative: Nurses notes and vital signs reviewed and patient is not hypoxic. General: Well-appearing and in no apparent distress. Skin: Warm, dry, no pallor noted. No rash. Head: Normocephalic, atraumatic. Neck: Supple, non-tender. Eye: Pupils are equal, round and EOMI. No scleral icterus. Ears, Nose, Mouth, and Throat: TM are clear, no nasal mucosal hypertrophy. Oral mucosa is moist, no posterior oropharynx erythema, uvula is mid-line Cardiovascular: Regular Rate and Rhythm without murmur, gallop or rub. Respiratory: No accessory muscle use or respiratory distress. Lungs are clear to auscultation, no wheezing, rales or rhonchi Chest Wall: no tenderness Back: No midline thoracic or lumbar vertebral tenderness. No CVA tenderness Musculoskeletal: normal ROM, left elbow shows full range of movement no significant swelling there is a small abrasion to the dorsum of the left elbow no open wounds GI: Abdomen is soft, non-distended. Normal bowel sounds. No masses appreciated. No tenderness to palpation. No rebound, guarding, or rigidity noted. Neurological: A&O x4. No cranial nerve dysfunction observed. No truncal ataxia. Moves all extremities. Sensation intact. Psychiatric: Cooperative and interactive. Normal mood and affect. Constitutional Vital Signs, click to edit/add: Last Vital Signs Temp 98.1 F 08/17/24 12:23 Pulse 92 H 08/17/24 12:23 Resp 18 08/17/24 12:23 BP 139/86 08/17/24 12:23 Pulse Ox 97 08/17/24 12:23 Course Vital Signs Vital signs: Vital Signs Temperature 98.1 F 08/17/24 12:23 Pulse Rate 92 H 08/17/24 12:23 Respiratory Rate 18 08/17/24 12:23 Blood Pressure 139/86 08/17/24 12:23 Pulse Oximetry 97 08/17/24 12:23 Temperature 98.1 F 08/17/24 12:23 Pulse Rate 92 H 08/17/24 12:23 Respiratory Rate 18 08/17/24 12:23 Blood Pressure 139/86 08/17/24 12:23 Pulse Oximetry 97 08/17/24 12:23 Medical Decision Making [facility] Narrative Medical decision making narrative: Patient x-ray of the left elbow showed no acute pathology Presentation mostly secondary to contusion the patient was provided David wrap and supportive care to be continued at home He was instructed about monitoring his symptoms in case of continuous pain after a week the patient to present to his primary care to repeat the x-ray The patient is to follow up with primary care physician in next 2-3 days or to return to the emergency department should any of the signs or symptoms worsen or new symptoms develop. The patient agrees with the following Diagnosis and Tr eatment plan and the patient will be discharged home. Discharge Plan Discharge Chief Complaint: Extremity Injury, Upper Clinical Impression: Contusion of elbow Patient Disposition: Home, Self-Care Time of Disposition Decision: 13:13 Condition: Good Prescriptions / Home Meds: No Action ibuprofen 800 mg tablet 800 mg PO Q8H PRN (Reason: pain) Print Language: Zambian Instructions: Contusion in Adults (ED) Referrals: [facility] [Primary Care Provider] - 1 week Discharge Date/Time: 08/17/24 13:19
== END 2024-08-17 13:19 | disposition home or self-care (01) ==
PROVIDERS: Emergency Provider Emergency Medicine
DX: S50.02XA Contusion of left elbow, initial encounter (principal); S50.312A Abrasion of left elbow, initial encounter; W01.0XXA Fall on same level from slipping, tripping and stumbling without subsequent striking against object, initial encounter
CPT/HCPCS: 73080; 99283

== ENCOUNTER 2024-08-20 08:12 | Emergency (ER) | payer OTHER, SELFPAY ==
[2024-08-20 08:20] VITALS: BP 150/91; PULSE 91; TEMP 36.7; O2SAT 97; BMI 31.6
--- NOTE | 2024-08-20 08:34 | XR_ITS ---
The [address] [address] Patient Name: JACK MATTHEWS MRN: [id number] date: 2000 Sex: M Assigned Patient Location: ER Current Patient Location: ER Accession/Order Number: [id number] Exam Date: 08/20/2024 08:45 Report Date: 08/20/2024 09:15 At the request of: MIKAYLA LUCAS Procedure: XR chest 1V EXAM: XR chest 1V HISTORY: . cough . COMPARISON: 04/10/2023 TECHNIQUE: Single view of the chest FINDINGS: Heart and vascularity are unremarkable. Lungs are free of focal infiltrates. Grossly no acute bony abnormality is appreciated. XR/XR chest 1V IMPRESSION: No acute heart or lung disease identified. Electronically authenticated by: ELLIOTT LUGO Date: 08/20/2024 09:15
--- NOTE | 2024-08-20 08:35 | ED.URI1 ---
HPI - URI/Sore Throat General Chief Complaint: Upper Respiratory Infection Stated Complaint: SORE THROAT CHEST PAINS Time Seen by Provider: 08/20/24 08:32 History of Present Illness HPI Narrative: 23-year-old male presents for sore throat and cough and pains in his chest. He has been sick for a few days. His girlfriend was sick but she got better and did not need to go to the doctor. His cough is mostly nonproductive and he has not had a fever or hemoptysis. Related Data Home Medications ?Medication ?Instructions ?Recorded ?Confirmed No Known Home Medications 08/20/24 08/20/24 Allergies Allergy/AdvReac Type Severity Reaction Status Date / Time No Known Drug Allergies Allergy Verified 07/31/24 00:41 Review of Systems ROS Narrative A ten point review of systems is negative except as noted above. PFSH PFSH Social History Smoking status: Never smoker Little interest or pleasure in doing things: not at all Feeling down, depressed, or hopeless: not at all Exam Narrative Exam Narrative: Nurses note and vital signs reviewed and patient is not hypoxic. General: The patient appears well and in no apparent distress. Patient is resting comfortably on cart. Skin: Warm, dry, no pallor noted. There is no rash noted. Head: Normocephalic, atraumatic Eye: Normal conjunctiva, no drainage Ears, Nose, Mouth, and Throat: oral mucosa is moist. Nares patent. Minimal pharyngeal erythema, no exudate. Uvula midline Cardiovascular: Regular Rate and Rhythm Respiratory: Patient is in no distress, no accessory muscle use, lungs are clear to auscultation, no wheezing, rales or rhonchi Back: non-tender GI: Soft and nontender Musculoskeletal: The patient has no evidence of calf tenderness, no pitting edema, symmetrical pulses noted bilaterally Neurological: A&O, normal speech Psychiatric: Cooperative Constitutional Vital Signs, click to edit/add: Last Vital Signs Temp 98.1 F 08/20/24 08:20 Pulse 91 H 08/20/24 08:20 Resp 18 08/20/24 08:20 BP 150/91 H 08/20/24 08:20 Pulse Ox 97 08/20/24 08:20 O2 Del Method Room Air 08/20/24 08:20 Course Vital Signs Vital signs: Vital Signs Temperature 98.1 F 08/20/24 08:20 Pulse Rate 91 H 08/20/24 08:20 Respiratory Rate 18 08/20/24 08:20 Blood Pressure 150/91 H 08/20/24 08:20 Pulse Oximetry 97 08/20/24 08:20 Oxygen Delivery Method Room Air 08/20/24 08:20 Temperature 98.1 F 08/20/24 08:20 Pulse Rate 91 H 08/20/24 08:20 Respiratory Rate 18 08/20/24 08:20 Blood Pressure 150/91 H 08/20/24 08:20 Pulse Oximetry 97 08/20/24 08:20 Oxygen Delivery Method Room Air 08/20/24 08:20 MDM - URI/Sore Throat MDM Narrative Medical decision making narrative: Strep, influenza, and chest x-ray are negative. COVID test is positive and he was informed and given a work note. Findings were discussed with the patient. Differential Diagnosis Differential diagnosis: Likely upper respiratory infection, viral infection, influenza and other (Strep throat, COVID, pneumonia) Lab Data Attestation: I reviewed the patient's lab results. Labs: Lab Results 08/20/24 Range/Units 08:40 Influenza Type A Ag Negative Influenza Type B Ag Negative SARS-CoV-2 Ag (CV2AG) Positive A (NEGATIVE) Streptococcus Screen Negative Imaging Data Chest x-ray: Radiologist's impression: ITS Impressions Chest X-Ray 08/20/24 08:34 IMPRESSION: No acute heart or lung disease identified. Electronically authenticated by: ELLIOTT LUGO Date: 08/20/2024 09:15 Discharge Plan Discharge Chief Complaint: Upper Respiratory Infection Clinical Impression: COVID Patient Disposition: Home, Self-Care Time of Disposition Decision: 09:24 Condition: Good Mode of Transportation: Private Vehicle Prescriptions / Home Meds: No Action No Known Home Medications Print Language: Citizen Of [place] Instructions: COVID-19 (Coronavirus Disease 2019) (ED), COVID-19: Slow the Coronavirus Spread (ED), Face Coverings (Masks) and COVID-19 (ED) Referrals: [facility] [Primary Care Provider] - 1 week
[2024-08-20 09:21] LABS: Influenza Virus A Antigen Negative; Influenza Virus B Antigen Negative; Internal Control Within Normal Limits; Strep A Antigen Screen Negative
[2024-08-20 09:22] LABS: SARS-CoV-2 Ag POSITIVE (NEGATIVE)
== END 2024-08-20 09:30 | disposition home or self-care (01) ==
PROVIDERS: Emergency Provider Emergency Medicine
DX: U07.1 COVID-19 (principal)
CPT/HCPCS: 71045; 87070; 87804; 87811; 87880; 99284

== ENCOUNTER 2024-10-21 02:34 | Emergency (ER) | payer OTHER, SELFPAY ==
[2024-10-21 02:36] VITALS: BP 126/88; PULSE 128; TEMP 37.4; O2SAT 98
--- OUTSIDE RECORDS SUMMARY | 2024-10-21 02:40 | XMS_ITS | CCD ---
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 Apprentice Name Role Phone [facility], Services Primary Care Provider JOSE A Bell Emergency Provider [phone] MD Suresh Ospina Emergency Provider [facility], Services Primary Care Provider MD Suresh Ospina Emergency Provider JOSE A Bell Emergency Provider MD Venkat Palencia Jr Emergency Provider [facility], Services Primary Care Provider [phone] JOSE A Stephen Emergency Provider [facility], Services Primary Care Provider DO Jeff Birmingham Emergency Provider Katelyn Stephen Admitting Unavailable Katelyn Stephen Attending Unavailable [facility], Services Primary Care Unavaila Jeff Larson Admitting Unavailable Jeff Birmingham Attending Unavailable [facility], Services Primary Care Unavaila ble [facility], Services Primary Care Unavaila Andrzej Antunez Admitting Unavailable Andrzej Bell Attending Unavailable [facility], Services Primary Care Unavaila ble Suresh Ospina Admitting Unavailable Suresh Ospina Attending Unavailable [facility], Services Primary Care Unavaila Andrzej Antunez Admitting Unavailable Andrzej Bell Attending Unavailable Venkat Palencia Jr Admitting Unavailable Venkat Palencia Jr Attending Unavailable [facility], Services Primary Care Unavaila ble Allergies Allergy Classification Reported Allergen(s) Allergy Type Date of Onset Reaction(s) Facility (6 sources) insect venom; Translations: [insect venom] Allergy to substance 10-07-2022 [facility] Medications Current Medications Medication Drug Class(es) [...] painful area for up to 12 hrs [place] (No Known Home Meds) (1 source) Start: 10-07-2022 [place] (No Known Home Meds) Active October 07, [...] [Catalytic activity/Vol] 44 U/L 7-52 [facility] Albumin [Mass/volume] in Ser um or Plasma by Bromocresol green (BCG) dye binding methoOrdered By: Jeff Birmingham on 04-06-2023 Albumin BCG dye [Mass/Vol] 4.7 g/dL 3.5-5.7 [facility] Alkaline phosphatase [Enzyma tic activity/volume] in Serum or PlasmaOrdered By: Jeff Birmingham on 04-06-2023 ALP [Catalytic activity/Vol] 67 U/L 34-104 [facility] Aspartate aminotransferase [ Enzymatic activity/volume] in Serum or PlasmaOrdered By: Jeff Birmingham on 04-06-2023 AST [Catalytic activity/Vol] 25 U/L 13-39 [facility] Basic Metabolic Panelon Anion gap [Moles/Vol] 9.4 mmol/L Normal 6.0-15.0 [facility] Comment on above: Performed By: #### H EPATIC, BMP, CBC, LIPASE ####[address] Calcium [Mass/Vol] 9.5 mg/dL Normal 8.6-10.3 [facility] Comment on above: Performed By: #### H EPATIC, BMP, CBC, LIPASE ####[address] Chloride [Moles/Vol] 104 mmol/L Normal 98-107 [facility] Comment on above: Performed By: #### H EPATIC, BMP, CBC, LIPASE ####[address] CO2 [Moles/Vol] 29.3 mmol/L Normal 21.0-31.0 [facility] Comment on above: Performed By: #### H EPATIC, BMP, CBC, LIPASE ####[address] Creatinine [Mass/Vol] 0.91 mg/dL Normal 0.70-1.30 [facility] Comment on above: Performed By: #### H EPATIC, BMP, CBC, LIPASE ####[place] [id number] [facility] Creatinine Clr Calc Pharmacy 149.34 Normal [facility] Comment on above: Performed By: #### H EPATIC, BMP, CBC, LIPASE ####[address] GFR/1.73 sq M.predicted MDRD (S/P/Bld) [Vol rate/Area] mL/min/{1.73_m2} Normal [facility] Comment on above: Performed By: #### H EPATIC, BMP, CBC, LIPASE ####[facility] Glucose [Mass/Vol] 95 mg/dL Normal 70-100 [facility] Comment on above: Result Comment: [facility] Glucose Reference Range is dependent on time and content of last meal. Glucose of more than 200 mg/dL in a nonstressed, ambulatory subject supports the diagnosis of Diabetes Mellitus. ADA recommended reference range Performed By: #### H EPATIC, BMP, CBC, LIPASE ####[facility] [id number] Potassium [Moles/Vol] 3.7 mmol/L Normal 3.5-5.1 [facility] Comment on above: Performed By: #### H EPATIC, BMP, CBC, LIPASE ####[address] Sodium [Moles/Vol] 139 mmol/L Normal 136-145 [facility] Comment on above: Performed By: #### H EPATIC, BMP, CBC, LIPASE ####[place] [address] [address] Urea nitrogen [Mass/Vol] 7 mg/dL Normal 7-25 [facility] Comment on above: Performed By: #### H EPATIC, BMP, CBC, LIPASE ####[facility] [id number] [place] [address] Basophils Auto (Bld) [#/Vol] Ordered By: Jeff Birmingham on 04-06-2023 Basophils (Bld) [#/Vol] 0.1 10*3/uL 0.0-0.2 [facility] Basophils/100 WBC Auto (Bld) Ordered By: Jeff Birmingham on 04-06-2023 Basophils/100 WBC (Bld) 0.9 % . [facility] Bilirubin.direct [Mass/volum e] in Serum or PlasmaOrdered By: Jeff Birmingham on 04-06-2023 Bilirubin.direct [Mass/Vol] 0.10 mg/dL 0.03-0.18 [facility] Bilirubin.total [Mass/volume ] in Serum or PlasmaOrdered By: Jeff Birmingham on 04-06-2023 Bilirubin [Mass/Vol] 0.6 mg/dL 0.3-1.0 [facility] CT abdomen pelvis w conon CT abdomen pelvis w con [facility] [place] [address] CT Scan Report Signed Patient: Basilio Person MR#: [id number] : 2000 Acct:[id number] Age/Sex: 22 / M ADM Date: 04/06/23 Loc: ER Room: Type: [facility] ER Attending Dr: Copies to: Jeff [...] Naidu Jr., D.O.04/06/2023 9:26 AM Dictation Location: [place] [address] Transcribed By: TANK 04/06/23925 Dictated By: Gio Naidu Jr, DO 04/06/23918 Signed By: 04/06/23925 Normal [facility] Calcium [Mass/volume] in Ser um or PlasmaOrdered By: Jeff Birmingham on 04-06-2023 Calcium [Mass/Vol] 9.5 mg/dL 8.6-10.3 [facility] Carbon dioxide, total [Moles /volume] in Serum or PlasmaOrdered By: Jeff Birmingham on 04-06-2023 CO2 [Moles/Vol] 29.3 mmol/L 21.0-31.0 [facility] Chloride [Moles/volume] in S valerie or PlasmaOrdered By: Jeff Birmingham on 04-06-2023 Chloride [Moles/Vol] 104 mmol/L 98-107 [facility] Complete Blood Count Auto Di ffon 04-06-2023 Basophils (Bld) [#/Vol] 0.1 10*3/uL Normal 0.0-0.2 [facility] Comment on above: Result Comment: PERF ORMED BY: [facility] [address] [place] [address] PATHOLOGIST ASSISTANT PRODUCE MANAGER CARRI KIM M.D. Performed By: #### H EPATIC, BMP, CBC, LIPASE ####[place] [address] [address] Basophils/100 WBC (Bld) 0.9 % Normal . [facility] Comment on above: Performed By: #### H EPATIC, BMP, CBC, LIPASE ####[facility] Hks[address] Eosinophils (Bld) [#/Vol] 0.1 10*3/uL Normal 0.0-0.45 [facility] Comment on above: Performed By: #### H EPATIC, BMP, CBC, LIPASE ####[place] [address] [address] Eosinophils/100 WBC (Bld) 1.1 % Normal . [facility] Comment on above: Performed By: #### H EPATIC, BMP, CBC, LIPASE ####[address] Erythrocyte distribution width (RBC) [Ratio] 13.6 % Normal 12.0-14.8 [facility] Comment on above: Performed By: #### H EPATIC, BMP, CBC, LIPASE ####[address] Hematocrit (Bld) [Volume fraction] 42.1 % Normal 38.8-50.0 [facility] Comment on above: Performed By: #### H EPATIC, BMP, CBC, LIPASE ####[address] Hemoglobin (Bld) [Mass/Vol] 14.9 g/dL Normal 13.0-17.0 [facility] Comment on above: Performed By: #### H EPATIC, BMP, CBC, LIPASE ####[address] Lymphocytes (Bld) [#/Vol] 3.1 10*3/uL Normal 1.00-4.8 [facility] Comment on above: Performed By: #### H EPATIC, BMP, CBC, LIPASE ####[address] Lymphocytes/100 WBC (Bld) 30.6 % Normal . [facility] Comment on above: Performed By: #### H EPATIC, BMP, CBC, LIPASE ####[address] MCH (RBC) [Entitic mass] 29.0 pg Normal 27.5-35.2 [facility] Comment on above: Performed By: #### H EPATIC, BMP, CBC, LIPASE ####[address] MCV (RBC) [Entitic vol] 81.9 fL Low 83.5-101 [facility] Comment on above: Performed By: #### H EPATIC, BMP, CBC, LIPASE ####[address] Mean Corpuscular HGB Conc 35.3 g/dL Normal 32.5-35.6 [facility] Comment on above: Performed By: #### H EPATIC, BMP, CBC, LIPASE ####[address] Monocytes (Bld) [#/Vol] 1.0 10*3/uL High 0.0-0.8 [facility] Comment on above: Performed By: #### H EPATIC, BMP, CBC, LIPASE ####[address] Monocytes/100 WBC (Bld) 15.06 % Normal 0.00-20.00 [facility] Comment on above: Performed By: #### H EPATIC, BMP, CBC, LIPASE ####[address] Monocytes/100 WBC (Bld) 9.5 % Normal . [facility] Comment on above: Performed By: #### H EPATIC, BMP, CBC, LIPASE ####[address] Neutrophils (Bld) [#/Vol] 5.9 10*3/uL Normal 1.8-7.7 [facility] Comment on above: Performed By: #### H EPATIC, BMP, CBC, LIPASE ####[address] Neutrophils/100 WBC (Bld) 57.9 % Normal . [facility] Comment on above: Performed By: #### H EPATIC, BMP, CBC, LIPASE ####[address] NRBC% 0.1 /100{WBC} Normal 0-0.5 [facility] Comment on above: Performed By: #### H EPATIC, BMP, CBC, LIPASE ####[address] Platelet mean volume (Bld) [Entitic vol] 8.0 fL Normal 6.6-10.1 [facility] Comment on above: Performed By: #### H EPATIC, BMP, CBC, LIPASE ####[facility] [id number] Platelets (Bld) [#/Vol] 198 10*3/uL Normal 150-450 [facility] Comment on above: Performed By: #### H EPATIC, BMP, CBC, LIPASE ####[place] [address] [address] RBC (Bld) [#/Vol] 5.14 10*6/uL Normal 3.90-5.60 [facility] Comment on above: Performed By: #### H EPATIC, BMP, CBC, LIPASE ####[place] [id number] [address] WBC (Bld) [#/Vol] 10.2 10*3/uL Normal 4.1-10.5 [facility] Comment on above: Performed By: #### H EPATIC, BMP, CBC, LIPASE ####[address] Creatinine [Mass/volume] in Serum or PlasmaOrdered By: Jeff Birmingham on 04-06-2023 Creatinine [Mass/Vol] 0.91 mg/dL 0.70-1.30 [facility] Eosinophils Auto (Bld) [#/Vo l]Ordered By: Jeff Birmingham on 04-06-2023 Eosinophils (Bld) [#/Vol] 0.1 10*3/uL 0.0-0.45 [facility] Eosinophils/100 WBC Auto (Bl d)Ordered By: Jeff Birmingham on 04-06-2023 Eosinophils/100 WBC (Bld) 1.1 % . [facility] Erythrocyte distribution wid th Auto (RBC) [Ratio]Ordered By: Jeff Birmingham on 04-06-2023 Erythrocyte distribution width (RBC) [Ratio] 13.6 % 12.0-14.8 [facility] Globulin Calc (S) [Mass/Vol] Ordered By: Jeff Birmingham on 04-06-2023 Globulin (S) [Mass/Vol] 2.5 g/dL [facility] Glucose [Mass/volume] in Ser um or PlasmaOrdered By: Jeff Birmingham on 04-06-2023 Glucose [Mass/Vol] 95 mg/dL 70-100 [facility] Comment on above: ADA recommended refe rence rangeRandom Glucose Reference Range is dependent on time and content of last meal. Glucose of more than 200 mg/dL in a nonstressed, ambulatory subject supports the diagnosis of Diabetes Mellitus. Hematocrit Auto (Bld) [Volum e fraction]Ordered By: Jeff Birmingham on 04-06-2023 Hematocrit (Bld) [Volume fraction] 42.1 % 38.8-50.0 [facility] Hemoglobin [Mass/volume] in BloodOrdered By: Jeff Birmingham on 04-06-2023 Hemoglobin (Bld) [Mass/Vol] 14.9 g/dL 13.0-17.0 [facility] Hepatic Panelon 04-06-2023 Albumin [Mass/Vol] 4.7 g/dL Normal 3.5-5.7 [facility] Comment on above: Performed By: #### H EPATIC, BMP, CBC, LIPASE ####[address] Albumin/Globulin [Mass ratio] 1.9 {ratio} Normal [facility] Comment on above: Performed By: #### H EPATIC, BMP, CBC, LIPASE ####[address] ALP [Catalytic activity/Vol] 67 U/L Normal 34-104 [facility] Comment on above: Performed By: #### H EPATIC, BMP, CBC, LIPASE ####[place] [id number] [facility] ALT [Catalytic activity/Vol] 44 U/L Normal 7-52 [facility] Comment on above: Performed By: #### H EPATIC, BMP, CBC, LIPASE ####[place] [id number] [facility] AST [Catalytic activity/Vol] 25 U/L Normal 13-39 [facility] Comment on above: Performed By: #### H EPATIC, BMP, CBC, LIPASE ####[address] Bilirubin [Mass/Vol] 0.6 mg/dL Normal 0.3-1.0 [facility] Comment on above: Performed By: #### H EPATIC, BMP, CBC, LIPASE ####[address] Bilirubin,Indirect 0.5 mg/dL Normal [facility] Comment on above: Performed By: #### H EPATIC, BMP, CBC, LIPASE ####[address] Bilirubin.indirect [Mass/Vol] 0.10 mg/dL Normal 0.03-0.18 [facility] Comment on above: Performed By: #### H EPATIC, BMP, CBC, LIPASE ####[address] Globulin (S) [Mass/Vol] 2.5 g/dL Normal [facility] Comment on above: Performed By: #### H EPATIC, BMP, CBC, LIPASE ####[address] Protein [Mass/Vol] 7.2 g/dL Normal 6.4-8.9 [facility] Comment on above: Performed By: #### H EPATIC, BMP, CBC, LIPASE ####[address] Leukocytes [#/volume] correc ashley for nucleated erythrocytes in Blood by Automated counOrdered By: Jeff Birmingham on 04-06-2023 WBC corrected for nucl RBC Auto (Bld) [#/Vol] 10.2 10*3/uL 4.1-10.5 [facility] Lipaseon 04-06-2023 Lipase [Catalytic activity/Vol] 20.0 U/L Normal 11.0-82.0 [facility] Comment on above: Result Comment: PERF ORMED BY: [facility] [address] [place] [address] PATHOLOGIST ASSISTANT PRODUCE MANAGER CARRI KIM M.D. Performed By: #### H EPATIC, BMP, CBC, LIPASE ####[address] [place] [address] [facility] Lipase [Enzymatic activity/v olume] in Serum or PlasmaOrdered By: Jeff Birmingham on 04-06-2023 Lipase [Catalytic activity/Vol] 20.0 U/L 11.0-82.0 [facility] Lymphocytes Auto (Bld) [#/Vo l]Ordered By: Jeff Birmingham on 04-06-2023 Lymphocytes (Bld) [#/Vol] 3.1 10*3/uL 1.00-4.8 [facility] Lymphocytes/100 WBC Auto (Bl d)Ordered By: Jeff Birmingham on 04-06-2023 Lymphocytes/100 WBC (Bld) 30.6 % . [facility] MCH Auto (RBC) [Entitic mass ]Ordered By: Jeff Birmingham on 04-06-2023 MCH (RBC) [Entitic mass] 29.0 pg 27.5-35.2 [facility] MCHC Auto (RBC) [Mass/Vol]Or dered By: Jeff Birmingham on 04-06-2023 MCHC (RBC) [Mass/Vol] 35.3 g/dL 32.5-35.6 [facility] MCV Auto (RBC) [Entitic vol] Ordered By: Jeff Birmingham on 04-06-2023 MCV (RBC) [Entitic vol] 81.9 fL 83.5-101 [facility] Monocyte distribution width [Entitic volume] in Blood by AutomatedOrdered By: Jeff Birmingham on 04-06-2023 Monocyte distribution width Auto (Bld) [Entitic vol] 15.06 % 0.00-20.00 [facility] Monocytes Auto (Bld) [#/Vol] Ordered By: Jeff Birmingham on 04-06-2023 Monocytes (Bld) [#/Vol] 1.0 10*3/uL 0.0-0.8 [facility] Monocytes/100 WBC Auto (Bld) Ordered By: Jeff Birmingham on 04-06-2023 Monocytes/100 WBC (Bld) 9.5 % . [facility] Neutrophils Auto (Bld) [#/Vo l]Ordered By: Jeff Birmingham on 04-06-2023 Neutrophils (Bld) [#/Vol] 5.9 10*3/uL 1.8-7.7 [facility] Neutrophils/100 WBC Auto (Bl d)Ordered By: Jeff Birmingham on 04-06-2023 Neutrophils/100 WBC (Bld) 57.9 % . [facility] No Panel InformationOrdered By: Jeff Birmingham on 04-06-2023 Estimated GFR (CKD-EPI) > 60.0 mL/Min [facility] Pharmacy Creatinine Clearance (Chem 149.34 [facility] Nucleated erythrocytes [Pres ence] in Blood by Automated countOrdered By: Jeff Birmingham on 04-06-2023 Nucleated RBC Auto Ql (Bld) 0.1 /100{WBC} 0-0.5 [facility] Platelet mean volume Auto (B ld) [Entitic vol]Ordered By: Jeff Birmingham on 04-06-2023 Platelet mean volume (Bld) [Entitic vol] 8.0 fL 6.6-10.1 [facility] Platelets Auto (Bld) [#/Vol] Ordered By: Jeff Birmingham on 04-06-2023 Platelets (Bld) [#/Vol] 198 10*3/uL 150-450 [facility] Potassium [Moles/volume] in Serum or PlasmaOrdered By: Jeff Birmingham on 04-06-2023 Potassium [Moles/Vol] 3.7 mmol/L 3.5-5.1 [facility] Protein [Mass/volume] in Ser um or PlasmaOrdered By: Jeff Birmingham on 04-06-2023 Protein [Mass/Vol] 7.2 g/dL 6.4-8.9 [facility] RBC Auto (Bld) [#/Vol]Ordere d By: Jeff Birmignham on 04-06-2023 RBC (Bld) [#/Vol] 5.14 10*6/uL 3.90-5.60 [facility] Serum or plasma albumin/glob ulin mass ratioOrdered By: Jeff Birmingham on 04-06-2023 Albumin/Globulin [Mass ratio] 1.9 {ratio} [facility] Serum or plasma anion gap de terminationOrdered By: Jeff Birmingham on 04-06-2023 Anion gap [Moles/Vol] 9.4 mmol/L 6.0-15.0 [facility] Serum or plasma non-glucuron idated bilirubin measurement (mass/volume)Ordered By: Jeff Birmingham on 04-06-2023 Bilirubin.indirect [Mass/Vol] 0.5 mg/dL [facility] Sodium [Moles/volume] in Ser um or PlasmaOrdered By: Jeff Birmingham on 04-06-2023 Sodium [Moles/Vol] 139 mmol/L 136-145 [facility] Urea nitrogen [Mass/volume] in Serum or PlasmaOrdered By: Jeff Birmingham on 04-06-2023 Urea nitrogen [Mass/Vol] 7 mg/dL 7-25 [facility] WBC Auto (Bld) [#/Vol]Ordere d By: Jeff Birmingham on 04-06-2023 WBC (Bld) [#/Vol] 10.2 10*3/uL 4.1-10.5 [facility] US venous duplex LE RTon US venous duplex LE RT [facility] [place] [address] Ultrasound Report Signed Patient: Basilio Person MR#: [id number] : 2000 Acct:[id number] Age/Sex: 22 / M ADM Date: 02/03/23 Loc: ER Room: Type: [facility] ER Attending Dr: Ordering Provider: Katelyn Setphen APRN Date of Service: 02/03/23 US/US venous [...] Nehemiah Camejo M.D.02/04/2023 8:41 AM Dictation Location: [place] [address] Tech: Cee Dasilva Transcribed By: TANK 02/04/2341 Dictated By: Nehemiah Camejo MD 02/04/23840 Signed By: 02/04/23840 [facility] XR knee RT 4V*on 02-04-2023 XR knee RT 4V* [place] [address] XRay Report Signed Patient: Basilio Person MR#: [id number] : 2000 Acct:[id number] Age/Sex: 22 / M ADM Date: 02/03/23 Loc: ER Room: Type: [facility] ER Attending Dr: Copies to: Katelyn [...] Park Champagne M.D.02/04/2023 7:38 AM Dictation Location: [place] [address] Transcribed By: TANK 02/04/23 0738 Dictated By: Park Champagne MD 02/04/23 0737 Signed By: 02/04/23 0738 [facility] Activated partial thrombopla stin time (aPTT) in platelet poor plasma by coagulation aOrdered By: Venkat Palencia on 12-18-2022 aPTT Coag (PPP) [Time] 28.5 s 25.1-36.5 [facility] Alanine aminotransferase [En zymatic activity/volume] in Serum or PlasmaOrdered By: Venkat Palencia on 12-18-2022 ALT [Catalytic activity/Vol] 32 U/L 7-52 [facility] Albumin [Mass/volume] in Ser um or Plasma by Bromocresol green (BCG) dye binding methoOrdered By: Venkat Palencia on 12-18-2022 Albumin BCG dye [Mass/Vol] 4.6 g/dL 3.5-5.7 [facility] Alkaline phosphatase [Enzyma tic activity/volume] in Serum or PlasmaOrdered By: Venkat Palencia on 12-18-2022 ALP [Catalytic activity/Vol] 74 U/L 34-104 [facility] Aspartate aminotransferase [ Enzymatic activity/volume] in Serum or PlasmaOrdered By: Venkat Palencia on 12-18-2022 AST [Catalytic activity/Vol] 18 U/L 13-39 [facility] B-Type Natriuretic Peptideon 12-18-2022 Natriuretic peptide B (Bld) [Mass/Vol] 9.0 pg/mL Normal 5-100 [facility] Comment on above: Result Comment: PERF ORMED BY: [facility] [address] [place] [id number] PATHOLOGIST ASSISTANT PRODUCE MANAGER CARRI KIM M.D. Performed By: #### P T, BNP, CBC, PTT, CK, DDIMER, HS TROP, CMP ####[facility] [id number] [place] [id number] [facility] Basophils Auto (Bld) [#/Vol] Ordered By: Venkat Palencia on 12-18-2022 Basophils (Bld) [#/Vol] 0.1 10*3/uL 0.0-0.2 [facility] Basophils/100 WBC Auto (Bld) Ordered By: Venkat Palencia on 12-18-2022 Basophils/100 WBC (Bld) 0.9 % . [facility] Bilirubin.total [Mass/volume ] in Serum or PlasmaOrdered By: Venkat Palencia on 12-18-2022 Bilirubin [Mass/Vol] 0.8 mg/dL 0.3-1.0 [facility] Calcium [Mass/volume] in Ser um or PlasmaOrdered By: Venkat Palencia on 12-18-2022 Calcium [Mass/Vol] 8.6 mg/dL 8.6-10.3 [facility] Carbon dioxide, total [Moles /volume] in Serum or PlasmaOrdered By: Vnekat Palencia on 12-18-2022 CO2 [Moles/Vol] 25.9 mmol/L 21.0-31.0 [facility] Chloride [Moles/volume] in S valerie or PlasmaOrdered By: Venkat Palencia on 12-18-2022 Chloride [Moles/Vol] 109 mmol/L 98-107 [facility] Complete Blood Count Auto Di ffon 12-18-2022 Basophils (Bld) [#/Vol] 0.1 10*3/uL Normal 0.0-0.2 [facility] Comment on above: Result Comment: PERF ORMED BY: [place] [address] PATHOLOGIST ASSISTANT PRODUCE MANAGER CARRI KIM M.D. Performed By: #### P T, BNP, CBC, PTT, CK, DDIMER, HS TROP, CMP #### [address] Basophils/100 WBC (Bld) 0.9 % Normal . [facility] Comment on above: Performed By: #### P T, BNP, CBC, PTT, CK, DDIMER, HS TROP, CMP #### [address] Eosinophils (Bld) [#/Vol] 0.1 10*3/uL Normal 0.0-0.45 [facility] Comment on above: Performed By: #### P T, BNP, CBC, PTT, CK, DDIMER, HS TROP, CMP #### [address] Eosinophils/100 WBC (Bld) 0.8 % Normal . [facility] Comment on above: Performed By: #### P T, BNP, CBC, PTT, CK, DDIMER, HS TROP, CMP #### [address] Erythrocyte distribution width (RBC) [Ratio] 13.7 % Normal 12.0-14.8 [facility] Comment on above: Performed By: #### P T, BNP, CBC, PTT, CK, DDIMER, HS TROP, CMP #### [address] Hematocrit (Bld) [Volume fraction] 40.9 % Normal 38.8-50.0 [facility] Comment on above: Performed By: #### P T, BNP, CBC, PTT, CK, DDIMER, HS TROP, CMP #### [address] Hemoglobin (Bld) [Mass/Vol] 14.1 g/dL Normal 13.0-17.0 [facility] Comment on above: Performed By: #### P T, BNP, CBC, PTT, CK, DDIMER, HS TROP, CMP #### [address] Lymphocytes (Bld) [#/Vol] 2.2 10*3/uL Normal 1.00-4.8 [facility] Comment on above: Performed By: #### P T, BNP, CBC, PTT, CK, DDIMER, HS TROP, CMP #### [address] Lymphocytes/100 WBC (Bld) 21.2 % Normal . [facility] Comment on above: Performed By: #### P T, BNP, CBC, PTT, CK, DDIMER, HS TROP, CMP #### [address] MCH (RBC) [Entitic mass] 28.5 pg Normal 27.5-35.2 [facility] Comment on above: Performed By: #### P T, BNP, CBC, PTT, CK, DDIMER, HS TROP, CMP #### [address] MCV (RBC) [Entitic vol] 82.4 fL Low 83.5-101 [facility] Comment on above: Performed By: #### P T, BNP, CBC, PTT, CK, DDIMER, HS TROP, CMP #### [address] Mean Corpuscular HGB Conc 34.5 g/dL Normal 32.5-35.6 [facility] Comment on above: Performed By: #### P T, BNP, CBC, PTT, CK, DDIMER, HS TROP, CMP #### [place] [address] [place] Monocytes (Bld) [#/Vol] 0.9 10*3/uL High 0.0-0.8 [facility] Comment on above: Performed By: #### P T, BNP, CBC, PTT, CK, DDIMER, HS TROP, CMP #### [place] [address] [place] Monocytes/100 WBC (Bld) 15.92 % Normal 0.00-20.00 [facility] Comment on above: Performed By: #### P T, BNP, CBC, PTT, CK, DDIMER, HS TROP, CMP #### [address] Monocytes/100 WBC (Bld) 8.9 % Normal . [facility] Comment on above: Performed By: #### P T, BNP, CBC, PTT, CK, DDIMER, HS TROP, CMP #### [address] Neutrophils (Bld) [#/Vol] 7.2 10*3/uL Normal 1.8-7.7 [facility] Comment on above: Performed By: #### P T, BNP, CBC, PTT, CK, DDIMER, HS TROP, CMP #### [place] [address] [place] Neutrophils/100 WBC (Bld) 68.2 % Normal . [facility] Comment on above: Performed By: #### P T, BNP, CBC, PTT, CK, DDIMER, HS TROP, CMP #### [place] [address] [place] NRBC% 0.1 /100{WBC} Normal 0-0.5 [facility] Comment on above: Performed By: #### P T, BNP, CBC, PTT, CK, DDIMER, HS TROP, CMP #### [place] [address] [place] Platelet mean volume (Bld) [Entitic vol] 7.5 fL Normal 6.6-10.1 [facility] Comment on above: Performed By: #### P T, BNP, CBC, PTT, CK, DDIMER, HS TROP, CMP #### [facility] [address] Platelets (Bld) [#/Vol] 203 10*3/uL Normal 150-450 [facility] Comment on above: Performed By: #### P T, BNP, CBC, PTT, CK, DDIMER, HS TROP, CMP #### [facility] [address] RBC (Bld) [#/Vol] 4.97 10*6/uL Normal 3.90-5.60 [facility] Comment on above: Performed By: #### P T, BNP, CBC, PTT, CK, DDIMER, HS TROP, CMP #### [address] WBC (Bld) [#/Vol] 10.6 10*3/uL High 4.1-10.5 [facility] Comment on above: Performed By: #### P T, BNP, CBC, PTT, CK, DDIMER, HS TROP, CMP #### [facility] [address] [place] [address] Comprehensive Metabolic Pane maren 12-18-2022 Albumin [Mass/Vol] 4.6 g/dL Normal 3.5-5.7 [facility] Comment on above: Performed By: #### P T, BNP, CBC, PTT, CK, DDIMER, HS TROP, CMP ####[facility] [address] Albumin/Globulin [Mass ratio] 2.0 {ratio} Normal [facility] Comment on above: Performed By: #### P T, BNP, CBC, PTT, CK, DDIMER, HS TROP, CMP ####[facility] [address] ALP [Catalytic activity/Vol] 74 U/L Normal 34-104 [facility] Comment on above: Performed By: #### P T, BNP, CBC, PTT, CK, DDIMER, HS TROP, CMP ####[address] ALT [Catalytic activity/Vol] 32 U/L Normal 7-52 [facility] Comment on above: Performed By: #### P T, BNP, CBC, PTT, CK, DDIMER, HS TROP, CMP ####[address] Anion gap [Moles/Vol] 9.9 mmol/L Normal 6.0-15.0 [facility] Comment on above: Performed By: #### P T, BNP, CBC, PTT, CK, DDIMER, HS TROP, CMP ####[address] AST [Catalytic activity/Vol] 18 U/L Normal 13-39 [facility] Comment on above: Performed By: #### P T, BNP, CBC, PTT, CK, DDIMER, HS TROP, CMP ####[address] Bilirubin [Mass/Vol] 0.8 mg/dL Normal 0.3-1.0 [facility] Comment on above: Performed By: #### P T, BNP, CBC, PTT, CK, DDIMER, HS TROP, CMP ####[address] Calcium [Mass/Vol] 8.6 mg/dL Normal 8.6-10.3 [facility] Comment on above: Performed By: #### P T, BNP, CBC, PTT, CK, DDIMER, HS TROP, CMP ####[place] [id number] [facility] Chloride [Moles/Vol] 109 mmol/L High 98-107 [facility] Comment on above: Performed By: #### P T, BNP, CBC, PTT, CK, DDIMER, HS TROP, CMP ####[address] CO2 [Moles/Vol] 25.9 mmol/L Normal 21.0-31.0 [facility] Comment on above: Performed By: #### P T, BNP, CBC, PTT, CK, DDIMER, HS TROP, CMP ####[address] Creatinine [Mass/Vol] 0.89 mg/dL Normal 0.70-1.30 [facility] Comment on above: Performed By: #### P T, BNP, CBC, PTT, CK, DDIMER, HS TROP, CMP ####[address] Creatinine Clr Calc Pharmacy 151.88 [facility] Comment on above: Result Comment: PERF ORMED BY: [facility] [address] [place] [address] PATHOLOGIST ASSISTANT PRODUCE MANAGER CARRI KIM M.D. Performed By: #### P T, BNP, CBC, PTT, CK, DDIMER, HS TROP, CMP ####[address] GFR/1.73 sq M.predicted MDRD (S/P/Bld) [Vol rate/Area] mL/min/{1.73_m2} [facility] Comment on above: Performed By: #### P T, BNP, CBC, PTT, CK, DDIMER, HS TROP, CMP ####[address] Globulin (S) [Mass/Vol] 2.3 g/dL [facility] Comment on above: Performed By: #### P T, BNP, CBC, PTT, CK, DDIMER, HS TROP, CMP ####[address] Glucose [Mass/Vol] 87 mg/dL Normal 70-100 [facility] Comment on above: Result Comment: [place] Glucose Reference Range is dependent on time and content of last meal. Glucose of more than 200 mg/dL in a nonstressed, ambulatory subject supports the diagnosis of Diabetes Mellitus. ADA recommended reference range Performed By: #### P T, BNP, CBC, PTT, CK, DDIMER, HS TROP, CMP ####[address] Potassium [Moles/Vol] 3.8 mmol/L Normal 3.5-5.1 [facility] Comment on above: Performed By: #### P T, BNP, CBC, PTT, CK, DDIMER, HS TROP, CMP ####[place] [id number] [facility] Protein [Mass/Vol] 6.9 g/dL Normal 6.4-8.9 [facility] Comment on above: Performed By: #### P T, BNP, CBC, PTT, CK, DDIMER, HS TROP, CMP ####[address] Sodium [Moles/Vol] 141 mmol/L Normal 136-145 [facility] Comment on above: Performed By: #### P T, BNP, CBC, PTT, CK, DDIMER, HS TROP, CMP ####[place] [id number] [facility] Urea nitrogen [Mass/Vol] 11 mg/dL Normal 7-25 [facility] Comment on above: Performed By: #### P T, BNP, CBC, PTT, CK, DDIMER, HS TROP, CMP ####[place] [id number] [facility] Creatine Kinaseon 12-18-2022 CK [Catalytic activity/Vol] 81 U/L Normal [facility] Comment on above: Performed By: #### P T, BNP, CBC, PTT, CK, DDIMER, HS TROP, CMP ####[place] [id number] [facility] Creatine kinase [Enzymatic a ctivity/volume] in Serum or PlasmaOrdered By: Venkat Palencia on 12-18-2022 CK [Catalytic activity/Vol] 81 U/L - [facility] Creatinine [Mass/volume] in Serum or PlasmaOrdered By: Venkat Palencia on 12-18-2022 Creatinine [Mass/Vol] 0.89 mg/dL 0.70-1.30 [facility] D-Dimer High Sensitivityon 0 12-18-2022 D-Dimer High Sensitivity < 200 Normal 0-243 [facility] Comment on above: Result Comment: The reference [...] patients due to co-morbid conditions. PERFORMED BY: [place] [address] PATHOLOGIST ASSISTANT PRODUCE MANAGER CARRI KIM M.D. Performed By: #### P T, BNP, CBC, PTT, CK, DDIMER, HS TROP, CMP ####[facility] [place] [id number] [facility] ECG 12 lead ECGon 12-18-2022 ECG 12 lead ECG [place] [address] Electrocardiograph Report Signed Patient: Basilio Person MR#: [id number] : 2000 Acct:[id number] Age/Sex: 22 / M ADM Date: 12/18/22 Loc: ER Room: Type: [facility] ER Attending Dr: Ordering Provider: Venkat Palencia [...] was found Confirmed by VENKAT PALENCIA MD ([id number]) on 12/18/2022 4:21:16 AM Referred By: Electronically Signed By:VENKAT PALENCIA MD Transcribed By: MUS Signed By Venkat Palencia Jr, MD 0421 Normal [facility] Eosinophils Auto (Bld) [#/Vo l]Ordered By: Venkat Palencia on 12-18-2022 Eosinophils (Bld) [#/Vol] 0.1 10*3/uL 0.0-0.45 [facility] Eosinophils/100 WBC Auto (Bl d)Ordered By: Venkat Palencia on 12-18-2022 Eosinophils/100 WBC (Bld) 0.8 % . [facility] Erythrocyte distribution wid th Auto (RBC) [Ratio]Ordered By: Venkat Palencia on 12-18-2022 Erythrocyte distribution width (RBC) [Ratio] 13.7 % 12.0-14.8 [facility] Globulin Calc (S) [Mass/Vol] Ordered By: Venkat Palencia on 12-18-2022 Globulin (S) [Mass/Vol] 2.3 g/dL [facility] Glucose [Mass/volume] in Ser um or PlasmaOrdered By: Venkat Palencia on 12-18-2022 Glucose [Mass/Vol] 87 mg/dL 70-100 [facility] Comment on above: ADA recommended refe rence rangeRandom Glucose Reference Range is dependent on time and content of last meal. Glucose of more than 200 mg/dL in a nonstressed, ambulatory subject supports the diagnosis of Diabetes Mellitus. Hematocrit Auto (Bld) [Volum e fraction]Ordered By: Venkat Palencia on 12-18-2022 Hematocrit (Bld) [Volume fraction] 40.9 % 38.8-50.0 [facility] Hemoglobin [Mass/volume] in BloodOrdered By: Venkat Palencia on 12-18-2022 Hemoglobin (Bld) [Mass/Vol] 14.1 g/dL 13.0-17.0 [facility] Laboratory - CoagulationOrde red By: Venkat Palencia on 12-18-2022 PT Coag (PPP) [Time] 12.0 s 9.0-12.9 [facility] Leukocytes [#/volume] correc ashley for nucleated erythrocytes in Blood by Automated counOrdered By: Venkat Palencia on 12-18-2022 WBC corrected for nucl RBC Auto (Bld) [#/Vol] 10.6 10*3/uL 4.1-10.5 [facility] Lymphocytes Auto (Bld) [#/Vo l]Ordered By: Venkat Palencia on 12-18-2022 Lymphocytes (Bld) [#/Vol] 2.2 10*3/uL 1.00-4.8 [facility] Lymphocytes/100 WBC Auto (Bl d)Ordered By: Venkat Palencia on 12-18-2022 Lymphocytes/100 WBC (Bld) 21.2 % . [facility] MCH Auto (RBC) [Entitic mass ]Ordered By: Venkat Palencia on 12-18-2022 MCH (RBC) [Entitic mass] 28.5 pg 27.5-35.2 [facility] MCHC Auto (RBC) [Mass/Vol]Or dered By: Venkat Palencia on 12-18-2022 MCHC (RBC) [Mass/Vol] 34.5 g/dL 32.5-35.6 [facility] MCV Auto (RBC) [Entitic vol] Ordered By: Venkat Palencia on 12-18-2022 MCV (RBC) [Entitic vol] 82.4 fL 83.5-101 [facility] Monocyte distribution width [Entitic volume] in Blood by AutomatedOrdered By: Venkat Palencia on 12-18-2022 Monocyte distribution width Auto (Bld) [Entitic vol] 15.92 % 0.00-20.00 [facility] Monocytes Auto (Bld) [#/Vol] Ordered By: Venkat Palencia on 12-18-2022 Monocytes (Bld) [#/Vol] 0.9 10*3/uL 0.0-0.8 [facility] Monocytes/100 WBC Auto (Bld) Ordered By: Venkat Palencia on 12-18-2022 Monocytes/100 WBC (Bld) 8.9 % . [facility] Natriuretic peptide B [Mass/ Vol]Ordered By: Venkat Palencia on 12-18-2022 Natriuretic peptide B (Bld) [Mass/Vol] 9.0 pg/mL 5-100 [facility] Neutrophils Auto (Bld) [#/Vo l]Ordered By: Venkat Palencia on 12-18-2022 Neutrophils (Bld) [#/Vol] 7.2 10*3/uL 1.8-7.7 [facility] Neutrophils/100 WBC Auto (Bl d)Ordered By: Venkat Palencia on 12-18-2022 Neutrophils/100 WBC (Bld) 68.2 % . [facility] No Panel InformationOrdered By: Venkat Palencia on 12-18-2022 D-Dimer Quantitative (PE/DVT) < 200 ng/mL 0-243 [facility] Comment on above: The reference range for [...] GFR (CKD-EPI) > 60.0 mL/Min [facility] Creatinine Clearance (Chem 151.88 [facility] Nucleated erythrocytes [Pres ence] in Blood by Automated countOrdered By: Venkat Palencia on 12-18-2022 Nucleated RBC Auto Ql (Bld) 0.1 /100{WBC} 0-0.5 [facility] Partial Thromboplastin Timeo n 12-18-2022 aPTT Coag (Bld) [Time] 28.5 s Normal 25.1-36.5 [facility] Comment on above: Performed By: #### P T, BNP, CBC, PTT, CK, DDIMER, HS TROP, CMP ####[facility] [id number] [place] [address] [facility] Platelet mean volume Auto (B ld) [Entitic vol]Ordered By: Venkat Palencia on 12-18-2022 Platelet mean volume (Bld) [Entitic vol] 7.5 fL 6.6-10.1 [facility] Platelet poor plasma interna tional normalized ratio (INR) by coagulation assay (relatOrdered By: Venkat Palencia on 12-18-2022 INR Coag (PPP) [Relative time] 1.0 {INR} [facility] Comment on above: INR Therapeutic Rang e [...] (Bld) [#/Vol] 203 10*3/uL 150-450 [facility] Potassium [Moles/volume] in Serum or PlasmaOrdered By: Venkat Palencia on 12-18-2022 Potassium [Moles/Vol] 3.8 mmol/L 3.5-5.1 [facility] Protein [Mass/volume] in Ser um or PlasmaOrdered By: Venkat Palencia on 12-18-2022 Protein [Mass/Vol] 6.9 g/dL 6.4-8.9 [facility] Prothrombin Time INRon 12-18 INR Coag (PPP) [Relative time] 1.0 {INR} Normal [facility] Comment on above: Result Comment: INR Therapeutic [...] PTT, CK, DDIMER, HS TROP, CMP #### [facility] [address] PT Coag (PPP) [Time] 12.0 s Normal 9.0-12.9 [facility] Comment on above: Performed By: #### P T, BNP, CBC, PTT, CK, DDIMER, HS TROP, CMP #### [facility] [address] RBC Auto (Bld) [#/Vol]Ordere d By: Venkat Palencia on 04-15-2023 RBC (Bld) [#/Vol] 4.97 10*6/uL 3.90-5.60 [facility] Serum or plasma albumin/glob ulin mass ratioOrdered By: Venkat Palencia on 12-18-2022 Albumin/Globulin [Mass ratio] 2.0 {ratio} [facility] Serum or plasma anion gap de terminationOrdered By: Venkat Palencia on 12-18-2022 Anion gap [Moles/Vol] 9.9 mmol/L 6.0-15.0 [facility] Sodium [Moles/volume] in Ser um or PlasmaOrdered By: Venkat Palencia on 12-18-2022 Sodium [Moles/Vol] 141 mmol/L 136-145 [facility] Troponin I High Sensitivityo n 12-18-2022 Troponin I High Sensitivity 2.5 pg/mL Normal 0.0-20.0 [facility] Comment on above: Result Comment: PERF ORMED BY: [facility] [address] [place] [id number] PATHOLOGIST ASSISTANT PRODUCE MANAGER CARRI KIM M.D. Performed By: #### P T, BNP, CBC, PTT, CK, DDIMER, HS TROP, CMP ####[facility] [id number] [place] [address] [facility] Troponin I.cardiac [Mass/vol ume] in Serum or Plasma by Detection limit <= 0.01 ng/Ordered By: Venkat Palencia on 12-18-2022 Troponin I.cardiac DL <= 0.01 ng/mL [Mass/Vol] 2.5 pg/mL 0.0-20.0 [facility] Urea nitrogen [Mass/volume] in Serum or PlasmaOrdered By: Venkat Palencia on 12-18-2022 Urea nitrogen [Mass/Vol] 11 mg/dL 7-25 [facility] WBC Auto (Bld) [#/Vol]Ordere d By: Venkat Palencia on 12-18-2022 WBC (Bld) [#/Vol] 10.6 10*3/uL 4.1-10.5 [facility] XR chest 1V portableon 12-18 XR chest 1V portable [facility] [address] [place] [address] [place] [address] XRay Report Signed Patient: Basilio Person MR#: [id number] : 2000 Acct:[id number] Age/Sex: 22 / M ADM Date: 12/18/22 Loc: ER Room: Type: [facility] ER Attending Dr: Copies to: Venkat [...] Eagle Woodard M.D.12/18/2022 9:45 AM Dictation Location: [place] [address] Transcribed By: [facility] 12/18/22 0945 Dictated By: Eagle Woodard II, MD 12/18/22 0945 Signed By: 12/18/22 0945 [facility] Quick Strepon 10-24-2022 Quick Strep Streptococcus pyogen es Ag [Presence] in Throat by Rapid immunoassay Negative for Group A Strep Antigen Note 1 NOTE 2 Results are those of a screening test. NOTE 3 If clinically indicated please order a culture. NOTE 4 NOTE 5 Reference range = Negative PERFORMED BY: [place] [address] PATHOLOGIST ASSISTANT PRODUCE MANAGER CARRI KIM M.D. [facility] Comment on above: Performed By: #### Q S #### [facility] [address] [place] [address] RPR w/rfx to Quant TP Abson 10-24-2022 RPR, Rfx Quant RPR Non-Reactive Normal Non Reactive [facility] Comment on above: Result Comment: Perf ormed at: CB - [facility] [place] [id number] Gynecological Assistant: Morales Escamilla PhD, Phone: [phone] PERFORMED BY: [place] [address] PATHOLOGIST ASSISTANT PRODUCE MANAGER CARRI KIM M.D. Performed By: #### R NV W RFX ####[facility] , Reagin Ab [Presence] in Seru m by RPROrdered By: Andrzej Bell on 10-24-2022 Reagin Ab RPR Ql (S) Non-Reactive Non Reactive [facility] Comment on above: Performed at: CB - [facility] [address] [id number] Director: Morales Escamilla PhD, Phone: [phone] Streptococcus pyogenes antig en detectionOrdered By: Andrzej Bell on 10-24-2022 S. pyogenes Ag Ql (Unsp spec) [facility] S. pyogenes Ag Ql (Unsp spec) [facility] XR chest 1V portableon 10-08 XR chest 1V portable [facility] [place] [address] XRay Report Signed Patient: Basilio Person MR#: [id number] : 2000 Acct:[id number] Age/Sex: 22 / M ADM Date: 10/07/22 Loc: ER Room: Type: [facility] ER Attending Dr: Copies to: Suresh [...] AM Dictation Location: [facility]- Transcribed By: TANK 10/08/2249 Dictated By: Nehemiah Aguilar DO 10/08/2249 Signed By: 10/08/22 0749 [facility] XR soft tissue neckon 2022 XR soft tissue neck [facility] Main [place] [id number] XRay Report Signed Patient: Basilio Person MR#: [id number] : 2000 Acct:[id number] Age/Sex: 22 / M ADM Date: 10/07/22 Loc: ER Room: Type: [facility] ER Attending Dr: Copies to: Suresh [...] AM Dictation Location: [facility] Transcribed By: TANK 10/08/22 0749 Dictated By: eNhemiah Aguilar DO 10/08/22 0748 Signed By: 10/08/22 0749 [facility] ECG 12 lead ECGon 10-07-2022 ECG 12 lead ECG [place] [id number] Electrocardiograph Report Signed Patient: Basilio Person MR#: [id number] : 2000 Acct:[id number] Age/Sex: 22 / M ADM Date: 10/07/22 Loc: ER Room: Type: [facility] ER Attending Dr: Ordering Provider: Suresh [...] Signed By Suresh Ospina MD 10/08/22 012 [facility] XR knee LT 4V*on 09-02-2022 XR knee LT 4V* [place] [address] XRay Report Signed Patient: Basilio Person MR#: [id number] : 2000 Acct:[id number] Age/Sex: 21 / M ADM Date: 09/02/22 Loc: ER Room: Type: [facility] ER Attending Dr: Copies to: Andrzej Bell [...] Nehemiah Aguilar M.D.09/02/2022 5:15 PM Dictation Location: [place] [address] Transcribed By: [facility] 09/02/221714 Dictated By: Nehemiah Aguilar DO 09/02/221713 Signed By: 09/02/221714 [facility] Vital Signs Date Time Vital Sign Value Performing Clinician Faci lity 04-06-2023 07:00-0400 Diastolic blood pressure 68 mm[Hg] [facility] Work Phone: [facility] 04-06-2023 07:00-0400 Heart rate 77 /min [facility] Work Phone: [facility] 04-06-2023 07:00-0400 Respiratory rate 18 /min [facility] Work Phone: [facility] 04-06-2023 07:00-0400 SaO2% (BldA) [Mass fraction] 97 % [facility] Work Phone: [facility] 04-06-2023 07:00-0400 Systolic blood pressure 117 mm[Hg] [facility] Work Phone: [facility] 04-06-2023 05:26-0400 Body height 177.8 cm [facility] Work Phone: [facility] 04-06-2023 05:26-0400 Body temperature 98.6 [degF] [facility] Work Phone: [facility] 04-06-2023 05:26-0400 Body weight 97.8 kg [facility] Work Phone: [facility] 02-03-2023 20:47-0400 Body height 177.8 cm [facility] Work Phone: [facility] 02-03-2023 20:47-0400 Body temperature 98 [degF] [facility] Work Phone: [facility] 02-03-2023 20:47-0400 Body weight 95.7 kg [facility] Work Phone: [facility] 02-03-2023 20:47-0400 Diastolic blood pressure 77 mm[Hg] [facility] Work Phone: [facility] 02-03-2023 20:47-0400 Heart rate 87 /min [facility] Work Phone: [facility] 02-03-2023 20:47-0400 Respiratory rate 20 /min [facility] Work Phone: [facility] 02-03-2023 20:47-0400 SaO2% (BldA) [Mass fraction] 100 % [facility] Work Phone: [facility] 02-03-2023 20:47-0400 Systolic blood pressure 138 mm[Hg] [facility] Work Phone: [facility] 12-18-2022 03:46-0400 Heart rate 108 /min [facility] Work Phone: [facility] 12-18-2022 03:46-0400 Respiratory rate 18 /min [facility] Work Phone: [facility] 12-18-2022 03:46-0400 SaO2% (BldA) [Mass fraction] 99 % [facility] Work Phone: [facility] 12-18-2022 03:24-0400 Body height 177.8 cm [facility] Work Phone: [facility] 12-18-2022 03:24-0400 Body temperature 97.9 [degF] [facility] Work Phone: [facility] 12-18-2022 03:24-0400 Body weight 96.7 kg [facility] Work Phone: [facility] 12-18-2022 03:24-0400 Diastolic blood pressure 88 mm[Hg] [facility] Work Phone: [facility] 12-18-2022 03:24-0400 Systolic blood pressure 145 mm[Hg] [facility] Work Phone: [facility] 10-24-2022 12:21-0500 Body height 179.07 cm [facility] Work Phone: [facility] 10-24-2022 12:21-0500 Body temperature 98.7 [degF] [facility] Work Phone: [facility] 10-24-2022 12:21-0500 Body weight 98 kg [facility] Work Phone: [facility] 10-24-2022 12:21-0500 Diastolic blood pressure 64 mm[Hg] [facility] Work Phone: [facility] 10-24-2022 12:21-0500 Heart rate 81 /min [facility] Work Phone: [facility] 10-24-2022 12:21-0500 Respiratory rate 18 /min [facility] Work Phone: [facility] 10-24-2022 12:21-0500 SaO2% (BldA) [Mass fraction] 98 % [facility] Work Phone: [facility] 10-24-2022 12:21-0500 Systolic blood pressure 124 mm[Hg] [facility] Work Phone: [facility] 10-07-2022 21:20-0500 Body height 177.8 cm [facility] Work Phone: [facility] 10-07-2022 21:20-0500 Body temperature 98.4 [degF] [facility] Work Phone: [facility] 10-07-2022 21:20-0500 Body weight 100.35 kg [facility] Work Phone: [facility] 10-07-2022 21:20-0500 Diastolic blood pressure 87 mm[Hg] [facility] Work Phone: [facility] 10-07-2022 21:20-0500 Heart rate 90 /min [facility] Work Phone: [facility] 10-07-2022 21:20-0500 Respiratory rate 20 /min [facility] Work Phone: [facility] 10-07-2022 21:20-0500 SaO2% (BldA) [Mass fraction] 100 % [facility] Work Phone: [facility] 10-07-2022 21:20-0500 Systolic blood pressure 148 mm[Hg] [facility] Work Phone: [facility] 09-02-2022 15:47-0500 Body height 179.07 cm [facility] Work Phone: [facility] 09-02-2022 15:47-0500 Body temperature 98.1 [degF] [facility] Work Phone: [facility] 09-02-2022 15:47-0500 Body weight 98.95 kg [facility] Work Phone: [facility] 09-02-2022 15:47-0500 Diastolic blood pressure 77 mm[Hg] [facility] Work Phone: [facility] 09-02-2022 15:47-0500 Heart rate 74 /min [facility] Work Phone: [facility] 09-02-2022 15:47-0500 Respiratory rate 18 /min [facility] Work Phone: [facility] 09-02-2022 15:47-0500 SaO2% (BldA) [Mass fraction] 100 % [facility] Work Phone: [facility] 09-02-2022 15:47-0500 Systolic blood pressure 137 mm[Hg] [facility] [employer] [facility] Work Phone: [facility] Encounters Encounter Date Encounter Type Care Provider Facility Start: 04-06-2023 End: 04-06-2023 Emergency department patient visit Jeff Birmingham Facility:[facility] Start: 04-06-2023 End: 04-06-2023 Emergency department patient visit [facility] Work Phone: [facility] Work Phone: Start: 02-03-2023 End: 02-04-2023 Emergency department patient visit Katelyn Stephen Facility:[facility] Start: 02-03-2023 End: 02-03-2023 Emergency department patient visit [facility] Work Phone: [facility] Work Phone: Start: 12-18-2022 End: 12-18-2022 Emergency department patient visit Venkat Palencia Jr Facility:[facility] Start: 12-18-2022 End: 12-18-2022 Emergency department patient visit Services [facility] Work Phone: [facility] Work Phone: Start: 10-24-2022 End: 10-24-2022 Emergency department patient visit Services [facility] Facility:[facility] Start: 10-24-2022 End: 10-24-2022 Emergency department patient visit Services [facility] Work Phone: [facility] Work Phone: Start: 10-07-2022 End: 10-08-2022 Emergency department patient visit Services [facility] Facility:[facility] Start: 10-07-2022 End: 10-07-2022 Emergency department patient visit Services [facility] Work Phone: [facility] Work Phone: Start: 09-02-2022 End: 09-02-2022 Emergency department patient visit Services [facility] Start: 09-02-2022 End: 09-02-2022 Emergency department patient visit Services [facility] Work Phone: [facility] Work Phone: Procedures Date Procedure Procedure Detail Performing Clinician Start: 02-03-2023 Duplex scan of lower limb veins [facility] [employer] Work Phone: Start: 02-03-2023 X-ray of right knee Services [employer] Phone: Start: 12-18-2022 Plain chest X-ray [facility] [employer] Phone: Start: 10-24-2022 Streptococcus pyogenes antigen assay Services [employer] Phone: Start: 10-07-2022 Plain chest X-ray [facility] [employer] Work Phone: Start: 10-07-2022 X-ray of soft tissue of neck Services [employer] [facility] [email or web address] Phone: Start: 09-02-2022 Radiologic examination of knee [facility] [employer] Work Phone: History of appendectomy Status p ost appendectomy Services [employer] Phone: Plan of Treatment Date Care Activity Detail Author Start: 04-06-2023 Computed tomography of abdomen and pelvis with contrast CT abdomen pelvis w con [facility] Start: 04-06-2023 CT Abdomen and Pelvi s W contrast IV [facility] Start: 02-03-2023 Duplex scan of lower limb veins US venous duplex LE RT [facility] Start: 02-03-2023 US Lower extremity v ein - right [facility] Start: 02-03-2023 X-ray of right knee XR knee RT 4V* F [facility] Start: 02-03-2023 XR Knee - right 4 Views [facility] Start: 12-18-2022 Plain chest X-ray XR chest 1V portab [facility] Start: 12-18-2022 XR Chest Single view [facility] Start: 10-24-2022 [facility] Start: 10-07-2022 Plain chest X-ray XR chest 1V portab [facility] Start: 10-07-2022 X-ray of soft tissue of neck XR soft tissue neck [facility] Start: 10-07-2022 XR Chest Single view [facility] Start: 10-07-2022 XR Neck Views [facility] Patient Education [facility] Work Phone: Patient referral [facility] Work Phone: [facility] [Presence] in Serum by RPR [facility] Payers Date Payer Category Payer Medicaid [id number] 2022 Self-pay [id number] Medicaid [employer] [id number] Unknown Regular Auto/Liability [id number] Unknown [id number] Unknown [id number] Unknown [id number] Unknown [id number] Unknown [id number] Unknown [id number] Worker's Compensation [id number] Social History Date Type Detail Facility Start: 09-02-2022 End: 04-06-2023 Tobacco smoking status NHIS Never smoked tobacco (finding) [facility] Start: 2000 Sex Assigned At Male F [facility] Evaluation note Note Date & Type Note Facility Evaluation note No assessment information availa ble [facility] Work Phone: Hospital Discharge instructions Note Date & Type Note Facility Hospital Discharge instructions Additional Instructions Return if symptoms are worse [facility] Work Phone: Hospital Discharge instructions Note Date & Type Note Facility Hospital Discharge instructions Additional Instructions Ice and elevate Tylenol or Naprosyn if needed for pain Follow-up with your PCP or Ortho Return here if any problems persist or worsen [facility] Work Phone: Chief Complaint and Reason for [...] , DO Family Provider Active Services [facility] Primary Care Provider Active Team Status: Inactive Member Role Status Dates Services [facility] Primary Care Provider Active Jeff Mast , DO Family Provider Active Suresh Ospina MD Emergency Provider Active Team Status: Inactive Member Role Status Dates Services [facility] Primary Care Provider Active Jeff Mast , DO Family Provider Active Venkat Palencia Jr, MD Emergency Provider Active Team Status: Inactive Member Role Status Dates Services [facility] Primary Care Provider Active Jeff Mast , DO Family Provider Active Katelyn Stephen APRN Emergency Provider Active Team Status: Inactive Member Role Status Dates Services Family [facility] Primary Care Provider Active Jeff Mast , [...] BE BASED ON THE PRIMARY CLINICAL RECORDS. [facility]. provides no warranty or guarantee of the accuracy or completeness of information in this document.
--- NOTE | 2024-10-21 02:47 | PC.NURSE ---
no resp distress observed, pt finished full sentences with no problem, pt appears anxious
[2024-10-21 03:13] LABS: Influenza Virus A Antigen Positive; Influenza Virus B Antigen Negative; Internal Control Within Normal Limits; SARS-CoV-2 Ag NEGATIVE (NEGATIVE)
[2024-10-21 03:14] LABS: Internal Control Within Normal Limits
--- NOTE | 2024-10-21 03:22 | ED_ITS ---
HPI HPI - General Adult General Chief complaint: Fever Stated complaint: fever Time Seen by Provider: 10/21/24 02:43 Source: patient Mode of arrival: walk-in History of Present Illness HPI narrative: 24-year-old male to the emergency department chief complaint of cough, nasal congestion, fever and malaise. Symptoms began suddenly today. He is otherwise been at his baseline health. Related Data Previous Rx's ?Medication ?Instructions ?Recorded hdxwpfjvgeyrroo-ohxzlbgoejrkifs-XH 5 ml PO Q4H PRN cold symptoms #118 10/21/24 2 mg-30 mg-10 mg/5 mL oral syrup mL (Bromfed DM) Allergies Allergy/AdvReac Type Severity Reaction Status Date / Time No Known Drug Allergies Allergy Verified 07/31/24 00:41 Opioid HPI Opioid Management Most Recent Opioid Data: Last Pain Scale 2 09/18/23 15:25 09/18/23 Review of Systems ROS Status of ROS 10 or more systems reviewed and unremark able except as noted in history and below PFSH PFSH Social History Smoking status: Never smoker Little interest or pleasure in doing things: not at all Feeling down, depressed, or hopeless: not at all Exam Narrative Exam Narrative: VITALS: I have reviewed the triage vital signs. GENERAL: Well developed, well appearing adult in no acute distress. NEURO: Alert and oriented. Moves all extremities. Face is symmetric and expressive. EYES: PERRL. No scleral icterus or conjunctival injection. No discharge. HENT: Normocephalic, atraumatic. Hearing is grossly intact. Nares grossly patent and without discharge. Mucous membranes moist. NECK: No JVD. Patient moves neck without restriction. CARDIO: Rhythm regular. Normal rate. No murmur, rub, or gallop. Pulses equal bilaterally in the upper and lower extremity. No lower extremity edema. PULM: Lungs clear to auscultation in all alves. No wheezes, rales, or rhonchi. No conversational dyspnea. No splinting, stridor, or accessory muscle use. GI/: Abdomen is soft and non-tender. Normoactive bowel sounds. EXTREMITIES: Symmetric muscle bulk. No joint swelling. No clubbing, cyanosis, or deformity. SKIN: Warm and dry. Normal turgor. No rash or lesions appreciated. PSYCH: Mood, affect, and interaction is appropriate to the setting. Constitutional Vital Signs, click to edit/add: Last Vital Signs Temp 99.4 F 10/21/24 02:36 Pulse 128 H 10/21/24 02:36 Resp 20 10/21/24 02:36 BP 126/88 10/21/24 02:36 Pulse Ox 98 10/21/24 02:36 O2 Del Method Room Air 10/21/24 02:36 Course Vital Signs Vital signs: Vital Signs Temperature 99.4 F 10/21/24 02:36 Pulse Rate 128 H 10/21/24 02:36 Respiratory Rate 20 10/21/24 02:36 Blood Pressure 126/88 10/21/24 02:36 Pulse Oximetry 98 10/21/24 02:36 Oxygen Delivery Method Room Air 10/21/24 02:36 Temperature 99.4 F 10/21/24 02:36 Pulse Rate 128 H 10/21/24 02:36 Respiratory Rate 20 10/21/24 02:36 Blood Pressure 126/88 10/21/24 02:36 Pulse Oximetry 98 10/21/24 02:36 Oxygen Delivery Method Room Air 10/21/24 02:36 Medical Decision Making MDM Narrative Medical decision making narrative: Well-appearing 24-year-old male to the emergency department chief complaint of flulike illness. Vital stable, the patient is afebrile. Influenza testing is positive. Discussed expected clinical course. Declines Tamiflu. Recommend supportive care, ibuprofen or Tylenol. Bromfed prescribed. Work note given. Patient was discharged home. Lab Data Lab results reviewed: Yes I reviewed the patient's lab results Labs: Lab Results 10/21/24 Range/Units 02:40 Influenza Type A Ag Positive A Influenza Type B Ag Negative SARS-CoV-2 Ag (CV2AG) Negative (NEGATIVE) Discharge Plan Discharge Chief Complaint: Fever Clinical Impression: Influenza A Patient Disposition: Home, Self-Care Time of Disposition Decision: 03:18 Condition: Good Mode of Transportation: Private Vehicle Prescriptions / Home Meds: New eujzkweargtevbr-mwwespxwn-TE [Bromfed DM] 2-30-10 mg/5 mL syrup 5 ml PO Q4H PRN (Reason: cold symptoms) Qty: 118 0RF Print Language: Mauritian Instructions: Influenza (ED) Additional Instructions: Call the office of your primary care doctor to arrange for follow-up within the above-stated timeframe. Your ED visit was focused on your acute issue and does not replace primary care. You should review your labs, imaging, and diagnoses from this ED visit with your primary care physician. There may be non-emergent/ incidental findings that need further evaluation. You should review your vital signs including blood pressure with your PCP. If you were prescribed medications you should discuss possible side-effects and drug interactions with your pharmacist. Call 911 or go to the nearest Emergency Department if you develop any new or worsening symptoms. Seek immediate medical attention if you develop: worsening shortness of breath, difficulty breathing, chest pain, nausea, vomiting, weakness, numbness, tingling, excessive sweating, loss of motion in your arms or legs, or any new or worsening symptoms. Referrals: [facility] [Primary Care Provider] - 1 week
== END 2024-10-21 03:26 | disposition home or self-care (01) ==
PROVIDERS: Emergency Provider Student in an Organized Health Care Education/Training Program
DX: J10.1 Influenza due to other identified influenza virus with other respiratory manifestations (principal)
CPT/HCPCS: 87804; 87811; 99283

== ENCOUNTER 2024-11-02 19:41 | Emergency (ER) | payer OTHER, SELFPAY ==
--- OUTSIDE RECORDS SUMMARY | 2024-11-02 19:55 | XMS_ITS | CCD ---
Author Organization [facility] Care Team Providers Care Grill Chef Name Role Phone [facility] Primary Care Provider JOSE A Bell Emergency Provider MD Suresh Ospina Emergency Provider [facility], Services Primary Care Provider MD Suresh Ospina Emergency Provider JOSE A Bell Emergency Provider [phone] MD Venkat Palencia Jr Emergency Provider [facility], Services Primary Care Provider JOSE A Stephen Emergency Provider [phone] [facility], Services Primary Care Provider [phone] DO Jeff Birmingham Emergency Provider Katelyn Stephen Admitting Unavailable Katelyn Stephen Attending Unavailable [facility], Services Primary Care Unavaila Jeff Larson Admitting Unavailable Jeff Birmingham Attending Unavailable [facility], Services Primary Care Unavaila ble [facility], Services Primary Care Unavaila Andrzej Antunez Admitting Unavailable Andrzej Bell Attending Unavailable [facility], Services Primary Care Unavaila ble Suresh Ospina Admitting Unavailable Suresh Ospina Attending Unavailable [facility], Services Primary Care Unavaila Andrzej Antunez Admitting Unavailable Andrzej Bell Attending Unavailable Venkat Palencia Jr Admitting Unavailable Venkat Palencia Jr Attending Unavailable [facility], Services Primary Care Unavaila ble Allergies Allergy Classification Reported Allergen(s) Allergy Type Date of Onset Reaction(s) Facility (6 sources) insect venom; Translations: [insect venom] Allergy to substance 10-07-2022 [facility] Medications Current Medications Medication Drug Class(es) [...] painful area for up to 12 hrs [place] (No Known Home Meds) (1 source) Start: 10-07-2022 [place] (No Known Home Meds) Active October 07, [...] 04-06-2023 ALT [Catalytic activity/Vol] 44 U/L 7-52 [facility] Albumin [Mass/volume] in Ser um or Plasma by Bromocresol green (BCG) dye binding methoOrdered By: Jeff Birmingham on 04-06-2023 Albumin BCG dye [Mass/Vol] 4.7 g/dL 3.5-5.7 [facility] Alkaline phosphatase [Enzyma tic activity/volume] in Serum or PlasmaOrdered By: Jeff Birmingham on 04-06-2023 ALP [Catalytic activity/Vol] 67 U/L 34-104 [facility] Aspartate aminotransferase [ Enzymatic activity/volume] in Serum or PlasmaOrdered By: Jeff Birmingham on 04-06-2023 AST [Catalytic activity/Vol] 25 U/L 13-39 [facility] Basic Metabolic Panelon Anion gap [Moles/Vol] 9.4 mmol/L Normal 6.0-15.0 [facility] Comment on above: Performed By: #### H EPATIC, BMP, CBC, LIPASE ####[address] Calcium [Mass/Vol] 9.5 mg/dL Normal 8.6-10.3 [facility] Comment on above: Performed By: #### H EPATIC, BMP, CBC, LIPASE ####[address] Chloride [Moles/Vol] 104 mmol/L Normal 98-107 [facility] Comment on above: Performed By: #### H EPATIC, BMP, CBC, LIPASE ####[address] CO2 [Moles/Vol] 29.3 mmol/L Normal 21.0-31.0 [facility] Comment on above: Performed By: #### H EPATIC, BMP, CBC, LIPASE ####[address] Creatinine [Mass/Vol] 0.91 mg/dL Normal 0.70-1.30 [facility] Comment on above: Performed By: #### H EPATIC, BMP, CBC, LIPASE ####[place] [id number] [facility] Creatinine Clr Calc Pharmacy 149.34 Normal [facility] Comment on above: Performed By: #### H EPATIC, BMP, CBC, LIPASE ####[address] GFR/1.73 sq M.predicted MDRD (S/P/Bld) [Vol rate/Area] mL/min/{1.73_m2} Normal [facility] Comment on above: Performed By: #### H EPATIC, BMP, CBC, LIPASE ####[facility] Glucose [Mass/Vol] 95 mg/dL Normal 70-100 [facility] Comment on above: Result Comment: [facility] Glucose Reference Range is dependent on time and content of last meal. Glucose of more than 200 mg/dL in a nonstressed, ambulatory subject supports the diagnosis of Diabetes Mellitus. ADA recommended reference range Performed By: #### H EPATIC, BMP, CBC, LIPASE ####[facility] [id number] Potassium [Moles/Vol] 3.7 mmol/L Normal 3.5-5.1 [facility] Comment on above: Performed By: #### H EPATIC, BMP, CBC, LIPASE ####[address] Sodium [Moles/Vol] 139 mmol/L Normal 136-145 [facility] Comment on above: Performed By: #### H EPATIC, BMP, CBC, LIPASE ####[place] [address] [address] Urea nitrogen [Mass/Vol] 7 mg/dL Normal 7-25 [facility] Comment on above: Performed By: #### H EPATIC, BMP, CBC, LIPASE ####[facility] [id number] [place] [address] Basophils Auto (Bld) [#/Vol] Ordered By: Jeff Birmingham on 04-06-2023 Basophils (Bld) [#/Vol] 0.1 10*3/uL 0.0-0.2 [facility] Basophils/100 WBC Auto (Bld) Ordered By: Jeff Birmingham on 04-06-2023 Basophils/100 WBC (Bld) 0.9 % . [facility] Bilirubin.direct [Mass/volum e] in Serum or PlasmaOrdered By: Jeff Birmingham on 04-06-2023 Bilirubin.direct [Mass/Vol] 0.10 mg/dL 0.03-0.18 [facility] Bilirubin.total [Mass/volume ] in Serum or PlasmaOrdered By: Jeff Birmingham on 04-06-2023 Bilirubin [Mass/Vol] 0.6 mg/dL 0.3-1.[address] [facility] [address] abdomen pelvis w conon CT abdomen pelvis w con [facility] [place] [address] CT Scan Report Signed Patient: Basilio Person MR#: [id number] : 2000 Acct:[id number] Age/Sex: 22 / M ADM Date: 04/06/23 Loc: ER Room: Type: [facility] ER Attending Dr: Copies [...] Naidu Jr., D.O.04/06/2023 9:26 AM Dictation Location: [place] [address] Transcribed By: TANK 04/06/23925 Dictated By: Gio Naidu Jr, DO 04/06/23918 Signed By: 04/06/23925 Normal [facility] Calcium [Mass/volume] in Ser um or PlasmaOrdered By: Jeff Birmingham on 04-06-2023 Calcium [Mass/Vol] 9.5 mg/dL 8.6-10.3 [facility] Carbon dioxide, total [Moles /volume] in Serum or PlasmaOrdered By: Jeff Birmingham on 04-06-2023 CO2 [Moles/Vol] 29.3 mmol/L 21.0-31.0 [facility] Chloride [Moles/volume] in S valerie or PlasmaOrdered By: Jeff Birmingham on 04-06-2023 Chloride [Moles/Vol] 104 mmol/L 98-107 [facility] Complete Blood Count Auto Di ffon 04-06-2023 Basophils (Bld) [#/Vol] 0.1 10*3/uL Normal 0.0-0.2 [facility] Comment on above: Result Comment: PERF ORMED BY: [facility] [address] [place] [address] PATHOLOGIST EXTERNAL RELATIONS DIRECTOR CARRI KIM M.D. Performed By: #### H EPATIC, BMP, CBC, LIPASE ####[place] [address] [address] Basophils/100 WBC (Bld) 0.9 % Normal . [facility] Comment on above: Performed By: #### H EPATIC, BMP, CBC, LIPASE ####[facility] Nri[address] Eosinophils (Bld) [#/Vol] 0.1 10*3/uL Normal 0.0-0.45 [facility] Comment on above: Performed By: #### H EPATIC, BMP, CBC, LIPASE ####[place] [address] [address] Eosinophils/100 WBC (Bld) 1.1 % Normal . [facility] Comment on above: Performed By: #### H EPATIC, BMP, CBC, LIPASE ####[address] Erythrocyte distribution width (RBC) [Ratio] 13.6 % Normal 12.0-14.8 [facility] Comment on above: Performed By: #### H EPATIC, BMP, CBC, LIPASE ####[address] Hematocrit (Bld) [Volume fraction] 42.1 % Normal 38.8-50.0 [facility] Comment on above: Performed By: #### H EPATIC, BMP, CBC, LIPASE ####[address] Hemoglobin (Bld) [Mass/Vol] 14.9 g/dL Normal 13.0-17.0 [facility] Comment on above: Performed By: #### H EPATIC, BMP, CBC, LIPASE ####[address] Lymphocytes (Bld) [#/Vol] 3.1 10*3/uL Normal 1.00-4.8 [facility] Comment on above: Performed By: #### H EPATIC, BMP, CBC, LIPASE ####[address] Lymphocytes/100 WBC (Bld) 30.6 % Normal . [facility] Comment on above: Performed By: #### H EPATIC, BMP, CBC, LIPASE ####[address] MCH (RBC) [Entitic mass] 29.0 pg Normal 27.5-35.2 [facility] Comment on above: Performed By: #### H EPATIC, BMP, CBC, LIPASE ####[address] MCV (RBC) [Entitic vol] 81.9 fL Low 83.5-101 [facility] Comment on above: Performed By: #### H EPATIC, BMP, CBC, LIPASE ####[address] Mean Corpuscular HGB Conc 35.3 g/dL Normal 32.5-35.6 [facility] Comment on above: Performed By: #### H EPATIC, BMP, CBC, LIPASE ####[address] Monocytes (Bld) [#/Vol] 1.0 10*3/uL High 0.0-0.8 [facility] Comment on above: Performed By: #### H EPATIC, BMP, CBC, LIPASE ####[address] Monocytes/100 WBC (Bld) 15.06 % Normal 0.00-20.00 [facility] Comment on above: Performed By: #### H EPATIC, BMP, CBC, LIPASE ####[address] Monocytes/100 WBC (Bld) 9.5 % Normal . [facility] Comment on above: Performed By: #### H EPATIC, BMP, CBC, LIPASE ####[address] Neutrophils (Bld) [#/Vol] 5.9 10*3/uL Normal 1.8-7.7 [facility] Comment on above: Performed By: #### H EPATIC, BMP, CBC, LIPASE ####[address] Neutrophils/100 WBC (Bld) 57.9 % Normal . [facility] Comment on above: Performed By: #### H EPATIC, BMP, CBC, LIPASE ####[address] NRBC% 0.1 /100{WBC} Normal 0-0.5 [facility] Comment on above: Performed By: #### H EPATIC, BMP, CBC, LIPASE ####[address] Platelet mean volume (Bld) [Entitic vol] 8.0 fL Normal 6.6-10.1 [facility] Comment on above: Performed By: #### H EPATIC, BMP, CBC, LIPASE ####[facility] [id number] [address] Platelets (Bld) [#/Vol] 198 10*3/uL Normal 150-450 [facility] Comment on above: Performed By: #### H EPATIC, BMP, CBC, LIPASE ####[place] [address] [address] RBC (Bld) [#/Vol] 5.14 10*6/uL Normal 3.90-5.60 [facility] Comment on above: Performed By: #### H EPATIC, BMP, CBC, LIPASE ####[place] [address] [address] WBC (Bld) [#/Vol] 10.2 10*3/uL Normal 4.1-10.5 [facility] Comment on above: Performed By: #### H EPATIC, BMP, CBC, LIPASE ####[address] Creatinine [Mass/volume] in Serum or PlasmaOrdered By: Jeff Birmingham on 04-06-2023 Creatinine [Mass/Vol] 0.91 mg/dL 0.70-1.30 [facility] Eosinophils Auto (Bld) [#/Vo l]Ordered By: Jeff Birmingham on 04-06-2023 Eosinophils (Bld) [#/Vol] 0.1 10*3/uL 0.0-0.45 [facility] Eosinophils/100 WBC Auto (Bl d)Ordered By: Jeff Birmingham on 04-06-2023 Eosinophils/100 WBC (Bld) 1.1 % . [facility] Erythrocyte distribution wid th Auto (RBC) [Ratio]Ordered By: Jeff Birmingham on 04-06-2023 Erythrocyte distribution width (RBC) [Ratio] 13.6 % 12.0-14.8 [facility] Globulin Calc (S) [Mass/Vol] Ordered By: Jeff Birmingham on 04-06-2023 Globulin (S) [Mass/Vol] 2.5 g/dL [facility] Glucose [Mass/volume] in Ser um or PlasmaOrdered By: Jeff Birmingham on 04-06-2023 Glucose [Mass/Vol] 95 mg/dL 70-100 [facility] Comment on above: ADA recommended refe rence rangeRandom Glucose Reference Range is dependent on time and content of last meal. Glucose of more than 200 mg/dL in a nonstressed, ambulatory subject supports the diagnosis of Diabetes Mellitus. Hematocrit Auto (Bld) [Volum e fraction]Ordered By: Jeff Birmingham on 04-06-2023 Hematocrit (Bld) [Volume fraction] 42.1 % 38.8-50.0 [facility] Hemoglobin [Mass/volume] in BloodOrdered By: Jeff Birmingham on 04-06-2023 Hemoglobin (Bld) [Mass/Vol] 14.9 g/dL 13.0-17.0 [facility] Hepatic Panelon 04-06-2023 Albumin [Mass/Vol] 4.7 g/dL Normal 3.5-5.7 [facility] Comment on above: Performed By: #### H EPATIC, BMP, CBC, LIPASE ####[address] Albumin/Globulin [Mass ratio] 1.9 {ratio} Normal [facility] Comment on above: Performed By: #### H EPATIC, BMP, CBC, LIPASE ####[address] ALP [Catalytic activity/Vol] 67 U/L Normal 34-104 [facility] Comment on above: Performed By: #### H EPATIC, BMP, CBC, LIPASE ####[place] [id number] [facility] ALT [Catalytic activity/Vol] 44 U/L Normal 7-52 [facility] Comment on above: Performed By: #### H EPATIC, BMP, CBC, LIPASE ####[place] [id number] [facility] AST [Catalytic activity/Vol] 25 U/L Normal 13-39 [facility] Comment on above: Performed By: #### H EPATIC, BMP, CBC, LIPASE ####[address] Bilirubin [Mass/Vol] 0.6 mg/dL Normal 0.3-1.0 [facility] Comment on above: Performed By: #### H EPATIC, BMP, CBC, LIPASE ####[address] Bilirubin,Indirect 0.5 mg/dL Normal [facility] Comment on above: Performed By: #### H EPATIC, BMP, CBC, LIPASE ####[address] Bilirubin.indirect [Mass/Vol] 0.10 mg/dL Normal 0.03-0.18 [facility] Comment on above: Performed By: #### H EPATIC, BMP, CBC, LIPASE ####[address] Globulin (S) [Mass/Vol] 2.5 g/dL Normal [facility] Comment on above: Performed By: #### H EPATIC, BMP, CBC, LIPASE ####[address] Protein [Mass/Vol] 7.2 g/dL Normal 6.4-8.9 [facility] Comment on above: Performed By: #### H EPATIC, BMP, CBC, LIPASE ####[address] Leukocytes [#/volume] correc ashley for nucleated erythrocytes in Blood by Automated counOrdered By: Jeff Birmingham on 04-06-2023 WBC corrected for nucl RBC Auto (Bld) [#/Vol] 10.2 10*3/uL 4.1-10.5 [facility] Lipaseon 04-06-2023 Lipase [Catalytic activity/Vol] 20.0 U/L Normal 11.0-82.0 [facility] Comment on above: Result Comment: PERF ORMED BY: [facility] [address] [place] [address] PATHOLOGIST EXTERNAL RELATIONS DIRECTOR CARRI KIM M.D. Performed By: #### H EPATIC, BMP, CBC, LIPASE ####[address] [place] [address] [facility] Lipase [Enzymatic activity/v olume] in Serum or PlasmaOrdered By: Jeff Birmingham on 04-06-2023 Lipase [Catalytic activity/Vol] 20.0 U/L 11.0-82.0 [facility] Lymphocytes Auto (Bld) [#/Vo l]Ordered By: Jeff Birmingham on 04-06-2023 Lymphocytes (Bld) [#/Vol] 3.1 10*3/uL 1.00-4.8 [facility] Lymphocytes/100 WBC Auto (Bl d)Ordered By: Jeff Birmingham on 04-06-2023 Lymphocytes/100 WBC (Bld) 30.6 % . [facility] MCH Auto (RBC) [Entitic mass ]Ordered By: Jeff Birmingham on 04-06-2023 MCH (RBC) [Entitic mass] 29.0 pg 27.5-35.2 [facility] MCHC Auto (RBC) [Mass/Vol]Or dered By: Jeff Birmingham on 04-06-2023 MCHC (RBC) [Mass/Vol] 35.3 g/dL 32.5-35.6 [facility] MCV Auto (RBC) [Entitic vol] Ordered By: Jeff Birmingham on 04-06-2023 MCV (RBC) [Entitic vol] 81.9 fL 83.5-101 [facility] Monocyte distribution width [Entitic volume] in Blood by AutomatedOrdered By: Jeff Birmingham on 04-06-2023 Monocyte distribution width Auto (Bld) [Entitic vol] 15.06 % 0.00-20.00 [facility] Monocytes Auto (Bld) [#/Vol] Ordered By: Jeff Birmingham on 04-06-2023 Monocytes (Bld) [#/Vol] 1.0 10*3/uL 0.0-0.8 [facility] Monocytes/100 WBC Auto (Bld) Ordered By: Jeff Birmingham on 04-06-2023 Monocytes/100 WBC (Bld) 9.5 % . [facility] Neutrophils Auto (Bld) [#/Vo l]Ordered By: Jeff Birmingham on 04-06-2023 Neutrophils (Bld) [#/Vol] 5.9 10*3/uL 1.8-7.7 [facility] Neutrophils/100 WBC Auto (Bl d)Ordered By: Jeff Birmingham on 04-06-2023 Neutrophils/100 WBC (Bld) 57.9 % . [facility] No Panel InformationOrdered By: Jeff Birmingham on 04-06-2023 Estimated GFR (CKD-EPI) > 60.0 mL/Min [facility] Creatinine Clearance (Chem 149.34 [facility] Nucleated erythrocytes [Pres ence] in Blood by Automated countOrdered By: Jeff Birmingham on 04-06-2023 Nucleated RBC Auto Ql (Bld) 0.1 /100{WBC} 0-0.5 [facility] Platelet mean volume Auto (B ld) [Entitic vol]Ordered By: Jeff Birmingham on 04-06-2023 Platelet mean volume (Bld) [Entitic vol] 8.0 fL 6.6-10.1 [facility] Platelets Auto (Bld) [#/Vol] Ordered By: Jeff Birmingham on 04-06-2023 Platelets (Bld) [#/Vol] 198 10*3/uL 150-450 [facility] Potassium [Moles/volume] in Serum or PlasmaOrdered By: Jeff Birmingham on 04-06-2023 Potassium [Moles/Vol] 3.7 mmol/L 3.5-5.1 [facility] Protein [Mass/volume] in Ser um or PlasmaOrdered By: Jeff Birmingham on 04-06-2023 Protein [Mass/Vol] 7.2 g/dL 6.4-8.9 [facility] RBC Auto (Bld) [#/Vol]Ordere d By: Jeff Birmingham on 04-06-2023 RBC (Bld) [#/Vol] 5.14 10*6/uL 3.90-5.60 [facility] Serum or plasma albumin/glob ulin mass ratioOrdered By: Jeff Birmingham on 04-06-2023 Albumin/Globulin [Mass ratio] 1.9 {ratio} [facility] Serum or plasma anion gap de terminationOrdered By: eJff Birmingham on 04-06-2023 Anion gap [Moles/Vol] 9.4 mmol/L 6.0-15.0 [facility] Serum or plasma non-glucuron idated bilirubin measurement (mass/volume)Ordered By: Jeff Birmingham on 04-06-2023 Bilirubin.indirect [Mass/Vol] 0.5 mg/dL [facility] Sodium [Moles/volume] in Ser um or PlasmaOrdered By: Jeff Birmingham on 04-06-2023 Sodium [Moles/Vol] 139 mmol/L 136-145 [facility] Urea nitrogen [Mass/volume] in Serum or PlasmaOrdered By: Jeff Birmingham on 04-06-2023 Urea nitrogen [Mass/Vol] 7 mg/dL 7-25 [facility] WBC Auto (Bld) [#/Vol]Ordere d By: Jeff Birmingham on 04-06-2023 WBC (Bld) [#/Vol] 10.2 10*3/uL 4.1-10.5 [facility] US venous duplex LE RTon US venous duplex LE RT [facility] [place] [address] Ultrasound Report Signed Patient: Basilio Person MR#: [id number] : 2000 Acct:[id number] Age/Sex: 22 / M ADM Date: 02/03/23 Loc: ER Room: Type: [facility] ER Attending Dr: Ordering [...] Nehemiah Camejo M.D.02/04/2023 8:41 AM Dictation Location: [place] [address] Tech: Cee Dasilva Transcribed By: TANK 02/04/2341 Dictated By: Nehemiah Camejo MD 02/04/23840 Signed By: 02/04/23840 [facility] XR knee RT 4V*on 02-04-2023 XR knee RT 4V* [facility] [place] [address] XRay Report Signed Patient: Basilio Person MR#: [id number] : 2000 Acct:[id number] Age/Sex: 22 / M ADM Date: 02/03/23 Loc: ER Room: Type: [facility] ER Attending Dr: Copies [...] Park Champagne M.D.02/04/2023 7:38 AM Dictation Location: [place] [address] Transcribed By: TANK 02/04/23 0738 Dictated By: Park Champagne MD 02/04/23 0737 Signed By: 02/04/23 0738 [facility] Activated partial thrombopla stin time (aPTT) in platelet poor plasma by coagulation aOrdered By: Venkat Palencia on 12-18-2022 aPTT Coag (PPP) [Time] 28.5 s 25.1-36.5 [facility] Alanine aminotransferase [En zymatic activity/volume] in Serum or PlasmaOrdered By: Venkat Palencia on 12-18-2022 ALT [Catalytic activity/Vol] 32 U/L 7-52 [facility] Albumin [Mass/volume] in Ser um or Plasma by Bromocresol green (BCG) dye binding methoOrdered By: Venkat Palencia on 12-18-2022 Albumin BCG dye [Mass/Vol] 4.6 g/dL 3.5-5.7 [facility] Alkaline phosphatase [Enzyma tic activity/volume] in Serum or PlasmaOrdered By: Venkat Palencia on 12-18-2022 ALP [Catalytic activity/Vol] 74 U/L 34-104 [facility] Aspartate aminotransferase [ Enzymatic activity/volume] in Serum or PlasmaOrdered By: Venkat Palencia on 12-18-2022 AST [Catalytic activity/Vol] 18 U/L 13-39 [facility] B-Type Natriuretic Peptideon 12-18-2022 Natriuretic peptide B (Bld) [Mass/Vol] 9.0 pg/mL Normal 5-100 [facility] Comment on above: Result Comment: PERF ORMED BY: [facility] [address] [facility] [place] [id number] PATHOLOGIST EXTERNAL RELATIONS DIRECTOR CARRI KIM M.D. Performed By: #### P T, BNP, CBC, PTT, CK, DDIMER, HS TROP, CMP ####[facility] [id number] [place] [id number] [facility] Basophils Auto (Bld) [#/Vol] Ordered By: Venkat Palencia on 12-18-2022 Basophils (Bld) [#/Vol] 0.1 10*3/uL 0.0-0.2 [facility] Basophils/100 WBC Auto (Bld) Ordered By: Venkat Palencia on 12-18-2022 Basophils/100 WBC (Bld) 0.9 % . [facility] Bilirubin.total [Mass/volume ] in Serum or PlasmaOrdered By: Venkat Palencia on 12-18-2022 Bilirubin [Mass/Vol] 0.8 mg/dL 0.3-1.0 [facility] Calcium [Mass/volume] in Ser um or PlasmaOrdered By: Venkat Palencia on 12-18-2022 Calcium [Mass/Vol] 8.6 mg/dL 8.6-10.3 [facility] Carbon dioxide, total [Moles /volume] in Serum or PlasmaOrdered By: Venkat Palencia on 12-18-2022 CO2 [Moles/Vol] 25.9 mmol/L 21.0-31.0 [facility] Chloride [Moles/volume] in S valerie or PlasmaOrdered By: Venkat Palencia on 12-18-2022 Chloride [Moles/Vol] 109 mmol/L 98-107 [facility] Complete Blood Count Auto Di ffon 12-18-2022 Basophils (Bld) [#/Vol] 0.1 10*3/uL Normal 0.0-0.2 [facility] Comment on above: Result Comment: PERF ORMED BY: [place] [address] PATHOLOGIST EXTERNAL RELATIONS DIRECTOR CARRI KIM M.D. Performed By: #### P T, BNP, CBC, PTT, CK, DDIMER, HS TROP, CMP #### [address] Basophils/100 WBC (Bld) 0.9 % Normal . [facility] Comment on above: Performed By: #### P T, BNP, CBC, PTT, CK, DDIMER, HS TROP, CMP #### [address] Eosinophils (Bld) [#/Vol] 0.1 10*3/uL Normal 0.0-0.45 [facility] Comment on above: Performed By: #### P T, BNP, CBC, PTT, CK, DDIMER, HS TROP, CMP #### [address] Eosinophils/100 WBC (Bld) 0.8 % Normal . [facility] Comment on above: Performed By: #### P T, BNP, CBC, PTT, CK, DDIMER, HS TROP, CMP #### [address] Erythrocyte distribution width (RBC) [Ratio] 13.7 % Normal 12.0-14.8 [facility] Comment on above: Performed By: #### P T, BNP, CBC, PTT, CK, DDIMER, HS TROP, CMP #### [address] Hematocrit (Bld) [Volume fraction] 40.9 % Normal 38.8-50.0 [facility] Comment on above: Performed By: #### P T, BNP, CBC, PTT, CK, DDIMER, HS TROP, CMP #### [address] Hemoglobin (Bld) [Mass/Vol] 14.1 g/dL Normal 13.0-17.0 [facility] Comment on above: Performed By: #### P T, BNP, CBC, PTT, CK, DDIMER, HS TROP, CMP #### [address] Lymphocytes (Bld) [#/Vol] 2.2 10*3/uL Normal 1.00-4.8 [facility] Comment on above: Performed By: #### P T, BNP, CBC, PTT, CK, DDIMER, HS TROP, CMP #### [address] Lymphocytes/100 WBC (Bld) 21.2 % Normal . [facility] Comment on above: Performed By: #### P T, BNP, CBC, PTT, CK, DDIMER, HS TROP, CMP #### [address] MCH (RBC) [Entitic mass] 28.5 pg Normal 27.5-35.2 [facility] Comment on above: Performed By: #### P T, BNP, CBC, PTT, CK, DDIMER, HS TROP, CMP #### [address] MCV (RBC) [Entitic vol] 82.4 fL Low 83.5-101 [facility] Comment on above: Performed By: #### P T, BNP, CBC, PTT, CK, DDIMER, HS TROP, CMP #### [address] Mean Corpuscular HGB Conc 34.5 g/dL Normal 32.5-35.6 [facility] Comment on above: Performed By: #### P T, BNP, CBC, PTT, CK, DDIMER, HS TROP, CMP #### [place] [address] [place] Monocytes (Bld) [#/Vol] 0.9 10*3/uL High 0.0-0.8 [facility] Comment on above: Performed By: #### P T, BNP, CBC, PTT, CK, DDIMER, HS TROP, CMP #### [place] [address] [place] Monocytes/100 WBC (Bld) 15.92 % Normal 0.00-20.00 [facility] Comment on above: Performed By: #### P T, BNP, CBC, PTT, CK, DDIMER, HS TROP, CMP #### [address] Monocytes/100 WBC (Bld) 8.9 % Normal . [facility] Comment on above: Performed By: #### P T, BNP, CBC, PTT, CK, DDIMER, HS TROP, CMP #### [address] Neutrophils (Bld) [#/Vol] 7.2 10*3/uL Normal 1.8-7.7 [facility] Comment on above: Performed By: #### P T, BNP, CBC, PTT, CK, DDIMER, HS TROP, CMP #### [place] [address] [place] Neutrophils/100 WBC (Bld) 68.2 % Normal . [facility] Comment on above: Performed By: #### P T, BNP, CBC, PTT, CK, DDIMER, HS TROP, CMP #### [place] [address] [place] NRBC% 0.1 /100{WBC} Normal 0-0.5 [facility] Comment on above: Performed By: #### P T, BNP, CBC, PTT, CK, DDIMER, HS TROP, CMP #### [place] [address] [place] Platelet mean volume (Bld) [Entitic vol] 7.5 fL Normal 6.6-10.1 [facility] Comment on above: Performed By: #### P T, BNP, CBC, PTT, CK, DDIMER, HS TROP, CMP #### [facility] [address] Platelets (Bld) [#/Vol] 203 10*3/uL Normal 150-450 [facility] Comment on above: Performed By: #### P T, BNP, CBC, PTT, CK, DDIMER, HS TROP, CMP #### [facility] [address] RBC (Bld) [#/Vol] 4.97 10*6/uL Normal 3.90-5.60 [facility] Comment on above: Performed By: #### P T, BNP, CBC, PTT, CK, DDIMER, HS TROP, CMP #### [address] WBC (Bld) [#/Vol] 10.6 10*3/uL High 4.1-10.5 [facility] Comment on above: Performed By: #### P T, BNP, CBC, PTT, CK, DDIMER, HS TROP, CMP #### [facility] [address] [place] [address] Comprehensive Metabolic Pane maren 12-18-2022 Albumin [Mass/Vol] 4.6 g/dL Normal 3.5-5.7 [facility] Comment on above: Performed By: #### P T, BNP, CBC, PTT, CK, DDIMER, HS TROP, CMP ####[facility] Albumin/Globulin [Mass ratio] 2.0 {ratio} Normal [facility] Comment on above: Performed By: #### P T, BNP, CBC, PTT, CK, DDIMER, HS TROP, CMP ####[facility] ALP [Catalytic activity/Vol] 74 U/L Normal 34-104 [facility] Comment on above: Performed By: #### P T, BNP, CBC, PTT, CK, DDIMER, HS TROP, CMP ####[address] ALT [Catalytic activity/Vol] 32 U/L Normal 7-52 [facility] Comment on above: Performed By: #### P T, BNP, CBC, PTT, CK, DDIMER, HS TROP, CMP ####[address] Anion gap [Moles/Vol] 9.9 mmol/L Normal 6.0-15.0 [facility] Comment on above: Performed By: #### P T, BNP, CBC, PTT, CK, DDIMER, HS TROP, CMP ####[address] AST [Catalytic activity/Vol] 18 U/L Normal 13-39 [facility] Comment on above: Performed By: #### P T, BNP, CBC, PTT, CK, DDIMER, HS TROP, CMP ####[address] Bilirubin [Mass/Vol] 0.8 mg/dL Normal 0.3-1.0 [facility] Comment on above: Performed By: #### P T, BNP, CBC, PTT, CK, DDIMER, HS TROP, CMP ####[address] Calcium [Mass/Vol] 8.6 mg/dL Normal 8.6-10.3 [facility] Comment on above: Performed By: #### P T, BNP, CBC, PTT, CK, DDIMER, HS TROP, CMP ####[place] [id number] [facility] Chloride [Moles/Vol] 109 mmol/L High 98-107 [facility] Comment on above: Performed By: #### P T, BNP, CBC, PTT, CK, DDIMER, HS TROP, CMP ####[address] CO2 [Moles/Vol] 25.9 mmol/L Normal 21.0-31.0 [facility] Comment on above: Performed By: #### P T, BNP, CBC, PTT, CK, DDIMER, HS TROP, CMP ####[address] Creatinine [Mass/Vol] 0.89 mg/dL Normal 0.70-1.30 [facility] Comment on above: Performed By: #### P T, BNP, CBC, PTT, CK, DDIMER, HS TROP, CMP ####[address] Creatinine Clr Calc Pharmacy 151.88 [facility] Comment on above: Result Comment: PERF ORMED BY: [facility] [address] [place] [address] PATHOLOGIST EXTERNAL RELATIONS DIRECTOR CARRI KIM M.D. Performed By: #### P T, BNP, CBC, PTT, CK, DDIMER, HS TROP, CMP ####[address] GFR/1.73 sq M.predicted MDRD (S/P/Bld) [Vol rate/Area] mL/min/{1.73_m2} [facility] Comment on above: Performed By: #### P T, BNP, CBC, PTT, CK, DDIMER, HS TROP, CMP ####[address] Globulin (S) [Mass/Vol] 2.3 g/dL [facility] Comment on above: Performed By: #### P T, BNP, CBC, PTT, CK, DDIMER, HS TROP, CMP ####[address] Glucose [Mass/Vol] 87 mg/dL Normal 70-100 [facility] Comment on above: Result Comment: [place] Glucose Reference Range is dependent on time and content of last meal. Glucose of more than 200 mg/dL in a nonstressed, ambulatory subject supports the diagnosis of Diabetes Mellitus. ADA recommended reference range Performed By: #### P T, BNP, CBC, PTT, CK, DDIMER, HS TROP, CMP ####[address] Potassium [Moles/Vol] 3.8 mmol/L Normal 3.5-5.1 [facility] Comment on above: Performed By: #### P T, BNP, CBC, PTT, CK, DDIMER, HS TROP, CMP ####[place] [id number] [facility] Protein [Mass/Vol] 6.9 g/dL Normal 6.4-8.9 [facility] Comment on above: Performed By: #### P T, BNP, CBC, PTT, CK, DDIMER, HS TROP, CMP ####[address] Sodium [Moles/Vol] 141 mmol/L Normal 136-145 [facility] Comment on above: Performed By: #### P T, BNP, CBC, PTT, CK, DDIMER, HS TROP, CMP ####[place] [id number] [facility] Urea nitrogen [Mass/Vol] 11 mg/dL Normal 7-25 [facility] Comment on above: Performed By: #### P T, BNP, CBC, PTT, CK, DDIMER, HS TROP, CMP ####[place] [id number] [facility] Creatine Kinaseon 12-18-2022 CK [Catalytic activity/Vol] 81 U/L Normal [facility] Comment on above: Performed By: #### P T, BNP, CBC, PTT, CK, DDIMER, HS TROP, CMP ####[place] [id number] [facility] Creatine kinase [Enzymatic a ctivity/volume] in Serum or PlasmaOrdered By: Venkat Palencia on 12-18-2022 CK [Catalytic activity/Vol] 81 U/L - [facility] Creatinine [Mass/volume] in Serum or PlasmaOrdered By: Venkat Palencia on 12-18-2022 Creatinine [Mass/Vol] 0.89 mg/dL 0.70-1.30 [facility] D-Dimer High Sensitivityon 0 12-18-2022 D-Dimer High Sensitivity < 200 Normal 0-243 [facility] Comment on above: Result Comment: The [...] patients due to co-morbid conditions. PERFORMED BY: [place] [address] PATHOLOGIST EXTERNAL RELATIONS DIRECTOR CARRI KIM M.D. Performed By: #### P T, BNP, CBC, PTT, CK, DDIMER, HS TROP, CMP ####[facility]1111 [place] [id number] [facility] ECG 12 lead ECGon 12-18-2022 ECG 12 lead ECG [facility] [address] Electrocardiograph Report Signed Patient: Basilio Person MR#: [id number] : 2000 Acct:[id number] Age/Sex: 22 / M ADM Date: 12/18/22 Loc: ER Room: Type: [facility] ER Attending Dr: Ordering Provider: Venkat [...] was found Confirmed by VENKAT PALENCIA MD ([id number]) on 12/18/2022 4:21:16 AM Referred By: Electronically Signed By:VENKAT PALENCIA MD Transcribed By: MUS Signed By Venkat Palencia Jr, MD 0421 Normal [facility] Eosinophils Auto (Bld) [#/Vo l]Ordered By: Venkat Palencia on 12-18-2022 Eosinophils (Bld) [#/Vol] 0.1 10*3/uL 0.0-0.45 [facility] Eosinophils/100 WBC Auto (Bl d)Ordered By: Venkat Palencia on 12-18-2022 Eosinophils/100 WBC (Bld) 0.8 % . [facility] Erythrocyte distribution wid th Auto (RBC) [Ratio]Ordered By: Venkat Palencia on 12-18-2022 Erythrocyte distribution width (RBC) [Ratio] 13.7 % 12.0-14.8 [facility] Globulin Calc (S) [Mass/Vol] Ordered By: Venkat Palencia on 12-18-2022 Globulin (S) [Mass/Vol] 2.3 g/dL [facility] Glucose [Mass/volume] in Ser um or PlasmaOrdered By: Venkat Palencia on 12-18-2022 Glucose [Mass/Vol] 87 mg/dL 70-100 [facility] Comment on above: ADA recommended refe rence rangeRandom Glucose Reference Range is dependent on time and content of last meal. Glucose of more than 200 mg/dL in a nonstressed, ambulatory subject supports the diagnosis of Diabetes Mellitus. Hematocrit Auto (Bld) [Volum e fraction]Ordered By: Venkat Palencia on 12-18-2022 Hematocrit (Bld) [Volume fraction] 40.9 % 38.8-50.0 [facility] Hemoglobin [Mass/volume] in BloodOrdered By: Venkat Palencia on 12-18-2022 Hemoglobin (Bld) [Mass/Vol] 14.1 g/dL 13.0-17.0 [facility] Laboratory - CoagulationOrde red By: Venkat Palencia on 12-18-2022 PT Coag (PPP) [Time] 12.0 s 9.0-12.9 [facility] Leukocytes [#/volume] correc ashley for nucleated erythrocytes in Blood by Automated counOrdered By: Venkat Palencia on 12-18-2022 WBC corrected for nucl RBC Auto (Bld) [#/Vol] 10.6 10*3/uL 4.1-10.5 [facility] Lymphocytes Auto (Bld) [#/Vo l]Ordered By: Venkat Palencia on 12-18-2022 Lymphocytes (Bld) [#/Vol] 2.2 10*3/uL 1.00-4.8 [facility] Lymphocytes/100 WBC Auto (Bl d)Ordered By: Venkat Palencia on 12-18-2022 Lymphocytes/100 WBC (Bld) 21.2 % . [facility] MCH Auto (RBC) [Entitic mass ]Ordered By: Venkat Palencia on 12-18-2022 MCH (RBC) [Entitic mass] 28.5 pg 27.5-35.2 [facility] MCHC Auto (RBC) [Mass/Vol]Or dered By: Venkat Palencia on 12-18-2022 MCHC (RBC) [Mass/Vol] 34.5 g/dL 32.5-35.6 [facility] MCV Auto (RBC) [Entitic vol] Ordered By: Venkat Palencia on 12-18-2022 MCV (RBC) [Entitic vol] 82.4 fL 83.5-101 [facility] Monocyte distribution width [Entitic volume] in Blood by AutomatedOrdered By: Venkat Palencia on 12-18-2022 Monocyte distribution width Auto (Bld) [Entitic vol] 15.92 % 0.00-20.00 [facility] Monocytes Auto (Bld) [#/Vol] Ordered By: Venkat Palencia on 12-18-2022 Monocytes (Bld) [#/Vol] 0.9 10*3/uL 0.0-0.8 [facility] Monocytes/100 WBC Auto (Bld) Ordered By: Venkat Palencia on 12-18-2022 Monocytes/100 WBC (Bld) 8.9 % . [facility] Natriuretic peptide B [Mass/ Vol]Ordered By: Venkat Palencia on 12-18-2022 Natriuretic peptide B (Bld) [Mass/Vol] 9.0 pg/mL 5-100 [facility] Neutrophils Auto (Bld) [#/Vo l]Ordered By: Venkat Palencia on 12-18-2022 Neutrophils (Bld) [#/Vol] 7.2 10*3/uL 1.8-7.7 [facility] Neutrophils/100 WBC Auto (Bl d)Ordered By: Venkat Palencia on 12-18-2022 Neutrophils/100 WBC (Bld) 68.2 % . [facility] No Panel InformationOrdered By: Venkat Palencia on 12-18-2022 D-Dimer Quantitative (PE/DVT) < 200 ng/mL 0-243 [facility] Comment on above: The reference range [...] conditions. Estimated GFR (CKD-EPI) > 60.0 mL/Min [facility] Pharmacy Creatinine Clearance (Chem 151.88 [facility] Nucleated erythrocytes [Pres ence] in Blood by Automated countOrdered By: Venkat Palencia on 12-18-2022 Nucleated RBC Auto Ql (Bld) 0.1 /100{WBC} 0-0.5 [facility] Partial Thromboplastin Timeo n 12-18-2022 aPTT Coag (Bld) [Time] 28.5 s Normal 25.1-36.5 [facility] Comment on above: Performed By: #### P T, BNP, CBC, PTT, CK, DDIMER, HS TROP, CMP ####[facility] [address] [place] [address] [facility] Platelet mean volume Auto (B ld) [Entitic vol]Ordered By: Venkat Palencia on 12-18-2022 Platelet mean volume (Bld) [Entitic vol] 7.5 fL 6.6-10.1 [facility] Platelet poor plasma interna tional normalized ratio (INR) by coagulation assay (relatOrdered By: Venkat Palencia on 12-18-2022 INR Coag (PPP) [Relative time] 1.0 {INR} [facility] Comment on above: INR Therapeutic Rang [...] 12-18-2022 Platelets (Bld) [#/Vol] 203 10*3/uL 150-450 [facility] Potassium [Moles/volume] in Serum or PlasmaOrdered By: Venkat Palencia on 12-18-2022 Potassium [Moles/Vol] 3.8 mmol/L 3.5-5.1 [facility] Protein [Mass/volume] in Ser um or PlasmaOrdered By: Venkat Palencia on 12-18-2022 Protein [Mass/Vol] 6.9 g/dL 6.4-8.9 [facility] Prothrombin Time INRon 12-18 INR Coag (PPP) [Relative time] 1.0 {INR} Normal [facility] Comment on above: Result Comment: INR [...] CMP #### [facility] [address] PT Coag (PPP) [Time] 12.0 s Normal 9.0-12.9 [facility] Comment on above: Performed By: #### P T, BNP, CBC, PTT, CK, DDIMER, HS TROP, CMP #### [facility] [address] RBC Auto (Bld) [#/Vol]Ordere d By: Venkat Palencia on 04-15-2023 RBC (Bld) [#/Vol] 4.97 10*6/uL 3.90-5.60 [facility] Serum or plasma albumin/glob ulin mass ratioOrdered By: Venkat Palencia on 12-18-2022 Albumin/Globulin [Mass ratio] 2.0 {ratio} [facility] Serum or plasma anion gap de terminationOrdered By: Venkat Palencia on 12-18-2022 Anion gap [Moles/Vol] 9.9 mmol/L 6.0-15.0 [facility] Sodium [Moles/volume] in Ser um or PlasmaOrdered By: Venkat Palencia on 12-18-2022 Sodium [Moles/Vol] 141 mmol/L 136-145 [facility] Troponin I High Sensitivityo n 12-18-2022 Troponin I High Sensitivity 2.5 pg/mL Normal 0.0-20.0 [facility] Comment on above: Result Comment: PERF ORMED BY: [facility] [address] [place] [id number] PATHOLOGIST EXTERNAL RELATIONS DIRECTOR CARRI KIM M.D. Performed By: #### P T, BNP, CBC, PTT, CK, DDIMER, HS TROP, CMP ####[facility] [address] [place] [address] [facility] Troponin I.cardiac [Mass/vol ume] in Serum or Plasma by Detection limit <= 0.01 ng/Ordered By: Venkat Palencia on 12-18-2022 Troponin I.cardiac DL <= 0.01 ng/mL [Mass/Vol] 2.5 pg/mL 0.0-20.0 [facility] Urea nitrogen [Mass/volume] in Serum or PlasmaOrdered By: Venkat Palencia on 12-18-2022 Urea nitrogen [Mass/Vol] 11 mg/dL 7-25 [facility] WBC Auto (Bld) [#/Vol]Ordere d By: Venkat Palencia on 12-18-2022 WBC (Bld) [#/Vol] 10.6 10*3/uL 4.1-10.5 [facility] XR chest 1V portableon 12-18 XR chest 1V portable [facility] [address] [place] [address] XRay Report Signed Patient: Basilio Person MR#: [id number] : 2000 Acct:[id number] Age/Sex: 22 / M ADM Date: 12/18/22 Loc: ER Room: Type: [facility] ER Attending Dr: Copies [...] Eagle Woodard M.D.12/18/2022 9:45 AM Dictation Location: [place] [address] Transcribed By: [facility] 12/18/22 0945 Dictated By: Eagle Woodard II, MD 12/18/22 0945 Signed By: 12/18/22 0945 [facility] Quick Strepon 10-24-2022 Quick Strep Streptococcus pyogen es Ag [Presence] in Throat by Rapid immunoassay Negative for Group A Strep Antigen Note 1 NOTE 2 Results are those of a screening test. NOTE 3 If clinically indicated please order a culture. NOTE 4 NOTE 5 Reference range = Negative PERFORMED BY: [place] [address] PATHOLOGIST EXTERNAL RELATIONS DIRECTOR CARRI KIM M.D. [facility] Comment on above: Performed By: #### Q S #### [facility] [address] [place] [address] RPR w/rfx to Quant TP Abson 10-24-2022 RPR, Rfx Quant RPR Non-Reactive Normal Non Reactive [facility] Comment on above: Result Comment: Perf ormed at: CB - [facility] [place] [id number] Director Financial Systems: Morales Escamilla PhD, Phone: [phone] PERFORMED BY: [place] [address] PATHOLOGIST EXTERNAL RELATIONS DIRECTOR CARRI KIM M.D. Performed By: #### R WY W RFX ####[facility] , Reagin Ab [Presence] in Seru m by RPROrdered By: Andrzej Bell on 10-24-2022 Reagin Ab RPR Ql (S) Non-Reactive Non Reactive [facility] Comment on above: Performed at: CB - [facility] [address] [id number] Director: Morales Escamilla PhD, Phone: [phone] Streptococcus pyogenes antig en detectionOrdered By: Andrzej Bell on 10-24-2022 S. pyogenes Ag Ql (Unsp spec) [facility] S. pyogenes Ag Ql (Unsp spec) [facility] XR chest 1V portableon 10-08 XR chest 1V portable [facility] [place] [address] XRay Report Signed Patient: Basilio Person MR#: [id number] : 2000 Acct:[id number] Age/Sex: 22 / M ADM Date: 10/07/22 Loc: ER Room: Type: [facility] ER Attending Dr: Copies to: Suresh Ospina MD Ordering Provider: Suersh Ospina MD Date of Service: 10/07/22 XR/XR chest 1V portable: Shortness of Breath/Dyspnea Plain film chestsingle view HISTORY:Lightheaded. Dizziness. COMPARISON:None FINDINGS: The cardiac, mediastinal and hilar silhouettes are within normal limits. No acute lung process, pleural effusion or pneumothorax identified. Bony structures are intact. XR/XR chest 1V portable IMPRESSION: No acute process. Impression dictated by: Nehemiah Aguilar M.D.10/08/2022 7:49 AM Dictation Location: [facility]- Transcribed By: TANK 10/08/2249 Dictated By: Nehemiah Aguilar DO 10/08/2249 Signed By: 10/08/22 0749 [facility] XR soft tissue neckon 2022 XR soft tissue neck [facility] Main [place] [id number] XRay Report Signed Patient: Basilio Person MR#: [id number] : 2000 Acct:[id number] Age/Sex: 22 / M ADM Date: 10/07/22 Loc: ER Room: Type: [facility] ER Attending Dr: Copies [...] Nehemiah Aguilar M.D.10/08/2022 7:49 AM Dictation Location: [facility] Transcribed By: TANK 10/08/22 0749 Dictated By: Nehemiah Aguilar DO 10/08/22 0748 Signed By: 10/08/22 0749 [facility] ECG 12 lead ECGon 10-07-2022 ECG 12 lead ECG [place] [id number] Electrocardiograph Report Signed Patient: Basilio Person MR#: [id number] : 2000 Acct:[id number] Age/Sex: 22 / M ADM Date: 10/07/22 Loc: ER Room: Type: [facility] ER Attending Dr: Ordering [...] Signed By Suresh Ospina MD 10/08/22 012 [facility] XR knee LT 4V*on 09-02-2022 XR knee LT 4V* [facility] [place] [address] XRay Report Signed Patient: Basilio Person MR#: [id number] : 2000 Acct:[id number] Age/Sex: 21 / M ADM Date: 09/02/22 Loc: ER Room: Type: [facility] ER Attending Dr: Copies to: Andrzej [...] Nehemiah Aguilar M.D.09/02/2022 5:15 PM Dictation Location: [place] [address] Transcribed By: [facility] 09/02/221714 Dictated By: Nehemiah Aguilar DO 09/02/221713 Signed By: 09/02/221714 [facility] Vital Signs Date Time Vital Sign Value Performing Clinician Faci lity 04-06-2023 07:00-0400 Diastolic blood pressure 68 mm[Hg] [facility] Work Phone: [facility] 04-06-2023 07:00-0400 Heart rate 77 /min [facility] Work Phone: [facility] 04-06-2023 07:00-0400 Respiratory rate 18 /min [facility] Phone: [facility] 04-06-2023 07:00-0400 SaO2% (BldA) [Mass fraction] 97 % [facility] Work Phone: [facility] 04-06-2023 07:00-0400 Systolic blood pressure 117 mm[Hg] [facility] Work Phone: [facility] 04-06-2023 05:26-0400 Body height 177.8 cm [facility] Work Phone: [facility] 04-06-2023 05:26-0400 Body temperature 98.6 [degF] [facility] Work Phone: [facility] 04-06-2023 05:26-0400 Body weight 97.8 kg [facility] Work Phone: [facility] 02-03-2023 20:47-0400 Body height 177.8 cm [facility] Work Phone: [facility] 02-03-2023 20:47-0400 Body temperature 98 [degF] [facility] Work Phone: [facility] 02-03-2023 20:47-0400 Body weight 95.7 kg [facility] Work Phone: [facility] 02-03-2023 20:47-0400 Diastolic blood pressure 77 mm[Hg] [facility] Work Phone: [facility] 02-03-2023 20:47-0400 Heart rate 87 /min [facility] Work Phone: [facility] 02-03-2023 20:47-0400 Respiratory rate 20 /min [facility] Work Phone: [facility] 02-03-2023 20:47-0400 SaO2% (BldA) [Mass fraction] 100 % [facility] Work Phone: [facility] 02-03-2023 20:47-0400 Systolic blood pressure 138 mm[Hg] [facility] Work Phone: [facility] 12-18-2022 03:46-0400 Heart rate 108 /min [facility] Work Phone: [facility] 12-18-2022 03:46-0400 Respiratory rate 18 /min [facility] Work Phone: [facility] 12-18-2022 03:46-0400 SaO2% (BldA) [Mass fraction] 99 % [facility] Work Phone: [facility] 12-18-2022 03:24-0400 Body height 177.8 cm [facility] Work Phone: [facility] 12-18-2022 03:24-0400 Body temperature 97.9 [degF] [facility] Work Phone: [facility] 12-18-2022 03:24-0400 Body weight 96.7 kg [facility] Work Phone: [facility] 12-18-2022 03:24-0400 Diastolic blood pressure 88 mm[Hg] [facility] Work Phone: [facility] 12-18-2022 03:24-0400 Systolic blood pressure 145 mm[Hg] [facility] Work Phone: [facility] 10-24-2022 12:21-0500 Body height 179.07 cm [facility] Work Phone: [facility] 10-24-2022 12:21-0500 Body temperature 98.7 [degF] [facility] Work Phone: [facility] 10-24-2022 12:21-0500 Body weight 98 kg [facility] Work Phone: [facility] 10-24-2022 12:21-0500 Diastolic blood pressure 64 mm[Hg] [facility] Work Phone: [facility] 10-24-2022 12:21-0500 Heart rate 81 /min [facility] Work Phone: [facility] 10-24-2022 12:21-0500 Respiratory rate 18 /min [facility] Work Phone: [facility] 10-24-2022 12:21-0500 SaO2% (BldA) [Mass fraction] 98 % [facility] Work Phone: [facility] 10-24-2022 12:21-0500 Systolic blood pressure 124 mm[Hg] [facility] Work Phone: [facility] 10-07-2022 21:20-0500 Body height 177.8 cm [facility] Work Phone: [facility] 10-07-2022 21:20-0500 Body temperature 98.4 [degF] [facility] Work Phone: [facility] 10-07-2022 21:20-0500 Body weight 100.35 kg [facility] Work Phone: [facility] 10-07-2022 21:20-0500 Diastolic blood pressure 87 mm[Hg] [facility] Work Phone: [facility] 10-07-2022 21:20-0500 Heart rate 90 /min [facility] Work Phone: [facility] 10-07-2022 21:20-0500 Respiratory rate 20 /min [facility] Work Phone: [facility] 10-07-2022 21:20-0500 SaO2% (BldA) [Mass fraction] 100 % [facility] Work Phone: [facility] 10-07-2022 21:20-0500 Systolic blood pressure 148 mm[Hg] [facility] Work Phone: [facility] 09-02-2022 15:47-0500 Body height 179.07 cm [facility] Work Phone: [facility] 09-02-2022 15:47-0500 Body temperature 98.1 [degF] [facility] Work Phone: [facility] 09-02-2022 15:47-0500 Body weight 98.95 kg [facility] Work Phone: [facility] 09-02-2022 15:47-0500 Diastolic blood pressure 77 mm[Hg] [facility] Work Phone: [facility] 09-02-2022 15:47-0500 Heart rate 74 /min [facility] Work Phone: [facility] 09-02-2022 15:47-0500 Respiratory rate 18 /min [facility] Work Phone: [facility] 09-02-2022 15:47-0500 SaO2% (BldA) [Mass fraction] 100 % [facility] Work Phone: [facility] 09-02-2022 15:47-0500 Systolic blood pressure 137 mm[Hg] Services [employer] [facility] Work Phone: [facility] Encounters Encounter Date Encounter Type Care Provider Facility Start: 04-06-2023 End: 04-06-2023 Emergency department patient visit Jeff Birmingham Facility:[facility] Start: 04-06-2023 End: 04-06-2023 Emergency department patient visit [facility] Work Phone: [facility]Emergency Room Work Phone: Start: 02-03-2023 End: 02-04-2023 Emergency department patient visit Katelyn Stephen Facility:[facility] Start: 02-03-2023 End: 02-03-2023 Emergency department patient visit [facility] Work Phone: [facility] Work Phone: Start: 12-18-2022 End: 12-18-2022 Emergency department patient visit Venkat Palencia Jr Facility:[facility] Start: 12-18-2022 End: 12-18-2022 Emergency department patient visit Services [facility] Work Phone: [facility] Work Phone: Start: 10-24-2022 End: 10-24-2022 Emergency department patient visit Services [facility] Facility:[facility] Start: 10-24-2022 End: 10-24-2022 Emergency department patient visit Services [facility] Work Phone: [facility] Work Phone: Start: 10-07-2022 End: 10-08-2022 Emergency department patient visit Services [facility] Facility:[facility] Start: 10-07-2022 End: 10-07-2022 Emergency department patient visit Services [facility] Work Phone: [facility] Work Phone: Start: 09-02-2022 End: 09-02-2022 Emergency department patient visit Services [facility] Start: 09-02-2022 End: 09-02-2022 Emergency department patient visit Services [facility] Work Phone: [facility] Work Phone: Procedures Date Procedure Procedure Detail Performing Clinician Start: 02-03-2023 Duplex scan of lower limb veins [facility] [employer] Work Phone: Start: 02-03-2023 X-ray of right knee [facility] [employer] Phone: Start: 12-18-2022 Plain chest X-ray [facility] [employer] Phone: Start: 10-24-2022 Streptococcus pyogenes antigen assay [facility] [employer] Phone: Start: 10-07-2022 Plain chest X-ray Services [employer] Work Phone: Start: 10-07-2022 X-ray of soft tissue of neck Services [employer] [facility] [employer] Phone: Start: 09-02-2022 Radiologic examination of knee Services [employer] Work Phone: History of appendectomy Status p ost appendectomy Services [employer] Phone: Plan of Treatment Date Care Activity Detail Author Start: 04-06-2023 Computed tomography of abdomen and pelvis with contrast CT abdomen pelvis w con [facility] Start: 04-06-2023 CT Abdomen and Pelvi s W contrast IV [facility] Start: 02-03-2023 Duplex scan of lower limb veins US venous duplex LE RT [facility] Start: 02-03-2023 US Lower extremity v ein - right [facility] Start: 02-03-2023 X-ray of right knee XR knee RT 4V* F [facility] Start: 02-03-2023 XR Knee - right 4 Views [facility] Start: 12-18-2022 Plain chest X-ray XR chest 1V portab [facility] Start: 12-18-2022 XR Chest Single view [facility] Start: 10-24-2022 [facility] Start: 10-07-2022 Plain chest X-ray XR chest 1V portab [facility] Start: 10-07-2022 X-ray of soft tissue of neck XR soft tissue neck [facility] Start: 10-07-2022 XR Chest Single view [facility] Start: 10-07-2022 XR Neck Views [facility] Patient Education [facility] Work Phone: Patient referral [facility] Work Phone: Reagin Ab [Presence] in Serum by RPR [facility] Payers Date Payer Category Payer Medicaid [id number] 2022 Self-pay [id number] Medicaid [employer] [id number] Unknown Regular Auto/Liability [id number] Unknown [id number] Unknown [id number] Unknown [id number] Unknown [id number] Unknown [id number] Unknown [id number] Worker's Compensation [id number] Social History Date Type Detail Facility Start: 09-02-2022 End: 04-06-2023 Tobacco smoking status NHIS Never smoked tobacco (finding) [facility] Start: 2000 Sex Assigned At Male F [facility] Evaluation note Note Date & Type Note Facility Evaluation note No assessment information availa ble [facility] Work Phone: Hospital Discharge instructions Note Date & Type Note Facility Hospital Discharge instructions Additional Instructions Return if symptoms are worse [facility] Work Phone: Hospital Discharge instructions Note Date & Type Note Facility Hospital Discharge instructions Additional Instructions Ice and elevate Tylenol or Naprosyn if needed for pain Follow-up with your PCP or Ortho Return here if any problems persist or worsen [facility] Work Phone: Chief Complaint and Reason [...] , DO Family Provider Active Services Family [facility] Primary Care Provider Active Team Status: Inactive Member Role Status Dates Services [facility] Primary Care Provider Active Jeff Mast , DO Family Provider Active Suresh Ospina MD Emergency Provider Active Team Status: Inactive Member Role Status Dates Services [facility] Primary Care Provider Active Jeff Mast , DO Family Provider Active Venkat Palencia Jr, MD Emergency Provider Active Team Status: Inactive Member Role Status Dates Services [facility] Primary Care Provider Active Jeff Mast , DO Family Provider Active Katelyn Stephen APRN Emergency Provider Active Team Status: Inactive Member Role Status Dates Services Family [facility] Primary Care Provider Active Jeff Mast , [...] section and content) DATE CREATED AUTHOR 04/18/2023 [facility] FOR RECORDS PERTAINING TO PATIENTS WHO [...] BE BASED ON THE PRIMARY CLINICAL RECORDS. [facility]. provides no warranty or guarantee of the accuracy or completeness of information in this document.
[2024-11-02 20:11] VITALS: BP 126/80; PULSE 75; TEMP 37.3; O2SAT 96; BMI 33.5
--- NOTE | 2024-11-02 21:30 | ED_ITS ---
HPI HPI - General Adult General Chief complaint: Burn/Smoke Inhalation Stated complaint: BWC-POSS OIL BURN Time Seen by Provider: 11/02/24 21:26 Source: patient Mode of arrival: walk-in Limitations: no limitations History of Present Illness HPI narrative: The patient came to the ER with a right hand burn that he obtained after he was working at [employer] and the hot oil splashed on his right hand. The patient had no other injury He did wash his hand cold water after the burn Related Data Previous Rx's ?Medication ?Instructions ?Recorded bacitracin 500 unit/gram topical 1 applic topical BID #14 grams 11/02/24 ointment ibuprofen 600 mg tablet 600 mg PO Q8H PRN pain #20 tabs 11/02/24 Allergies Allergy/AdvReac Type Severity Reaction Status Date / Time No Known Drug Allergies Allergy Verified 11/02/24 20:10 Opioid HPI Opioid Management Most Recent Opioid Data: Last Pain Scale 4 11/02/24 21:29 11/02/24 Review of Systems ROS Status of ROS 10 or more systems reviewed and unremark able except as noted in history and below PFSH PFSH Social History Smoking status: Never smoker Little interest or pleasure in doing things: not at all Feeling down, depressed, or hopeless: not at all Exam Narrative Exam Narrative: Nurses notes and vital signs reviewed and patient is not hypoxic. Right upper extremity: At the dorsum of the right hand the patient have mild erythema, and grade 1 burn up to the wrist area, no involvement of the fingers General: Well-appearing and in no apparent distress. Skin: Warm, dry, no pallor noted. No rash. Head: Normocephalic, atraumatic. Constitutional Vital Signs, click to edit/add: Last Vital Signs Temp 99.2 F 11/02/24 20:11 Pulse 75 11/02/24 20:11 Resp 16 11/02/24 20:11 BP 126/80 11/02/24 20:11 Pulse Ox 96 11/02/24 20:11 Course Vital Signs Vital signs: Vital Signs Temperature 99.2 F 11/02/24 20:11 Pulse Rate 75 11/02/24 20:11 Respiratory Rate 16 11/02/24 20:11 Blood Pressure 126/80 11/02/24 20:11 Pulse Oximetry 96 11/02/24 20:11 Temperature 99.2 F 11/02/24 20:11 Pulse Rate 75 11/02/24 20:11 Respiratory Rate 16 11/02/24 20:11 Blood Pressure 126/80 11/02/24 20:11 Pulse Oximetry 96 11/02/24 20:11 Medical Decision Making MDM Narrative Medical decision making narrative: The patient presented to us with a first-degree burn to the dorsum of the right hand Right now supportive care with bacitracin in addition to ibuprofen for pain Patient to avoid exposure of the right hand again to burning oil Patient to follow-up with occupational health as outpatient The patient is to follow up with primary care physician in next 2-3 days or to return to the emergency department should any of the signs or symptoms worsen or new symptoms develop. The patient agrees with the following Diagnosis and Treatment plan and the patient will be discharged home. Discharge Plan Discharge Chief Complaint: Burn/Smoke Inhalation Clinical Impression: Burn of hand Patient Disposition: Home, Self-Care Time of Disposition Decision: 21:30 Condition: Good Mode of Transportation: Private Vehicle Prescriptions / Home Meds: New bacitracin 500 unit/gram ointment 1 applic topical BID Qty: 14 0RF ibuprofen 600 mg tablet 600 mg PO Q8H PRN (Reason: pain) Qty: 20 0RF Print Language: Jamaican Instructions: Superficial Burn (DC) Referrals: [facility] [Primary Care Provider] - 1 week Discharge Date/Time: 11/02/24 21:45
[2024-11-02] MEDS: IBUPROFEN 600 MG TABLET PO (21:41)
[2024-11-02] MEDS: BACITRACIN 0.9 GM PACKET 1 PACKET TOPICAL (21:42)
== END 2024-11-02 21:45 | disposition home or self-care (01) ==
PROVIDERS: Emergency Provider Emergency Medicine
DX: T23.101A Burn of first degree of right hand, unspecified site, initial encounter (principal); X10.2XXA Contact with fats and cooking oils, initial encounter
CPT/HCPCS: 99282

== ENCOUNTER 2024-12-13 00:09 | Emergency (ER) | payer SELFPAY ==
[2024-12-13 00:14] VITALS: BP 147/85; PULSE 95; TEMP 37.2; O2SAT 98; BMI 32.3
--- OUTSIDE RECORDS SUMMARY | 2024-12-13 00:16 | XMS_ITS | CCD ---
Author Organization [facility] Care Team Providers Care Active Directory Specialist Name Role Phone [facility] Services Primary Care Provider [phone] JOSE A Bell Emergency Provider [phone] MD Suresh Ospina Emergency Provider [facility], Services Primary Care Provider MD Suresh Ospina Emergency Provider [phone] JOSE A Bell Emergency Provider [phone] MD Venkat Palencia Jr Emergency Provider [facility], Services Primary Care Provider JOSE A Stephen Emergency Provider [phone] [facility], Services Primary Care Provider DO Jeff Birmingham Emergency Provider Katelyn Stephen Admitting Unavailable Katelyn Stephen Attending Unavailable [facility], Services Primary Care Unavaila Jeff Larson Admitting Unavailable Jeff Birmingham Attending Unavailable [facility], Services Primary Care Unavaila ble [facility], Services Primary Care Unavaila Andrzej Antunez Admitting Unavailable Andrzej Bell Attending Unavailable [facility], Services Primary Care Unavaila ble Suresh Ospina Admitting Unavailable Suresh Ospina Attending Unavailable [facility], Services Primary Care Unavaila Andrzej Antunez Admitting Unavailable Andrzej Bell Attending Unavailable Venkat Palencia Jr Admitting Unavailable Venkat Palencia Jr Attending Unavailable [facility], Services Primary Care Unavaila ble Allergies [...] painful area for up to 12 hrs [place] (No Known Home Meds) (1 source) Start: 10-07-2022 [place] (No Known Home Meds) Active October 07, [...] 04-06-2023 ALT [Catalytic activity/Vol] 44 U/L 7-52 [facility] Albumin [Mass/volume] in Ser um or Plasma by Bromocresol green (BCG) dye binding methoOrdered By: Jeff Birmingham on 04-06-2023 Albumin BCG dye [Mass/Vol] 4.7 g/dL 3.5-5.7 [facility] Alkaline phosphatase [Enzyma tic activity/volume] in Serum or PlasmaOrdered By: Jeff Birmingham on 04-06-2023 ALP [Catalytic activity/Vol] 67 U/L 34-104 [facility] Aspartate aminotransferase [ Enzymatic activity/volume] in Serum or PlasmaOrdered By: Jeff Birmingham on 04-06-2023 AST [Catalytic activity/Vol] 25 U/L 13-39 [facility] Basic Metabolic Panelon Anion gap [Moles/Vol] 9.4 mmol/L Normal 6.0-15.0 [facility] Comment on above: Performed By: #### H EPATIC, BMP, CBC, LIPASE ####[address] Calcium [Mass/Vol] 9.5 mg/dL Normal 8.6-10.3 [facility] Comment on above: Performed By: #### H EPATIC, BMP, CBC, LIPASE ####[address] Chloride [Moles/Vol] 104 mmol/L Normal 98-107 [facility] Comment on above: Performed By: #### H EPATIC, BMP, CBC, LIPASE ####[address] CO2 [Moles/Vol] 29.3 mmol/L Normal 21.0-31.0 [facility] Comment on above: Performed By: #### H EPATIC, BMP, CBC, LIPASE ####[address] Creatinine [Mass/Vol] 0.91 mg/dL Normal 0.70-1.30 [facility] Comment on above: Performed By: #### H EPATIC, BMP, CBC, LIPASE ####[place] [id number] [facility] Creatinine Clr Calc Pharmacy 149.34 Normal [facility] Comment on above: Performed By: #### H EPATIC, BMP, CBC, LIPASE ####[address] GFR/1.73 sq M.predicted MDRD (S/P/Bld) [Vol rate/Area] mL/min/{1.73_m2} Normal [facility] Comment on above: Performed By: #### H EPATIC, BMP, CBC, LIPASE ####[facility] Glucose [Mass/Vol] 95 mg/dL Normal 70-100 [facility] Comment on above: Result Comment: [facility] Glucose Reference Range is dependent on time and content of last meal. Glucose of more than 200 mg/dL in a nonstressed, ambulatory subject supports the diagnosis of Diabetes Mellitus. ADA recommended reference range Performed By: #### H EPATIC, BMP, CBC, LIPASE ####[facility] [id number] [address] Potassium [Moles/Vol] 3.7 mmol/L Normal 3.5-5.1 [facility] Comment on above: Performed By: #### H EPATIC, BMP, CBC, LIPASE ####[address] Sodium [Moles/Vol] 139 mmol/L Normal 136-145 [facility] Comment on above: Performed By: #### H EPATIC, BMP, CBC, LIPASE ####[place] [id number] [address] Urea nitrogen [Mass/Vol] 7 mg/dL Normal 7-25 [facility] Comment on above: Performed By: #### H EPATIC, BMP, CBC, LIPASE ####[facility] [id number] [place] [address] Basophils Auto (Bld) [#/Vol] Ordered By: Jeff Birmingham on 04-06-2023 Basophils (Bld) [#/Vol] 0.1 10*3/uL 0.0-0.2 [facility] Basophils/100 WBC Auto (Bld) Ordered By: Jeff Birmingham on 04-06-2023 Basophils/100 WBC (Bld) 0.9 % . [facility] Bilirubin.direct [Mass/volum e] in Serum or PlasmaOrdered By: Jeff Birmingham on 04-06-2023 Bilirubin.direct [Mass/Vol] 0.10 mg/dL 0.03-0.18 [facility] Bilirubin.total [Mass/volume ] in Serum or PlasmaOrdered By: Jeff Birmingham on 04-06-2023 Bilirubin [Mass/Vol] 0.6 mg/dL 0.3-1.0 [facility] CT abdomen pelvis w conon CT abdomen pelvis w con [place] [address] CT Scan Report Signed Patient: Basilio Person MR#: [id number] : 2000 Acct:[id number] Age/Sex: 22 / M ADM Date: 04/06/23 Loc: ER Room: Type: [facility] ER Attending Dr: Copies to: Jeff [...] Naidu Jr., D.O.04/06/2023 9:26 AM Dictation Location: [place] [address] Transcribed By: TANK 04/06/23925 Dictated By: Gio Naidu Jr, DO 04/06/23918 Signed By: 04/06/23925 Normal [facility] Calcium [Mass/volume] in Ser um or PlasmaOrdered By: Jeff Birmingham on 04-06-2023 Calcium [Mass/Vol] 9.5 mg/dL 8.6-10.3 [facility] Carbon dioxide, total [Moles /volume] in Serum or PlasmaOrdered By: Jeff Birmingham on 04-06-2023 CO2 [Moles/Vol] 29.3 mmol/L 21.0-31.0 [facility] Chloride [Moles/volume] in S valerie or PlasmaOrdered By: Jeff Birmingham on 04-06-2023 Chloride [Moles/Vol] 104 mmol/L 98-107 [facility] Complete Blood Count Auto Di ffon 04-06-2023 Basophils (Bld) [#/Vol] 0.1 10*3/uL Normal 0.0-0.2 [facility] Comment on above: Result Comment: PERF ORMED BY: [facility] [address] [place] [address] PATHOLOGIST PASTRY ASSISTANT CARRI KIM M.D. Performed By: #### H EPATIC, BMP, CBC, LIPASE ####[place] [id number] [address] Basophils/100 WBC (Bld) 0.9 % Normal . [facility] Comment on above: Performed By: #### H EPATIC, BMP, CBC, LIPASE ####[facility] [id number] Eosinophils (Bld) [#/Vol] 0.1 10*3/uL Normal 0.0-0.45 [facility] Comment on above: Performed By: #### H EPATIC, BMP, CBC, LIPASE ####[place] [address] Eosinophils/100 WBC (Bld) 1.1 % Normal . [facility] Comment on above: Performed By: #### H EPATIC, BMP, CBC, LIPASE ####[address] Erythrocyte distribution width (RBC) [Ratio] 13.6 % Normal 12.0-14.8 [facility] Comment on above: Performed By: #### H EPATIC, BMP, CBC, LIPASE ####[address] Hematocrit (Bld) [Volume fraction] 42.1 % Normal 38.8-50.0 [facility] Comment on above: Performed By: #### H EPATIC, BMP, CBC, LIPASE ####[address] Hemoglobin (Bld) [Mass/Vol] 14.9 g/dL Normal 13.0-17.0 [facility] Comment on above: Performed By: #### H EPATIC, BMP, CBC, LIPASE ####[address] Lymphocytes (Bld) [#/Vol] 3.1 10*3/uL Normal 1.00-4.8 [facility] Comment on above: Performed By: #### H EPATIC, BMP, CBC, LIPASE ####[address] Lymphocytes/100 WBC (Bld) 30.6 % Normal . [facility] Comment on above: Performed By: #### H EPATIC, BMP, CBC, LIPASE ####[address] MCH (RBC) [Entitic mass] 29.0 pg Normal 27.5-35.2 [facility] Comment on above: Performed By: #### H EPATIC, BMP, CBC, LIPASE ####[address] MCV (RBC) [Entitic vol] 81.9 fL Low 83.5-101 [facility] Comment on above: Performed By: #### H EPATIC, BMP, CBC, LIPASE ####[address] Mean Corpuscular HGB Conc 35.3 g/dL Normal 32.5-35.6 [facility] Comment on above: Performed By: #### H EPATIC, BMP, CBC, LIPASE ####[address] Monocytes (Bld) [#/Vol] 1.0 10*3/uL High 0.0-0.8 [facility] Comment on above: Performed By: #### H EPATIC, BMP, CBC, LIPASE ####[address] Monocytes/100 WBC (Bld) 15.06 % Normal 0.00-20.00 [facility] Comment on above: Performed By: #### H EPATIC, BMP, CBC, LIPASE ####[address] Monocytes/100 WBC (Bld) 9.5 % Normal . [facility] Comment on above: Performed By: #### H EPATIC, BMP, CBC, LIPASE ####[address] Neutrophils (Bld) [#/Vol] 5.9 10*3/uL Normal 1.8-7.7 [facility] Comment on above: Performed By: #### H EPATIC, BMP, CBC, LIPASE ####[address] Neutrophils/100 WBC (Bld) 57.9 % Normal . [facility] Comment on above: Performed By: #### H EPATIC, BMP, CBC, LIPASE ####[address] NRBC% 0.1 /100{WBC} Normal 0-0.5 [facility] Comment on above: Performed By: #### H EPATIC, BMP, CBC, LIPASE ####[address] Platelet mean volume (Bld) [Entitic vol] 8.0 fL Normal 6.6-10.1 [facility] Comment on above: Performed By: #### H EPATIC, BMP, CBC, LIPASE ####[facility] [id number] Platelets (Bld) [#/Vol] 198 10*3/uL Normal 150-450 [facility] Comment on above: Performed By: #### H EPATIC, BMP, CBC, LIPASE ####[place] [address] RBC (Bld) [#/Vol] 5.14 10*6/uL Normal 3.90-5.60 [facility] Comment on above: Performed By: #### H EPATIC, BMP, CBC, LIPASE ####[place] [address] WBC (Bld) [#/Vol] 10.2 10*3/uL Normal 4.1-10.5 [facility] Comment on above: Performed By: #### H EPATIC, BMP, CBC, LIPASE ####[address] Creatinine [Mass/volume] in Serum or PlasmaOrdered By: Jeff Birmingham on 04-06-2023 Creatinine [Mass/Vol] 0.91 mg/dL 0.70-1.30 [facility] Eosinophils Auto (Bld) [#/Vo l]Ordered By: Jeff Birmingham on 04-06-2023 Eosinophils (Bld) [#/Vol] 0.1 10*3/uL 0.0-0.45 [facility] Eosinophils/100 WBC Auto (Bl d)Ordered By: Jeff Birmingham on 04-06-2023 Eosinophils/100 WBC (Bld) 1.1 % . [facility] Erythrocyte distribution wid th Auto (RBC) [Ratio]Ordered By: Jeff Birmingham on 04-06-2023 Erythrocyte distribution width (RBC) [Ratio] 13.6 % 12.0-14.8 [facility] Globulin Calc (S) [Mass/Vol] Ordered By: Jeff Birmingham on 04-06-2023 Globulin (S) [Mass/Vol] 2.5 g/dL [facility] Glucose [Mass/volume] in Ser um or PlasmaOrdered By: Jeff Birmingham on 04-06-2023 Glucose [Mass/Vol] 95 mg/dL 70-100 [facility] Comment on above: ADA recommended refe rence rangeRandom Glucose Reference Range is dependent on time and content of last meal. Glucose of more than 200 mg/dL in a nonstressed, ambulatory subject supports the diagnosis of Diabetes Mellitus. Hematocrit Auto (Bld) [Volum e fraction]Ordered By: Jeff Birmingham on 04-06-2023 Hematocrit (Bld) [Volume fraction] 42.1 % 38.8-50.0 [facility] Hemoglobin [Mass/volume] in BloodOrdered By: Jeff Birmingham on 04-06-2023 Hemoglobin (Bld) [Mass/Vol] 14.9 g/dL 13.0-17.0 [facility] Hepatic Panelon 04-06-2023 Albumin [Mass/Vol] 4.7 g/dL Normal 3.5-5.7 [facility] Comment on above: Performed By: #### H EPATIC, BMP, CBC, LIPASE ####[address] Albumin/Globulin [Mass ratio] 1.9 {ratio} Normal [facility] Comment on above: Performed By: #### H EPATIC, BMP, CBC, LIPASE ####[address] ALP [Catalytic activity/Vol] 67 U/L Normal 34-104 [facility] Comment on above: Performed By: #### H EPATIC, BMP, CBC, LIPASE ####[place] [id number] [facility] ALT [Catalytic activity/Vol] 44 U/L Normal 7-52 [facility] Comment on above: Performed By: #### H EPATIC, BMP, CBC, LIPASE ####[place] [id number] [facility] AST [Catalytic activity/Vol] 25 U/L Normal 13-39 [facility] Comment on above: Performed By: #### H EPATIC, BMP, CBC, LIPASE ####[address] Bilirubin [Mass/Vol] 0.6 mg/dL Normal 0.3-1.0 [facility] Comment on above: Performed By: #### H EPATIC, BMP, CBC, LIPASE ####[address] Bilirubin,Indirect 0.5 mg/dL Normal [facility] Comment on above: Performed By: #### H EPATIC, BMP, CBC, LIPASE ####[address] Bilirubin.indirect [Mass/Vol] 0.10 mg/dL Normal 0.03-0.18 [facility] Comment on above: Performed By: #### H EPATIC, BMP, CBC, LIPASE ####[address] Globulin (S) [Mass/Vol] 2.5 g/dL Normal [facility] Comment on above: Performed By: #### H EPATIC, BMP, CBC, LIPASE ####[address] Protein [Mass/Vol] 7.2 g/dL Normal 6.4-8.9 [facility] Comment on above: Performed By: #### H EPATIC, BMP, CBC, LIPASE ####[address] Leukocytes [#/volume] correc ashley for nucleated erythrocytes in Blood by Automated counOrdered By: Jeff Birmingham on 04-06-2023 WBC corrected for nucl RBC Auto (Bld) [#/Vol] 10.2 10*3/uL 4.1-10.5 [facility] Lipaseon 04-06-2023 Lipase [Catalytic activity/Vol] 20.0 U/L Normal 11.0-82.0 [facility] Comment on above: Result Comment: PERF ORMED BY: [facility] [address] [place] [address] PATHOLOGIST PASTRY ASSISTANT CARRI KIM M.D. Performed By: #### H EPATIC, BMP, CBC, LIPASE ####[address] [place] [address] [facility] Lipase [Enzymatic activity/v olume] in Serum or PlasmaOrdered By: Jeff Birmingham on 04-06-2023 Lipase [Catalytic activity/Vol] 20.0 U/L 11.0-82.0 [facility] Lymphocytes Auto (Bld) [#/Vo l]Ordered By: Jeff Birmingham on 04-06-2023 Lymphocytes (Bld) [#/Vol] 3.1 10*3/uL 1.00-4.8 [facility] Lymphocytes/100 WBC Auto (Bl d)Ordered By: Jeff Birmingham on 04-06-2023 Lymphocytes/100 WBC (Bld) 30.6 % . [facility] MCH Auto (RBC) [Entitic mass ]Ordered By: Jeff Birmingham on 04-06-2023 MCH (RBC) [Entitic mass] 29.0 pg 27.5-35.2 [facility] MCHC Auto (RBC) [Mass/Vol]Or dered By: Jeff Birmingham on 04-06-2023 MCHC (RBC) [Mass/Vol] 35.3 g/dL 32.5-35.6 [facility] MCV Auto (RBC) [Entitic vol] Ordered By: Jeff Birmingham on 04-06-2023 MCV (RBC) [Entitic vol] 81.9 fL 83.5-101 [facility] Monocyte distribution width [Entitic volume] in Blood by AutomatedOrdered By: Jeff Birmingham on 04-06-2023 Monocyte distribution width Auto (Bld) [Entitic vol] 15.06 % 0.00-20.00 [facility] Monocytes Auto (Bld) [#/Vol] Ordered By: Jeff Birmingham on 04-06-2023 Monocytes (Bld) [#/Vol] 1.0 10*3/uL 0.0-0.8 [facility] Monocytes/100 WBC Auto (Bld) Ordered By: Jeff Birmingham on 04-06-2023 Monocytes/100 WBC (Bld) 9.5 % . [facility] Neutrophils Auto (Bld) [#/Vo l]Ordered By: eJff Birmingham on 04-06-2023 Neutrophils (Bld) [#/Vol] 5.9 10*3/uL 1.8-7.7 [facility] Neutrophils/100 WBC Auto (Bl d)Ordered By: Jeff Birmingham on 04-06-2023 Neutrophils/100 WBC (Bld) 57.9 % . [facility] No Panel InformationOrdered By: Jeff Birmingham on 04-06-2023 Estimated GFR (CKD-EPI) > 60.0 mL/Min [facility] Creatinine Clearance (Chem 149.34 [facility] Nucleated erythrocytes [Pres ence] in Blood by Automated countOrdered By: Jeff Birmingham on 04-06-2023 Nucleated RBC Auto Ql (Bld) 0.1 /100{WBC} 0-0.5 [facility] Platelet mean volume Auto (B ld) [Entitic vol]Ordered By: Jeff Birmingham on 04-06-2023 Platelet mean volume (Bld) [Entitic vol] 8.0 fL 6.6-10.1 [facility] Platelets Auto (Bld) [#/Vol] Ordered By: Jeff Birmingham on 04-06-2023 Platelets (Bld) [#/Vol] 198 10*3/uL 150-450 [facility] Potassium [Moles/volume] in Serum or PlasmaOrdered By: Jeff Birmingham on 04-06-2023 Potassium [Moles/Vol] 3.7 mmol/L 3.5-5.1 [facility] Protein [Mass/volume] in Ser um or PlasmaOrdered By: Jeff Birmingham on 04-06-2023 Protein [Mass/Vol] 7.2 g/dL 6.4-8.9 [facility] RBC Auto (Bld) [#/Vol]Ordere d By: Jeff Birmingham on 04-06-2023 RBC (Bld) [#/Vol] 5.14 10*6/uL 3.90-5.60 [facility] Serum or plasma albumin/glob ulin mass ratioOrdered By: Jeff Birmingham on 04-06-2023 Albumin/Globulin [Mass ratio] 1.9 {ratio} [facility] Serum or plasma anion gap de terminationOrdered By: Jeff Birmingham on 04-06-2023 Anion gap [Moles/Vol] 9.4 mmol/L 6.0-15.0 [facility] Serum or plasma non-glucuron idated bilirubin measurement (mass/volume)Ordered By: Jeff Birmingham on 04-06-2023 Bilirubin.indirect [Mass/Vol] 0.5 mg/dL [facility] Sodium [Moles/volume] in Ser um or PlasmaOrdered By: Jeff Birmingham on 04-06-2023 Sodium [Moles/Vol] 139 mmol/L 136-145 [facility] Urea nitrogen [Mass/volume] in Serum or PlasmaOrdered By: Jeff Birmingham on 04-06-2023 Urea nitrogen [Mass/Vol] 7 mg/dL 7-25 [facility] WBC Auto (Bld) [#/Vol]Ordere d By: Jeff Birmingham on 04-06-2023 WBC (Bld) [#/Vol] 10.2 10*3/uL 4.1-10.5 [facility] US venous duplex LE RTon US venous duplex LE RT [facility] [place] [address] Ultrasound Report Signed Patient: Basilio Person MR#: [id number] : 2000 Acct:[id number] Age/Sex: 22 / M ADM Date: 02/03/23 Loc: ER Room: Type: [facility] ER Attending Dr: Ordering Provider: Katelyn [...] Nehemiah Camejo M.D.02/04/2023 8:41 AM Dictation Location: [place] [address] Tech: Cee Dasilva Transcribed By: TANK 02/04/2341 Dictated By: Nehemiah Camejo MD 02/04/23840 Signed By: 02/04/23840 [facility] XR knee RT 4V*on 02-04-2023 XR knee RT 4V* [place] [address] XRay Report Signed Patient: Basilio Person MR#: [id number] : 2000 Acct:[id number] Age/Sex: 22 / M ADM Date: 02/03/23 Loc: ER Room: Type: [facility] ER Attending Dr: Copies to: Katelyn [...] Park Champagne M.D.02/04/2023 7:38 AM Dictation Location: [place] [address] Transcribed By: TANK 02/04/23 0738 Dictated By: Park Champagne MD 02/04/23 0737 Signed By: 02/04/23 0738 [facility] Activated partial thrombopla stin time (aPTT) in platelet poor plasma by coagulation aOrdered By: Venkat Palencia on 12-18-2022 aPTT Coag (PPP) [Time] 28.5 s 25.1-36.5 [facility] Alanine aminotransferase [En zymatic activity/volume] in Serum or PlasmaOrdered By: Venkat Palencia on 12-18-2022 ALT [Catalytic activity/Vol] 32 U/L 7-52 [facility] Albumin [Mass/volume] in Ser um or Plasma by Bromocresol green (BCG) dye binding methoOrdered By: Venkat Palencia on 12-18-2022 Albumin BCG dye [Mass/Vol] 4.6 g/dL 3.5-5.7 [facility] Alkaline phosphatase [Enzyma tic activity/volume] in Serum or PlasmaOrdered By: Venkat Palencia on 12-18-2022 ALP [Catalytic activity/Vol] 74 U/L 34-104 [facility] Aspartate aminotransferase [ Enzymatic activity/volume] in Serum or PlasmaOrdered By: Venkat Palencia on 12-18-2022 AST [Catalytic activity/Vol] 18 U/L 13-39 [facility] B-Type Natriuretic Peptideon 12-18-2022 Natriuretic peptide B (Bld) [Mass/Vol] 9.0 pg/mL Normal 5-100 [facility] Comment on above: Result Comment: PERF ORMED BY: [facility] [address] [facility] [place] [id number] PATHOLOGIST PASTRY ASSISTANT CARRI KIM M.D. Performed By: #### P T, BNP, CBC, PTT, CK, DDIMER, HS TROP, CMP ####[facility] [id number] [place] [id number] [facility] Basophils Auto (Bld) [#/Vol] Ordered By: Venkat Palencia on 12-18-2022 Basophils (Bld) [#/Vol] 0.1 10*3/uL 0.0-0.2 [facility] Basophils/100 WBC Auto (Bld) Ordered By: Venkat Palencia on 12-18-2022 Basophils/100 WBC (Bld) 0.9 % . [facility] Bilirubin.total [Mass/volume ] in Serum or PlasmaOrdered By: Venkat Palencia on 12-18-2022 Bilirubin [Mass/Vol] 0.8 mg/dL 0.3-1.0 [facility] Calcium [Mass/volume] in Ser um or PlasmaOrdered By: Venkat Palencia on 12-18-2022 Calcium [Mass/Vol] 8.6 mg/dL 8.6-10.3 [facility] Carbon dioxide, total [Moles /volume] in Serum or PlasmaOrdered By: Venkat Palencia on 12-18-2022 CO2 [Moles/Vol] 25.9 mmol/L 21.0-31.0 [facility] Chloride [Moles/volume] in S valerie or PlasmaOrdered By: Venkat Palencia on 12-18-2022 Chloride [Moles/Vol] 109 mmol/L 98-107 [facility] Complete Blood Count Auto Di ffon 12-18-2022 Basophils (Bld) [#/Vol] 0.1 10*3/uL Normal 0.0-0.2 [facility] Comment on above: Result Comment: PERF ORMED BY: [place] [address] PATHOLOGIST PASTRY ASSISTANT CARRI KIM M.D. Performed By: #### P T, BNP, CBC, PTT, CK, DDIMER, HS TROP, CMP #### [address] Basophils/100 WBC (Bld) 0.9 % Normal . [facility] Comment on above: Performed By: #### P T, BNP, CBC, PTT, CK, DDIMER, HS TROP, CMP #### [address] Eosinophils (Bld) [#/Vol] 0.1 10*3/uL Normal 0.0-0.45 [facility] Comment on above: Performed By: #### P T, BNP, CBC, PTT, CK, DDIMER, HS TROP, CMP #### [address] Eosinophils/100 WBC (Bld) 0.8 % Normal . [facility] Comment on above: Performed By: #### P T, BNP, CBC, PTT, CK, DDIMER, HS TROP, CMP #### [address] Erythrocyte distribution width (RBC) [Ratio] 13.7 % Normal 12.0-14.8 [facility] Comment on above: Performed By: #### P T, BNP, CBC, PTT, CK, DDIMER, HS TROP, CMP #### [address] Hematocrit (Bld) [Volume fraction] 40.9 % Normal 38.8-50.0 [facility] Comment on above: Performed By: #### P T, BNP, CBC, PTT, CK, DDIMER, HS TROP, CMP #### [address] Hemoglobin (Bld) [Mass/Vol] 14.1 g/dL Normal 13.0-17.0 [facility] Comment on above: Performed By: #### P T, BNP, CBC, PTT, CK, DDIMER, HS TROP, CMP #### [address] Lymphocytes (Bld) [#/Vol] 2.2 10*3/uL Normal 1.00-4.8 [facility] Comment on above: Performed By: #### P T, BNP, CBC, PTT, CK, DDIMER, HS TROP, CMP #### [address] Lymphocytes/100 WBC (Bld) 21.2 % Normal . [facility] Comment on above: Performed By: #### P T, BNP, CBC, PTT, CK, DDIMER, HS TROP, CMP #### [address] MCH (RBC) [Entitic mass] 28.5 pg Normal 27.5-35.2 [facility] Comment on above: Performed By: #### P T, BNP, CBC, PTT, CK, DDIMER, HS TROP, CMP #### [address] MCV (RBC) [Entitic vol] 82.4 fL Low 83.5-101 [facility] Comment on above: Performed By: #### P T, BNP, CBC, PTT, CK, DDIMER, HS TROP, CMP #### [address] Mean Corpuscular HGB Conc 34.5 g/dL Normal 32.5-35.6 [facility] Comment on above: Performed By: #### P T, BNP, CBC, PTT, CK, DDIMER, HS TROP, CMP #### [place] [address] [place] Monocytes (Bld) [#/Vol] 0.9 10*3/uL High 0.0-0.8 [facility] Comment on above: Performed By: #### P T, BNP, CBC, PTT, CK, DDIMER, HS TROP, CMP #### [place] [address] [place] Monocytes/100 WBC (Bld) 15.92 % Normal 0.00-20.00 [facility] Comment on above: Performed By: #### P T, BNP, CBC, PTT, CK, DDIMER, HS TROP, CMP #### [address] Monocytes/100 WBC (Bld) 8.9 % Normal . [facility] Comment on above: Performed By: #### P T, BNP, CBC, PTT, CK, DDIMER, HS TROP, CMP #### [address] Neutrophils (Bld) [#/Vol] 7.2 10*3/uL Normal 1.8-7.7 [facility] Comment on above: Performed By: #### P T, BNP, CBC, PTT, CK, DDIMER, HS TROP, CMP #### [place] [address] [place] Neutrophils/100 WBC (Bld) 68.2 % Normal . [facility] Comment on above: Performed By: #### P T, BNP, CBC, PTT, CK, DDIMER, HS TROP, CMP #### [place] [address] [place] NRBC% 0.1 /100{WBC} Normal 0-0.5 [facility] Comment on above: Performed By: #### P T, BNP, CBC, PTT, CK, DDIMER, HS TROP, CMP #### [place] [address] [place] Platelet mean volume (Bld) [Entitic vol] 7.5 fL Normal 6.6-10.1 [facility] Comment on above: Performed By: #### P T, BNP, CBC, PTT, CK, DDIMER, HS TROP, CMP #### [facility] [address] Platelets (Bld) [#/Vol] 203 10*3/uL Normal 150-450 [facility] Comment on above: Performed By: #### P T, BNP, CBC, PTT, CK, DDIMER, HS TROP, CMP #### [facility] [address] RBC (Bld) [#/Vol] 4.97 10*6/uL Normal 3.90-5.60 [facility] Comment on above: Performed By: #### P T, BNP, CBC, PTT, CK, DDIMER, HS TROP, CMP #### [address] WBC (Bld) [#/Vol] 10.6 10*3/uL High 4.1-10.5 [facility] Comment on above: Performed By: #### P T, BNP, CBC, PTT, CK, DDIMER, HS TROP, CMP #### [facility] [address] [place] [address] Comprehensive Metabolic Pane maren 12-18-2022 Albumin [Mass/Vol] 4.6 g/dL Normal 3.5-5.7 [facility] Comment on above: Performed By: #### P T, BNP, CBC, PTT, CK, DDIMER, HS TROP, CMP ####[facility] Albumin/Globulin [Mass ratio] 2.0 {ratio} Normal [facility] Comment on above: Performed By: #### P T, BNP, CBC, PTT, CK, DDIMER, HS TROP, CMP ####[facility] ALP [Catalytic activity/Vol] 74 U/L Normal 34-104 [facility] Comment on above: Performed By: #### P T, BNP, CBC, PTT, CK, DDIMER, HS TROP, CMP ####[address] ALT [Catalytic activity/Vol] 32 U/L Normal 7-52 [facility] Comment on above: Performed By: #### P T, BNP, CBC, PTT, CK, DDIMER, HS TROP, CMP ####[address] Anion gap [Moles/Vol] 9.9 mmol/L Normal 6.0-15.0 [facility] Comment on above: Performed By: #### P T, BNP, CBC, PTT, CK, DDIMER, HS TROP, CMP ####[address] AST [Catalytic activity/Vol] 18 U/L Normal 13-39 [facility] Comment on above: Performed By: #### P T, BNP, CBC, PTT, CK, DDIMER, HS TROP, CMP ####[address] Bilirubin [Mass/Vol] 0.8 mg/dL Normal 0.3-1.0 [facility] Comment on above: Performed By: #### P T, BNP, CBC, PTT, CK, DDIMER, HS TROP, CMP ####[address] Calcium [Mass/Vol] 8.6 mg/dL Normal 8.6-10.3 [facility] Comment on above: Performed By: #### P T, BNP, CBC, PTT, CK, DDIMER, HS TROP, CMP ####[place] [id number] [facility] Chloride [Moles/Vol] 109 mmol/L High 98-107 [facility] Comment on above: Performed By: #### P T, BNP, CBC, PTT, CK, DDIMER, HS TROP, CMP ####[address] CO2 [Moles/Vol] 25.9 mmol/L Normal 21.0-31.0 [facility] Comment on above: Performed By: #### P T, BNP, CBC, PTT, CK, DDIMER, HS TROP, CMP ####[address] Creatinine [Mass/Vol] 0.89 mg/dL Normal 0.70-1.30 [facility] Comment on above: Performed By: #### P T, BNP, CBC, PTT, CK, DDIMER, HS TROP, CMP ####[address] Creatinine Clr Calc Pharmacy 151.88 [facility] Comment on above: Result Comment: PERF ORMED BY: [facility] [address] [place] [address] PATHOLOGIST PASTRY ASSISTANT CARRI KIM M.D. Performed By: #### P T, BNP, CBC, PTT, CK, DDIMER, HS TROP, CMP ####[address] GFR/1.73 sq M.predicted MDRD (S/P/Bld) [Vol rate/Area] mL/min/{1.73_m2} [facility] Comment on above: Performed By: #### P T, BNP, CBC, PTT, CK, DDIMER, HS TROP, CMP ####[address] Globulin (S) [Mass/Vol] 2.3 g/dL [facility] Comment on above: Performed By: #### P T, BNP, CBC, PTT, CK, DDIMER, HS TROP, CMP ####[address] Glucose [Mass/Vol] 87 mg/dL Normal 70-100 [facility] Comment on above: Result Comment: [place] Glucose Reference Range is dependent on time and content of last meal. Glucose of more than 200 mg/dL in a nonstressed, ambulatory subject supports the diagnosis of Diabetes Mellitus. ADA recommended reference range Performed By: #### P T, BNP, CBC, PTT, CK, DDIMER, HS TROP, CMP ####[address] Potassium [Moles/Vol] 3.8 mmol/L Normal 3.5-5.1 [facility] Comment on above: Performed By: #### P T, BNP, CBC, PTT, CK, DDIMER, HS TROP, CMP ####[place] [id number] [facility] Protein [Mass/Vol] 6.9 g/dL Normal 6.4-8.9 [facility] Comment on above: Performed By: #### P T, BNP, CBC, PTT, CK, DDIMER, HS TROP, CMP ####[address] Sodium [Moles/Vol] 141 mmol/L Normal 136-145 [facility] Comment on above: Performed By: #### P T, BNP, CBC, PTT, CK, DDIMER, HS TROP, CMP ####[place] [id number] [facility] Urea nitrogen [Mass/Vol] 11 mg/dL Normal 7-25 [facility] Comment on above: Performed By: #### P T, BNP, CBC, PTT, CK, DDIMER, HS TROP, CMP ####[place] [id number] [facility] Creatine Kinaseon 12-18-2022 CK [Catalytic activity/Vol] 81 U/L Normal [facility] Comment on above: Performed By: #### P T, BNP, CBC, PTT, CK, DDIMER, HS TROP, CMP ####[place] [id number] [facility] Creatine kinase [Enzymatic a ctivity/volume] in Serum or PlasmaOrdered By: Venkat Palencia on 12-18-2022 CK [Catalytic activity/Vol] 81 U/L - [facility] Creatinine [Mass/volume] in Serum or PlasmaOrdered By: Venkat Palencia on 12-18-2022 Creatinine [Mass/Vol] 0.89 mg/dL 0.70-1.30 [facility] D-Dimer High Sensitivityon 0 12-18-2022 D-Dimer High Sensitivity < 200 Normal 0-243 [facility] Comment on above: Result Comment: The [...] patients due to co-morbid conditions. PERFORMED BY: [place] [address] PATHOLOGIST PASTRY ASSISTANT CARRI KIM M.D. Performed By: #### P T, BNP, CBC, PTT, CK, DDIMER, HS TROP, CMP ####[facility] [place] [id number] [facility] ECG 12 lead ECGon 12-18-2022 ECG 12 lead ECG [place] [address] Electrocardiograph Report Signed Patient: Basilio Person MR#: [id number] : 2000 Acct:[id number] Age/Sex: 22 / M ADM Date: 12/18/22 Loc: ER Room: Type: [facility] ER Attending Dr: Ordering Provider: Venkat Palencia [...] was found Confirmed by VENKAT PALENCIA MD ([id number]) on 12/18/2022 4:21:16 AM Referred By: Electronically Signed By:VENKAT PAELNCIA MD Transcribed By: MUS Signed By Venkat Palencia Jr, MD 0421 Normal [facility] Eosinophils Auto (Bld) [#/Vo l]Ordered By: Venkat Palencia on 12-18-2022 Eosinophils (Bld) [#/Vol] 0.1 10*3/uL 0.0-0.45 [facility] Eosinophils/100 WBC Auto (Bl d)Ordered By: Venkat Palencia on 12-18-2022 Eosinophils/100 WBC (Bld) 0.8 % . [facility] Erythrocyte distribution wid th Auto (RBC) [Ratio]Ordered By: Venkat Palencia on 12-18-2022 Erythrocyte distribution width (RBC) [Ratio] 13.7 % 12.0-14.8 [facility] Globulin Calc (S) [Mass/Vol] Ordered By: Venkat Palencia on 12-18-2022 Globulin (S) [Mass/Vol] 2.3 g/dL [facility] Glucose [Mass/volume] in Ser um or PlasmaOrdered By: Venkat Palencia on 12-18-2022 Glucose [Mass/Vol] 87 mg/dL 70-100 [facility] Comment on above: ADA recommended refe rence rangeRandom Glucose Reference Range is dependent on time and content of last meal. Glucose of more than 200 mg/dL in a nonstressed, ambulatory subject supports the diagnosis of Diabetes Mellitus. Hematocrit Auto (Bld) [Volum e fraction]Ordered By: Venkat Palencia on 12-18-2022 Hematocrit (Bld) [Volume fraction] 40.9 % 38.8-50.0 [facility] Hemoglobin [Mass/volume] in BloodOrdered By: Venkat Palencia on 12-18-2022 Hemoglobin (Bld) [Mass/Vol] 14.1 g/dL 13.0-17.0 [facility] Laboratory - CoagulationOrde red By: Venkat Palencia on 12-18-2022 PT Coag (PPP) [Time] 12.0 s 9.0-12.9 [facility] Leukocytes [#/volume] correc ashley for nucleated erythrocytes in Blood by Automated counOrdered By: Venkat Palencia on 12-18-2022 WBC corrected for nucl RBC Auto (Bld) [#/Vol] 10.6 10*3/uL 4.1-10.5 [facility] Lymphocytes Auto (Bld) [#/Vo l]Ordered By: Venkat Palencia on 12-18-2022 Lymphocytes (Bld) [#/Vol] 2.2 10*3/uL 1.00-4.8 [facility] Lymphocytes/100 WBC Auto (Bl d)Ordered By: Venkat Palencia on 12-18-2022 Lymphocytes/100 WBC (Bld) 21.2 % . [facility] MCH Auto (RBC) [Entitic mass ]Ordered By: Venkat Palencia on 12-18-2022 MCH (RBC) [Entitic mass] 28.5 pg 27.5-35.2 [facility] MCHC Auto (RBC) [Mass/Vol]Or dered By: Venkat Palencia on 12-18-2022 MCHC (RBC) [Mass/Vol] 34.5 g/dL 32.5-35.6 [facility] MCV Auto (RBC) [Entitic vol] Ordered By: Venkat Palencia on 12-18-2022 MCV (RBC) [Entitic vol] 82.4 fL 83.5-101 [facility] Monocyte distribution width [Entitic volume] in Blood by AutomatedOrdered By: Venkat Palencia on 12-18-2022 Monocyte distribution width Auto (Bld) [Entitic vol] 15.92 % 0.00-20.00 [facility] Monocytes Auto (Bld) [#/Vol] Ordered By: Venkat Palencia on 12-18-2022 Monocytes (Bld) [#/Vol] 0.9 10*3/uL 0.0-0.8 [facility] Monocytes/100 WBC Auto (Bld) Ordered By: Venkat Palencia on 12-18-2022 Monocytes/100 WBC (Bld) 8.9 % . [facility] Natriuretic peptide B [Mass/ Vol]Ordered By: Venkat Palencia on 12-18-2022 Natriuretic peptide B (Bld) [Mass/Vol] 9.0 pg/mL 5-100 [facility] Neutrophils Auto (Bld) [#/Vo l]Ordered By: Venkat Palencia on 12-18-2022 Neutrophils (Bld) [#/Vol] 7.2 10*3/uL 1.8-7.7 [facility] Neutrophils/100 WBC Auto (Bl d)Ordered By: Venkat Palencia on 12-18-2022 Neutrophils/100 WBC (Bld) 68.2 % . [facility] No Panel InformationOrdered By: Venkat Palencia on 12-18-2022 D-Dimer Quantitative (PE/DVT) < 200 ng/mL 0-243 [facility] Comment on above: The reference range [...] conditions. Estimated GFR (CKD-EPI) > 60.0 mL/Min [facility] Creatinine Clearance (Chem 151.88 [facility] Nucleated erythrocytes [Pres ence] in Blood by Automated countOrdered By: Venkat Palencia on 12-18-2022 Nucleated RBC Auto Ql (Bld) 0.1 /100{WBC} 0-0.5 [facility] Partial Thromboplastin Timeo n 12-18-2022 aPTT Coag (Bld) [Time] 28.5 s Normal 25.1-36.5 [facility] Comment on above: Performed By: #### P T, BNP, CBC, PTT, CK, DDIMER, HS TROP, CMP ####[facility] [address] [place] [address] [facility] Platelet mean volume Auto (B ld) [Entitic vol]Ordered By: Venkat Palencia on 12-18-2022 Platelet mean volume (Bld) [Entitic vol] 7.5 fL 6.6-10.1 [facility] Platelet poor plasma interna tional normalized ratio (INR) by coagulation assay (relatOrdered By: Venkat Palencia on 12-18-2022 INR Coag (PPP) [Relative time] 1.0 {INR} [facility] Comment on above: INR Therapeutic Rang [...] 12-18-2022 Platelets (Bld) [#/Vol] 203 10*3/uL 150-450 [facility] Potassium [Moles/volume] in Serum or PlasmaOrdered By: Venkat Palencia on 12-18-2022 Potassium [Moles/Vol] 3.8 mmol/L 3.5-5.1 [facility] Protein [Mass/volume] in Ser um or PlasmaOrdered By: Venkat Palencia on 12-18-2022 Protein [Mass/Vol] 6.9 g/dL 6.4-8.9 [facility] Prothrombin Time INRon 12-18 INR Coag (PPP) [Relative time] 1.0 {INR} Normal [facility] Comment on above: Result Comment: INR [...] PTT, CK, DDIMER, HS TROP, CMP #### [facility] [address] PT Coag (PPP) [Time] 12.0 s Normal 9.0-12.9 [facility] Comment on above: Performed By: #### P T, BNP, CBC, PTT, CK, DDIMER, HS TROP, CMP #### [facility] [address] RBC Auto (Bld) [#/Vol]Ordere d By: Venkat Palencia on 04-15-2023 RBC (Bld) [#/Vol] 4.97 10*6/uL 3.90-5.60 [facility] Serum or plasma albumin/glob ulin mass ratioOrdered By: Venkat Palencia on 12-18-2022 Albumin/Globulin [Mass ratio] 2.0 {ratio} [facility] Serum or plasma anion gap de terminationOrdered By: Venkat Palencia on 12-18-2022 Anion gap [Moles/Vol] 9.9 mmol/L 6.0-15.0 [facility] Sodium [Moles/volume] in Ser um or PlasmaOrdered By: Venkat Palencia on 12-18-2022 Sodium [Moles/Vol] 141 mmol/L 136-145 [facility] Troponin I High Sensitivityo n 12-18-2022 Troponin I High Sensitivity 2.5 pg/mL Normal 0.0-20.0 [facility] Comment on above: Result Comment: PERF ORMED BY: [facility] [address] [place] [id number] PATHOLOGIST PASTRY ASSISTANT CARRI KIM M.D. Performed By: #### P T, BNP, CBC, PTT, CK, DDIMER, HS TROP, CMP ####[facility] [address] [place] [address] [facility] Troponin I.cardiac [Mass/vol ume] in Serum or Plasma by Detection limit <= 0.01 ng/Ordered By: Venkat Palencia on 12-18-2022 Troponin I.cardiac DL <= 0.01 ng/mL [Mass/Vol] 2.5 pg/mL 0.0-20.0 [facility] Urea nitrogen [Mass/volume] in Serum or PlasmaOrdered By: Venkat Palencia on 12-18-2022 Urea nitrogen [Mass/Vol] 11 mg/dL 7-25 [facility] WBC Auto (Bld) [#/Vol]Ordere d By: Venkat Palencia on 12-18-2022 WBC (Bld) [#/Vol] 10.6 10*3/uL 4.1-10.5 [facility] XR chest 1V portableon 12-18 XR chest 1V portable [facility] [address] [place] [address] [place] [address] XRay Report Signed Patient: Basilio Person MR#: [id number] : 2000 Acct:[id number] Age/Sex: 22 / M ADM Date: 12/18/22 Loc: ER Room: Type: [facility] ER Attending Dr: Copies to: Venkat [...] Eagle Woodard M.D.12/18/2022 9:45 AM Dictation Location: [place] [address] Transcribed By: [facility] 12/18/22 0945 Dictated By: Eagle Woodard II, MD 12/18/22 0945 Signed By: 12/18/22 0945 [facility] Quick Strepon 10-24-2022 Quick Strep Streptococcus pyogen es Ag [Presence] in Throat by Rapid immunoassay Negative for Group A Strep Antigen Note 1 NOTE 2 Results are those of a screening test. NOTE 3 If clinically indicated please order a culture. NOTE 4 NOTE 5 Reference range = Negative PERFORMED BY: [place] [address] PATHOLOGIST PASTRY ASSISTANT CARRI KIM M.D. [facility] Comment on above: Performed By: #### Q S #### [facility] [address] [place] [address] RPR w/rfx to Quant TP Abson 10-24-2022 RPR, Rfx Quant RPR Non-Reactive Normal Non Reactive [facility] Comment on above: Result Comment: Perf ormed at: CB - [facility] [place] [id number] Thread Marker: Morales Escamilla PhD, Phone: [phone] PERFORMED BY: [place] [address] PATHOLOGIST PASTRY ASSISTANT CARRI KIM M.D. Performed By: #### R NM W RFX ####[facility] , [facility] [Presence] in Seru m by RPROrdered By: Andrzej Bell on 10-24-2022 [facility] RPR Ql (S) Non-Reactive Non Reactive [facility] Comment on above: Performed at: CB - [facility] [address] [id number] Director: Morales Escamilla PhD, Phone: [phone] Streptococcus pyogenes antig en detectionOrdered By: Andrzej Bell on 10-24-2022 S. pyogenes Ag Ql (Unsp spec) [facility] S. pyogenes Ag Ql (Unsp spec) [facility] XR chest 1V portableon 10-08 XR chest 1V portable [place] [address] XRay Report Signed Patient: Basilio Person MR#: [id number] : 2000 Acct:[id number] Age/Sex: 22 / M ADM Date: 10/07/22 Loc: ER Room: Type: [facility] ER Attending Dr: Copies to: Suresh [...] Nehemiah Aguilar M.D.10/08/2022 7:49 AM Dictation Location: [facility]- Transcribed By: TANK 10/08/2249 Dictated By: Nehemiah Aguilar DO 10/08/2249 Signed By: 10/08/22 0749 [facility] XR soft tissue neckon 2022 XR soft tissue neck [facility] Main [place] [id number] XRay Report Signed Patient: Basilio Person MR#: [id number] : 2000 Acct:[id number] Age/Sex: 22 / M ADM Date: 10/07/22 Loc: ER Room: Type: [facility] ER Attending Dr: Copies to: Suresh [...] Nehemiah Aguilar M.D.10/08/2022 7:49 AM Dictation Location: [facility]-Qgiv Transcribed By: TANK 10/08/22 0749 Dictated By: Nehemiah Aguilar DO 10/08/22 0748 Signed By: 10/08/22 0749 [facility] ECG 12 lead ECGon 10-07-2022 ECG 12 lead ECG [place] [id number] Electrocardiograph Report Signed Patient: Basilio Person MR#: [id number] : 2000 Acct:[id number] Age/Sex: 22 / M ADM Date: 10/07/22 Loc: ER Room: Type: [facility] ER Attending Dr: Ordering Provider: Suresh [...] Signed By Suresh Ospina MD 10/08/22 012 [facility] XR knee LT 4V*on 09-02-2022 XR knee LT 4V* [place] [address] XRay Report Signed Patient: Basilio Person MR#: [id number] : 2000 Acct:[id number] Age/Sex: 21 / M ADM Date: 09/02/22 Loc: ER Room: Type: [facility] ER Attending Dr: Copies to: Andrzej Bell [...] Nehemiah Aguilar M.D.09/02/2022 5:15 PM Dictation Location: [place] [address] Transcribed By: [facility] 09/02/221714 Dictated By: Nehemiah Aguilar DO 09/02/221713 Signed By: 09/02/221714 [facility] Vital Signs Date Time Vital Sign Value Performing Clinician Faci lity 04-06-2023 07:00-0400 Diastolic blood pressure 68 mm[Hg] [facility] Work Phone: [facility] 04-06-2023 07:00-0400 Heart rate 77 /min [facility] Work Phone: [facility] 04-06-2023 07:00-0400 Respiratory rate 18 /min [facility] Work Phone: [facility] 04-06-2023 07:00-0400 SaO2% (BldA) [Mass fraction] 97 % [facility] Work Phone: [facility] 04-06-2023 07:00-0400 Systolic blood pressure 117 mm[Hg] [facility] Work Phone: [facility] 04-06-2023 05:26-0400 Body height 177.8 cm [facility] Work Phone: [facility] 04-06-2023 05:26-0400 Body temperature 98.6 [degF] [facility] Work Phone: [facility] 04-06-2023 05:26-0400 Body weight 97.8 kg [facility] Work Phone: [facility] 02-03-2023 20:47-0400 Body height 177.8 cm [facility] Work Phone: [facility] 02-03-2023 20:47-0400 Body temperature 98 [degF] [facility] Work Phone: [facility] 02-03-2023 20:47-0400 Body weight 95.7 kg [facility] Work Phone: [facility] 02-03-2023 20:47-0400 Diastolic blood pressure 77 mm[Hg] [facility] Work Phone: [facility] 02-03-2023 20:47-0400 Heart rate 87 /min [facility] Work Phone: [facility] 02-03-2023 20:47-0400 Respiratory rate 20 /min [facility] Work Phone: [facility] 02-03-2023 20:47-0400 SaO2% (BldA) [Mass fraction] 100 % [facility] Work Phone: [facility] 02-03-2023 20:47-0400 Systolic blood pressure 138 mm[Hg] [facility] Work Phone: [facility] 12-18-2022 03:46-0400 Heart rate 108 /min [facility] Work Phone: [facility] 12-18-2022 03:46-0400 Respiratory rate 18 /min [facility] Work Phone: [facility] 12-18-2022 03:46-0400 SaO2% (BldA) [Mass fraction] 99 % [facility] Work Phone: [facility] 12-18-2022 03:24-0400 Body height 177.8 cm [facility] Work Phone: [facility] 12-18-2022 03:24-0400 Body temperature 97.9 [degF] [facility] Work Phone: [facility] 12-18-2022 03:24-0400 Body weight 96.7 kg [facility] Work Phone: [facility] 12-18-2022 03:24-0400 Diastolic blood pressure 88 mm[Hg] [facility] Work Phone: [facility] 12-18-2022 03:24-0400 Systolic blood pressure 145 mm[Hg] [facility] Work Phone: [facility] 10-24-2022 12:21-0500 Body height 179.07 cm [facility] Work Phone: [facility] 10-24-2022 12:21-0500 Body temperature 98.7 [degF] [facility] Work Phone: [facility] 10-24-2022 12:21-0500 Body weight 98 kg [facility] Work Phone: [facility] 10-24-2022 12:21-0500 Diastolic blood pressure 64 mm[Hg] [facility] Work Phone: [facility] 10-24-2022 12:21-0500 Heart rate 81 /min [facility] Work Phone: [facility] 10-24-2022 12:21-0500 Respiratory rate 18 /min [facility] Work Phone: [facility] 10-24-2022 12:21-0500 SaO2% (BldA) [Mass fraction] 98 % [facility] Work Phone: [facility] 10-24-2022 12:21-0500 Systolic blood pressure 124 mm[Hg] [facility] Work Phone: [facility] 10-07-2022 21:20-0500 Body height 177.8 cm [facility] Work Phone: [facility] 10-07-2022 21:20-0500 Body temperature 98.4 [degF] [facility] Work Phone: [facility] 10-07-2022 21:20-0500 Body weight 100.35 kg [facility] Work Phone: [facility] 10-07-2022 21:20-0500 Diastolic blood pressure 87 mm[Hg] [facility] Work Phone: [facility] 10-07-2022 21:20-0500 Heart rate 90 /min [facility] Work Phone: [facility] 10-07-2022 21:20-0500 Respiratory rate 20 /min [facility] Work Phone: [facility] 10-07-2022 21:20-0500 SaO2% (BldA) [Mass fraction] 100 % [facility] Work Phone: [facility] 10-07-2022 21:20-0500 Systolic blood pressure 148 mm[Hg] [facility] Work Phone: [facility] 09-02-2022 15:47-0500 Body height 179.07 cm [facility] Work Phone: [facility] 09-02-2022 15:47-0500 Body temperature 98.1 [degF] [facility] Work Phone: [facility] 09-02-2022 15:47-0500 Body weight 98.95 kg [facility] Work Phone: [facility] 09-02-2022 15:47-0500 Diastolic blood pressure 77 mm[Hg] [facility] Work Phone: [facility] 09-02-2022 15:47-0500 Heart rate 74 /min [facility] Work Phone: [facility] 09-02-2022 15:47-0500 Respiratory rate 18 /min [facility] Work Phone: [facility] 09-02-2022 15:47-0500 SaO2% (BldA) [Mass fraction] 100 % [facility] Work Phone: [facility] 09-02-2022 15:47-0500 Systolic blood pressure 137 mm[Hg] Services [employer] [facility] Work Phone: [facility] Encounters Encounter Date Encounter Type Care Provider Facility Start: 04-06-2023 End: 04-06-2023 Emergency department patient visit Jeff Birmingham Facility:[facility] Start: 04-06-2023 End: 04-06-2023 Emergency department patient visit [facility] Work Phone: [facility] Work Phone: Start: 02-03-2023 End: 02-04-2023 Emergency department patient visit Katelyn Stephen Facility:[facility] Start: 02-03-2023 End: 02-03-2023 Emergency department [facility] visit [facility] Work Phone: [facility] Work Phone: Start: 12-18-2022 End: 12-18-2022 Emergency department patient visit Venkat Palencia Jr Facility:[facility] Start: 12-18-2022 End: 12-18-2022 Emergency department patient visit Services [facility] Work Phone: [facility] Work Phone: Start: 10-24-2022 End: 10-24-2022 Emergency department patient visit Services [facility] Facility:[facility] Start: 10-24-2022 End: 10-24-2022 Emergency department patient visit Services [facility] Work Phone: [facility] Work Phone: Start: 10-07-2022 End: 10-08-2022 Emergency department patient visit [facility] Facility:[facility] Start: 10-07-2022 End: 10-07-2022 Emergency department patient visit Services [facility] Work Phone: [facility]Emer[facility] Work Phone: Start: 09-02-2022 End: 09-02-2022 Emergency department patient visit Services [facility] Start: 09-02-2022 End: 09-02-2022 Emergency department patient visit Services [facility] Work Phone: [facility]Emergency Room Work Phone: Procedures Date Procedure Procedure Detail Performing Clinician Start: 02-03-2023 Duplex scan of lower limb veins [facility] [employer] Work Phone: Start: 02-03-2023 X-ray of right knee Services [employer] Phone: Start: 12-18-2022 Plain chest X-ray Services [employer] Phone: Start: 10-24-2022 Streptococcus pyogenes antigen assay Services [employer] Phone: Start: 10-07-2022 Plain chest X-ray [facility] [employer] Work Phone: Start: 10-07-2022 X-ray of soft tissue of neck Services [employer] [facility] Phone: Start: 09-02-2022 Radiologic examination of knee Services [employer] Work Phone: History of appendectomy Status p ost appendectomy Services [employer] Phone: Plan of Treatment Date Care Activity Detail Author Start: 04-06-2023 Computed tomography of abdomen and pelvis with contrast CT abdomen pelvis w con [facility] Start: 04-06-2023 CT Abdomen and Pelvi s W contrast IV [facility] Start: 02-03-2023 Duplex scan of lower limb veins US venous duplex LE RT [facility] Start: 02-03-2023 US Lower extremity v ein - right [facility] Start: 02-03-2023 X-ray of right knee XR knee RT 4V* F [facility] Start: 02-03-2023 XR Knee - right 4 Views [facility] Start: 12-18-2022 Plain chest X-ray XR chest 1V portab [facility] Start: 12-18-2022 XR Chest Single view [facility] Start: 10-24-2022 [facility] Start: 10-07-2022 Plain chest X-ray XR chest 1V portab [facility] Start: 10-07-2022 X-ray of soft tissue of neck XR soft tissue neck [facility] Start: 10-07-2022 XR Chest Single view [facility] Start: 10-07-2022 XR Neck Views [facility] Patient Education [facility] Work Phone: Patient referral [facility] Work Phone: [facility] [Presence] in Serum by RPR [facility] Payers Date Payer Category Payer Medicaid [id number] 2022 Self-pay [id number] Medicaid [employer] [id number] Unknown Regular Auto/Liability [id number] Unknown [id number] Unknown [id number] Unknown [id number] Unknown [id number] Unknown [id number] Unknown [id number] Worker's Compensation [id number] Social History Date Type Detail Facility Start: 09-02-2022 End: 04-06-2023 Tobacco smoking status NHIS Never smoked tobacco (finding) [facility] Start: 2000 Sex Assigned At Male F [facility] Evaluation note Note Date & Type Note Facility Evaluation note No assessment information availa ble [facility] Work Phone: Hospital Discharge instructions Note Date & Type Note Facility Hospital Discharge instructions Additional Instructions Return if symptoms are worse [facility] Work Phone: Hospital Discharge instructions Note Date & Type Note Facility Hospital Discharge instructions Additional Instructions Ice and elevate Tylenol or Naprosyn if needed for pain Follow-up with your PCP or Ortho Return here if any problems persist or worsen [facility] Work Phone: Chief Complaint and [...] Services Family [facility] Primary Care Provider Active Team Status: Inactive Member Role Status Dates Services [facility] Primary Care Provider Active Jeff Mast , DO Family Provider Active Suresh Ospina MD Emergency Provider Active Team Status: Inactive Member Role Status Dates Services [facility] Primary Care Provider Active Jeff Mast , DO Family Provider Active Venkat Palencia Jr, MD Emergency Provider Active Team Status: Inactive Member Role Status Dates Services [facility] Primary Care Provider Active Jeff Mast , DO Family Provider Active Katelyn Stephen APRN Emergency Provider Active Team Status: Inactive Member Role Status Dates Services Family [facility] Primary Care Provider Active Jeff Mast , [...] section and content) DATE CREATED AUTHOR 04/18/2023 [facility] FOR RECORDS PERTAINING TO PATIENTS [...] ON THE PRIMARY CLINICAL RECORDS. [facility] provides no warranty or guarantee of the accuracy or completeness of information in this document.
[2024-12-13 00:20] VITALS: O2SAT 99
--- NOTE | 2024-12-13 00:21 | PC.NURSE ---
pain started 1 week ago, got worse tonight not sure what caused it initially movement makes pain worse denies urinary sx pain does not radiate
--- NOTE | 2024-12-13 00:37 | ED_ITS ---
HPI HPI - Back Pain/Injury General Chief Complaint: Back Pain/Injury Stated Complaint: LOWER BACK PAIN Time Seen by Provider: 12/13/24 00:18 Source: patient Mode of arrival: walk-in Limitations: no limitations History of Present Illness HPI Narrative: This 24-year-old male presents for evaluation of left sided low back pain. The patient states he has been unloading the truck at [employer] for the past several days and thinks that he strained his low back. He has not had any injury. He points to the left lateral quadratus lumborum area as area of greatest pain. It does not radiate into his buttocks or legs. He has no loss of bowel or bladder control. He has no weakness or numbness. There is no chest pain or shortness of breath. He took an ibuprofen around 3 PM earlier before going to work but has not taken any medication since that time. Related Data Previous Rx's ?Medication ?Instructions ?Recorded ibuprofen 600 mg tablet 600 mg PO Q8H PRN pain #20 tabs 11/02/24 Allergies Allergy/AdvReac Type Severity Reaction Status Date / Time No Known Drug Allergies Allergy Verified 12/13/24 00:17 Opioid HPI Opioid Management Most Recent Opioid Data: Last Pain Scale 4 11/02/24 21:29 11/02/24 Review of Systems ROS Status of ROS 10 or more systems reviewed and unremark able except as noted in history and below PFSH PFSH Social History Smoking status: Never smoker Little interest or pleasure in doing things: not at all Feeling down, depressed, or hopeless: not at all Exam Narrative Exam Narrative: Vital signs and Nursing Notes reviewed: Patient is afebrile with a normal pulse, blood pressure is mildly elevated 147/85, he is not hypoxic with pulse ox of 99% on room air General: Awake, alert, oriented, no acute distress, lying comfortably on the stretcher, easily gets off the stretcher and is ambulatory in the room no distress noted HEENT: Normocephalic atraumatic, mucous membranes are moist and pink, eyes are clear, normal conjunctiva, vision is grossly intact Chest: Lungs are clear to auscultation with good air entry, there is no wheezing rhonchi or rales appreciated no accessory muscle use, patient is speaking in complete sentences-no chest wall tenderness to palpation CVS: Regular rate and rhythm S1-S2, no murmurs rubs or gallops, pulses are brisk and equal bilaterally ABD: Soft, nondistended, nontender, no rebound guarding or rigidity, bowel sounds are normal, no pulsatile masses appreciated Musc: No reproducible tenderness in the left lower flank. No redness, swelling or appreciable muscle spasm in this area Extremities: Moving all extremities, no lower extremity tenderness or swelling noted, negative Homans' sign, pulses are brisk and equal bilaterally Skin: Normal in appearance without rash,pallor, petechiae or purpura Neuro: No focal deficits, upper and lower extremity strength and sensation is intact, no saddle anesthesia Constitutional Vital Signs, click to edit/add: Last Vital Signs Temp 99.0 F 12/13/24 00:14 Pulse 95 H 12/13/24 00:14 Resp 18 12/13/24 00:14 BP 147/85 H 12/13/24 00:14 Pulse Ox 99 12/13/24 00:20 O2 Del Method Room Air 12/13/24 00:20 Course Vital Signs Vital signs: Vital Signs Temperature 99.0 F 12/13/24 00:14 Pulse Rate 95 H 12/13/24 00:14 Respiratory Rate 18 12/13/24 00:14 Blood Pressure 147/85 H 12/13/24 00:14 Pulse Oximetry 98 12/13/24 00:14 Oxygen Delivery Method Room Air 12/13/24 00:14 Temperature 99.0 F 12/13/24 00:14 Pulse Rate 95 H 12/13/24 00:14 Respiratory Rate 18 12/13/24 00:14 Blood Pressure 147/85 H 12/13/24 00:14 Pulse Oximetry 99 12/13/24 00:20 Oxygen Delivery Method Room Air 12/13/24 00:20 MDM - Back Pain/Injury MDM Narrative Medical decision making narrative: This 24-year-old male presents for evaluation of left low back pain that he attributes to unloading heavy boxes off of a truck. He works at [employer] and states that for the past several days he has had to unload the heavy frozen boxes from the truck. He denies any injury. He has not had any loss of bowel or bladder control. He has no neurologic symptoms related to his pain. He had taken Motrin earlier in the day. His physical exam was benign. Neuroexam is normal. I reviewed a lumbar film which shows a normal disc height, normal bony structures. Normal soft tissues. He was medicated emergency department with a dose of ibuprofen will be discharged home with prescription for ibuprofen and Parafon forte. I recommended that he do gentle stretching, use moist heat and follow-up closely with his family physician. Discharge Plan Discharge Chief Complaint: Back Pain/Injury Clinical Impression: Lumbar strain Patient Disposition: Home, Self-Care Time of Disposition Decision: 00:52 Condition: Good Prescriptions / Home Meds: No Action ibuprofen 600 mg tablet 600 mg PO Q8H PRN (Reason: pain) Qty: 20 0RF Print Language: Sami Instructions: Low Back Strain (ED) Referrals: [facility] [Primary Care Provider] - 1 week
[2024-12-13] MEDS: IBUPROFEN 600 MG TABLET PO (01:05)
== END 2024-12-13 01:09 | disposition home or self-care (01) ==
PROVIDERS: Emergency Provider Emergency Medicine
DX: S39.012A Strain of muscle, fascia and tendon of lower back, initial encounter (principal); X50.9XXA Other and unspecified overexertion or strenuous movements or postures, initial encounter
CPT/HCPCS: 72100; 99283